=== PATIENT | male | born 1935 | race Caucasian/White ===

== ENCOUNTER → 2018-05-15 07:00 | Outpatient (CLI) | payer OTHER, SELFPAY ==
[2018-05-15 09:14] LABS: AST(SGOT) 18 U/L (15-37); Alanine Aminotransfer ALT/SGPT 21 U/L (16-61); Albumin, Serum 3.6 g/dL (3.2-5.0); Alkaline Phosphatase 46 U/L (45-117); Bilirubin, Direct 0.12 mg/dL (0.00-0.30); Cholesterol 196 mg/dL (200); Globulin 3.7 g/dL (2.2-4.2); High Density Lipoprotein 50 mg/dL; Protein, Total 7.3 g/dL (6.4-8.2); Triglycerides 95 mg/dL; Very Low Density Lipoprotein 19 mg/dL (5-40)
--- NOTE | 2018-05-15 11:21 | STRESSREP ---
Stress Test Report Date: 05/15/2018 Procedure: Pharmacologic stress nuclear imaging study Indications: Chest pain; CAD [place]: PCI Consent: Per the patient Procedure: The patient underwent pharmacologic (Regadenoson) evaluation with a peak heart rate of 81 beats per minute (58 predicted maximal heart rate) and a peak blood pressure of 134/82 mmHg. The baseline ECG demonstrated sinus bradycardia. The peak pharmacologic ECG demonstrated no obvious ECG changes. There were no cardiac dysrhythmias pretest, during pharmacologic infusion, or recovery. There was no complaint of chest discomfort during pharmacologic infusion or recovery. The examination was discontinued secondary to completion of protocol. Impression: 1. Pharmacologic (Regadenoson) evaluation 2. Peak pharmacologic ECG with no obvious ECG changes. 3. There were no cardiac dysrhythmias pretest, during pharmacologic infusion, or recovery 4. Nuclear images pending Myocardial perfusion imaging study: Technique: The patient was injected with 11.9 millicuries of technetium 99m Cardiolite and subsequently rest SPECT Cardiolite nuclear imaging was obtained in the horizontal long, vertical long, and short axis views. The patient underwent pharmacologic (Regadenoson) evaluation with a peak heart rate of 81 beats per minute (58 % percent predicted maximal heart rate) and a peak blood pressure of 134/82 mmHg. The patient was injected with 36 millicuries of technetium 99m Cardiolite and subsequently stress SPECT Cardiolite nuclear imaging was obtained in the horizontal long, vertical long, and short axis views. A gated Cardiolite study at peak stress was obtained. Interpretation: Rest and stress SPECT Cardiolite nuclear imaging status post realignment, normalization, and attenuation correction demonstrate extracardiac/gastrointestinal tracer uptake near the inferior segments with otherwise relative uniform tracer uptake and myocardial perfusion appearing within normal limits. There is end systolic thickening and brightening. The gated Cardiolite study demonstrates myocardial thickening and inward wall motion. The reported LVEF is 60 %. Impression: 1. Rest and stress SPECT Cardiolite nuclear imaging demonstrate relative uniform tracer uptake and myocardial perfusion appearing within normal limits. 2. The gated Cardiolite study reports an LVEF of 60 %. This note was generated with [facility] [employer] software. It may contain incorrect words, spelling, and punctuation that were not noted in checking the note before signing.
--- NOTE | 2018-05-15 11:25 | STRESSREP_ITS ---
Stress Test Report Date: 05/15/2018 Procedure: Pharmacologic stress nuclear imaging study Indications: Chest pain; CAD [place]: PCI Consent: Per the patient Procedure: The patient underwent pharmacologic (Regadenoson) evaluation with a peak heart rate of 81 beats per minute (58 predicted maximal heart rate) and a peak blood pressure of 134/82 mmHg. The baseline ECG demonstrated sinus bradycardia. The peak pharmacologic ECG demonstrated no obvious ECG changes. There were no cardiac dysrhythmias pretest, during pharmacologic infusion, or recovery. There was no complaint of chest discomfort during pharmacologic infusion or recovery. The examination was discontinued secondary to completion of protocol. Impression: 1. Pharmacologic (Regadenoson) evaluation 2. Peak pharmacologic ECG with no obvious ECG changes. 3. There were no cardiac dysrhythmias pretest, during pharmacologic infusion, or recovery 4. Nuclear images pending Myocardial perfusion imaging study: Technique: The patient was injected with 11.9 millicuries of technetium 99m Cardiolite and subsequently rest SPECT Cardiolite nuclear imaging was obtained in the horizontal long, vertical long, and short axis views. The patient underwent pharmacologic (Regadenoson) evaluation with a peak heart rate of 81 beats per minute (58 % percent predicted maximal heart rate) and a peak blood pressure of 134/82 mmHg. The patient was injected with 36 millicuries of technetium 99m Cardiolite and subsequently stress SPECT Cardiolite nuclear imaging was obtained in the horizontal long, vertical long, and short axis views. A gated Cardiolite study at peak stress was obtained. Interpretation: Rest and stress SPECT Cardiolite nuclear imaging status post realignment, normalization, and attenuation correction demonstrate extracardiac/ gastrointestinal tracer uptake near the inferior segments with otherwise relative uniform tracer uptake and myocardial perfusion appearing within normal limits. There is end systolic thickening and brightening. The gated Cardiolite study demonstrates myocardial thickening and inward wall motion. The reported LVEF is 60 %. Impression: 1. Rest and stress SPECT Cardiolite nuclear imaging demonstrate relative uniform tracer uptake and myocardial perfusion appearing within normal limits. 2. The gated Cardiolite study reports an LVEF of 60 %. This note was generated with [employer] software. It may contain incorrect words, spelling, and punctuation that were not noted in checking the note before signing.
[2018-05-15 14:29] LABS: PSA,Total - Annual Screen 0.63 ng/mL (0.00-4.00)
== END ==
PROVIDERS: Family Provider Family Medicine; PCP Family Medicine; Visit Provider Internal Medicine Cardiovascular Disease
DX: I25.10 Atherosclerotic heart disease of native coronary artery without angina pectoris (principal); E78.2 Mixed hyperlipidemia; Z12.5 Encounter for screening for malignant neoplasm of prostate
CPT/HCPCS: 36415; 78452; 80061; 80076; 84153; 93017; A9500; A4216; G0103; J2785

== ENCOUNTER → 2018-05-29 13:37 | Outpatient (CLI) | payer OTHER, SELFPAY ==
[2018-05-29 15:27] LABS: Absolute Lymphocyte Count 1.38 X10^3/ul (0.83-4.51); Absolute Neutrophil Count 4.2 X10^3/uL (2.0-7.7); Basophil# 0.03 X10^3/uL; Basophil% 0.5 % (0-1); Eosinophil# 0.13 X10^3/uL; Hematocrit 41.2 % (40-54); Hemoglobin 13.7 g/dl (13.0-16.5); Lymphocyte # 1.38 X10^3/ul (4.0); Mean Corp Hgb Conc 33.3 g/gl (32-36); Mean Corpuscular Hgb 31.9 pg (27.0-32.0); Mean Corpuscular Volume 95.8 fL (80-94); Monocyte# 0.85 X10^3/uL; Neutrophil # 4.16 X10^3/uL (2.7-7.7); Neutrophil % 63.3 % (47-70); Platelet Count 219 K/mm3 (150-450); RBC Distribution Width CV 13.8 % (11.6-14.6); RBC Distribution Width SD 47.7 fl (35.1-43.9); White Blood Count 6.6 K/mm3 (4.4-11.0)
[2018-05-29 15:37] LABS: POSITIVE COUNT NO; POSITIVE DIFFERENTIAL NO; POSITIVE MORPHOLOGY NO
[2018-05-29 15:42] LABS: Anion Gap 3 (5-15); BUN 18 mg/dL (7-18); BUN/Creat Ratio 17.6 RATIO (10-20); Calcium,Total 8.7 mg/dL (8.5-10.1); Chloride 106 mmol/L (98-107); Creatinine, Serum 1.02 mg/dL (0.70-1.30); EST Glomerular Filtration Rate 74 mL/min (>60); Est Glom Filt Rate - Afr Amer 90 mL/min (>60); Glucose 89 mg/dL (74-106); Potassium 4.6 mmol/L (3.5-5.1); Sodium Level 140 mmol/L (136-145)
== END ==
PROVIDERS: Family Provider Family Medicine; PCP Family Medicine; Visit Provider Family Medicine
DX: Z01.818 Encounter for other preprocedural examination (principal); I25.10 Atherosclerotic heart disease of native coronary artery without angina pectoris
CPT/HCPCS: 36415; 80048; 85025

== ENCOUNTER 2018-06-23 05:36 | Inpatient (IN) | payer SELFPAY, OTHER ==
[2018-06-11 15:21] VITALS: BP 146/82; PULSE 74; RESP 18; TEMP 36.6; O2SAT 97; BMI 28.5
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
--- NOTE | 2018-06-19 11:53 | CASEMGMT ---
Called patient's home and spoke with , patient was sleeping, regarding discharge needs after upcoming surgery. reports that the plan is for patient to return home after surgery if he's good enough to. Daughters will assist patient as is recovering from hip surgery. is unsure if patient has outpatient PT set up yet. Patient and have 2 walkers at home, reports she currently is using both. Informed that RN-CM can assist with getting a walker if needed. There are 2 steps into house with hand railings on both sides of the steps. There is a bedroom and bathroom on the 1st level of the home. Ladonna Gaona LPN Clinical Support
[2018-06-23] VITALS (10 sets, daily range): BP systolic 129–148; BP diastolic 69–82; PULSE 67–88; RESP 16; TEMP 35.6–36.7; O2SAT 95–98; BMI 28.5
[2018-06-23] MEDS: Acetaminophen 500 MG Tablet 1000 MG PO ×3 (06:31→22:24)
[2018-06-23] MEDS: oxyCODONE HCl Cr 10 MG Tablet PO (06:31)
[2018-06-23] MEDS: Lactated Ringers 1,000 ML 125 ML IV ×2 (06:40→15:01)
[2018-06-23] MEDS: Scopolamine 1mg/72hr Patch 1 PATCH TD (07:10)
--- NOTE | 2018-06-23 07:15 | RAD_ITS ---
STUDY: X-RAY - PELVIS AND RIGHT HIP REASON FOR EXAM: Male, 83 years old. Hip replacement. TECHNIQUE: Radiological exam, hip, unilateral, with pelvis when performed; 2 or 3 views. COMPARISON: None. FINDINGS: Intraoperative imaging provided for right hip replacement. There is good alignment. RAD/Hip 1 view with Pelvis IMPRESSION: Status post right total hip replacement. There is good alignment. Electronically Signed: Chinmay Hardin MD at 11:19 EDT Tel [phone], Service support ,
--- NOTE | 2018-06-23 07:16 | PCM.OPRPT ---
Report of Operation Date of Procedure: 06/23/18 Pre-Operative Diagnosis: Right Hip Osteoarthritis Post-Operative Diagnosis: Right Hip Osteoarthritis Surgery/Procedure Performed:: Right Direct Anterior ARMEN Description of Surgical Findings:: Stable hip with equal leg lengths straight line edger: Johnathan Renteria Type of Anesthesia:: Spinal Anesthesiologist: Romulo Bragg Special Medications: 2 g Ancef, 1 g TXA at incision, 1 g TXA closure, 10 mg Decadron, joint cocktail (5 mg Duramorph, 30 mL of 0.5% Ropivicaine, 1000 units of epinephrine, 30 mg of Toradol) Specimen's removed: bony cuts Estimated Blood Loss (mL): 200 Fluids Replaced: 1000 milliliters crystalloid Description of Procedure: Components used: 1. Accolade 2 Ros[place]ba femoral stem size 4 127? 2. [place] trident acetabular shell size 58 mm 3. [place] X3 polyethylene F 4. [place] Biolox delta 36mm, 0mm femoral head Brief history operative indications: 83 yo M who failed conservative measures for their hip osteoarthritis. X-rays were consistent with osteoarthritis including joint space narrowing, osteophyte formation and subchondral cysts. Total hip replacement was discussed with the patient with risks and benefits including but not limited to blood loss, DVTs, PEs, neurovascular damage, dislocation, general risks of anesthesia including loss of life. Patient demonstrated an understanding medical clearance is obtained the patient was consented for surgery. Procedure: On the date of procedure the patient's r hip was marked in the preoperative area. Patient was then taken back to the operating room where anesthesia assumed control of the C-spine and airway and administered anesthetic. Patient was transferred to the operating table and placed in the supine position. The hips were placed at the break of the bed and a sacral bump was placed. The r lower extremity was then prepped out in a sterile fashion using chlorhexidine while the surgeon scrubbed. The PA was vital in the positioning of the patient. Upon reentering the room the r lower extremity was draped in the standard orthopedic fashion and the incision was marked. A timeout was called and everyone agreed upon the side, the site, the procedure be performed, antibody given, and patient's identity. At this time incision was made through skin, subcutaneous tissue, and fat down to fascia. The fascia was then incised and the TFL was retracted laterally. A retractor was placed on the lateral border of the femoral neck. Attention was directed to the inferior portion of the approach and all crossing vessels were identified and appropriately coagulated. A retractor was then placed on the medial portion of the femoral neck. The anterior capsule was then cleared of all soft tissue and then H shaped capsulotomy was made. The retractors were then placed inside the capsule. The femoral neck was identified and a cleanup cut was made. At this time a power corkscrew was used to remove the femoral head. Attention was then turned toward the acetabulum where the soft tissues were appropriately retracted and the acetabulum was sequentially reamed to 57 mm. A 58 mm cup was then selected and impacted into place. Acetabular liner was impacted into place and locking mechanism was verified. The position of the acetabular cup was then verified under live fluoroscopy. Attention was then turned to the femur. Soft tissue releases on the medial and lateral femoral neck were appropriately done, the leg was externally rotated and lateralized. A Thomason retractor was placed medially and proximally to the greater trochanter this allowed appropriate visualization and exposure of the femoral canal. Rongeour was then used to remove excess lateral bone. A canal finder and entry broach were used to open the proximal canal. Once we verified we were down the femoral canal we subsequently broached up to a size 4 femur. The appropriate neck was placed in the previously selected head was trialed with a 0 mm neck. Traction was pulled and the hip was reduced with internal rotation. Once it was appropriately reduced and stability was checked. There was minimal shuck, equal leg lengths and appropriate stability with hyperextension and external rotation as well as with 90? flexion and internal rotation. Fluoroscopy was then also used to verify the position of the components and leg lengths using the contralateral side for comparison. The trial components were then dislocated the proximal femur was again exposed and the components were removed from the wound. The final components were verified and opened. The wound was copiously irrigated out with normal saline. The acetabulum was checked for any residual debris. The final components were placed and impacted. Traction and internal rotation were again used to reduce the hip. After adequate reduction the hip remained stable with appropriate leg lengths. The final components were once again checked with live fluoroscopy and were found to be satisfactory. The wound was then copiously irrigated with normal saline once more, and hemostasis was obtained. Closure was then done using #1 Vicryl runner to close the fascia. A 2-0 vicryl interuppted sutures were used to close the subcutaneous skin. A 3-0 Monocryl and Steri-Strips were used for final skin closure. A Silverlon dressing was placed. Patient was awakened by anesthesia and transferred to the [facility]. Patient was then transferred to the PACU for recovery. Postoperative plan: Patient will get 24 hours postop antibiotics. Patient will get in-house physical therapy and will be weight-bear as tolerated. Patient will follow up in office in 2 weeks for a wound check and x-rays. During the course of the procedure the physician furniture removalist's assistant played a vital role. His intimate knowledge of my steps in the procedure aided in safe and expedient completion of the procedure. The PA played a vital rolls in positioning particularly in obtaining the appropriate positioning of the sacral bump. The PA was also vital in the retraction of soft tissues during the exposure and especially the femoral work as this is a vital part of the procedure to prevent complications and fractures. The PA was also vital and protecting soft tissues during times of bony cuts and reaming. He also played a vital role in closure with my direct supervision. The PA was also important during reduction and dislocation of the joint and trials intraoperatively. Grafts/Implants Used: [place] Accolade 2 - Complications none - Admit VTE Documentation VTE Present on Admission: No VTE Mechan Device Prophylaxis: SCD's, Thigh High DONI Hose VTE Pharm Prophylaxis ordered?: Yes
[2018-06-23] MEDS: Cefazolin 2 GM in 0.9% Normal Saline 100 ML IV (07:18)
--- NOTE | 2018-06-23 09:33 | RAD_ITS ---
STUDY: X-RAY - PELVIS AND RIGHT HIP REASON FOR EXAM: Male, 83 years old. Status post right hip replacement. TECHNIQUE: Radiological exam, hip, unilateral, with pelvis when performed; 2 or 3 views. COMPARISON: None. FINDINGS: The patient is status post right total hip replacement. There is good alignment. Postoperative soft tissue changes. RAD/Hip Min 2 Views (Portable) IMPRESSION: Status post right total hip replacement with good alignment. Postoperative soft tissue changes. Electronically Signed: Chinmay Hardin MD at 11:20 EDT Tel [phone], Service support ,
--- NOTE | 2018-06-23 11:28 | PCM.PN.HOSP ---
Subjective: Patient is an 83-year-old gentleman with multiple comorbidities including CAD who underwent right direct anterior total hip arthroplasty on account of right hip osteoarthritis on 06/23/[address] Camilo the hospitalist service was consulted to assist with management of patient medical comorbidities Objective: GENERAL: cooperative HEENT: Clear conjunctiva, NECK; supple, normal thyroid, CHEST: Clear to auscultation bilaterally, HEART: Regular S1 S2, no audible murmurs ABDOMEN: soft, non-tender, normoactive bowel sounds, RECTAL: deferred EXTREMITIES: No edema, no clubbing, no cyanosis. 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 SKIN: No Rash Vitals/I&O's: Vital Signs Temp Pulse Resp BP Pulse Ox 97.8 F 79 16 145/78 H 95 06/23/18 10:48 06/23/18 10:48 06/23/18 10:48 06/23/18 10:48 06/23/18 10:48 Oxygen Delivery Method Room Air Weight: 87.5 kg Body Mass Index (BMI) 28.5 Finger Stick Blood Glucose 90 Intake and Output for Last 24 Hours 06/21/18 06/22/18 06/23/18 23:59 23:59 23:59 Intake Total 1200 / 1200 Balance 1200 / 1200 Current Medications Acetaminophen (Tylenol) 1,000 mg PO Q8 [facility] Albuterol Sulfate (Ventolin Aerosols) 2.5 mg INHALATION Q6H PRN PRN PRN Reason: Asthma Amlodipine Besylate (Norvasc) 2.5 mg PO DAILY [facility] Aspirin (Ecotrin) 81 mg PO BID [facility] Cyanocobalamin (Vitamin B12) 1,000 mcg PO DAILY [facility] Famotidine (Pepcid) 20 mg PO DAILY [facility] Cefazolin Sodium () 1 gm in 50 mls @ 150 mls/hr IV Q8H [facility] Stop: 06/23/18 23:37 Lactated Ringer's () 1,000 mls @ 125 mls/hr IV .Q8H [facility] Ketorolac Tromethamine (Toradol) 15 mg IV Q6H PRN PRN PRN Reason: MILD-MOD PAIN (1-5/10) Lisinopril (Zestril) 5 mg PO DAILY [facility] Meloxicam (Mobic) 7.5 mg PO BIDCM [facility] Morphine Sulfate () 2 - 4 mg IV Q2H PRN PRN PRN Reason: SEVERE PAIN (6-10/10) Multivitamins (Multivitamin) 1 tablet PO DAILY@0800 [facility] Nitroglycerin (Nitrostat) 0.4 mg SUBLINGUAL Q5M PRN PRN Reason: Chest Pain Nutritional Formula (Lactose Free) (Ensure Clear) 120 ml PO TIDCM [facility] Ondansetron HCl (Zofran) 4 mg IV Q8H PRN PRN PRN Reason: NAUSEA Pravastatin Sodium (Pravachol) 20 mg PO QHS [facility] Promethazine HCl (Phenergan) 12.5 mg IM Q6H PRN PRN; Protocol PRN Reason: NAUSEA/VOMITING Scopolamine HBr (Transderm-Scop) 1 patch TD Q3D [facility] Stop: 06/23/18 12:01 Last Admin: 06/23/18 07:10 Dose: 1.5 mg Senna/Docusate Sodium (Senokot-S, Gloria-Colace) 2 tablet PO BID [facility] Sodium Chloride () 5 - 30 ml IV UD PRN PRN Reason: SALINE FLUSH Tramadol HCl (Ultram) 50 - 100 mg PO Q6H PRN PRN PRN Reason: MOD-SEVERE PAIN (4-10/10) Medical Necessity - Tobacco Use Smoking Status: Never smoker Assessment/Plan All Active Problems (Last Reviewed 05/07/18 @ 14:40 by Elsa Acevedo) Preop cardiovascular exam (Acute) Abnormal electrocardiogram (Resolved) Angina pectoris (Resolved) Bradycardia (Resolved) Chest pain, precordial (Resolved) Cough (Resolved) Dizziness (Resolved) Fatigue (Resolved) Vasovagal syncope (Resolved) Patient is an 83-year-old gentleman with multiple comorbidities including CAD who underwent right direct anterior total hip arthroplasty on account of right hip osteoarthritis on 06/23/[address] Camilo the hospitalist service was consulted to assist with management of patient medical comorbidities 1. Status post Right Direct Anterior on 18 on account of right hip osteo-arthritis by Dr. Chilel. Patient postoperative orders regarding pain management, PT OT as well as DVT prophylaxis addressed by primary service 2. CAD with previous PCI-DAVID x 3 -Prox-Mid LAD 05/06/2012 patient is followed as outpatient by Dr. Maurizio hadley 3. Hypertension-blood pressure controlled, home medications continued with dose adjustment as needed 4. Dyslipidemia-patient is on statin therapy, continued at home dose DVT prophylaxis as addressed by orthopedic surgery patient was placed on aspirin 81 mg p.o. twice daily Active Medications Acetaminophen (Tylenol) 1,000 mg PO Q8 [facility] Albuterol Sulfate (Ventolin Aerosols) 2.5 mg INHALATION Q6H PRN PRN PRN Reason: Asthma Amlodipine Besylate (Norvasc) 2.5 mg PO DAILY [facility] Aspirin (Ecotrin) 81 mg PO BID [facility] Cyanocobalamin (Vitamin B12) 1,000 mcg PO DAILY [facility] Last Admin: 06/23/18 11:39 Dose: 1,000 mcg Famotidine (Pepcid) 20 mg PO DAILY [facility] Last Admin: 06/23/18 11:39 Dose: 20 mg Cefazolin Sodium () 1 gm in 50 mls @ 150 mls/hr IV Q8H [facility] Stop: 06/23/18 23:37 Lactated Ringer's () 1,000 mls @ 125 mls/hr IV .Q8H [facility] Ketorolac Tromethamine (Toradol) 15 mg IV Q6H PRN PRN PRN Reason: MILD-MOD PAIN (1-5/10) Lisinopril (Zestril) 5 mg PO DAILY [facility] Meloxicam (Mobic) 7.5 mg PO BIDCM [facility] Morphine Sulfate () 2 - 4 mg IV Q2H PRN PRN PRN Reason: SEVERE PAIN (6-10/10) Multivitamins (Multivitamin) 1 tablet PO DAILY@0800 [facility] Nitroglycerin (Nitrostat) 0.4 mg SUBLINGUAL Q5M PRN PRN Reason: Chest Pain Nutritional Formula (Lactose Free) (Ensure Clear) 120 ml PO TIDCM [facility] Last Admin: 06/23/18 11:49 Dose: 120 ml Ondansetron HCl (Zofran) 4 mg IV Q8H PRN PRN PRN Reason: NAUSEA Pravastatin Sodium (Pravachol) 20 mg PO QHS [facility] Promethazine HCl (Phenergan) 12.5 mg IM Q6H PRN PRN; Protocol PRN Reason: NAUSEA/VOMITING Senna/Docusate Sodium (Senokot-S, Gloria-Colace) 2 tablet PO BID [facility] Last Admin: 06/23/18 11:39 Dose: 2 tablet Sodium Chloride () 5 - 30 ml IV UD PRN PRN Reason: SALINE FLUSH Tramadol HCl (Ultram) 50 - 100 mg PO Q6H PRN PRN PRN Reason: MOD-SEVERE PAIN (-07/22) Code Visit Inpatient E&M: 47011 Subs Hosp L3
[2018-06-23] MEDS: Cyanocobalamin 500 MCG Tablet 1000 MCG PO (11:39)
[2018-06-23] MEDS: Senna/Docusate Sodium 1 Tablet 2 TABLET PO ×2 (11:39→22:24)
[2018-06-23] MEDS: Famotidine 20 MG Tablet PO (11:39)
[2018-06-23] MEDS: traMADol 50 MG Tablet PO (12:50)
[2018-06-23] MEDS: Cefazolin 1 GM/50 ML BAG IV ×2 (15:00→22:24)
[2018-06-23] MEDS: Meloxicam 7.5 MG Tablet PO (17:43)
[2018-06-23] MEDS: Pravastatin 20 MG Tablet PO (22:24)
[2018-06-23] MEDS: MELATONIN 3 MG TABLET PO (22:36)
[2018-06-24 00:40] VITALS: BP 135/71; PULSE 74; RESP 16; TEMP 36.6; O2SAT 97
[2018-06-24] MEDS: traMADol 50 MG Tablet PO (02:56)
[2018-06-24 05:16] LABS: Hemoglobin 11.7 g/dl (13.0-16.5); Mean Corp Hgb Conc 33.4 g/gl (32-36); Mean Corpuscular Hgb 31.8 pg (27.0-32.0); Mean Corpuscular Volume 95.1 fL (80-94); Mean Platelet Vol. 9.7 fl (6.2-12.0); Platelet Count 195 K/mm3 (150-450); RBC Distribution Width CV 13.5 % (11.6-14.6); RBC Distribution Width SD 44.9 fl (35.1-43.9); Red Blood Count 3.68 M/mm3 (4.6-6.2); White Blood Count 12.7 K/mm3 (4.4-11.0)
[2018-06-24 05:17] LABS: Scan Indicated on CBC? Y/N NO
[2018-06-24 05:43] LABS: Anion Gap 9 (5-15); BUN 25 mg/dL (7-18); BUN/Creat Ratio 23.8 RATIO (10-20); Calcium,Total 8.2 mg/dL (8.5-10.1); Chloride 107 mmol/L (98-107); Creatinine, Serum 1.05 mg/dL (0.70-1.30); EST Glomerular Filtration Rate 72 mL/min (>60); Est Glom Filt Rate - Afr Amer 87 mL/min (>60); Estimated Creatinine Clearance 54.24 ml/min; Glucose 119 mg/dL (74-106); Potassium 4.2 mmol/L (3.5-5.1); Sodium Level 142 mmol/L (136-145)
[2018-06-24 06:31] VITALS: BP 148/76; PULSE 72; RESP 16; TEMP 36.6; O2SAT 98
[2018-06-24] MEDS: Acetaminophen 500 MG Tablet 1000 MG PO ×2 (07:00→13:49)
[2018-06-24] MEDS: 0.9% NaCl Peripheral Flush Adult/Peds IV (07:01)
--- NOTE | 2018-06-24 07:19 | PN.ORTHO_ITS ---
Subjective: The patient was sitting in bedside chair upon examination. Patient denies any chest pain, shortness of breath, dizziness, lightheadedness, nausea or vomiting , or calf pain. Pain is controlled on medications. No adverse overnight events. Overall patient is doing very well. He does complain of some right thigh pain near the surgical site. Otherwise he has no significant complaints and wishes to try to go home today. Objective: Vital signs stable and afebrile. Patient is able to plantarflex and dorsiflex actively. Sensation is intact to light touch to saphenous, sural, superficial and deep peroneal, and tibial distribution. Dressing is clean dry and intact. Negative Homans bilaterally, negative signs and symptoms of DVT. - Physical Exam General: Alert, Oriented x3, Cooperative, No apparent distress Vital Signs Temp Pulse Resp BP Pulse Ox 97.8 F 72 16 148/76 H 98 06/24/18 06:31 06/24/18 06:31 06/24/18 06:31 06/24/18 06:31 06/24/18 06:31 Oxygen Delivery Method Room Air Weight: 87.5 kg Body Mass Index (BMI) 28.5 Finger Stick Blood Glucose 90 Intake and Output for Last 24 Hours 06/22/18 06/23/18 06/24/18 23:59 23:59 23:59 Intake Total 3046 / 3046 Output Total 950 / 950 Balance 2096 / 2096 Laboratory Tests Past 24 Hrs 06/24/18 06/24/18 05:02 05:02 WBC 12.7 H RBC 3.68 L Hgb 11.7 L Hct 35.0 L MCV 95.1 H MCH 31.8 MCHC 33.4 RDW 13.5 RDW Differential 44.9 H Plt Count 195 MPV 9.7 Sodium 142 Potassium 4.2 Chloride 107 Carbon Dioxide 26.0 Anion Gap 9 BUN 25 H Creatinine 1.05 Estim Creat Clear Calc 54.24 Est GFR (MDRD) Af Amer 87 Est GFR (MDRD) Non-Af 72 BUN/Creatinine Ratio 23.8 H Glucose 119 H Calcium 8.2 L Medical Necessity - Tobacco Use Smoking Status: Never smoker Assessment/Plan All Active Problems (Last Reviewed 05/07/18 @ 14:40 by Elsa Acevedo) Preop cardiovascular exam (Acute) Abnormal electrocardiogram (Resolved) Angina pectoris (Resolved) Bradycardia (Resolved) Chest pain, precordial (Resolved) Cough (Resolved) Dizziness (Resolved) Fatigue (Resolved) Vasovagal syncope (Resolved) 1. S/P right total hip arthroplasty POD #1 2. Continue Pain Medications: Tylenol and tramadol 3. DVT Prophylaxis: Aspirin 81 mg twice daily for 4 weeks 4. PT/OT: Weightbearing as tolerated 5. H & H: 11.7/35.0, asymptomatic 6. Leukocytosis: Currently 12.7, afebrile. Patient did receive Decadron intraoperatively 7. Encouraged Incentive Spirometry 8. Continue postoperative medical management per medicine 9. Disposition: Orthopedically stable, plan is for discharge home this afternoon. Patient will follow-up per postop instructions. Prescriptions are E scribed to [facility].
--- NOTE | 2018-06-24 07:23 | PCM.DC.THR ---
Discharge Diet: No Restrictions Discharge Activity: May Not Drive - while taking narcotic pain medications. May shower in (days): 1 - Turned dressing away from water Ice area for (Minutes): 20 - Every 1-2 hours while awake Weight Bearing Status: Weight bearing as tolerated Elevate: Operative Extremity Additional Activity Instructions:: Wear elastic stockings for 2 weeks. DO NOT use alcohol with narcotic pain medication. DO NOT make important decisions while taking narcotic medication. If you have problems with taking your medication (rash, itching, nausea, etc.) call the office at once. Call your doctor if your incision/area has: Increased Pain/ Swelling, Increased Redness, Foul Smelling Discharge Call your doctor if you observe: Fever of 101 or Higher Remove Dressing in (days):: 4 - Okay to remove on June 28, 2018 Additional Instructions: Follow [facility] postop instructions Allergies/Adverse Reactions: Allergies No Known Allergies Allergy (Verified 06/11/18 15:05) Medications to take at Discharge nitroglycerin 0.4 mg sublingual tablet 0.4 mg SUBLINGUAL Q5-15M PRN #25 tab 10/10/17 Albuterol Aerosols [Ventolin Aerosols] 2.5 mg INHALATION Q6H PRN PRN 06/11/18 Amlodipine Besylate [Norvasc] 2.5 mg PO QDAY 06/11/18 Cyanocobalamin (Vitamin B-12) [Vitamin B-12] 1,000 mcg PO DAILY 06/11/18 Lisinopril [Prinivil] 5 mg PO DAILY 06/11/18 Multivitamin [Multiple Vitamins] 1 each PO DAILY 06/11/18 Pravastatin [Pravachol] 20 mg PO QHS 06/11/18 Acetaminophen [Tylenol] 1,000 mg PO Q8 #90 tab 06/24/18 Aspirin E.C. [Ecotrin] 81 mg PO BID #60 tab 06/24/18 Famotidine [Pepcid] 20 mg PO DAILY #30 tab 06/24/18 Melatonin 3 - 6 mg PO QHS tablet 06/24/18 Meloxicam [Mobic] 7.5 mg PO BIDCM #30 tab 06/24/18 Senna/Docusate Sodium [Senokot-S] 2 tab PO BID #20 tab 06/24/18 traMADol [Ultram] 50 - 100 mg PO Q6H PRN PRN 7 Days #56 tablet 06/24/18 The following prescriptions were given: traMADol [Ultram] 50 - 100 mg PO Q6H PRN PRN 7 Days #56 tablet PRN Reason: Mod-Severe Pain (-07/22) Acetaminophen [Tylenol] 1,000 mg PO Q8 #90 tab Famotidine [Pepcid] 20 mg PO DAILY #30 tab Aspirin E.C. [Ecotrin] 81 mg PO BID #60 tab Meloxicam [Mobic] 7.5 mg PO BIDCM #30 tab Senna/Docusate Sodium [Senokot-S] 2 tab PO BID #20 tab Primary Care Physician: Hai Ovalle DO [Primary Care Provider] - Test Results: Test results from this visit will be discussed in further detail at your follow-up appointment, if applicable. Please Follow Up With: Physical therapy When: 06/26/18 Please Follow Up With: Johnathan Renteria PA-C When: 07/06/18 @ 1:30 pm
[2018-06-24] MEDS: Senna/Docusate Sodium 1 Tablet 2 TABLET PO (08:26)
[2018-06-24] MEDS: Aspirin E.C. 81 MG Tablet PO (08:27)
[2018-06-24] MEDS: Cyanocobalamin 500 MCG Tablet 1000 MCG PO (08:27)
[2018-06-24] MEDS: Meloxicam 7.5 MG Tablet PO (08:27)
[2018-06-24] MEDS: Multivitamins,Therapeutic Tablet 1 TABLET PO (08:27)
[2018-06-24] MEDS: Lisinopril 5 MG Tablet PO (08:27)
--- NOTE | 2018-06-24 08:28 | PN_ITS ---
Subjective: Patient seen participating in physical therapy in the hallway. Case was discussed with Dr. Chilel who recommended for patient to be discharged home later this afternoon Objective: GENERAL: cooperative HEENT: Clear conjunctiva, NECK; supple, normal thyroid, CHEST: Clear to auscultation bilaterally, HEART: Regular S1 S2, no audible murmurs ABDOMEN: soft, non-tender, normoactive bowel sounds, RECTAL: deferred EXTREMITIES: No edema, no clubbing, no cyanosis. THERAPEUTIC DIETITIAN: Awake; no lateralizing signs. SKIN: No Rash Vitals/I&O's: Vital Signs Temp Pulse Resp BP Pulse Ox 97.8 F 72 16 148/76 H 98 06/24/18 06:31 06/24/18 06:31 06/24/18 06:31 06/24/18 06:31 06/24/18 06:31 Oxygen Delivery Method Room Air Weight: 87.5 kg Body Mass Index (BMI) 28.5 Finger Stick Blood Glucose 90 Intake and Output for Last 24 Hours 06/22/18 06/23/18 06/24/18 23:59 23:59 23:59 Intake Total 3046 / 3046 289 / 289 Output Total 950 / 950 Balance 2096 / 2096 289 / 289 Laboratory Results 06/24/18 05:02: WBC 12.7 H, RBC 3.68 L, Hgb 11.7 L, Hct 35.0 L, MCV 95.1 H, MCH 31.8, MCHC 33.4, RDW 13.5, RDW Differential 44.9 H, Plt Count 195, MPV 9.7 06/24/18 05:02: Sodium 142, Potassium 4.2, Chloride 107, Carbon Dioxide 26.0, Anion Gap 9, BUN 25 H, Creatinine 1.05, Estim Creat Clear Calc 54.24, Est GFR ( MDRD) Af Amer 87, Est GFR (MDRD) Non-Af 72, BUN/Creatinine Ratio 23.8 H, Glucose 119 H, Calcium 8.2 L Current Medications Acetaminophen (Tylenol) 1,000 mg PO Q8 [facility] Last Admin: 06/24/18 07:00 Dose: 1,000 mg Albuterol Sulfate (Ventolin Aerosols) 2.5 mg INHALATION Q6H PRN PRN PRN Reason: Asthma Amlodipine Besylate (Norvasc) 2.5 mg PO DAILY [facility] Aspirin (Ecotrin) 81 mg PO BID [facility] Cyanocobalamin (Vitamin B12) 1,000 mcg PO DAILY [facility] Last Admin: 06/23/18 11:39 Dose: 1,000 mcg Famotidine (Pepcid) 20 mg PO DAILY [facility] Last Admin: 06/23/18 11:39 Dose: 20 mg Lactated Ringer's () 1,000 mls @ 125 mls/hr IV .Q8H [facility] Last Admin: 06/24/18 06:42 Dose: Not Given Ketorolac Tromethamine (Toradol) 15 mg IV Q6H PRN PRN PRN Reason: MILD-MOD PAIN (1-510) Lisinopril (Zestril) 5 mg PO DAILY [facility] Melatonin (Melatonin) 3 - 6 mg PO QHS [facility] Last Admin: 06/23/18 22:36 Dose: 3 mg [facility]) [facility] Last Admin: 06/23/18 17:43 Dose: 7.5 mg Morphine Sulfate () 2 - 4 mg IV Q2H PRN PRN PRN Reason: SEVERE PAIN (6-1010) Multivitamins (Multivitamin) 1 tablet PO DAILY@0800 [facility] Nitroglycerin (Nitrostat) 0.4 mg SUBLINGUAL Q5M PRN PRN Reason: Chest Pain Nutritional Formula (Lactose Free) (Ensure Clear) 120 ml PO TIDCM [facility] Last Admin: 06/23/18 17:44 Dose: 120 ml Ondansetron HCl (Zofran) 4 mg IV Q8H PRN PRN PRN Reason: NAUSEA Pravastatin Sodium (Pravachol) 20 mg PO QHS [facility] Last Admin: 06/23/18 22:24 Dose: 20 mg Promethazine HCl (Phenergan) 12.5 mg IM Q6H PRN PRN; Protocol PRN Reason: NAUSEA/VOMITING Senna/Docusate Sodium (Senokot-S, Gloria-Colace) 2 tablet PO BID [facility] Last Admin: 06/23/18 22:24 Dose: 2 tablet Sodium Chloride () 5 - 30 ml IV UD PRN PRN Reason: SALINE FLUSH Last Admin: 06/24/18 07:01 Dose: 10 ml Tramadol HCl (Ultram) 50 - 100 mg PO Q6H PRN PRN PRN Reason: MOD-SEVERE PAIN (4-07/22) Last Admin: 06/24/18 02:56 Dose: 50 mg Medical Necessity - Tobacco Use Smoking Status: Never smoker Assessment/Plan All Active Problems (Last Reviewed 05/07/18 @ 14:40 by Elsa Acevedo) Preop cardiovascular exam (Acute) Abnormal electrocardiogram (Resolved) Angina pectoris (Resolved) Bradycardia (Resolved) Chest pain, precordial (Resolved) Cough (Resolved) Dizziness (Resolved) Fatigue (Resolved) Vasovagal syncope (Resolved) Patient is an 83-year-old gentleman with multiple comorbidities including CAD who underwent right direct anterior total hip arthroplasty on account of right hip osteoarthritis on 06/23/[address] Camilo the hospitalist service was consulted to assist with management of patient medical comorbidities 1. Status post Right Direct Anterior on 18 on account of right hip osteo- arthritis by Dr. Chilel. Patient postoperative orders regarding pain management , PT OT as well as DVT prophylaxis addressed by primary service 2. CAD with previous PCI-DAVID x 3 -Prox-Mid LAD 05/06/2012 patient is followed as outpatient by Dr. Steven spine 3. Hypertension-blood pressure controlled, home medications continued with dose adjustment as needed 4. Dyslipidemia-patient is on statin therapy, continued at home dose DVT prophylaxis as addressed by orthopedic surgery patient was placed on aspirin 81 mg p.o. twice daily Active Medications Acetaminophen (Tylenol) 1,000 mg PO Q8 [facility] Albuterol Sulfate (Ventolin Aerosols) 2.5 mg INHALATION Q6H PRN PRN PRN Reason: Asthma Amlodipine Besylate (Norvasc) 2.5 mg PO DAILY [facility] Aspirin (Ecotrin) 81 mg PO BID [facility] Cyanocobalamin (Vitamin B12) 1,000 mcg PO DAILY [facility] Last Admin: 06/23/18 11:39 Dose: 1,000 mcg Famotidine (Pepcid) 20 mg PO DAILY [facility] Last Admin: 06/23/18 11:39 Dose: 20 mg Cefazolin Sodium () 1 gm in 50 mls @ 150 mls/hr IV Q8H [facility] Stop: 06/23/18 23:37 Lactated Ringer's () 1,000 mls @ 125 mls/hr IV .Q8H [facility] Ketorolac Tromethamine (Toradol) 15 mg IV Q6H PRN PRN PRN Reason: MILD-MOD PAIN (-02/19) Lisinopril (Zestril) 5 mg PO DAILY [facility] Meloxicam (Mobic) 7.5 mg PO BIDCM [facility] Morphine Sulfate () 2 - 4 mg IV Q2H PRN PRN PRN Reason: SEVERE PAIN (6-07/22) Multivitamins (Multivitamin) 1 tablet PO DAILY@0800 [facility] Nitroglycerin (Nitrostat) 0.4 mg SUBLINGUAL Q5M PRN PRN Reason: Chest Pain Nutritional Formula (Lactose Free) (Ensure Clear) 120 ml PO TIDCM [facility] Last Admin: 06/23/18 11:49 Dose: 120 ml Ondansetron HCl (Zofran) 4 mg IV Q8H PRN PRN PRN Reason: NAUSEA Pravastatin Sodium (Pravachol) 20 mg PO QHS [facility] Promethazine HCl (Phenergan) 12.5 mg IM Q6H PRN PRN; Protocol PRN Reason: NAUSEA/VOMITING Senna/Docusate Sodium (Senokot-S, Gloria-Colace) 2 tablet PO BID [facility] Last Admin: 06/23/18 11:39 Dose: 2 tablet Sodium Chloride () 5 - 30 ml IV UD PRN PRN Reason: SALINE FLUSH Tramadol HCl (Ultram) 50 - 100 mg PO Q6H PRN PRN PRN Reason: MOD-SEVERE PAIN (-07/22) Code Visit Inpatient E&M: 07162 Subs Hosp L2
[2018-06-24] MEDS: Famotidine 20 MG Tablet PO (08:30)
[2018-06-24] MEDS: amLODIPine 2.5 MG Tablet PO (08:30)
[2018-06-24 10:45] VITALS: BP 123/62; PULSE 64; RESP 18; TEMP 36.8; O2SAT 96
--- NOTE | 2018-06-24 13:19 | CASEMGMT ---
CANDICE CARLOS Face to Face with patient for initial transition planning/care coordination assessment. RN TERRANCE introduced self and role at [facility]. Patient sitting in chair, alert and oriented, son at bedside. Patient willing to participate in assessment and is able to answer all questions appropriately. Care providers, pharmacy, and demographics verified. Patient lives with family in house with first floor and has walker at home. Patient wishes to discharge home and is setup [facility] for outpatient therpay. Patient states he has no further needs or concerns at this time. CM to follow for discharge planning needs that may arise. Disposition Plan: Patient to discharge home with outpatient therapy, family support, and follow-up plans in place. Fina ORTIZ, RN, CM
== END 2018-06-24 14:30 | disposition home or self-care (01) | DRG 470 ==
PROVIDERS: Admitting Provider Specialist; Family Provider Family Medicine; PCP Family Medicine; Visit Provider Specialist
PROC: 0SR904A Replacement of Right Hip Joint with Ceramic on Polyethylene Synthetic Substitute, Uncemented, Open Approach (ICD-10-PCS; CPT 27284; principal; 2018-06-23 06:50)
DX: M16.11 Unilateral primary osteoarthritis, right hip (principal); I25.10 Atherosclerotic heart disease of native coronary artery without angina pectoris; Z95.5 Presence of coronary angioplasty implant and graft; I10 Essential (primary) hypertension; Z79.899 Other long term (current) drug therapy; E78.00 Pure hypercholesterolemia, unspecified; J45.909 Unspecified asthma, uncomplicated; I67.9 Cerebrovascular disease, unspecified
CPT/HCPCS: 36415; 73501; 73502; 76000; 80048; 85027; 87081; 97110; 97162; 97166; 97530; 99251; C1776; J7120; A4216; G0463

== ENCOUNTER → 2019-06-07 | Outpatient (CLI) | payer OTHER, SELFPAY ==
[2019-06-07 10:01] VITALS: BMI 27.1
[2019-06-07 11:41] LABS: AST(SGOT) 18 U/L (15-37); Alanine Aminotransfer ALT/SGPT 25 U/L (16-61); Albumin, Serum 3.6 g/dL (3.2-5.0); Alkaline Phosphatase 50 U/L (45-117); Bilirubin, Direct 0.09 mg/dL (0.00-0.30); Cholesterol 172 mg/dL (200); Globulin 3.6 g/dL (2.2-4.2); High Density Lipoprotein 60 mg/dL; Protein, Total 7.2 g/dL (6.4-8.2); Triglycerides 73 mg/dL; Very Low Density Lipoprotein 15 mg/dL (5-40)
== END | disposition home or self-care (01) ==
LOC: LAB 10:43
PROVIDERS: Family Provider Family Medicine; PCP Family Medicine; Referring Provider Internal Medicine Cardiovascular Disease; Visit Provider Internal Medicine Cardiovascular Disease
DX: E78.00 Pure hypercholesterolemia, unspecified (principal)
CPT/HCPCS: 36415; 80061; 80076

== ENCOUNTER → 2019-09-27 10:48 | Outpatient (CLI) | payer OTHER, SELFPAY ==
[2019-06-07 10:01] VITALS: BMI 27.1
[2019-09-27 12:18] LABS: Absolute Lymphocyte Count 1.54 X10^3/uL (0.83-4.51); Absolute Neutrophil Count 2.7 X10^3/uL (2.0-7.7); Basophil# 0.04 X10^3/uL; Basophil% 0.7 % (0-1); Eosinophils% 3.7 % (0-5); Hematocrit 42.3 % (40-54); Hemoglobin 13.5 g/dL (13.0-16.5); Lymphocyte # 1.54 X10^3/ul (4.0); Lymphocyte % 28.6 % (19-41); Mean Corp Hgb Conc 31.9 g/dL (32-36); Mean Corpuscular Hgb 31.4 pg (27.0-32.0); Mean Corpuscular Volume 98.4 fL (80-94); Mean Platelet Vol. 10.6 fl (6.2-12.0); Monocyte# 0.86 X10^3/uL; NRBC Flagged by Analyzer 0 % (0-5); Neutrophil # 2.73 X10^3/uL (2.7-7.7); Neutrophil % 50.6 % (47-70); Platelet Count 254 K/mm3 (150-450); RBC Distribution Width CV 13.6 % (11.6-14.6); RBC Distribution Width SD 49.3 fl (35.1-43.9); White Blood Count 5.4 K/mm3 (4.4-11.0)
[2019-09-27 12:43] LABS: Anion Gap 4 (5-15); BUN 16 mg/dL (7-18); Calcium,Total 8.9 mg/dL (8.5-10.1); Chloride 106 mmol/L (98-107); Creatinine, Serum 1.07 mg/dL (0.70-1.30); EST Glomerular Filtration Rate 70 mL/min (>60); Est Glom Filt Rate - Afr Amer 85 mL/min (>60); Glucose 89 mg/dL (74-106); PSA,Total - Annual Screen 0.59 ng/mL (0.00-4.00); Potassium 4.1 mmol/L (3.5-5.1); Sodium Level 140 mmol/L (136-145)
== END ==
PROVIDERS: Family Provider Family Medicine; PCP Family Medicine; Visit Provider Family Medicine
DX: I10 Essential (primary) hypertension (principal); Z51.81 Encounter for therapeutic drug level monitoring; Z12.5 Encounter for screening for malignant neoplasm of prostate
CPT/HCPCS: 36415; 80048; 84153; 85025; G0103

== ENCOUNTER 2019-10-19 21:02 | Observation (INO) | payer OTHER, SELFPAY ==
[2019-06-07 10:01] VITALS: BMI 27.1
[2019-10-19 21:03] VITALS: BP 133/76; PULSE 73; RESP 18; TEMP 36.9; O2SAT 96; BMI 27.9
[2019-10-19 21:42] VITALS: BP 151/79; PULSE 72; RESP 14; O2SAT 96
--- NOTE | 2019-10-19 21:42 | EKG12_ITS ---
Test Reason : DIZZINESS Blood Pressure : / mmHG Vent. Rate : 070 BPM Atrial Rate : 070 BPM P-R Int : 186 ms QRS Dur : 100 ms QT Int : 406 ms P-R-T Axes : 058 002 056 degrees QTc Int : 438 ms Normal sinus rhythm Normal ECG Confirmed by SONA CHUA ([id number]), acquisition editor CHUCKIE PERALES ([id number] on 10/21/2019 10:47:55 AM Referred By: DAMIAN Confirmed By:SONA CHUA
--- NOTE | 2019-10-19 21:42 | CT_ITS ---
STUDY: CT BRAIN WITHOUT CONTRAST REASON FOR EXAM: Male, 84 years old. VERTIGO, DIPLOPIA RADIATION DOSAGE (If Supplied By Facility): CTDIvol = ( 44.99 ) mGy, DLP = ( 796.11 ) mGycm TECHNIQUE: Transaxial CT imaging of the brain was performed without administration of intravenous contrast material. Individualized dose optimization techniques were used for this CT. COMPARISON: April 19, 2017 FINDINGS: Normal soft tissue structures. Normal calvarium. Prominent size ventricles with normal extra-axial spaces for the patient''s age. Mild white matter microangiopathic ischemic changes of the cerebral hemispheres. Normal basal ganglia and thalami. Normal brainstem. Normal cerebellum. There is no intracranial hemorrhage. There are no findings of an acute ischemic infarction. Normal visualized paranasal sinuses. CT/Brain/Head without Contrast IMPRESSION: Relatively stable intracranial findings of the brain. No acute intracranial pathology Electronically Signed: Dutch Young DO at 22:42 EST Tel [phone], Service support ,
[2019-10-19] MEDS: 0.9% Normal Saline 1,000 ML 100 ML IV (21:52)
[2019-10-19 21:53] VITALS: BP 151/79; PULSE 74; RESP 12; O2SAT 98
[2019-10-19 21:56] LABS: Absolute Lymphocyte Count 1.63 X10^3/uL (0.83-4.51); Absolute Neutrophil Count 2.7 X10^3/uL (2.0-7.7); Basophil# 0.05 X10^3/uL; Basophil% 0.9 % (0-1); Eosinophil# 0.16 X10^3/uL; Hematocrit 42.2 % (40-54); Hemoglobin 13.8 g/dL (13.0-16.5); Lymphocyte # 1.63 X10^3/ul (4.0); Lymphocyte % 30.1 % (19-41); Mean Corp Hgb Conc 32.7 g/dL (32-36); Mean Corpuscular Volume 97.9 fL (80-94); Monocyte# 0.88 X10^3/uL; Monocyte% 16.2 % (0-10); NRBC Flagged by Analyzer 0 % (0-5); Neutrophil # 2.67 X10^3/uL (2.7-7.7); Neutrophil % 49.2 % (47-70); Platelet Count 239 K/mm3 (150-450); RBC Distribution Width CV 13.5 % (11.6-14.6); RBC Distribution Width SD 49.5 fl (35.1-43.9); Red Blood Count 4.31 M/mm3 (4.6-6.2); White Blood Count 5.4 K/mm3 (4.4-11.0)
--- NOTE | 2019-10-19 22:00 | RAD_ITS ---
STUDY: X-RAY CHEST REASON FOR EXAM: Male, 84 years old. DIZZINESS, BLURRY VISION TECHNIQUE: Frontal view COMPARISON: April 19, 2017 FINDINGS: The lungs are expanded. Mild bibasilar atelectasis. Normal size heart. Normal mediastinum and jennifer. Normal visualized pulmonary arteries. Calcified visualized aortic arch and descending thoracic aorta. Degenerative changes of the thoracic spine. Normal visualized ribs, clavicles, and shoulders. There is no demonstrated abnormality of the visualized soft tissue structures of the upper abdomen. RAD/Chest 1 View IMPRESSION: Mild bibasilar atelectasis. Electronically Signed: Dutch Young DO at 22:43 EST Tel [phone], Service support ,
[2019-10-19 22:09] LABS: Anion Gap 1 (5-15); BUN 17 mg/dL (7-18); BUN/Creat Ratio 14.5 RATIO (10-20); Calcium,Total 8.9 mg/dL (8.5-10.1); Chloride 106 mmol/L (98-107); Creatinine, Serum 1.17 mg/dL (0.70-1.30); EST Glomerular Filtration Rate 63 mL/min (>60); Est Glom Filt Rate - Afr Amer 76 mL/min (>60); Estimated Creatinine Clearance 49.39 ml/min; Glucose 118 mg/dL (74-106); Sodium Level 140 mmol/L (136-145)
[2019-10-19 22:30] LABS: International Normalized Ratio 1.1; Prothrombin Time (Protime)PT. 13.7 SECONDS (11.7-14.9)
[2019-10-19 22:31] LABS: Partial Thromboplast Time 47.5 Seconds (24.1-36.2)
[2019-10-19 22:56] VITALS: BP 152/77; PULSE 70; RESP 14; O2SAT 95
[2019-10-19 23:31] VITALS: BP 177/87; PULSE 74; RESP 13; RESP 16; O2SAT 96
[2019-10-19 23:47] VITALS: BMI 27.9
[2019-10-20] VITALS (13 sets, daily range): BP systolic 118–177; BP diastolic 52–96; PULSE 61–92; RESP 11–18; TEMP 36.4–36.6; O2SAT 93–966; BMI 27.5; BMI 27.6
--- NOTE | 2019-10-20 01:52 | ED.VISSUMM ---
- ER Visit Summary Date of Service: 10/20/19 Chief Complaint: Double vision and dizziness History of Present Illness: The patient is a [address] Keating and Dr. Ovalle. Patient has a poor memory per family. They report at 645 this evening He was eating dinner and complained of double vision and being dizzy. He was helped to the couch and was off balance when he walked. He reports that he felt like he was going to pass out when he walked across the room. Patient reports that the dizziness and double vision lasted for approximately 15 minutes and now have completely resolved. He reports that he still is off balance when he walks. Physical Examination: Vitals: Stable. Afebrile. General: Well-nourished and well-developed. Head: Normocephalic atraumatic. Neck: Supple, no lymphadenopathy. No JVD. Nontender. Cardiovascular: Regular rate and rhythm. No murmurs. Respiratory: No respiratory distress. Clear to auscultation bilaterally. Abdominal: Soft, nontender, nondistended, normal bowel sounds. No guarding, rebound, or peritoneal signs. Back: Nontender. Extremities: Nontender, no edema. Skin: Normal color, no rash. Neurologic: Alert and oriented ?3. Cranial nerves II through XII are intact. Normal strength and sensation. NIH scale is 0. Psych: Normal affect. Test Results: EKG is sinus at 70 with no acute changes. Troponin is negative. Coags are normal. Chem-7 shows a CO2 of 33 and glucose 118. CBC shows monocytes of 16. Chest x-ray shows mild bibasilar atelectasis. Clinical Impression(s) from Imaging Studies Brain CT 10/19/19 21:42 IMPRESSION: Relatively stable intracranial findings of the brain. No acute intracranial pathology Electronically Signed: Dutch Young DO at 22:42 EST Tel [phone], Service support , Chest X-Ray 10/19/19 22:00 IMPRESSION: Mild bibasilar atelectasis. Electronically Signed: Dutch Young DO at 22:43 EST Tel [phone], Service support , Emergency Department Course and Treatment: Patient's NIH scale is 0 upon arrival. He is not a TPA candidate. He has no vertigo or double vision at this time. Treatment Plan: Patient was discussed with Dr. Cole. He will be admitted to the hospital for further evaluation and treatment. Disposition: Admitted in improved condition. Impression: 1. TIA. This note was generated with [employer] dictation software. It may contain incorrect words, spelling, and punctuation that were not noted in review of the chart prior to signing
--- NOTE | 2019-10-20 03:51 | HP.PCM_ITS ---
Problem List (1) Pure hypercholesterolemia Status: Chronic (2) Essential (primary) hypertension Status: Chronic (3) Atherosclerosis of [place] coronary artery of [place] heart without angina pectoris Status: Chronic Comment: PCI-DAVID x 3 -Prox-Mid LAD 05/06/2012 (4) Preop cardiovascular exam Status: Acute (5) History of coronary artery stent placement Status: Chronic Comment: PCI-DAVID x 3 -Prox-Mid LAD 05/06/2012 History of Present Illness Date of Admission: 10/20/19 Chief Complaint: Dizziness, double vision - today The patient is a 84 year old M medical history of CAD status post stents, hypertension, hyperlipidemia who comes in with complaints of double vision and dizziness that happened whilst eating dinner. Patient was helped to his couch by his daughter and was said to be off balance. He felt like he was going to pass out. This lasted for about 15 minutes and then completely resolved. He denied any weakness in any part of his extremities or tingling or numbness. His daughter said this has never happened before this was the first time. Vitals in the ED showed temperature of 98.4F, heart rate 73, blood pressure 133/76, respiration rate of 18, SPO2 was 96% on room air. His RBC count of 5.4, hemoglobin 13.8, platelet count 239, INR 1.1, BMP was unremarkable, troponins were negative. CT scan of the brain showed no acute intracranial process. Chest x-ray showed mild bibasilar atelectasis Past Medical History Past Medical History (Chronic Problems): Chronic Problems (Last Reviewed 06/07/19 @ 10:04 by Marilyn Almodovar) Pure hypercholesterolemia (Chronic) Essential (primary) hypertension (Chronic) Atherosclerosis of [place] coronary artery of [place] heart without angina pectoris (Chronic) PCI-DAVID x 3 -Prox-Mid LAD 05/06/2012 History of coronary artery stent placement (Chronic 05/06/12) PCI-DAVID x 3 -Prox-Mid LAD 05/06/2012 Medical History: Medical History (Last Reviewed 06/07/19 @ 10:04 by Marilyn Almodovar) Pure hypercholesterolemia (Chronic) E78.00 Essential (primary) hypertension (Chronic) I10 Atherosclerosis of [place] coronary artery of [place] heart without angina pectoris (Chronic) I25.10 PCI-DAVID x 3 -Prox-Mid LAD 05/06/2012 Preop cardiovascular exam (Acute) Z01.810 Asthma J45.909 BPH (benign prostatic hyperplasia) N40.0 GERD (gastroesophageal reflux disease) K21.9 Hiatal hernia K44.9 Abnormal electrocardiogram (Resolved) R94.31 Angina pectoris (Resolved) I20.9 Bradycardia (Resolved) R00.1 Chest pain, precordial (Resolved) R07.2 Cough (Resolved) R05 Dizziness (Resolved) R42 Fatigue (Resolved) R53.83 Vasovagal syncope (Resolved) R55 Abnormal result of cardiovascular function study, unspecified (Inactive) R94.30 Allergies No Known Allergies Allergy (Verified 10/19/19 23:50) Home Medications: Ambulatory Orders Medication Instructions Recorded nitroglycerin 0.4 mg sublingual 0.4 mg SUBLINGUAL Q5-15M PRN #25 10/10/17 tablet tab Albuterol Aerosols [Ventolin 2.5 mg INHALATION Q6H PRN PRN 06/11/18 Aerosols] Cyanocobalamin (Vitamin B-12) 1,000 mcg PO DAILY 06/11/18 [Vitamin B-12] Multivitamin [Multiple Vitamins] 1 ea PO BID 06/11/18 aspirin 81 mg tablet,delayed 81 mg PO DAILY tab 08/10/18 release diphenhydramine 25 2 tab PO QHS PRN 08/10/18 mg-acetaminophen 500 mg tablet melatonin 3 mg tablet 3 - 6 mg PO QHS PRN PRN tab 08/10/18 omega 0-tot-zgv-fish oil 120 1 cap PO BID cap 08/10/18 mg-180 mg-500 mg capsule saw palmetto 160 mg capsule 160 mg PO BID 08/10/18 pravastatin 20 mg tablet 20 mg PO QHS #90 tab 03/22/19 amlodipine 2.5 mg tablet 2.5 mg PO QDAY #90 tab 04/23/19 lisinopril 5 mg tablet 5 mg PO DAILY #90 tab 06/17/19 Surgical History: Surgical History (Last Reviewed 06/07/19 @ 10:04 by Marilyn Almodovar) History of coronary artery stent placement (Chronic) Onset Date: 05/06/12 Z95.5 PCI-DAVID x 3 -Prox-Mid LAD 05/06/2012 History of appendectomy Z98.890, Z90.49 History of inguinal hernia repair Onset Date: ~2009 Z98.890, Z87.19 History of left heart catheterization (LHC) Onset Date: 11/18/13 Z98.890 LAD Stents Patent History of repair of hiatal hernia Z98.890, Z87.19 History of total right hip replacement Onset Date: ~06/23/18 Z96.641 Surgical History: - - hernia, appendectomy, coronary artery stent placement Psychiatric History: No pertinent psych hx Lives: Spouse/ Significant Other, With Family Smoking Status: Never smoker Tobacco Use: Non-smoker Alcohol: None Drugs: None - *Family History Paternal Family History: Family History (Last Reviewed 06/07/19 @ 10:04 by Marilyn Almodovar) Mother CHF (congestive heart failure) Brother Cancer History Items: No pertinent history Maternal Family History: Family History (Last Reviewed 06/07/19 @ 10:04 by Marilyn Almodovar) Mother CHF (congestive heart failure) Brother Cancer History Items: Heart Disease Sibling Family History: Family History (Last Reviewed 06/07/19 @ 10:04 by Marilyn Almodovar) Mother CHF (congestive heart failure) Brother Cancer History Items: Cancer Review of Systems Constitutional: Denies: Anorexia, Chills, Fever, Night Sweats, Malaise, Weakness, Weight Change, Fatigue Eyes: Reports: Double vision, Vision Change. Denies: Blurred vision, Cataracts, Conjunctivae Inflammation HEENT: Denies: Difficulty Hearing, Difficulty Swallowing, Head Aches, Sinus Congestion, Sinus Drainage Cardiovascular: Denies: Chest Pain, Claudication, Orthopnea, Palpitations, Paroxysmal Noc. Dyspnea Respiratory: Denies: Cough, Hemoptysis, Shortness of breath at rest, Shortness of breath upon exertion, Sputum production Gastrointestinal: Denies: Abdominal Pain, Constipation, Hematemesis, Nausea, Vomiting Genitourinary: Denies: Dysuria Musculoskeletal: Denies: Joint Pain, Joint Tenderness Skin: Denies: Pruritis, Rash, Wounds Neurological: Denies: Difficulty swallowing, Focal weakness, Numbness, Tingling Psychiatric: Denies: Anxiety, Depression, Homicidal Ideations, Suicidal Ideations Hematologic/ Lymphatic: Denies: Easy Bruising, Easy Bleeding VTE Information - Inpt Only VTE Present on Admission: No VTE Pharm Prophylaxis ordered?: Yes - Physical Exam Vitals/I&O's: Vital Signs Temp Pulse Resp BP Pulse Ox 97.9 F 68 18 172/84 H 98 10/20/19 02:45 10/20/19 03:00 10/20/19 02:45 10/20/19 02:45 10/20/19 02:45 Oxygen Delivery Method Room Air Weight: 87.1 kg Body Mass Index (BMI) 27.5 Finger Stick Blood Glucose 118 General: Alert, Oriented x3, Cooperative, No apparent distress HEENT: Atraumatic, PERRLA, EOMI, Normocephalic Oral: Moist Mucosa Neck: Supple Lungs: Clear to auscultation, Normal air movement Cardiovascular: Regular rate, Regular Rhythm, Normal S1, Normal S2, No murmurs Abdomen: Bowel Sounds Present, Soft, Non Tender, Non-Distended, No Hepato- splenomegaly Extremities: No edema Skin: No rashes, No breakdown Musculoskeletal: No Tenderness to Palpation of Joints or Extremities Lymphatic: No Cervical, Supraclavicular, or Inguinal Adenopathy Neurological: Cranial nerves II-XII grossly intact, Neuro grossly intact Psych/Mental Status: Normal Affect, Appropriate Laboratory Results 10/19/19 21:40: WBC 5.4, RBC 4.31 L, Hgb 13.8, Hct 42.2, MCV 97.9 H, MCH 32.0, MCHC 32.7, RDW Std Deviation 49.5 H, RDW Coeff of [place] 13.5, Plt Count 239, MPV 10.0, Immature Gran % (Auto) 0.600, Neut % (Auto) 49.2, Lymph % (Auto) 30.1, [place] % (Auto) 16.2 H, Eos % (Auto) 3.0, Baso % (Auto) 0.9, Absolute Neuts (auto) 2.7, Absolute Lymphs (auto) 1.63, Nucleated RBC % 0 10/19/19 21:40: PT 13.7, INR 1.1, APTT 47.5 H 10/19/19 21:40: Sodium 140, Potassium 4.0, Chloride 106, Carbon Dioxide 33.0 H, Anion Gap 1 L, BUN 17, Creatinine 1.17, Estim Creat Clear Calc 49.39, Est GFR (MDRD) Af Amer 76, Est GFR (MDRD) Non-Af 63, BUN/Creatinine Ratio 14.5, Glucose 118 H, Calcium 8.9, Troponin I < 0.015 Current Medications Aspirin (Ecotrin) 81 mg PO DAILY SRIKANTH Cyanocobalamin (Vitamin B12) 1,000 mcg PO DAILY SRIKANTH Sodium Chloride () 1,000 mls @ 100 mls/hr IV .Q10H ONE Stop: 10/20/19 07:41 Last Admin: 10/19/19 21:52 Dose: 100 mls/hr Documented by: Sodium Chloride () 250 mls @ 15 mls/hr IV .[id number] PRN PRN Reason: Saline Flush Sodium Chloride () 250 mls @ 15 mls/hr IV .[id number] PRN PRN Reason: Additional IVPB Infusion Sodium Chloride () 10 - 40 ml IV UD PRN PRN Reason: SALINE FLUSH Assessment/Plan All Active Problems (Last Reviewed 06/07/19 @ 10:04 by Marilyn Almodovar) Preop cardiovascular exam (Acute) Abnormal electrocardiogram (Resolved) Angina pectoris (Resolved) Bradycardia (Resolved) Chest pain, precordial (Resolved) Cough (Resolved) Dizziness (Resolved) Fatigue (Resolved) Vasovagal syncope (Resolved) 84 year old M medical history of CAD status post stents, hypertension, hyperlipidemia who comes in with complaints of double vision and dizziness that happened whilst eating dinner. 1. Acute onset of dizziness/double vision concerning for possible TIA/CVA Patient with multiple risk factors. Initial CT of the brain was negative for intracranial process. Patient is on aspirin at home We will start on TIA/stroke protocol, NIHSS, MRI of the brain, MRA of the head and neck, 2D echo, lipid profile, HgbA1c Teleneurology consult to be placed in a.m. 2. Hypertension, controlled, will hold antihypertensive to allow for permissive hypertension seen Resume blood pressure meds after acute CVA has been ruled out 3. CAD status post stents, on aspirin, pravastatin 4. DVT PPx- Heparin SC Code Visit Inpatient E&M: 38815 Init Hosp L2
--- NOTE | 2019-10-20 03:53 | MRI_ITS ---
STUDY: MRA NECK WITH AND WITHOUT CONTRAST REASON FOR EXAM: Male, 84 years old. tia/cva; dizzy, blurred vision TECHNIQUE: 3-D odmy-tn-qvpnlz (TOF) imaging was performed in an 1.5 T MRI scanner. Dotarem IV 17ml was administered for the contrast enhanced images. COMPARISON: None. FINDINGS: RIGHT CAROTID ARTERIES: Normal right common carotid artery (CCA). Normal right common carotid bulb. Normal origin of the right internal carotid (ICA) artery without a hemodynamically significant stenosis. Normal visualized cervical portion of the right internal carotid artery. Normal origin of the right external carotid artery (ECA). LEFT CAROTID ARTERIES: Normal left common carotid artery (CCA). Normal left common carotid bulb. Normal origin of the left internal carotid (ICA) artery without a hemodynamically significant stenosis. Normal visualized cervical portion of the left internal carotid artery. Normal origin of the left external carotid artery (ECA). VERTEBRAL ARTERIES: Normal antegrade flow within the bilateral vertebral artery without a hemodynamically significant stenosis. MRI/MRA Neck WITH and W/O Contrast IMPRESSION: Normal bilateral cervical carotid and vertebral arteries. Electronically Signed: Nico Loyola MD at 11:08 EST Tel , Service support ,
--- NOTE | 2019-10-20 03:53 | MRI_ITS ---
STUDY: MRI BRAIN WITHOUT CONTRAST REASON FOR EXAM: Male, 84 years old. tia/cva; vertigo,dipliopia TECHNIQUE: Standardized multiplanar fat and water weighted pulse sequences were obtained. COMPARISON: 04/20/2017, CT 10/19/2019 FINDINGS: There is moderate cerebral atrophy with widening of the extra-axial spaces and ventricular dilatation. There are a limited number of small white matter hyperintensities, distributed throughout the deep white matter tracts of the cerebral hemispheres, consistent with mild chronic white matter ischemic changes. There is no evidence for recent intracranial ischemia or other cause of cytotoxic edema on diffusion weighted imaging (DWI). Normal T2* images of the brain without demonstrated susceptibility artifact. There is no demonstrated hemosiderin stain. Normal bilateral basal ganglia. Normal thalami. There is no extra-axial fluid accumulation. Normal flow voids within the major intracranial circulation suggesting patency by spin echo criteria. Normal sella turcica, pituitary gland, infundibular stalk, optic chiasm and hypothalamus. Normal tectal plate and pineal gland. Normal midbrain, shant and medulla. Normal cerebellum. Normal basal cisterns. Normal bilateral temporal bones. Normal bilateral internal auditory canals. No demonstrated orbital abnormality, within the constraints of a routine brain study. Normal visualized paranasal sinuses. Normal calvarium and skull base. Normal visualized soft tissue structures. Normal visualized upper cervical spine. MRI/Brain without Contrast IMPRESSION: Involutional changes of the brain, as described above. No acute infarct. Electronically Signed: Nico Loyola MD at 11:00 EST Tel , Service support ,
--- NOTE | 2019-10-20 03:54 | ECHOD_ITS ---
Reason For Study: TIA/CVA Procedure This was a 2D Doppler, Color Flow transthoracic echocardiogram. Exam performed in department. Left Ventricle Mild concentric left ventricular hypertrophy. The estimated ejection fraction is 65 %. Stage 1 diastolic dysfunction. No regional wall motion abnormalities noted. Right Ventricle Normal size and thickness. Normal systolic function. Atria The left atrium is moderately enlarged. Normal right atrium. Normal atrial septum. Bubble contrast study negative for right to left interatrial shunt. Mitral Valve The mitral valve is structurally normal. No prolapse or stenosis seen. Tricuspid Valve Normal tricuspid valve. Mild (1+) tricuspid valve insufficiency. Right ventricular systolic pressure estimated to be 34 mmHg. Aortic Valve Trisinus/trileaflet aortic valve. Aortic sclerosis, no stenosis. Pulmonic Valve Normal pulmonic valve. Great Vessels Normal aortic root. Normal arch. Normal inferior vena cava. Inferior vena cava collapse with sniff. Pericardium/Pleural No pericardial effusion. Medication Performed a rapid injection of agitated mix of 9 cc saline and 1cc air to assess for atrial septal defect. MMode/2D Measurements & Calculations LVIDd: 4.7 cm IVSd: 1.3 cm Ao root diam: 2.7 cm LVIDs: 3.3 cm LVPWd: 1.4 cm RVDd: 3.7 cm FS: 30.4 % LAV(MOD-bp): 93.3 ml LA A4 area: 26.0 cm2 LA dimension(2D): 3.7 cm LAV(MOD-bp) Indexed: 45.5 ml/m2 LAV(MOD-sp2): 86.1 ml LAV(MOD-sp4): 85.3 ml RA A4 area: 16.9 cm2 Time Measurements MV dec time: 0.17 sec Doppler Measurements & Calculations MV E max agustin: 62.0 cm/sec Lat Peak E' [place]ustin: 8.5 cm/sec Med Peak E' Agustin: 5.9 cm/sec MV A max agustin: 106.5 cm/sec E/E' lat: 7.3 E/E' med: 10.6 MV E/A: 0.58 Ao V2 max: 170.7 cm/sec LV V1 max: 102.1 cm/sec PA V2 max: 182.3 cm/sec Ao max P.7 mmHg LV V1 max P.2 mmHg PA V2 mean: 126.1 cm/sec PA V2 VTI: 35.4 cm TR max agustin: 254.0 cm/sec TR max P.9 mmHg Interpretation Summary Mild concentric left ventricular hypertrophy. The estimated ejection fraction is 65 %. Stage 1 diastolic dysfunction. The left atrium is moderately enlarged. Bubble contrast study negative for right to left interatrial shunt. Mild (1+) tricuspid valve insufficiency. Right ventricular systolic pressure estimated to be 34 mmHg. Compared to echo report dated 11/29/2014, no appreciable changes noted. Ordering Physician: Keisha Cole Referring Physician: Hai Ovalle Performed By: Marina Warren RDCS, RVT
--- NOTE | 2019-10-20 03:54 | MRI_ITS ---
STUDY: MRA OF THE HEAD WITHOUT CONTRAST REASON FOR EXAM: Male, 84 years old. tia/cva; vertigo, diplopia TECHNIQUE: 3-D iemn-nj-uizavx (TOF) imaging was performed with MIPs. The study was performed unenhanced. COMPARISON: None. FINDINGS: Normal bilateral petrous carotid arteries. Normal right cavernous carotid artery with a normal supraclinoid bifurcation. Normal left cavernous carotid artery with a normal supraclinoid bifurcation. Normal right A1 segments of the anterior cerebral artery. Normal left A1 segments of the anterior cerebral artery. Normal intact anterior communicating artery (ACOM). Normal bilateral A2 segments of the anterior cerebral arteries. Normal right M1 and M2 segments of the middle cerebral arteries, with a normal M1 bifurcation. Normal left M1 and M2 segments of the middle cerebral arteries, with a normal M1 bifurcation. Normal right posterior communicating artery (PCOM). 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 Normal bilateral vertebral arteries. Normal basilar artery with a normal basilar bifurcation. The visualized bilateral superior cerebellar (SCA) arteries are normal. Normal bilateral P1, P2 and visualized P3 segments of the posterior cerebral arteries. There is no demonstrated aneurysm of the [place]. There is no major vessel occlusion or hemodynamically significant stenosis. There is no demonstrated abnormality of the visualized brain. MRI/MRA Head ONLY without Contrast IMPRESSION: Normal MRA of the head Electronically Signed: Nico Loyola MD at 10:49 EST Tel , Service support ,
[2019-10-20 04:33] LABS: Absolute Lymphocyte Count 1.45 X10^3/uL (0.83-4.51); Absolute Neutrophil Count 1.6 X10^3/uL (2.0-7.7); Basophil# 0.04 X10^3/uL; Eosinophil# 0.17 X10^3/uL; Eosinophils% 4.3 % (0-5); Hematocrit 37.6 % (40-54); Hemoglobin 11.9 g/dL (13.0-16.5); Lymphocyte # 1.45 X10^3/ul (4.0); Lymphocyte % 36.4 % (19-41); Mean Corp Hgb Conc 31.6 g/dL (32-36); Mean Corpuscular Hgb 30.5 pg (27.0-32.0); Mean Corpuscular Volume 96.4 fL (80-94); Mean Platelet Vol. 9.6 fl (6.2-12.0); Monocyte# 0.68 X10^3/uL; Monocyte% 17.1 % (0-10); NRBC Flagged by Analyzer 0 % (0-5); Neutrophil # 1.63 X10^3/uL (2.7-7.7); Neutrophil % 40.9 % (47-70); Platelet Count 207 K/mm3 (150-450); RBC Distribution Width CV 13.5 % (11.6-14.6); RBC Distribution Width SD 48.2 fl (35.1-43.9)
[2019-10-20 05:48] LABS: AST(SGOT) 14 U/L (15-37); Alanine Aminotransfer ALT/SGPT 19 U/L (16-61); Alkaline Phosphatase 38 U/L (45-117); Anion Gap 5 (5-15); BUN 15 mg/dL (7-18); Calcium,Total 7.9 mg/dL (8.5-10.1); Chloride 109 mmol/L (98-107); Cholesterol 167 mg/dL (200); EST Glomerular Filtration Rate 76 mL/min (>60); Est Glom Filt Rate - Afr Amer 92 mL/min (>60); Estimated Creatinine Clearance 57.79 ml/min; Glucose 90 mg/dL (74-106); High Density Lipoprotein 47 mg/dL; Potassium 3.8 mmol/L (3.5-5.1); Sodium Level 141 mmol/L (136-145); Triglycerides 63 mg/dL; Very Low Density Lipoprotein 13 mg/dL (5-40)
[2019-10-20] MEDS: Clopidogrel Bisulfate 75 MG Tablet PO (06:27)
[2019-10-20] MEDS: Heparin Injection (Vial) 5,000 UNIT/ML VIAL 5000 UNIT SC ×2 (06:27→15:28)
--- NOTE | 2019-10-20 09:04 | PCA ---
pt off floor
[2019-10-20] MEDS: Cyanocobalamin 500 MCG Tablet 1000 MCG PO (09:35)
[2019-10-20] MEDS: Aspirin E.C. 81 MG Tablet PO (09:35)
--- NOTE | 2019-10-20 14:29 | DCINST_ITS ---
You will use the following diet at home:: Cardiac Discharge Activity: Return to Normal Activity Call your doctor if you observe: Shortness of breath, Dizziness, Fainting spells, Chest pain Allergies/Adverse Reactions: Allergies No Known Allergies Allergy (Verified 10/19/19 23:50) Medications to take at Discharge nitroglycerin 0.4 mg sublingual tablet 0.4 mg SUBLINGUAL Q5-15M PRN #25 tab 10/10/17 Albuterol Aerosols [Ventolin Aerosols] 2.5 mg INHALATION Q6H PRN PRN 06/11/18 Cyanocobalamin (Vitamin B-12) [Vitamin B-12] 1,000 mcg PO DAILY 06/11/18 Multivitamin [Multiple Vitamins] 1 ea PO BID 06/11/18 aspirin 81 mg tablet,delayed release 81 mg PO DAILY tab 08/10/18 melatonin 3 mg tablet 3 - 6 mg PO QHS PRN PRN tab 08/10/18 omega 8-fvp-asj-fish oil 120 mg-180 mg-500 mg capsule 1 cap PO BID cap 08/10/18 saw palmetto 160 mg capsule 160 mg PO BID 08/10/18 amlodipine 2.5 mg tablet 2.5 mg PO QDAY #90 tab 04/23/19 lisinopril 5 mg tablet 5 mg PO DAILY #90 tab 06/17/19 Atorvastatin Calcium [Lipitor] 40 mg PO QHS #30 tab 10/20/19 Clopidogrel Bisulfate [Plavix] 75 mg PO DAILY #30 tab 10/20/19 The following prescriptions were given: Atorvastatin Calcium [Lipitor] 40 mg PO QHS #30 tab Transmission Status: Pending to [id number] Clopidogrel Bisulfate [Plavix] 75 mg PO DAILY #30 tab Transmission Status: Pending to [id number] Primary Care Physician: Hai Ovalle DO [Primary Care Provider] - Please follow up with your Primary Care Physician in: 1 Week Test Results: Test results from this visit will be discussed in further detail at your follow- up appointment, if applicable. 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
--- NOTE | 2019-10-20 14:32 | DS.PCM_ITS ---
<Ladonna Davis - Last Filed: 10/20/19 14:42> Discharge Date and Diagnosis Date of Admission: 10/20/19 Date of Discharge: 10/20/19 - Primary Discharge Diagnosis 1. TIA 2. CAD with history of PCI 3. Hypertension 4. Hyperlipidemia - Secondary Discharge Diagnosis Chronic Problems (Last Reviewed 06/07/19 @ 10:04 by Marilyn Almodovar) Pure hypercholesterolemia (Chronic) Essential (primary) hypertension (Chronic) Atherosclerosis of [place] coronary artery of [place] heart without angina pectoris (Chronic) PCI-DAVID x 3 -Prox-Mid LAD 05/06/2012 History of coronary artery stent placement (Chronic 05/06/12) PCI-DAVID x 3 -Prox-Mid LAD 05/06/2012 Hospital Course and Treatment Imaging Results: Diagnostic Data Brain CT 10/19/19 21:42 IMPRESSION: Relatively stable intracranial findings of the brain. No acute intracranial pathology Electronically Signed: Dutch Young DO at 22:42 EST Tel [phone], Service support , Chest X-Ray 10/19/19 22:00 IMPRESSION: Mild bibasilar atelectasis. Electronically Signed: Dutch Young DO at 22:43 EST Tel [phone], Service support , Brain MRI 10/20/19 03:53 IMPRESSION: Involutional changes of the brain, as described above. No acute infarct. Electronically Signed: Nico Loyola MD at 11:00 EST Tel , Service support , Neck MRA 10/20/19 03:53 IMPRESSION: Normal bilateral cervical carotid and vertebral arteries. Electronically Signed: Nico Loyola MD at 11:08 EST Tel , Service support , Head MRA 10/20/19 03:54 IMPRESSION: Normal MRA of the head Electronically Signed: Nico Loyola MD at 10:49 EST Tel , Service support , Tele-neurology Operations: None Procedures: 2-D Echocardiogram Summary of Care Provided: The patient is a 84 year old M admitted 10/20/2019 due to dizziness and double vision. 1. TIA-MRI of brain, MRA of head and neck unremarkable. Teleneurology consulted. Probable TIA. Continue aspirin, statin regimen increased to 40 mg p.o. nightly. Plavix added which he will continue for 30 days and then resume aspirin only. Echocardiogram pending and will be reviewed prior to discharge. Orthostatic vitals negative. Outpatient follow-up with neurology. Per neurology, if patient has further symptoms, he may require additional testing as outpatient including EEG, tilt table, Holter monitor if found to be appropriate on an outpatient basis. Also advised patient to discontinue nightly acetaminophen/diphenhydramine regimen and use Tylenol alone. Follow-up with neurology in 1 to 2 weeks. Follow-up with cardiology 1 to 2 weeks as well. 2. CAD with history of PCI-follows with Dr. Keating. Continue aspirin, statin, lisinopril. 3. Hypertension-stable, continue amlodipine, lisinopril regimen. 4. Hyperlipidemia-home statin regimen increased. Patient seen and examined prior to discharge. Physical assessment as noted below. Patient is stable for discharge with follow up recommendations as noted above. This patient was seen by TAMMY Myles under the supervision of Dr. White. - Physical Exam Vitals/I&O's: Vital Signs Temp Pulse Resp BP Pulse Ox 97.5 F L 80 16 158/65 H 97 10/20/19 09:26 10/20/19 11:57 10/20/19 09:26 10/20/19 11:57 10/20/19 09:26 Oxygen Delivery Method Room Air Weight: 192 lb 0.362 oz Body Mass Index (BMI) 27.5 Finger Stick Blood Glucose 118 Orthostatic Vital Signs Start: 10/20/19 11:45 Freq: q24h Status: Active Protocol: Activity Type Activity Date Activity User E-Sign Co-Sign Detail Recorded Client Recorded Date Recorded By Document 10/20/19 11:57 BS [id number] 10/20/19 12:09 BS 10/20/19 11:57 Orthostatic Vitals Standing -Blood Pressure (90/60-120/80) 149/70 H -Extremity Use Left Arm -Pulse Rate (60-100) 92 Sitting -Blood Pressure (90/60-120/80) 156/73 H -Extremity Use Left Arm -Pulse Rate (60-100) 88 Lying -Blood Pressure (90/60-120/80) 158/65 H -Extremity Use Left Arm -Pulse Rate (60-100) 80 Intake and Output for Last 24 Hours 10/18/19 10/19/19 10/20/19 23:59 23:59 23:59 Intake Total 1360 / 1360 Balance 1360 / 1360 General: Alert, Oriented x3, Cooperative HEENT: Atraumatic, PERRLA, EOMI, Normocephalic Neck: Supple, No JVD, Negative Carotid Bruits Lungs: Clear to auscultation, Normal air movement Cardiovascular: Regular rate, Regular Rhythm, Normal S1, Normal S2, No murmurs Abdomen: Bowel Sounds Present, Soft, Non Tender, Non-Distended Extremities: No clubbing, No cyanosis, No edema, Capillary Refill Less than 3 Seconds Skin: No rashes, No breakdown Musculoskeletal: No Tenderness to Palpation of Joints or Extremities Neurological: Cranial nerves II-XII grossly intact, Neuro grossly intact Psych/Mental Status: Normal Affect, Appropriate Laboratory Results 10/19/19 21:40: WBC 5.4, RBC 4.31 L, Hgb 13.8, Hct 42.2, MCV 97.9 H, MCH 32.0, MCHC 32.7, RDW Std Deviation 49.5 H, RDW Coeff of Rylie 13.5, Plt Count 239, MPV 10.0, Immature Gran % (Auto) 0.600, Neut % (Auto) 49.2, Lymph % (Auto) 30.1, [place] % (Auto) 16.2 H, Eos % (Auto) 3.0, Baso % (Auto) 0.9, Absolute Neuts (auto) 2.7, Absolute Lymphs (auto) 1.63, Nucleated RBC % 0 10/19/19 21:40: PT 13.7, INR 1.1, APTT 47.5 H 10/19/19 21:40: Sodium 140, Potassium 4.0, Chloride 106, Carbon Dioxide 33.0 H, Anion Gap 1 L, BUN 17, Creatinine 1.17, Estim Creat Clear Calc 49.39, Est GFR (MDRD) Af Amer 76, Est GFR (MDRD) Non-Af 63, BUN/Creatinine Ratio 14.5, Glucose 118 H, Calcium 8.9, Troponin I < 0.015 10/20/19 04:20: Sodium 141, Potassium 3.8, Chloride 109 H, Carbon Dioxide 27.0, Anion Gap 5, BUN 15, Creatinine 1.00, Estim Creat Clear Calc 57.79, Est GFR (MDRD) Af Amer 92, Est GFR (MDRD) Non-Af 76, BUN/Creatinine Ratio 15.0, Glucose 90, Calcium 7.9 L, Total Bilirubin 0.30, AST 14 L, ALT 19, Alkaline Phosphatase 38 L, Troponin I < 0.015, Total Protein 6.0 L, Albumin 3.0 L, Globulin 3.0, Albumin/Globulin Ratio 1.0, Triglycerides 63, Cholesterol 167, LDL Cholesterol 107, VLDL Cholesterol 13, HDL Cholesterol 47 10/20/19 04:20: WBC 4.0 L, RBC 3.90 L, Hgb 11.9 L, Hct 37.6 L, MCV 96.4 H, MCH 30.5, MCHC 31.6 L, RDW Std Deviation 48.2 H, RDW Coeff of Rylie 13.5, Plt Count 207, MPV 9.6, Immature Gran % (Auto) 0.300, Neut % (Auto) 40.9 L, Lymph % (Auto) 36.4, [place] % (Auto) 17.1 H, Eos % (Auto) 4.3, Baso % (Auto) 1.0, Absolute Neuts (auto) 1.6 L, Absolute Lymphs (auto) 1.45, Nucleated RBC % 0 10/20/19 04:20: Hemoglobin A1c 6.0 Current Medications Acetaminophen (Tylenol) 650 mg PO Q6H PRN PRN PRN Reason: Pain Score 1-10/Temp > 100.7 F Aspirin (Ecotrin) 81 mg PO DAILY [facility] Last Admin: 10/20/19 09:35 Dose: 81 mg Documented by: Atorvastatin Calcium (Lipitor) 40 mg PO QHS [facility] Clopidogrel Bisulfate (Plavix) 75 mg PO DAILY [facility] Last Admin: 10/20/19 06:27 Dose: 75 mg Documented by: Cyanocobalamin (Vitamin B12) 1,000 mcg PO DAILY [facility] Last Admin: 10/20/19 09:35 Dose: 1,000 mcg Documented by: Heparin Sodium (Porcine) (Heparin Na) 5,000 unit SC Q8 [facility] Last Admin: 10/20/19 06:27 Dose: 5,000 unit Documented by: Sodium Chloride () 250 mls @ 15 mls/hr IV .[id number] PRN PRN Reason: Saline Flush Sodium Chloride () 250 mls @ 15 mls/hr IV .[id number] PRN PRN Reason: Additional IVPB Infusion Nitroglycerin (Nitrostat) 0.4 mg SUBLINGUAL Q5M PRN PRN Reason: CARDIAC/CHEST PAIN Ondansetron HCl (Zofran) 4 mg IV Q8H PRN PRN PRN Reason: NAUSEA/VOMITING Sodium Chloride () 10 - 40 ml IV UD PRN PRN Reason: SALINE FLUSH Discharge Diet: Low fat/ Low Cholesterol Discharge Activity: Return to Normal Activity Call your doctor if you observe: Shortness of breath, Dizziness, Fainting spells, Chest pain Home Medications: Medications to take at Discharge nitroglycerin 0.4 mg sublingual tablet 0.4 mg SUBLINGUAL Q5-15M PRN #25 tab 10/10/17 Albuterol Aerosols [Ventolin Aerosols] 2.5 mg INHALATION Q6H PRN PRN 06/11/18 Cyanocobalamin (Vitamin B-12) [Vitamin B-12] 1,000 mcg PO DAILY 06/11/18 Multivitamin [Multiple Vitamins] 1 ea PO BID 06/11/18 aspirin 81 mg tablet,delayed release 81 mg PO DAILY tab 08/10/18 melatonin 3 mg tablet 3 - 6 mg PO QHS PRN PRN tab 08/10/18 omega 2-fpq-nkm-fish oil 120 mg-180 mg-500 mg capsule 1 cap PO BID cap 08/10/18 saw palmetto 160 mg capsule 160 mg PO BID 08/10/18 amlodipine 2.5 mg tablet 2.5 mg PO QDAY #90 tab 04/23/19 lisinopril 5 mg tablet 5 mg PO DAILY #90 tab 06/17/19 Atorvastatin Calcium [Lipitor] 40 mg PO QHS #30 tab 10/20/19 Clopidogrel Bisulfate [Plavix] 75 mg PO DAILY #30 tab 10/20/19 Following Prescrptions Were Given to Patient: Atorvastatin Calcium [Lipitor] 40 mg PO QHS #30 tab Transmission Status: Received by [id number] Clopidogrel Bisulfate [Plavix] 75 mg PO DAILY #30 tab Transmission Status: Received by [id number] Primary Care Physician: Hai Ovalle DO [Primary Care Provider] - Please follow up with your Primary Care Physician in: 1 Week Please Follow Up With: Omi Keating MD When: 1-2 Weeks, may see [employer]/PA Please Follow Up With: Víctor Bender MD When: Neurology, follow up in 2 weeks Disposition: Home Minutes spent on discharge:: 35 Patient Condition:: Stable Medical Necessity - Tobacco Use Smoking Status: Never smoker Tobacco Use: Non-smoker Meaningful Use Info Meaningful Use Diagnoses (Choose all that apply): None applicable <Sajan White - Last Filed: 10/20/19 16:34> Discharge Date and Diagnosis - Secondary Discharge Diagnosis Chronic Problems (Last Reviewed 06/07/19 @ 10:04 by Marilyn Almodovar) Pure hypercholesterolemia (Chronic) Essential (primary) hypertension (Chronic) Atherosclerosis [place] coronary artery of [place] heart without angina pectoris (Chronic) PCI-DAVID x 3 -Prox-Mid LAD 05/06/2012 History of coronary artery stent placement (Chronic 05/06/12) PCI-DAVID x 3 -Prox-Mid LAD 05/06/2012 Hospital Course and Treatment Summary of Care Provided: The patient is a 84 year old M [] - Physical Exam Vitals/I&O's: Vital Signs Temp Pulse Resp BP Pulse Ox 97.5 F L 70 16 118/57 L 95 10/20/19 15:21 10/20/19 15:21 10/20/19 15:21 10/20/19 15:21 10/20/19 15:21 Oxygen Delivery Method Room Air Weight: 192 lb 0.362 oz Body Mass Index (BMI) 27.5 Finger Stick Blood Glucose 118 Orthostatic Vital Signs Start: 10/20/19 11:45 Freq: q24h Status: Active Protocol: Activity Type Activity Date Activity User E-Sign Co-Sign Detail Recorded Client Recorded Date Recorded By Document 10/20/19 11:57 BS [id number] 10/20/19 12:09 BS 10/20/19 11:57 Orthostatic Vitals Standing -Blood Pressure (90/60-120/80) 149/70 H -Extremity Use Left Arm -Pulse Rate (60-100) 92 Sitting -Blood Pressure (90/60-120/80) 156/73 H -Extremity Use Left Arm -Pulse Rate (60-100) 88 Lying -Blood Pressure (90/60-120/80) 158/65 H -Extremity Use Left Arm -Pulse Rate (60-100) 80 Intake and Output for Last 24 Hours 10/18/19 10/19/19 10/20/19 23:59 23:59 23:59 Intake Total 1360 / 1360 Balance 1360 / 1360 Laboratory Results 10/19/19 21:40: WBC 5.4, RBC 4.31 L, Hgb 13.8, Hct 42.2, MCV 97.9 H, MCH 32.0, MCHC 32.7, RDW Std Deviation 49.5 H, RDW Coeff of Rylie 13.5, Plt Count 239, MPV 10.0, Immature Gran % (Auto) 0.600, Neut % (Auto) 49.2, Lymph % (Auto) 30.1, [place] % (Auto) 16.2 H, Eos % (Auto) 3.0, Baso % (Auto) 0.9, Absolute Neuts (auto) 2.7, Absolute Lymphs (auto) 1.63, Nucleated RBC % 0 10/19/19 21:40: PT 13.7, INR 1.1, APTT 47.5 H 10/19/19 21:40: Sodium 140, Potassium 4.0, Chloride 106, Carbon Dioxide 33.0 H, Anion Gap 1 L, BUN 17, Creatinine 1.17, Estim Creat Clear Calc 49.39, Est GFR (MDRD) Af Amer 76, Est GFR (MDRD) Non-Af 63, BUN/Creatinine Ratio 14.5, Glucose 118 H, Calcium 8.9, Troponin I < 0.015 10/20/19 04:20: Sodium 141, Potassium 3.8, Chloride 109 H, Carbon Dioxide 27.0, Anion Gap 5, BUN 15, Creatinine 1.00, Estim Creat Clear Calc 57.79, Est GFR (MDRD) Af Amer 92, Est GFR (MDRD) Non-Af 76, BUN/Creatinine Ratio 15.0, Glucose 90, Calcium 7.9 L, Total Bilirubin 0.30, AST 14 L, ALT 19, Alkaline Phosphatase 38 L, Troponin I < 0.015, Total Protein 6.0 L, Albumin 3.0 L, Globulin 3.0, Albumin/Globulin Ratio 1.0, Triglycerides 63, Cholesterol 167, LDL Cholesterol 107, VLDL Cholesterol 13, HDL Cholesterol 47 10/20/19 04:20: WBC 4.0 L, RBC 3.90 L, Hgb 11.9 L, Hct 37.6 L, MCV 96.4 H, MCH 30.5, MCHC 31.6 L, RDW Std Deviation 48.2 H, RDW Coeff of Rylie 13.5, Plt Count 207, MPV 9.6, Immature Gran % (Auto) 0.300, Neut % (Auto) 40.9 L, Lymph % (Auto) 36.4, [place] % (Auto) 17.1 H, Eos % (Auto) 4.3, Baso % (Auto) 1.0, Absolute Neuts (auto) 1.6 L, Absolute Lymphs (auto) 1.45, Nucleated RBC % 0 10/20/19 04:20: Hemoglobin A1c 6.0 Current Medications Acetaminophen (Tylenol) 650 mg PO Q6H PRN PRN PRN Reason: Pain Score 1-10/Temp > 100.7 F Aspirin (Ecotrin) 81 mg PO DAILY [facility] Last Admin: 10/20/19 09:35 Dose: 81 mg Documented by: Atorvastatin Calcium (Lipitor) 40 mg PO QHS [facility] Clopidogrel Bisulfate (Plavix) 75 mg PO DAILY [facility] Last Admin: 10/20/19 06:27 Dose: 75 mg Documented by: Cyanocobalamin (Vitamin B12) 1,000 mcg PO DAILY [facility] Last Admin: 10/20/19 09:35 Dose: 1,000 mcg Documented by: Heparin Sodium (Porcine) (Heparin Na) 5,000 unit SC Q8 [facility] Last Admin: 10/20/19 15:28 Dose: 5,000 unit Documented by: Sodium Chloride () 250 mls @ 15 mls/hr IV .[id number] PRN PRN Reason: Saline Flush Sodium Chloride () 250 mls @ 15 mls/hr IV .[id number] PRN PRN Reason: Additional IVPB Infusion Nitroglycerin (Nitrostat) 0.4 mg SUBLINGUAL Q5M PRN PRN Reason: CARDIAC/CHEST PAIN Ondansetron HCl (Zofran) 4 mg IV Q8H PRN PRN PRN Reason: NAUSEA/VOMITING Sodium Chloride () 10 - 40 ml IV UD PRN PRN Reason: SALINE FLUSH Code Visit Addendum: Dr. White I personally examined the patient and reviewed the chart. I agree with the above. 84-year-old male presenting with planes of double vision and dizziness that happened while he was eating dinner. He was helped to the couch by his daughter and was said to be off balance and he felt he was a pass out, he was brought into the ER where he started to improve and was feeling better. Today he said that his symptoms had completely resolved and he underwent a CT of the brain which was normal. MRI and MRA of his head and neck were negative for an acute stroke and his echo was unremarkable. At this point based on his history and imaging it looks like this may have just been a syncopal episode. The tele- neurology service was consulted and they felt that this could also be syncope and recommended having tilt table testing as an outpatient, however to continue with Plavix for 30 days and then continue with just aspirin. He will follow-up with neurology in 1 to 2 weeks and cardiology as well in 1 to 2 weeks. OBSV E&M: [id number] Observation care discharge
--- NOTE | 2019-10-20 14:56 | CASEMGMT ---
JANUSZ did not complete a PHQ 9 with patient. He politely declined. Patient's family was also present and stated they feel he is fine and thanked JANUSZ for asking. Sofie GIRALDO MSW
== END 2019-10-20 14:30 | disposition home or self-care (01) ==
LOC: ED 21:49 → PCU 10-20 01:59
PROVIDERS: Admitting Provider Internal Medicine; Emergency Provider Emergency Medicine; Family Provider Family Medicine; PCP Family Medicine; Visit Provider Family Medicine
DX: G45.9 Transient cerebral ischemic attack, unspecified (principal); I25.10 Atherosclerotic heart disease of native coronary artery without angina pectoris; E78.5 Hyperlipidemia, unspecified; I10 Essential (primary) hypertension; Z79.82 Long term (current) use of aspirin; Z79.899 Other long term (current) drug therapy; R29.700 NIHSS score 0; Z95.5 Presence of coronary angioplasty implant and graft; K21.9 Gastro-esophageal reflux disease without esophagitis; N40.0 Benign prostatic hyperplasia without lower urinary tract symptoms; J45.909 Unspecified asthma, uncomplicated; K44.9 Diaphragmatic hernia without obstruction or gangrene
CPT/HCPCS: 36415; 70450; 70544; 70549; 70551; 71045; 80048; 80053; 80061; 83036; 84484; 85025; 85610; 85730; 92610; 93005; 93306; 94762; 96360; 96361; 96372; 97161; 97802; 99218; 99251; 99283; A9575; J7030; Q9957; A4216; G0378; G0463

== ENCOUNTER 2020-10-07 11:12 | Emergency (ER) | payer OTHER, SELFPAY ==
[2020-07-07 13:06] VITALS: BMI 27.1
[2020-10-07 11:14] VITALS: BP 164/78; PULSE 78; RESP 15; TEMP 36.7; O2SAT 98; BMI 27.8
--- NOTE | 2020-10-07 11:18 | RAD_ITS ---
STUDY: X-RAY - PELVIS AND RIGHT HIP REASON FOR EXAM: Male, 85 years old. pt had a fall. limited xrays, pt refused any more xrays because he wasn''t having pain and didn''t understand why ordered them TECHNIQUE: 2 views of the pelvis and hip. COMPARISON: 06/23/2018 FINDINGS: Postsurgical changes of the right hip. No acute fracture or dislocation in the pelvis. Hardware appears intact. RAD/HIP, UNI W/ Pelvis 2-3 Views IMPRESSION: No acute findings Electronically Signed: Manuel Hansen DO at 12:23 EST Tel , Service support ,
--- NOTE | 2020-10-07 11:18 | CT_ITS ---
STUDY: CT BRAIN WITHOUT CONTRAST REASON FOR EXAM: Male, 85 years old. Fall, ? syncope, dizzy, neck pain. RADIATION DOSAGE (If Supplied By Facility): CTDIvol = ( 44.99 ) mGy, DLP = ( 846.73 ) mGycm TECHNIQUE: Transaxial CT imaging of the brain was performed without administration of intravenous contrast material. Individualized dose optimization techniques were used for this CT. COMPARISON: No relevant priors. FINDINGS: Normal soft tissue structures. Normal calvarium. There is moderate cerebral atrophy with widening of the extra-axial spaces and ventricular dilatation. There are areas of decreased attenuation within the white matter tracts of the supratentorial brain, consistent with microvascular disease changes. Normal basal ganglia and thalami. Normal brainstem. Normal cerebellum. There is no intracranial hemorrhage. There are no findings of an acute ischemic infarction. Normal visualized paranasal sinuses. CT/Brain/Head without Contrast IMPRESSION: Chronic involutional changes of the brain. Electronically Signed: Manuel Hansen DO at 12:23 EST Tel , Service support ,
--- NOTE | 2020-10-07 11:18 | CT_ITS ---
STUDY: CT CERVICAL SPINE WITHOUT CONTRAST REASON FOR EXAM: Male, 85 years old. Fall, ? syncope, dizzy, neck pain. RADIATION DOSAGE (If Supplied By Facility): CTDIvol = ( 22.44 ) mGy, DLP = ( 455.32 ) mGycm TECHNIQUE: High resolution transaxial imaging was performed without contrast material. Sagittal and coronal images were reconstructed. Individualized dose optimization techniques were used for this CT. COMPARISON: None FINDINGS: Normal craniovertebral junction. Normal anterior atlantoaxial articulation. Normal odontoid process. Normal cervical lordosis. Normal vertebral bodies and posterior osseous elements. No acute fracture or listhesis. Moderate multilevel degenerative disc disease. No critical central canal stenosis. Normal visualized soft tissue structures. CT/Spine Cervical without Contras IMPRESSION: Multilevel degenerative changes, as described above. Electronically Signed: Manuel Hansen DO at 12:23 EST Tel , Service support ,
--- NOTE | 2020-10-07 11:19 | ED.VIS.GEN ---
History of Present Illness Chief Complaint: Fall Informant: Patient, Family Onset: Today Maximum Severity: Mild Narrative: Patient presents with family and paramedics after he had a dizzy spell at home while in the kitchen fell to the ground he had no LOC he has complaints of some neck pain and bilateral hip pain, he was moving all 4 extremities, History of COPD asthma 3 cardiac stents all of his health conditions have been stable he has been eating and drinking well, he is forgetful he is always dizzy he falls sometimes but generally he is able to execute all of his daily activities and he can walk to his daughter's house. The patient's only complaint is neck pain and bilateral hip pain he denies chest pain abdominal pain he is awake and oriented x3 talking to the daughter Daughter has asked that her chief complaint on patient's part as well as family is the neck and the hip pain due to financial concerns they only want these areas evaluated they do not want an extensive ED evaluation the cost of care Past Medical History - Allergies and Home Meds Allergies/Adverse Reactions: Allergies No Known Allergies Allergy (Verified 10/07/20 11:13) Primary Care Physician: Hai Ovalle DO [Primary Care Provider] - Past Medical History: - Surgical History: - - hernia, appendectomy, coronary artery stent placement Smoking Status: Never smoker - Family History Paternal Family History: Family History (Last Reviewed 07/07/20 @ 13:11 by Marilyn Almodovar) Mother CHF (congestive heart failure) Brother Cancer Family History: Reports: No pertinent history Sibling Family History: Family History (Last Reviewed 07/07/20 @ 13:11 by Marilyn Almodovar) Mother CHF (congestive heart failure) Brother Cancer Family History: Reports: Cancer Maternal Family History: Family History (Last Reviewed 07/07/20 @ 13:11 by Marilyn Almodovar) Mother CHF (congestive heart failure) Brother Cancer Family History: Reports: Heart Disease Review of Systems ROS: - Already extensive asthma dizzy spells General: Reports: - - He is in no distress he has some very mild neck pain mostly to the right paracervical, no step-off, he also has some very vague right hip pain he has an acute no acute findings obviously, he has an incision over the right hip area prior surgery. Denies: Chills, Fever, Sweats Eyes: Denies: Visual changes - bilaterally, Diplopia ENT: Denies: Rhinorrhea, Sore throat Cardiovascular: Denies: Chest pain, Palpitations Respiratory: Denies: Dyspnea, Cough, Dyspnea on exertion Gastrointestinal: Denies: Abdominal pain, Nausea, Vomiting, Diarrhea, Melena, Hematochezia Genitourinary: Denies: Dysuria, Hematuria, Frequency Musculoskeletal: Denies: Back pain, Extremity Pain Skin: Denies: Rash, Wounds Neurological: Denies: Headache, Weakness, Numbness Physical Exam Vital Signs/Narrative: Vital Signs Temp Pulse Resp BP Pulse Ox 10/07/20 11:14 98.0 F 78 15 164/78 H 98 General: Well nourished, Well developed, No Acute Distress Head: Normocephalic, Atraumatic Eyes: Perrl, EOMI ENT: Moist mucous membranes, No rhinorrhea Neck: Supple, Nontender Cardiovascular: Regular rate, Regular rhythm, No murmurs Respiratory: No distress, CTA bilaterally, Chest nontender Abdomen: Soft, Nontender, Nondistended, Normal bowel sounds Back: Nontender, Normal Inspection Extremities: Nontender, No edema Skin: Normal color, No rash Neurological: Alert, Oriented x3, Cranial nerves II-XII grossly intact, Normal Strength, Normal Sensation Psychological: Normal affect, Normal Mood Diagnostic/Tx/Re-eval - Medical Decision Making The patient is awake and alert he really has no complaints and some very mild neck pain and mild bilateral hip pain he has full range of motion of his hips Apparently per the family the patient has no insurance coverage they want a very limited work-up evaluate his neck discomfort and the hip pain nothing more than that they understand the broad differential times for life-threatening conditions but they declined all other management options Patient only agreed to a right hip x-ray/pelvic x-ray 1 view to my review shows right hip prosthesis otherwise some DJD nothing acute radiology generally agrees, Radiology reviewed head neck CT showed DJD nothing acute otherwise see those reports Has been resting in the bed no distress he does not wish to wear the c-collar he indicates that via family and the daughter confirmed with her that he is back to his baseline he wants to go home at this time. The daughter will plan to have him see his outpatient providers for the fall and the chronic intermittent dizziness that he has been experiencing Please note after I went and reviewed that the plain films that he had consented to and the CTs were generally unremarkable showing DJD the family then asked that the ED screening evaluation be completed Patient's EKG showed sinus rhythm rate of 74 no acute injury pattern, the patient's ED screening labs are all generally unremarkable shows reports he is resting comfortably in the bed he has no complaints he is comfortable discharge home follow-up outpatient provider daughter is aware of all the above has been in the room with him and also agrees he will use his cane to help support himself the daughter is concerned that he has chronic dizziness and that is what makes him fall but again she we will have him see his outpatient providers for further management and they both feel he is safe for discharge home Home stable Impression final fall head neck and right hip injury, acute recurrent chronic dizziness ED Disposition - Plan for ED Patient: Diagnosis: Injury of head, face and neck Instructions: ED Mechanical Fall, ED Head Injury (Adult), ED Dizziness, Uncertain Cause Prescriptions: Naproxen [Naprosyn] 500 mg PO BID PRN #20 tab Prescription Printed Referrals: Hai Ovalle DO [Primary Care Provider] -
--- NOTE | 2020-10-07 12:08 | ED.RN ---
radiology reported pt was half way though hip imaging and declined any further imaging
--- NOTE | 2020-10-07 12:43 | EKG12_ITS ---
Test Reason : Blood Pressure : / mmHG Vent. Rate : 074 BPM Atrial Rate : 074 BPM P-R Int : 172 ms QRS Dur : 100 ms QT Int : 398 ms P-R-T Axes : 046 034 068 degrees QTc Int : 441 ms Normal sinus rhythm Normal ECG Confirmed by NAMAN CARPENTER, ED ([id number]), department editor ANAM CIFUENTES ([id number]) on 10/12/2020 10:09:40 AM Referred By: DOROTHEA Confirmed By:TRAVIS FLORENCE MD
--- NOTE | 2020-10-07 13:09 | ED.RN ---
daughter and pt now wants the previously declined bloodwork
--- NOTE | 2020-10-07 13:12 | ED.RN ---
pt refused further xrays
[2020-10-07 13:28] LABS: Absolute Lymphocyte Count 1.13 X10^3/uL (0.83-4.51); Absolute Neutrophil Count 3.7 X10^3/uL (2.0-7.7); Basophil# 0.05 X10^3/uL; Basophil% 0.9 % (0-1); Eosinophil# 0.06 X10^3/uL; Hemoglobin 13.2 g/dL (13.0-16.5); Lymphocyte # 1.13 X10^3/ul (4.0); Lymphocyte % 19.6 % (19-41); Mean Corp Hgb Conc 32.2 g/dL (32-36); Mean Corpuscular Hgb 31.4 pg (27.0-32.0); Mean Corpuscular Volume 97.4 fL (80-94); Mean Platelet Vol. 10.4 fl (6.2-12.0); Monocyte% 13.9 % (0-10); NRBC Flagged by Analyzer 0 % (0-5); Neutrophil # 3.71 X10^3/uL (2.7-7.7); Neutrophil % 64.3 % (47-70); Platelet Count 224 K/mm3 (150-450); RBC Distribution Width CV 13.3 % (11.6-14.6); Red Blood Count 4.21 M/mm3 (4.6-6.2); White Blood Count 5.8 K/mm3 (4.4-11.0)
[2020-10-07 14:10] LABS: Anion Gap 5 (5-15); BUN 18 mg/dL (7-18); BUN/Creat Ratio 17.8 RATIO (10-20); Calcium,Total 8.6 mg/dL (8.5-10.1); Chloride 108 mmol/L (98-107); Creatinine, Serum 1.01 mg/dL (0.70-1.30); EST Glomerular Filtration Rate 75 mL/min (>60); Est Glom Filt Rate - Afr Amer 90 mL/min (>60); Estimated Creatinine Clearance 56.22 ml/min; Glucose 96 mg/dL (74-106); Potassium 4.5 mmol/L (3.5-5.1); Sodium Level 142 mmol/L (136-145)
[2020-10-07 14:26] LABS: BNP,B-Type NATRIURETIC PEPTIDE 36.2 pg/mL (0-100)
[2020-10-07 14:39] VITALS: BP 149/79; PULSE 79; RESP 16; O2SAT 99
[2020-10-07 14:41] LABS: Bacteria 0 SEEN /hpf (None Seen); Mucous, Urine 0 SEEN /hpf (<or=2+); Red Blood Cells-Urine 0 SEEN /hpf (0-5)
[2020-10-07 14:48] LABS: Color, Urine Straw (Yellow); Glucose, Dipstick Normal (Normal); Ketone-Dipstick Negative (Negative); Leukocyte Esterase-Dipstick Negative /ul (Negative); Nitrite-Dipstick Negative (Negative); Occult Blood-Urine Negative /ul (Negative); Protein-Dipstick Negative (Negative); Urine Bilirubin Dipstick Negative (Negative); Urine Clarity Clear (Clear); Urine Urobilinogen Normal (Normal)
[2020-10-07 15:01] VITALS: BP 149/68; PULSE 73; RESP 14; O2SAT 94
[2020-10-07 15:12] LABS: Squamous Epithelial Cells - UA 0-5 SEEN /hpf (0-5); White Blood Cells 0-5 SEEN /hpf (0-5)
== END 2020-10-07 15:24 | disposition home or self-care (01) ==
LOC: ED 11:29
PROVIDERS: Emergency Provider Emergency Medicine; PCP Family Medicine
DX: M54.2 Cervicalgia (principal); M25.551 Pain in right hip; M25.552 Pain in left hip; R42 Dizziness and giddiness; W19.XXXA Unspecified fall, initial encounter; Y93.9 Activity, unspecified; Y92.9 Unspecified place or not applicable; J44.9 Chronic obstructive pulmonary disease, unspecified; Z95.5 Presence of coronary angioplasty implant and graft; Z96.641 Presence of right artificial hip joint
CPT/HCPCS: 70450; 72125; 73502; 80048; 81001; 83880; 84484; 85025; 93005; 99285; A4216

== ENCOUNTER → 2020-12-27 10:49 | Outpatient (CLI) | payer OTHER, SELFPAY ==
[2020-11-21 08:37] VITALS: BMI 28.6
[2020-12-27 11:39] LABS: Hematocrit 43.5 % (40-54); Hemoglobin 13.8 g/dL (13.0-16.5); Mean Corp Hgb Conc 31.7 g/dL (32-36); Mean Corpuscular Hgb 31.4 pg (27.0-32.0); Mean Corpuscular Volume 98.9 fL (80-94); Mean Platelet Vol. 10.3 fl (6.2-12.0); Platelet Count 254 K/mm3 (150-450); RBC Distribution Width CV 13.2 % (11.6-14.6); RBC Distribution Width SD 47.8 fl (35.1-43.9); White Blood Count 4.9 K/mm3 (4.4-11.0)
[2020-12-27 12:12] LABS: Vitamin B12 1102 pg/mL (211-911)
[2020-12-27 12:50] LABS: AST(SGOT) 18 U/L (15-37); Alanine Aminotransfer ALT/SGPT 27 U/L (16-61); Albumin, Serum 3.6 g/dL (3.2-5.0); Alkaline Phosphatase 50 U/L (45-117); Anion Gap 3 (5-15); BUN 16 mg/dL (7-18); BUN/Creat Ratio 15.8 RATIO (10-20); Chloride 105 mmol/L (98-107); Creatinine, Serum 1.01 mg/dL (0.70-1.30); EST Glomerular Filtration Rate 75 mL/min (>60); Est Glom Filt Rate - Afr Amer 90 mL/min (>60); Globulin 3.7 g/dL (2.2-4.2); Glucose 99 mg/dL (74-106); Potassium 3.8 mmol/L (3.5-5.1); Protein, Total 7.3 g/dL (6.4-8.2); Sodium Level 140 mmol/L (136-145)
== END ==
PROVIDERS: PCP Family Medicine; Referring Provider Psychiatry & Neurology Neurology; Visit Provider Psychiatry & Neurology Neurology
DX: F03.90 Unspecified dementia, unspecified severity, without behavioral disturbance, psychotic disturbance, mood disturbance, and anxiety (principal); G20 Parkinson's disease
CPT/HCPCS: 36415; 80053; 82607; 82746; 84443; 85027

== ENCOUNTER → 2021-06-28 09:00 | Outpatient (CLI) | payer OTHER, SELFPAY ==
[2021-06-28 11:41] LABS: AST(SGOT) 18 U/L (15-37); Alanine Aminotransfer ALT/SGPT 31 U/L (16-61); Albumin, Serum 3.3 g/dL (3.2-5.0); Alkaline Phosphatase 52 U/L (45-117); Bilirubin, Direct 0.12 mg/dL (0.00-0.30); Cholesterol 153 mg/dL (200); High Density Lipoprotein 57 mg/dL; Protein, Total 7.3 g/dL (6.4-8.2); Triglycerides 87 mg/dL; Very Low Density Lipoprotein 17 mg/dL (5-40)
== END ==
PROVIDERS: PCP Family Medicine; Referring Provider Psychiatry & Neurology Neurology; Visit Provider Psychiatry & Neurology Neurology
DX: E78.00 Pure hypercholesterolemia, unspecified (principal)
CPT/HCPCS: 36415; 80061; 80076

== ENCOUNTER → 2022-08-23 | Outpatient (CLI) | payer OTHER, SELFPAY ==
--- NOTE | 2022-08-23 15:04 | SP.MBSS_ITS ---
Modified Barium Swallow - Patient Information Study Date: 08/23/22 Study Time: 13:00 Direct Billable Minutes: 105 Total Minutes procedure & reportin Diagnosis: Parkinson's disease (G20), Dysphagia (R13.10) Referring Physician: Johnathan Olmstead Reason for Referral: Objectively assess swallow function, risk for aspiration, and determine recommendations for least restrictive diet textures and compensatory strategies to improve safety of swallow. 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 The patient's daughter, Vianey, was present for the evaluation. She provided history. The patient coughs mostly with intake of liquids and pills. This happens about every other day and has occurred for the past 6-12 months. He lives at home with his . Current Diet Ordered: Regular textures / Thin liquids Dentition: Natural Teeth - missing 1 Mental Status: Impaired - hx of dementia Respiratory Status: Oxygenating on Room Air - Penetration-Aspiration Scale Penetration-Aspiration Scale: OBJECTIVE ASSESSMENT OF SWALLOW FUNCTION (QUANTITATIVE ? PER TRIAL): PENETRATION / ASPIRATION SCALE (RUSSELL): 1 = does not enter airway 2 = enters airway/above vocal folds/ejected 3 = enters airway/above vocal folds/not ejected 4 = enters airway/contacts vocal folds/ejected 5 = enters airway/contacts vocal folds/not ejected 6 = enters airway/below vocal folds/ejected 7 = enters airway/below vocal folds/not ejected despite effort 8 = enters airway/below vocal folds/no effort VIDEOFLOROSCOPIC SCALE SCORE (RUSSELL): Grade I = aspiration of material that has penetrated into the laryngeal vestibule, intact cough reflex Grade II = aspiration < 10 % of the bolus, intact cough reflex Grade III = aspiration of < 10 % of the bolus, reduced cough reflex or aspiration of > 10 % of the bolus, intact cough reflex Grade IV = aspiration of > 10 % of the bolus, reduced cough reflex - Penetration-Aspiration Scale Score Thin Liquid via teaspoon Result: 1= does not enter airway Thin Liquid via teaspoon Trial 2 Result: 1= does not enter airway Thin Liquid via small single sip from cup Result: 2= enter airway/above vocal folds/ejected Thin Liquid via sequential sips from cup Result: 5= enters airways/contacts vocal folds/not ejected - cued cough and re- swallow after the trial, which effectively mostly cleared residue from the laryngeal vestibule Ulen Thick Liquid via small single sip from cup Result: 1= does not enter airway Honey Thick Liquid via small single sip from cup Result: 1= does not enter airway Pudding via teaspoon with esophageal screen Result: 1= does not enter airway Thin liquid via straw with esophageal screen Result: 1= does not enter airway 1/4 Cookie Result: 1= does not enter airway Thin Liquid via small single sip from cup Effortful swallow Result: 1= does not enter airway Barium Tablet with water Result: 1= does not enter airway Comment: Barium tablet became caught in the vallecula. Liquid wash did not clear. Barium pudding did not clear. Chin tuck did not clear. Sequential sips of water finally cleared. Barium Tablet with applesauce and effortful swallow Result: 1= does not enter airway Comment: Barium tablet cleared pharynx on the first swallow - Oral Phase Labial Seal: Escape progressing to mid-chin Tongue Control During Bolus Hold: Posterior escape of less than half of bolus Bolus Preparation/Mastication: Timely and efficient chewing and mashing Bolus Transport/Lingual Motion: Delayed initiation of tongue motion Oral Residue: Trace residue lining oral structures - Pharyngeal Phase Initiation of Pharyngeal Swallow: Bolus head at posterior laryngeal surgace of epiglottis Soft Palate Elevation: Trace column of contrast/air between soft palate and pharyngeal wall Laryngeal Elevation: Partial superior movement thyroid cart/partial apprx aryt- epig petiole Anterior Hyoid Excursion: Partial anterior movement Epiglottic Movement: Partial inversion Laryngeal Vestibule Closure at Height of Swallow: Incomplete; narrow column of air/contrast in laryngeal vestibule Pharyngeal Stripping Wave: Present - diminished Pharyngoesophageal Segment Opening: Parital distension and partial duration; parital obstruction of flow Tongue Base Retraction: Wide column of contrast between tongue base & post. pharyngeal wall Pharyngeal Residue: Collection of residue within or on pharyngeal structures - Esophageal Phase Esophageal Clearance: Esophageal retention w/ retrograde flow below pharyngoesophageal seg. - Diagnosis/Impression Diagnosis: Mild-moderate oropharyngeal phase dysphagia (R13.12) Impression: The oral phase is primarily marked by... -Mildly decreased bolus control with <1/2 of the bolus spilling posteriorly to the posterior surface of the epiglottis prior to swallow onset observed with thin liquids especially. -Mildly delayed tongue motion for A-P transport with thin liquids. The pharyngeal phase is primarily marked by... -Mildly decreased airway closure during the swallow due to decreased anterior hyoid excursion, partial epiglottic inversion, and decreased laryngeal elevation. -Moderately decreased tongue base retraction, moderately decreased UES opening/duration, and diminished pharyngeal stripping wave with resulting moderate pharyngeal residues after the swallow. Hard swallows with liquids decreased pharyngeal residue. Pharyngeal retention of barium tablet requiring sequential liquids to wash. He would benefit from crushed medications. If unable to crush, he did clear tablet from pharynx in applesauce with use of hard swallow. -Laryngeal penetration of sequential sips of thin liquids, which did not reliably eject from the laryngeal vestibule after the swallow. Use of single sips were most effective in decreasing laryngeal penetration. No aspiration observed during the study. The esophageal phase is primarily marked by... -Esophageal retention of pudding and thin liquids in lower esophagus with retrograde flow remaining well below UES. - Recommendations Diet: Regular Textures, Thin Liquids Comment: pills crushed as able, if unable to crush will recommend taking them one at a time in applesauce with hard swallow Compensatory Strategies: Small Bites, Small Sips - hard swallows with sips, Slow Rate - sips one at a time, Alternate bites/solids and sips/liquids, Sitting upright, Remain sitting upright for 30 minutes after PO intake Recommend Repeat Modified Barium Swallow: TBD Need for Skilled Speech Therapy Services: Yes Comment: Will recommend the patient for outpatient dysphagia therapy to address deficits in oropharyngeal swallow function. Will recommend the patient for oropharyngeal strengthening to improve laryngeal elevation, hyoid excursion, tongue base retraction, pharyngeal contraction, and duration of UES opening (Stella, CTAR, effortful, effortful breath hold and swallow). The patient would benefit from thorough education regarding diet recommendations and recommended compensatory strategies. Education Completed: 1. Described result of evaluation., 4. Family/caregivers understand evaluation & agree w/ goals & tx plan., 7. Pt requires further education on strategies & risks. - Status Active ST Patient: Active - Contact Information [facility] Speech Therapy:: Oly Munoz M.A. [facility] [employer] MACHINE OPERATOR Speech-Language Pathologist [facility] [address] [place] [address] [email or web address] [phone] 08/23/22 15:10
== END | disposition home or self-care (01) ==
LOC: RAD 12:53
PROVIDERS: PCP Family Medicine; Visit Provider Psychiatry & Neurology Neurology
DX: K11.7 Disturbances of salivary secretion (principal); G20 Parkinson's disease; R13.10 Dysphagia, unspecified
CPT/HCPCS: 74230; 92611

== ENCOUNTER 2022-09-28 04:48 | Emergency (ER) | payer OTHER, SELFPAY ==
[2022-09-28 04:50] VITALS: BP 200/92; PULSE 81; RESP 16; TEMP 36.4; O2SAT 95; BMI 26.5
[2022-09-28 05:01] VITALS: BP 183/89
--- NOTE | 2022-09-28 05:17 | RAD_ITS ---
STUDY: X-RAY CHEST REASON FOR EXAM: Male, 87 years old patient with cough. TECHNIQUE: Single AP portable view of the chest. COMPARISON: Chest radiograph dated October 19, 2019. FINDINGS: Cardiac monitoring leads are present. The lungs are clear and expanded. There is no demonstrated pleural abnormality. Normal size heart. Normal mediastinum and jennifer. Normal visualized pulmonary arteries. There is atherosclerotic calcification of the aortic arch with tortuosity. There are diffuse degenerative changes of the visualized thoracic spine. Normal visualized ribs, clavicles, and shoulders. There is no demonstrated abnormality of the visualized soft tissue structures of the upper abdomen. RAD/Chest 1 View (Portable) IMPRESSION: No radiographic evidence of acute cardiopulmonary disease. Electronically Signed: Fannie Resendez MD at 6:04 EST ,
--- NOTE | 2022-09-28 05:17 | CT_ITS ---
STUDY: CT BRAIN WITHOUT CONTRAST REASON FOR EXAM: Male, 87 years old patient with altered mental status. RADIATION DOSAGE (If Supplied By Facility): CTDIvol = ( 44.99 ) mGy, DLP = ( 863.60 ) mGycm TECHNIQUE: Transaxial CT imaging of the brain was performed without administration of intravenous contrast material. Multiplanar reformations are submitted for interpretation. Individualized dose optimization techniques were used for this CT. COMPARISON: CT of the chest dated October 07, 2020. FINDINGS: Normal soft tissue structures. Normal calvarium. There is mild cerebral atrophy with widening of the extra-axial spaces and moderate ventricular dilatation. Normal white matter tracts of the cerebral hemispheres. Normal basal ganglia and thalami. Normal brainstem. Normal cerebellum. There is no intracranial hemorrhage. There is atherosclerotic calcification of the intracranial arteries. Normal visualized paranasal sinuses. CT/Brain/Head without Contrast IMPRESSION: 1. Chronic involutional changes of the brain. 2. Moderate ventriculomegaly is unchanged since previous CT. 3. No CT evidence of mass or acute intracranial hemorrhage. Electronically Signed: Fannie Resendez MD at 6:13 [facility] ,
--- NOTE | 2022-09-28 05:18 | EKG12_ITS ---
Test Reason : HTN Blood Pressure : / mmHG Vent. Rate : 080 BPM Atrial Rate : 080 BPM P-R Int : 186 ms QRS Dur : 100 ms QT Int : 398 ms P-R-T Axes : 028 -23 039 degrees QTc Int : 459 ms Sinus rhythm with Premature atrial complexes Otherwise normal ECG Confirmed by LAILA CARPENTER, LISHA ([id number]), technical writer and editor ANAM CIFUENETS ([id number]) on 09/30/2022 1:05:30 PM Referred By: Soraya Confirmed By:LISHA ULLOA MD
--- NOTE | 2022-09-28 05:19 | EX.ED.DYSGE1 ---
HPI History of Present Illness Chief Complaint: Hypertension Informant: patient and family Narrative Narrative: Most of the history comes from the family. Patient states that he feels okay. He does not feel his best but nothing specific is wrong. But they state his memory is poor ever since he got significant Parkinson's with some dementia about a year and a half ago. He is acting normally. He was complaining that he just did not feel quite right. They checked his blood pressure and it was about 190/105. This concerned them so they brought him in. He had had an episode of elevated blood pressure with chest pain a few weeks ago. They state that sometimes he coughs a little bit but they have not noticed a big change. They have not noted fevers. He has been eating and drinking well. He ate dinner tonight fine. No urinary changes. No malodorous urine. Nothing clearly makes symptoms better or worse. He is on a very low-dose of lisinopril. They gave him an extra half tablet at home a bit ago. [facility] Medical History (Updated 09/28/22 @ 07:[address] Abhi Lira MD) Abnormal electrocardiogram Abnormal result of cardiovascular function study, unspecified Angina pectoris Asthma Atherosclerosis of [place] coronary artery of [place] heart without angina pectoris BPH (benign prostatic hyperplasia) Bradycardia Chest pain, precordial Cough Dizziness Essential (primary) hypertension Fatigue GERD (gastroesophageal reflux disease) Hiatal hernia Preop cardiovascular exam Pure hypercholesterolemia Vasovagal syncope Home Medications aspirin 81 mg chewable tablet 81 mg PO DAILY@0800 10/07/20 [History Last Taken Unknown] Protandim 1 tab PO DAILY 11/21/20 [History Last Taken Unknown] aloe vera 25 mg capsule 25 mg PO DAILY 11/21/20 [History Last Taken Unknown] melatonin 3 mg capsule 3 mg PO HS PRN Sleep 11/21/20 [History Last Taken Unknown] multivitamin 1 tab PO DAILY 11/21/20 [History Last Taken Unknown] saw palmetto 160 mg capsule 160 mg PO DAILY 11/21/20 [History Last Taken Unknown] ubidecarenone-omega 3-vit E 25 mg-150 (90-60) mg-200 unit capsule (Co C-52-Vmdwblx E-Fish Oil) 1 cap PO DAILY 11/21/20 [History Last Taken Unknown] Brain Health Multivitamin 1 tab PO DAILY 03/18/22 [History Last Taken Unknown] carbidopa ER 50 mg-levodopa 200 mg tablet,extended release 1 tab PO BID #180 tabs 08/08/22 [Rx Last Taken Unknown] memantine 10 mg tablet 10 mg PO BID #180 tabs 08/08/22 [Rx Last Taken Unknown] lisinopril 5 mg tablet 5 mg PO DAILY #90 tabs 08/16/22 [Rx Last Taken Unknown] nitroglycerin 0.4 mg sublingual tablet 0.4 mg sublingual Q5M PRN chest pain #25 tabs 08/27/22 [Rx Last Taken Unknown] aspirin 81 mg tablet,delayed release 81 mg PO DAILY 09/28/22 [History Last Taken Unknown] atorvastatin 40 mg tablet 40 mg PO DAILY 09/28/22 [History Last Taken Unknown] fludrocortisone 0.1 mg tablet 0.1 mg PO QAM 09/28/22 [History Last Taken Unknown] oxybutynin chloride 5 mg tablet 5 mg PO DAILY 09/28/22 [History Last Taken Unknown] Allergy/AdvReac Type Severity Reaction Status Date / Time No Known Allergies Allergy Verified 09/28/22 04:56 Family History Mother CHF (congestive heart failure) Brother Cancer Prostate cancer Sister Parkinson's disease Surgical History History of appendectomy History of coronary artery stent placement (05/06/12) History of inguinal hernia repair (~2009) History of left heart catheterization (LHC) (11/18/13) History of repair of hiatal hernia History of total right hip replacement (~06/23/18) Social History Smoking Status: Never smoker alcohol intake: never substance use type: does not use caffeine: Yes Type: coffee Number of servings: 3 what type of physical activity do you participate in: bicycling frequency: daily duration: 15-30 minutes/day seatbelt use: always do you feel safe at home: Yes ROS ROS ED ROS Narrative History is limited due to significant Parkinson's with some dementia. A lot of review of systems is through the family. Constitutional Constitutional ED: Reports weight loss and other Details: Patient has had about a 15 pound weight loss but has been over the last year and a half and is not acute. ; Denies fever(s) ENT ENT ED: Reports sore throat and other Details: Occasionally has complained of sore throat over the last couple weeks. But not complaining now. Cardiovascular Cardiovascular: Reports other Details: Denies chest pain now but may have had some over the last couple weeks with elevated blood pressure. ; Denies palpitations or racing heartbeat Respiratory/Chest Respiratory/Chest: Reports cough Gastrointestinal Gastrointestinal: Denies abdominal pain, diarrhea or vomiting Genitourinary Genitourinary ED: Denies hematuria Musculoskeletal Musculoskeletal: Denies myalgias Neurologic Neurologic: Denies headache(s) Hematologic/Lymphatic Hematologic/Lymphatic: Denies easy bleeding Allergic/Immunologic Allergic/Immunologic ED: Denies urticaria EXAM Physical Exam Const Vital Signs: 09/28/22 04:50 09/28/22 05:01 Temperature 97.6 F L Temperature Source Temporal Pulse Rate 81 Respiratory Rate 16 Blood Pressure 200/92 H 183/89 H Blood Pressure Mean 128 120 Pulse Ox 95 Oxygen Delivery Method Room Air Positive well developed Constitutional Narrative: Patient is thin but not cachectic. He is nontoxic. He is sitting calmly in bed. He denies complaints. General Appearance ED: well developed and NAD; Negative for pallor HEENT Reports moist mucous membranes Eyes General Eye ED: Negative for scleral icterus Neck supple Resp normal respiratory effort and clear to auscultation bilaterally Auscultation: Negative for rales, rhonchi or wheezes Cardio regular rate, regular rhythm and no murmurs GI normal to inspection, nondistended, normoactive bowel sounds and non-tender Back/Spine no CVA tenderness Extremity General Extremety ED: Negative for tenderness Neuro Neuro Narrative: Patient awake alert appropriate and at baseline per family Psych mental status grossly normal Skin no rashes or lesions noted General Skin Exam: Negative for jaundice or pallor MDM MDM MDM Narrative Medical decision making narrative: CT of the head and chest x-ray showed no acute process. CBC showed normal white count hemoglobin and platelets. Electrolytes were overall normal. LFTs were normal. Troponin was negative. Influenza and COVID are negative. This patient is eating and drinking. He is asymptomatic now. His sats are normal. Family does state that he seems to be be having runny nose occasionally complaining of a sore throat and coughing a little bit for a few days but is not doing it now. I do not think we need to put him in the hospital for this. I think home therapy is appropriate. I am not seeing indications for antibiotics. We did discuss reasons to return. We also discussed long-term blood pressure management. He is currently about 167/89. He is on extremely low-dose of lisinopril. The challenge is that if he gets upright his blood pressure will drop because of his Parkinson's so they have trouble giving him antihypertensives that will keep his blood pressure down all the time without causing further symptoms. This is not new. Lab Data Attestation: I reviewed the patient's lab results. Labs: Laboratory Results - last 24 hr 09/28/22 09/28/22 05:08 05:08 WBC 5.2 RBC 4.15 L Hgb 13.0 Hct 40.5 MCV 97.6 H MCH 31.3 MCHC 32.1 RDW Std Deviation 48.5 H RDW Coeff of Rylie 13.5 Plt Count 210 MPV 10.6 Immature Gran % (Auto) 0.200 Neut % (Auto) 48.2 Lymph % (Auto) 31.3 Maverick % (Auto) 15.8 H Eos % (Auto) 3.5 Baso % (Auto) 1.0 Absolute Neuts (auto) 2.5 Absolute Lymphs (auto) 1.62 Nucleated RBC % 0 Sodium 143 Potassium 3.6 Chloride 108 H Carbon Dioxide 30.0 Anion Gap 5 BUN 19 H Creatinine 0.97 Estim Creat Clear Calc 56.44 Est GFR (MDRD) Af Amer 94 Est GFR (MDRD) Non-Af 78 BUN/Creatinine Ratio 19.6 Glucose 85 Calcium 8.3 L Total Bilirubin 0.30 AST 19 ALT 31 Alkaline Phosphatase 84 Troponin I High Sens 10 Total Protein 6.4 Albumin 3.2 Globulin 3.2 Albumin/Globulin Ratio 1.0 Radiography Diagnostic Testing: Clinical Impression(s) from Imaging Studies Brain CT 09/28/22 05:17 IMPRESSION: 1. Chronic involutional changes of the brain. 2. Moderate ventriculomegaly is unchanged since previous CT. 3. No CT evidence of mass or acute intracranial hemorrhage. Electronically Signed: Fannie Resendez MD at 6:13 EST , Chest X-Ray 09/28/22 05:17 IMPRESSION: No radiographic evidence of acute cardiopulmonary disease. Electronically Signed: Fannie Resendez MD at 6:04 EST Reading Location ID and State: [facility] / [place] , Service support , CT scan of the head and chest x-ray are not showing any acute issues. Discharge Plan Triage Chief Complaint: Hypertension ED Provider: Abhi Lira Dx/Rx/DC Orders Clinical Impression: Generalized weakness, Parkinson's disease, Elevated blood pressure reading Instructions: ED High Blood Pressure Hypertension Prescriptions: No Action ubidecarenone-omega 3-vit E 25 mg-150 (90-60) mg-200 unit capsule 25-150-200 mg-mg-unit capsule 1 cap PO DAILY multivitamin Tablet 1 tab PO DAILY saw palmetto 160 mg capsule 160 mg PO DAILY Rx Instructions: give with meal/snack aloe vera 25 mg capsule 25 mg PO DAILY melatonin 3 mg capsule 3 mg PO HS PRN (Reason: Sleep) Protandim 1 tab PO DAILY Brain Health Multivitamin 1 tab PO DAILY carbidopa-levodopa 50-200 mg tablet extended release 1 tab PO BID Qty: 180 1RF memantine 10 mg tablet 10 mg PO BID Qty: 180 1RF aspirin 81 MG tablet,chewable 81 mg PO DAILY@0800 aspirin [Aspir-81] 81 mg Tablet,Delayed Release (Dr/Ec) 81 mg PO DAILY oxybutynin chloride 5 mg Tablet 5 mg PO DAILY atorvastatin 40 mg tablet 40 mg PO DAILY fludrocortisone 0.1 mg tablet 0.1 mg PO QAM lisinopril 5 mg tablet 5 mg PO DAILY Qty: 90 3RF nitroglycerin 0.4 mg tablet, sublingual 0.4 mg sublingual Q5M PRN (Reason: chest pain) Qty: 25 3RF Rx Instructions: do not exceed 3 doses per episode Primary Care Provider: Hai Ovalle Referrals: Hai Ovalle, DO [Primary Care Provider] - 3-5 Days if not improving Disposition Disposition: Home, Self Care
[2022-09-28 05:35] LABS: Absolute Lymphocyte Count 1.62 X10^3/uL (0.83-4.51); Absolute Neutrophil Count 2.5 X10^3/uL (2.0-7.7); Basophil# 0.05 X10^3/uL; Eosinophil# 0.18 X10^3/uL; Eosinophils% 3.5 % (0-5); Hematocrit 40.5 % (40-54); Lymphocyte # 1.62 X10^3/ul (0.83-4.51); Lymphocyte % 31.3 % (19-41); Mean Corp Hgb Conc 32.1 g/dL (32-36); Mean Corpuscular Hgb 31.3 pg (27.0-32.0); Mean Corpuscular Volume 97.6 fL (80-94); Mean Platelet Vol. 10.6 fl (6.2-12.0); Monocyte# 0.82 X10^3/uL; Monocyte% 15.8 % (0-10); NRBC Flagged by Analyzer 0 % (0-5); Neutrophil % 48.2 % (47-70); Platelet Count 210 K/mm3 (150-450); RBC Distribution Width CV 13.5 % (11.6-14.6); RBC Distribution Width SD 48.5 fl (35.1-43.9); Red Blood Count 4.15 M/mm3 (4.6-6.2); White Blood Count 5.2 K/mm3 (4.4-11.0)
[2022-09-28 05:55] LABS: AST(SGOT) 19 U/L (15-37); Alanine Aminotransfer ALT/SGPT 31 U/L (16-61); Albumin, Serum 3.2 g/dL (3.2-5.0); Alkaline Phosphatase 84 U/L (45-117); Anion Gap 5 (5-15); BUN 19 mg/dL (7-18); BUN/Creat Ratio 19.6 RATIO (10-20); Calcium,Total 8.3 mg/dL (8.5-10.1); Chloride 108 mmol/L (98-107); Creatinine, Serum 0.97 mg/dL (0.70-1.30); EST Glomerular Filtration Rate 78 mL/min (>60); Est Glom Filt Rate - Afr Amer 94 mL/min (>60); Estimated Creatinine Clearance 56.44 ml/min; Globulin 3.2 g/dL (2.2-4.2); Glucose 85 mg/dL (74-106); Potassium 3.6 mmol/L (3.5-5.1); Protein, Total 6.4 g/dL (6.4-8.2); Sodium Level 143 mmol/L (136-145); Troponin-I HS 10 pg/mL (3.0-78.0)
[2022-09-28 07:17] VITALS: BP 163/88; PULSE 73
--- NOTE | 2022-09-28 07:22 | ED.RN ---
THIS RN INTO ROOM TO DISCHARGE PATIENT, FAMILY VERBALIZED THEY ARE NOT COMFORTABLE LEAVING WITHOUT SPEAKING TO PATIENTS PEEL OVEN TENDER FIRST. DR. SMILEY NOTIFIED.
== END 2022-09-28 08:55 | disposition home or self-care (01) ==
PROVIDERS: Emergency Provider Emergency Medicine; PCP Family Medicine; Visit Provider Emergency Medicine
DX: G20 Parkinson's disease (principal); F03.90 Unspecified dementia, unspecified severity, without behavioral disturbance, psychotic disturbance, mood disturbance, and anxiety; R53.1 Weakness; R03.0 Elevated blood-pressure reading, without diagnosis of hypertension; I25.10 Atherosclerotic heart disease of native coronary artery without angina pectoris; E78.00 Pure hypercholesterolemia, unspecified; I10 Essential (primary) hypertension; Z79.82 Long term (current) use of aspirin; Z20.822 Contact with and (suspected) exposure to COVID-19
CPT/HCPCS: 70450; 71045; 80053; 84484; 85025; 87428; 93005; 99285; A4216

== ENCOUNTER 2023-03-05 13:14 | Outpatient (CLI) | payer OTHER, SELFPAY ==
[2023-03-05 13:25] VITALS: BP 98/59; PULSE 69; RESP 16; TEMP 36; O2SAT 96; BMI 24.0
[2023-03-05] MEDS: 0.9% NaCl Peripheral Flush Adult/Peds IV (13:35)
[2023-03-05] MEDS: 0.9% Normal Saline 1,000 ML 999 ML IV (13:36)
[2023-03-05 14:53] VITALS: BP 159/77; PULSE 70; RESP 16; TEMP 35.6; O2SAT 97
== END 2023-03-05 13:15 | disposition home or self-care (01) ==
LOC: MEDOUTP 13:15
PROVIDERS: PCP Family Medicine; Referring Provider Psychiatry & Neurology Neurology; Visit Provider Psychiatry & Neurology Neurology
DX: I95.9 Hypotension, unspecified (principal); E86.0 Dehydration
CPT/HCPCS: 96360; J7030; A4216

== ENCOUNTER → 2023-03-05 | Outpatient (CLI) | payer OTHER, SELFPAY ==
--- NOTE | 2023-03-05 15:23 | RAD_ITS ---
EXAM: XR RIGHT RIBS AND AP CHEST, 3 OR MORE VIEWS CLINICAL INDICATION: Right rib pain; bronchitis TECHNIQUE: Frontal and oblique views of the right ribs and frontal view of the chest. COMPARISON: Portable chest radiograph of 09/28/2022. FINDINGS: LUNGS AND PLEURAL SPACES: Lungs are mildly hyperinflated. Mild peribronchial cuffing has developed indicating bronchial wall inflammation/bronchitis. No consolidation or edema. No pneumothorax. No effusion. HEART: Normal heart size. Pruning of the peripheral pulmonary vascular markings. No pulmonary venous hypertension. MEDIASTINUM: Thoracic aorta is minimally elongated and calcific. No mediastinal widening. BONES/JOINTS: No acute rib fracture. Thoracic degenerative spurring. RAD/Ribs Uni Min 3V w/PA Chest IMPRESSION: Findings of mild pulmonary emphysema and bronchitis. No pneumonia. No acute rib fracture. Electronically Signed: Sanford Moreno MD at 5:16 EDT ,
[2023-03-05 15:50] LABS: Absolute Lymphocyte Count 1.11 X10^3/uL (0.83-4.51); Absolute Neutrophil Count 3.8 X10^3/uL (2.0-7.7); Basophil# 0.04 X10^3/uL; Basophil% 0.7 % (0-1); Eosinophil# 0.04 X10^3/uL; Eosinophils% 0.7 % (0-5); Hematocrit 38.2 % (40-54); Hemoglobin 12.1 g/dL (13.0-16.5); Lymphocyte # 1.11 X10^3/ul (0.83-4.51); Lymphocyte % 19.3 % (19-41); Mean Corp Hgb Conc 31.7 g/dL (32-36); Mean Corpuscular Hgb 31.3 pg (27.0-32.0); Mean Platelet Vol. 10.9 fl (6.2-12.0); Monocyte# 0.76 X10^3/uL; Monocyte% 13.2 % (0-10); NRBC Flagged by Analyzer 0 % (0-5); Neutrophil # 3.77 X10^3/uL (2.7-7.7); Neutrophil % 65.8 % (47-70); Platelet Count 237 K/mm3 (150-450); RBC Distribution Width CV 13.3 % (11.6-14.6); RBC Distribution Width SD 48.5 fl (35.1-43.9); Red Blood Count 3.86 M/mm3 (4.6-6.2); White Blood Count 5.7 K/mm3 (4.4-11.0)
[2023-03-05 16:47] LABS: ALB/GLOB Ratio 0.9 RATIO (0.9-2.4); AST(SGOT) 13 U/L (15-37); Alanine Aminotransfer ALT/SGPT 8 U/L (16-61); Alkaline Phosphatase 70 U/L (45-117); Anion Gap 4 (5-15); BUN 20 mg/dL (7-18); BUN/Creat Ratio 21.2 RATIO (10-20); Calcium,Total 8.2 mg/dL (8.5-10.1); Chloride 109 mmol/L (98-107); Creatinine, Serum 0.94 mg/dL (0.70-1.30); EST Glomerular Filtration Rate 80 mL/min (>60); Est Glom Filt Rate - Afr Amer 97 mL/min (>60); Globulin 3.2 g/dL (2.2-4.2); Glucose 136 mg/dL (74-106); Magnesium 2.1 mg/dL (1.6-2.6); Potassium 4.5 mmol/L (3.5-5.1); Protein, Total 6.2 g/dL (6.4-8.2); Sodium Level 140 mmol/L (136-145); Thyroid Stim Hormone (TSH) 0.91 uIU/mL (0.358-3.74)
== END | disposition home or self-care (01) ==
LOC: LAB 15:02
PROVIDERS: PCP Family Medicine; Referring Provider Psychiatry & Neurology Neurology; Visit Provider Psychiatry & Neurology Neurology
DX: R07.81 Pleurodynia (principal); G90.3 Multi-system degeneration of the autonomic nervous system; J40 Bronchitis, not specified as acute or chronic; I95.9 Hypotension, unspecified
CPT/HCPCS: 36415; 71101; 80053; 83735; 84443; 85025

== ENCOUNTER 2023-06-28 16:30 | Inpatient (IN) | payer OTHER, SELFPAY ==
[2023-06-28] VITALS (7 sets, daily range): BP systolic 164–202; BP diastolic 72–96; PULSE 72–86; RESP 14–18; TEMP 36.6–37.1; O2SAT 92–100; BMI 23.6; BMI 23.2
--- NOTE | 2023-06-28 | FLU_PTH ---
PATIENT: SONA SALAMANCA LOC: [facility] U#:[id number] AGE/SX: 88/M ROOM: VT324 RE06/28/[address]: Dr. Kirstin Koo MD : [id number] BED: 1 DIS: 07/03/2023 SPEC #: [id number] RECD: 06/30/23 11:58 STATUS: TRISH JARVIS #: [id number] TIFFANY: 06/28/23 00:[address]: Kirstin Koo DEPT: CYTOLOGY RECD BY: Jose Castro ENTERED: 06/30/23 11:59 SP TYPE: Fluid OTHR DR: MD Dr. Hai Estevez DO Dr. Nicholas F Kotsonis, MD Tissues: Abdomen, NOS Procedures: Special Stain Group II Surgery Specimen Level IV Cytospin Fluid HEADER OPERATION: Exploratory laparoscopy PRE-OP DIAGNOSIS: Small bowel obstruction TISSUE SUBMITTED: Abdominal fluid for cytology DIAGNOSIS CYTOLOGY Abdominal fluid for cytology (cytospin and cell block): Negative for malignant cells. See comment. ELVIA:lavon 07/01/2023 COMMENT Clinical correlation and appropriate follow up are necessary. CYTOLOGY STUDY Slides are reviewed. CYTOLOGY GROSS Received is 20 ml of pink cloudy fluid labeled with the patient's name and and designated per the requisition as abdominal. Submitted for cytology preparation including cell block. / lavon 06/30/2023 TC:5 CPT: 93414, 28591
--- NOTE | 2023-06-28 17:02 | EKG12_ITS ---
Test Reason : Blood Pressure : / mmHG Vent. Rate : 075 BPM Atrial Rate : 075 BPM P-R Int : 166 ms QRS Dur : 100 ms QT Int : 408 ms P-R-T Axes : 065 -06 062 degrees QTc Int : 455 ms Sinus rhythm with Premature atrial complexes Otherwise normal ECG Confirmed by NAMAN CARPENTER, ED ([id number]), film editor supervisor CARMEN MOTTA ([id number]) on 07/01/2023 11:44:42 AM Referred By: Confirmed By:TRAVIS FLORENCE MD
--- NOTE | 2023-06-28 17:18 | EX.ED.DYSGE1 ---
HPI <ANAIS Brantley - Last Filed: 06/28/23 20:08> History of Present Illness Chief Complaint: Abd Pain Narrative Narrative: Patient presenting today due to periumbilical abdominal pain that started today. He denies any fever, chills, nausea, vomiting, and diarrhea. Prior abdominal surgery includes hiatal hernia repair. PMH includes Parkinson's disease, dementia, and hypertension. PFSH <ANAIS Brantley - Last Filed: 06/28/23 20:08> [facility] Medical History Abnormal electrocardiogram Abnormal result of cardiovascular function study, unspecified Angina pectoris Asthma Atherosclerosis of [place] coronary artery of [place] heart without angina pectoris BPH (benign prostatic hyperplasia) Bradycardia Chest pain, precordial Cough Dizziness Essential (primary) hypertension Fatigue Fatigue GERD (gastroesophageal reflux disease) Hiatal hernia Preop cardiovascular exam Pure hypercholesterolemia Vasovagal syncope Home Medications Protandim 1 tab PO DAILY 11/21/20 [History Last Taken Unknown] melatonin 3 mg capsule 3 mg PO HS PRN Sleep 11/21/20 [History Last Taken Unknown] multivitamin 1 tab PO DAILY 11/21/20 [History Last Taken Unknown] nitroglycerin 0.4 mg sublingual tablet 0.4 mg sublingual Q5M PRN chest pain #25 tabs 08/27/22 [Rx Last Taken 06/28/23] aspirin 81 mg tablet,delayed release 81 mg PO DAILY 09/28/22 [History Last Taken Unknown] Brain Health Herbal Supplement PO 10/30/22 [History Last Taken Unknown] carbidopa ER 50 mg-levodopa 200 mg tablet,extended release 1 tab PO BID #180 tabs 03/05/23 [Rx Last Taken Unknown] fludrocortisone 0.1 mg tablet 0.1 mg .Route .COMPLEX #14 tabs 03/05/23 [Rx Last Taken Unknown] memantine 5 mg tablet 5 mg PO BID #180 tabs 03/05/23 [Rx Last Taken Unknown] oxybutynin chloride 5 mg tablet 5 mg PO DAILY #30 tabs 03/05/23 [Rx Last Taken Unknown] lisinopril 5 mg tablet 5 mg PO DAILY 06/28/23 [History Last Taken Unknown] Allergy/AdvReac Type Severity Reaction Status Date / Time No Known Allergies Allergy Verified 06/28/23 16:32 Family History Mother CHF (congestive heart failure) Brother Cancer Prostate cancer Sister Parkinson's disease Surgical History History of appendectomy History of coronary artery stent placement (05/06/12) History of inguinal hernia repair (~2009) History of left heart catheterization (LHC) (11/18/13) History of repair of hiatal hernia History of total right hip replacement (~06/23/18) Social History Smoking Status: Never smoker alcohol intake: never substance use type: does not use caffeine: Yes Type: coffee Number of servings: 3 what type of physical activity do you participate in: bicycling frequency: daily duration: 15-30 minutes/day seatbelt use: always do you feel safe at home: Yes ROS <ANAIS Brantley - Last Filed: 06/28/23 20:08> ROS ED Constitutional Constitutional ED: Denies chills or fever(s) Cardiovascular Cardiovascular: Denies chest pain Respiratory/Chest Respiratory/Chest: Denies cough or dyspnea Gastrointestinal Gastrointestinal: Reports abdominal pain; Denies constipation, diarrhea, nausea or vomiting Genitourinary Genitourinary ED: Denies dysuria, hematuria or urinary urgency Musculoskeletal Musculoskeletal: Denies arthralgias or myalgias Integumentary Denies rash Neurologic Neurologic: Denies weakness EXAM <ANAIS Brantley - Last Filed: 06/28/23 20:08> Physical Exam Const Vital Signs: 06/28/23 16:31 06/28/23 20:07 06/28/23 20:27 Temperature 97.8 F 98.3 F Temperature Source Temporal Oral Pulse Rate 79 72 Respiratory Rate 18 18 18 Respiratory Pattern Blood Pressure 164/72 H 171/96 H Blood Pressure Mean 102 121 Blood Pressure Source Monitor Blood Pressure Position Semi-Fowlers Blood Pressure Location Baseline BP Pulse Ox 100 97 97 Oxygen Delivery Method Room Air Room Air Room Air 06/28/23 22:00 Temperature 98.8 F Temperature Source Temporal Pulse Rate 80 Respiratory Rate 16 Respiratory Pattern Normal Blood Pressure 202/90 H Blood Pressure Mean 127 Blood Pressure Source Monitor Blood Pressure Position Supine Blood Pressure Location Left Arm Baseline BP 171/96 Pulse Ox 94 Oxygen Delivery Method Room Air Positive well nourished, well developed and no apparent distress General Appearance ED: well developed HEENT Reports normocephalic and head/scalp atraumatic Mouth ED: Yes moist mucous membranes normal Eyes PERRL and EOMs intact bilaterally Neck full ROM and supple Chest Wall inspection of chest normal Resp normal respiratory effort and clear to auscultation bilaterally Cardio regular rate and regular rhythm GI soft to palpation, non-distended and no masses GI Narrative: Generalized tenderness to palpation, no rebound tenderness. Back/Spine normal ROM and normal to inspection Extremity normal to inspection and full ROM Neuro oriented x3, CN's II-XII intact bilaterally, moves all extremities, no focal motor deficits and no sensory deficits noted Sensorium / Orientation: awake and alert Psych mental status grossly normal and thought process normal Skin no rashes or lesions noted and no wounds <Dr. Skaina San DO - Last Filed: 06/29/23 01:33> Physical Exam Const Vital Signs: 06/28/23 16:31 06/28/23 20:07 06/28/23 20:27 Temperature 97.8 F 98.3 F Temperature Source Temporal Oral Pulse Rate 79 72 Respiratory Rate 18 18 18 Respiratory Pattern Blood Pressure 164/72 H 171/96 H Blood Pressure Mean 102 121 Blood Pressure Source Monitor Blood Pressure Position Semi-Fowlers Blood Pressure Location Baseline BP Pulse Ox 100 97 97 Oxygen Delivery Method Room Air Room Air Room Air 06/28/23 22:00 Temperature 98.8 F Temperature Source Temporal Pulse Rate 80 Respiratory Rate 16 Respiratory Pattern Normal Blood Pressure 202/90 H Blood Pressure Mean 127 Blood Pressure Source Monitor Blood Pressure Position Supine Blood Pressure Location Left Arm Baseline BP 171/96 Pulse Ox 94 Oxygen Delivery Method Room Air [facility] <ANAIS Brantley - Last Filed: 06/28/23 20:08> [facility] Narrative Medical decision making narrative: Patient presenting due to periumbilical abdominal pain that started today. He is nontoxic-appearing, vitals noted. He is afebrile. His abdomen is tender to palpation diffusely. Labs will be obtained to rule out leukocytosis, anemia, electrolyte abnormality, FOREST, hepatobiliary etiology. CT of the abdomen and pelvis will be obtained to rule out appendicitis, pancreatitis, diverticulitis, bowel obstruction, and other etiology. Patient was given Zofran and morphine for his pain. CT is concerning for bowel obstruction, Dr. Wilson was consulted and will be taking patient to surgery as he does have a volvulus. Patient is comfortable with plan. Lab Data Attestation: I reviewed the patient's lab results. Lab results narrative: RBC 4.16, potassium 5.2, anion gap 3, BUN 2, and C3 Labs: Laboratory Results - last 24 hr 06/28/23 06/28/23 06/28/23 17:25 18:35 19:40 WBC 9.7 RBC 4.16 L Hgb 13.4 Hct 41.2 MCV 99.0 H MCH 32.2 H MCHC 32.5 RDW Std Deviation 50.2 H RDW Coeff of Rylie 13.8 Plt Count 154 MPV 12.1 H Immature Gran % (Auto) 0.100 Neut % (Auto) 84.5 H Lymph % (Auto) 6.7 L [place] % (Auto) 8.2 Eos % (Auto) 0.1 Baso % (Auto) 0.4 Absolute Neuts (auto) 8.2 H Absolute Lymphs (auto) 0.65 L Nucleated RBC % 0 Sodium 140 Potassium 5.2 H Chloride 107 Carbon Dioxide 30.0 Anion Gap 3 L BUN 22 H Creatinine 1.06 Estim Creat Clear Calc 50.69 Est GFR (MDRD) Af Amer 85 Est GFR (MDRD) Non-Af 70 BUN/Creatinine Ratio 20.8 H Glucose 146 H Lactic Acid Cancelled 0.9 Calcium 9.1 Total Bilirubin 0.40 AST 25 ALT 13 L Alkaline Phosphatase 67 Total Protein 7.3 Albumin 3.6 Globulin 3.7 Albumin/Globulin Ratio 1.0 Lipase 24 Urine Color Yellow Urine Clarity Sl. Cloudy Urine pH 6.0 Ur Specific [place] 1.015 Urine Protein 15 H Urine Glucose (UA) Normal Urine Ketones Negative Urine Occult Blood Negative Urine Nitrite Negative Urine Bilirubin Negative Urine Urobilinogen Normal Ur Leukocyte Esterase Negative Urine RBC 0 SEEN Urine WBC 0 SEEN Ur Squamous Epith Cells 0-5 SEEN Urine Bacteria RARE Urine Mucus RARE Radiography Diagnostic Testing: Clinical Impression(s) from Imaging Studies Abdomen/Pelvis CT 06/28/23 18:45 IMPRESSION: This patient has some prominent loops of bowel in the upper abdomen. This is nonspecific. There is focal narrowing of small bowel in the mid upper abdomen. Early obstruction is not excluded. Surgical input is suggested. Electronically Signed: Quang Vickers MD at 19:18 EDT , ADDENDUM: 06/28/23 1929 IMPRESSION: This patient has some prominent loops of bowel in the upper abdomen. This is nonspecific. There is focal narrowing of small bowel in the mid upper abdomen. Early obstruction is not excluded. Surgical input is suggested. N.B. : The above Results were Read Back by Quang Vickers MD to Sakina San DO, and understanding confirmed on 06/28/2023 19:22:16 (ET). Electronically Signed: Quang Vickers MD at 19:18 EDT , EKG Initial EKG: Comments: 75 bpm, sinus rhythm with PACs, no ST elevation <Dr. Sakina San DO - Last Filed: 06/29/23 01:33> [facility] Lab Data Labs: Laboratory Results - last 24 hr 06/28/23 06/28/23 06/28/23 17:25 18:35 19:40 WBC 9.7 RBC 4.16 L Hgb 13.4 Hct 41.2 MCV 99.0 H MCH 32.2 H MCHC 32.5 RDW Std Deviation 50.2 H RDW Coeff of Rylie 13.8 Plt Count 154 MPV 12.1 H Immature Gran % (Auto) 0.100 Neut % (Auto) 84.5 H Lymph % (Auto) 6.7 L [place] % (Auto) 8.2 Eos % (Auto) 0.1 Baso % (Auto) 0.4 Absolute Neuts (auto) 8.2 H Absolute Lymphs (auto) 0.65 L Nucleated RBC % 0 Sodium 140 Potassium 5.2 H Chloride 107 Carbon Dioxide 30.0 Anion Gap 3 L BUN 22 H Creatinine 1.06 Estim Creat Clear Calc 50.69 Est GFR (MDRD) Af Amer 85 Est GFR (MDRD) Non-Af 70 BUN/Creatinine Ratio 20.8 H Glucose 146 H Lactic Acid Cancelled 0.9 Calcium 9.1 Total Bilirubin 0.40 AST 25 ALT 13 L Alkaline Phosphatase 67 Total Protein 7.3 Albumin 3.6 Globulin 3.7 Albumin/Globulin Ratio 1.0 Lipase 24 Urine Color Yellow Urine Clarity Sl. Cloudy Urine pH 6.0 Ur Specific [place] 1.015 Urine Protein 15 H Urine Glucose (UA) Normal Urine Ketones Negative Urine Occult Blood Negative Urine Nitrite Negative Urine Bilirubin Negative Urine Urobilinogen Normal Ur Leukocyte Esterase Negative Urine RBC 0 SEEN Urine WBC 0 SEEN Ur Squamous Epith Cells 0-5 SEEN Urine Bacteria RARE Urine Mucus RARE Radiography Diagnostic Testing: Clinical Impression(s) from Imaging Studies Abdomen/Pelvis CT 06/28/23 18:45 IMPRESSION: This patient has some prominent loops of bowel in the upper abdomen. This is nonspecific. There is focal narrowing of small bowel in the mid upper abdomen. Early obstruction is not excluded. Surgical input is suggested. Electronically Signed: Quang Vickers MD at 19:18 EDT , ADDENDUM: 06/28/23 1929 IMPRESSION: This patient has some prominent loops of bowel in the upper abdomen. This is nonspecific. There is focal narrowing of small bowel in the mid upper abdomen. Early obstruction is not excluded. Surgical input is suggested. N.B. : The above Results were Read Back by Quang Vickers MD to Sakina San DO, and understanding confirmed on 06/28/2023 19:22:16 (ET). Electronically Signed: Quang Vickers MD at 19:18 EDT , Treatment and Re-Evaluation :: I have personally performed a face to face assessment of the patient and have reviewed the ENRIKE Note. I performed a substantive portion of the visit including all aspects of the following. My cool findings include: History is patient is an 88-year-old male with history of Parkinson's disease and dementia presenting with periumbilical abdominal pain for 1 day. No report of any vomiting or fever. Is unclear when his last bowel movement was. He is mildly distended on exam. Vital signs are normal. Lab work largely unremarkable. CT of the abdomen pelvis however is concerning for small bowel obstruction and possible volvulus on interpretation by surgery. Case is discussed with surgery as well as radiology. Patient's will be admitted to surgical service for operative management. Patient and significant other agreeable this plan of care. Patient damian hemodynamically stable in the emergency room. Other additions or changes: [None] Discharge Plan Dx/Rx/DC Orders Clinical Impression: SBO (small bowel obstruction) Disposition Disposition: Acute Care Hospital [facility] Discharge Date/Time: 06/28/23 20:28
[2023-06-28] MEDS: Morphine 4 MG/ML Syringe IV (17:39)
[2023-06-28] MEDS: Ondansetron 4 MG/2 ML Vial IV (17:39)
[2023-06-28 17:54] LABS: Absolute Lymphocyte Count 0.65 X10^3/uL (0.83-4.51); Absolute Neutrophil Count 8.2 X10^3/uL (2.0-7.7); Basophil# 0.04 X10^3/uL; Basophil% 0.4 % (0-1); Eosinophil# 0.01 X10^3/uL; Eosinophils% 0.1 % (0-5); Hematocrit 41.2 % (40-54); Hemoglobin 13.4 g/dL (13.0-16.5); Lymphocyte # 0.65 X10^3/ul (0.83-4.51); Lymphocyte % 6.7 % (19-41); Mean Corp Hgb Conc 32.5 g/dL (32-36); Mean Corpuscular Hgb 32.2 pg (27.0-32.0); Mean Platelet Vol. 12.1 fl (6.2-12.0); Monocyte% 8.2 % (0-10); NRBC Flagged by Analyzer 0 % (0-5); Neutrophil # 8.21 X10^3/uL (2.7-7.7); Neutrophil % 84.5 % (47-70); Platelet Count 154 K/mm3 (150-450); RBC Distribution Width CV 13.8 % (11.6-14.6); RBC Distribution Width SD 50.2 fl (35.1-43.9); Red Blood Count 4.16 M/mm3 (4.6-6.2); White Blood Count 9.7 K/mm3 (4.4-11.0)
[2023-06-28 18:15] LABS: AST(SGOT) 25 U/L (15-37); Alanine Aminotransfer ALT/SGPT 13 U/L (16-61); Albumin, Serum 3.6 g/dL (3.2-5.0); Alkaline Phosphatase 67 U/L (45-117); Anion Gap 3 (5-15); BUN 22 mg/dL (7-18); BUN/Creat Ratio 20.8 RATIO (10-20); Calcium,Total 9.1 mg/dL (8.5-10.1); Chloride 107 mmol/L (98-107); Creatinine, Serum 1.06 mg/dL (0.70-1.30); EST Glomerular Filtration Rate 70 mL/min (>60); Est Glom Filt Rate - Afr Amer 85 mL/min (>60); Estimated Creatinine Clearance 50.69 ml/min; Globulin 3.7 g/dL (2.2-4.2); Glucose 146 mg/dL (74-106); Lipase 24 U/L (13-75); Potassium 5.2 mmol/L (3.5-5.1); Protein, Total 7.3 g/dL (6.4-8.2); Sodium Level 140 mmol/L (136-145)
--- NOTE | 2023-06-28 18:45 | CT_ITS ---
We are attempting to reach an attending provider to discuss findings. An addendum with communication details will be sent when the communication is complete. INDICATION: abdominal pain EXAMINATION: CT ABDOMEN AND PELVIS WITH CONTRAST - CT Abdomen And Pelvis W/ Contrast Injection TECHNIQUE: Helically acquired images were obtained of the abdomen and pelvis following IV contrast. A radiation dose optimization technique was used for this scan. IV Contrast dosage and agent: 100 cc [id number]-370 Oral contrast: None. COMPARISON: April 19, 2017. FINDINGS: LOWER CHEST: Atelectasis and/or scarring. No cardiomegaly or pericardial effusion. LIVER: Homogeneous. No focal mass. GALLBLADDER AND BILIARY TREE: No calcified gallstones. No gallbladder distension or wall edema. No intra- or extrahepatic biliary ductal dilation. PANCREAS: Pancreas is somewhat atrophic. Hypodense area near the pancreatic head image 49 series 2 could reflect small IPMN. This measures 1.3 cm. SPLEEN: Normal size without focal cystic or solid mass. ADRENAL GLANDS: No nodules. KIDNEYS AND URETERS: Bilateral renal cysts. Normal renal size and position. No hydronephrosis. PERITONEUM: Abnormal fluid noted within the small bowel mesentery. BOWEL: Moderate colonic stool burden. Appears to be normal colonic positioning. Fluid-filled stomach as well as crossing portion of duodenum. There are prominent loops of proximal jejunum. Transition to collapsed caliber of bowel in the midabdomen on image 68 series 2. Loops distal to this appear to be relatively collapsed. Significant portions of small bowel are collapsed within the right abdomen. There is no obvious free air. LYMPH NODES: No enlarged mesenteric or retroperitoneal lymph nodes. VESSELS: Aorta is non-dilated. Atherosclerosis. URINARY BLADDER: Unremarkable. REPRODUCTIVE ORGANS: No pelvic masses. ABDOMINAL WALL: No discrete abdominal or pelvic wall hernia. BONES: No lytic or blastic abnormality. Right hip arthroplasty. CT/Abdomen/Pelvis W IV Cont ONLY IMPRESSION: This patient has some prominent loops of bowel in the upper abdomen. This is nonspecific. There is focal narrowing of small bowel in the mid upper abdomen. Early obstruction is not excluded. Surgical input is suggested. Electronically Signed: Quang Vickers MD at 19:18 EDT ,
[2023-06-28 19:13] LABS: Lactic Acid 0.9 mmol/L (0.4-1.9)
[2023-06-28 19:47] LABS: Red Blood Cells-Urine 0 SEEN /hpf (0-5); White Blood Cells 0 SEEN /hpf (0-5)
--- NOTE | 2023-06-28 19:54 | PCM.HP.STD ---
HPI - General HPI Narrative SONA SALAMANCA, is a 88 M who presents with abdominal pain that started today. He has been having issues lately with his bowels but the pain just started today. He describes it as diffuse but he is a poor historian otherwise. His says he did not have any nausea or vomiting today. He denies fevers or chills. He does not remember his entire surgical history. [facility] Medical History Abnormal electrocardiogram Abnormal result of cardiovascular function study, unspecified Angina pectoris Asthma Atherosclerosis of [place] coronary artery of [place] heart without angina pectoris BPH (benign prostatic hyperplasia) Bradycardia Chest pain, precordial Cough Dizziness Essential (primary) hypertension Fatigue Fatigue GERD (gastroesophageal reflux disease) Hiatal hernia Preop cardiovascular exam Pure hypercholesterolemia Vasovagal syncope Home Medications Protandim 1 tab PO DAILY 11/21/20 [History Last Taken Unknown] melatonin 3 mg capsule 3 mg PO HS PRN Sleep 11/21/20 [History Last Taken Unknown] multivitamin 1 tab PO DAILY 11/21/20 [History Last Taken Unknown] ubidecarenone-omega 3-vit E 25 mg-150 (90-60) mg-200 unit capsule (Co [id number] E-Fish Oil) 1 cap PO DAILY 11/21/20 [History Last Taken Unknown] nitroglycerin 0.4 mg sublingual tablet 0.4 mg sublingual Q5M PRN chest pain #25 tabs 08/27/22 [Rx Last Taken Unknown] aspirin 81 mg tablet,delayed release 81 mg PO DAILY 09/28/22 [History Last Taken Unknown] Brain Health Herbal Supplement PO 10/30/22 [History Last Taken Unknown] atorvastatin 40 mg tablet 40 mg PO DAILY #90 tabs 01/30/23 [Rx Last Taken Unknown] carbidopa ER 50 mg-levodopa 200 mg tablet,extended release 1 tab PO BID #180 tabs 03/05/23 [Rx Last Taken Unknown] fludrocortisone 0.1 mg tablet 0.1 mg .Route .COMPLEX #14 tabs 03/05/23 [Rx Last Taken Unknown] memantine 5 mg tablet 5 mg PO BID #180 tabs 03/05/23 [Rx Last Taken Unknown] oxybutynin chloride 5 mg tablet 5 mg PO DAILY #30 tabs 03/05/23 [Rx Last Taken Unknown] losartan 25 mg tablet 12.5 mg (1/2 x 25 mg) PO DAILY #45 tabs 05/23/23 [Rx Last Taken Unknown] Allergy/AdvReac Type Severity Reaction Status Date / Time No Known Allergies Allergy Verified 06/28/23 16:32 Family History Mother CHF (congestive heart failure) Brother Cancer Prostate cancer Sister Parkinson's disease Surgical History History of appendectomy History of coronary artery stent placement (05/06/12) History of inguinal hernia repair (~2009) History of left heart catheterization (LHC) (11/18/13) History of repair of hiatal hernia History of total right hip replacement (~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/18) Social History Smoking Status: Never smoker alcohol intake: never substance use type: does not use caffeine: Yes Type: coffee Number of servings: 3 what type of physical activity do you participate in: bicycling frequency: daily duration: 15-30 minutes/day seatbelt use: always do you feel safe at home: Yes ROS Review of Systems ROS Unobtainable: due to mental status Vital Signs Vital Signs Vital Signs: 06/28/23 16:31 Temperature 97.8 F Temperature Source Temporal Pulse Rate 79 Respiratory Rate 18 Blood Pressure 164/72 H Blood Pressure Mean 102 Pulse Ox 100 Oxygen Delivery Method Room Air Weight Weight: 164 lb 3.91 oz Body Mass Index (BMI) 23.6 Physical Exam Const General Appearance: ill appearing Cardio regular rate and regular rhythm GI Palpation: tender Results Lab / Micro Data 06/28/23 17:25 06/28/23 17:25 Labs: Laboratory Results - last 24 hr 06/28/23 17:25: WBC 9.7, RBC 4.16 L, Hgb 13.4, Hct 41.2, MCV 99.0 H, MCH 32.2 H, MCHC 32.5, RDW Std Deviation 50.2 H, RDW Coeff of Rylie 13.8, Plt Count 154, MPV 12.1 H, Immature Gran % (Auto) 0.100, Neut % (Auto) 84.5 H, Lymph % (Auto) 6.7 L, [place] % (Auto) 8.2, Eos % (Auto) 0.1, Baso % (Auto) 0.4, Absolute Neuts (auto) 8.2 H, Absolute Lymphs (auto) 0.65 L, Nucleated RBC % 0, Sodium 140, Potassium 5.2 H, Chloride 107, Carbon Dioxide 30.0, Anion Gap 3 L, BUN 22 H, Creatinine 1.06, Estim Creat Clear Calc 50.69, Est GFR (MDRD) Af Amer 85, Est GFR (MDRD) Non-Af 70, BUN/Creatinine Ratio 20.8 H, Glucose 146 H, Lactic Acid Cancelled, Calcium 9.1, Total Bilirubin 0.40, AST 25, ALT 13 L, Alkaline Phosphatase 67, Total Protein 7.3, Albumin 3.6, Globulin 3.7, Albumin/Globulin Ratio 1.0, Lipase 24 06/28/23 18:35: Lactic Acid 0.9 Radiology Impression Abdomen/Pelvis CT 06/28/23 18:45 IMPRESSION: This patient has some prominent loops of bowel in the upper abdomen. This is nonspecific. There is focal narrowing of small bowel in the mid upper abdomen. Early obstruction is not excluded. Surgical input is suggested. Electronically Signed: Quang Vickers MD at 19:18 EDT , ADDENDUM: 06/28/23 1929 IMPRESSION: This patient has some prominent loops of bowel in the upper abdomen. This is nonspecific. There is focal narrowing of small bowel in the mid upper abdomen. Early obstruction is not excluded. Surgical input is suggested. N.B. : The above Results were Read Back by Quang Vickers MD to Sakina San DO, and understanding confirmed on 06/28/2023 19:22:16 (ET). Electronically Signed: Quang Vickers MD at 19:18 EDT , Assessment & Plan Assessment/Plan (1) SBO (small bowel obstruction): PLAN: The patient came in with pain that started today. He had a CT scan that showed small bowel obstruction with decompressed distal small bowel loops. I believe I also see twisting of the mesentery. Patient is also very firm and may be involuntary guarding. He has dementia and heart disease. I discussed surgery with the patient's family I also discussed the alternative treatment of hospice and palliative care. The patient's family and the patient elected for surgical treatment. I discussed taking him for exploratory laparoscopy but if this was not successful I will have to convert to exploratory laparotomy. I would try to free up his bowel and make sure that the blood supply is good to his intestine but I also explained that if there is any ischemia I would be having to resect bowel. I discussed the risks of the procedure such as bleeding, infection, injury to other organs, need for bowel resection, heart attack or stroke. I also explained that he would likely end up in the ICU after surgery and may remain intubated. Leonardo Wilson MD Pager: [facility] [address] [place] [address] [address] [place] [address] Office:
[2023-06-28 19:59] LABS: Color, Urine Yellow (Yellow); Glucose, Dipstick Normal (Normal); Ketone-Dipstick Negative (Negative); Leukocyte Esterase-Dipstick Negative /ul (Negative); Nitrite-Dipstick Negative (Negative); Occult Blood-Urine Negative /ul (Negative); Protein-Dipstick 15 mg/dl (Negative); Specific Gravity, Urine 1.015 (1.002-1.030); Urine Bilirubin Dipstick Negative (Negative); Urine Clarity Sl. Cloudy (Clear); Urine Urobilinogen Normal (Normal)
[2023-06-28 20:21] LABS: Bacteria RARE /hpf (None Seen); Mucous, Urine RARE /hpf (<or=2+); Squamous Epithelial Cells - UA 0-5 SEEN /hpf (0-5)
--- NOTE | 2023-06-28 20:22 | PN.HOSP_ITS ---
Reason for Visit Reason for Visit: Diagnoses Unspecified intestinal obstruction, unspecified as to partial versus complete o bstruction (06/28/23) Subjective Subjective Patient is an 88-year-old male with a significant history of Parkinson disease, dementia and hypertension who presents emergency department with constipation. Because of patient's underlying history of dementia he is unable to state when his symptoms started. However family states that on the same day of presentation and before patient came to emergency department he passed gas. Also patient complain of pain at his supraumbilical area. Per family of about a year patient been complaining of abdominal issues. While patient agreed to symptoms of nausea and vomiting ; patient's stated that she has not seen the patient vomiting. General surgery planning to take patient for expiratory laparotomy. Due to patient's comorbidities internal medicine service was consulted to help manage patient perioperatively. Of note patient had a previous surgery to correct hiatal hernia and he had a cardiac arrest preoperatively. Objective Data Objective Data Vital Signs: Vital Signs Temp Pulse Resp BP Pulse Ox O2 Del Method 98.3 F 72 18 171/96 H 97 Room Air 06/28/23 20:07 06/28/23 20:07 06/28/23 20:07 06/28/23 20:07 06/28/23 20:07 06/28/23 20:07 Oxygen Delivery Method Room Air Weight: 74.5 kg Body Mass Index (BMI) 23.6 Lab / Micro Data 06/28/23 17:25 06/28/23 17:25 Labs: Laboratory Results - last 24 hr 06/28/23 17:25: WBC 9.7, RBC 4.16 L, Hgb 13.4, Hct 41.2, MCV 99.0 H, MCH 32.2 H, MCHC 32.5, RDW Std Deviation 50.2 H, RDW Coeff of Rylie 13.8, Plt Count 154, MPV 12.1 H, Immature Gran % (Auto) 0.100, Neut % (Auto) 84.5 H, Lymph % (Auto) 6.7 L , [place] % (Auto) 8.2, Eos % (Auto) 0.1, Baso % (Auto) 0.4, Absolute Neuts (auto) 8.2 H, Absolute Lymphs (auto) 0.65 L, Nucleated RBC % 0, Sodium 140, Potassium 5.2 H, Chloride 107, Carbon Dioxide 30.0, Anion Gap 3 L, BUN 22 H, Creatinine 1.06, Estim Creat Clear Calc 50.69, Est GFR (MDRD) Af Amer 85, Est GFR (MDRD) Non-Af 70, BUN/Creatinine Ratio 20.8 H, Glucose 146 H, Lactic Acid Cancelled, Calcium 9.1, Total Bilirubin 0.40, AST 25, ALT 13 L, Alkaline Phosphatase 67, Total Protein 7.3, Albumin 3.6, Globulin 3.7, Albumin/Globulin Ratio 1.0, Lipase 24 06/28/23 18:35: Lactic Acid 0.9 06/28/23 19:40: Urine Color Yellow, Urine Clarity Sl. Cloudy, Urine pH 6.0, Ur Specific [place] 1.015, Urine Protein 15 H, Urine Glucose (UA) Normal, Urine Ketones Negative, Urine Occult Blood Negative, Urine Nitrite Negative, Urine Bilirubin Negative, Urine Urobilinogen Normal, Ur Leukocyte Esterase Negative, Urine RBC 0 SEEN, Urine WBC 0 SEEN, Ur Squamous Epith Cells 0-5 SEEN, Urine Bacteria RARE, Urine Mucus RARE Radiography Diagnostic Testing: Radiology Impression Abdomen/Pelvis CT 06/28/23 18:45 IMPRESSION: This patient has some prominent loops of bowel in the upper abdomen. This is nonspecific. There is focal narrowing of small bowel in the mid upper abdomen. Early obstruction is not excluded. Surgical input is suggested. Electronically Signed: Quang Vickers MD at 19:18 EDT , ADDENDUM: 06/28/231928 IMPRESSION: This patient has some prominent loops of bowel in the upper abdomen. This is nonspecific. There is focal narrowing of small bowel in the mid upper abdomen. Early obstruction is not excluded. Surgical input is suggested. N.B. : The above Results were Read Back by Quang Vickers MD to Sakina San DO, and understanding confirmed on 06/28/2023 19:22:16 (ET). Electronically Signed: Quang Vickers MD at 19:18 EDT , Physical Exam Narrative Physical exam: General: Well-nourished, well-developed. Head: Normocephalic, atraumatic, no tenderness Eyes: Vision is grossly intact. EOMI ENT, no trauma, moist mucous membranes, no rhinorrhea Neck: Nontender, No thyromegaly. CVS: Regular rate and rhythm. S1-S2 present. No murmur, gallop or rub. Respiratory : clear to auscultation bilaterally, chest wall nontender Abdomen: Soft, nontender, nondistended, normal bowel sounds. : Deferred Back: Nontender, no CVA tenderness Extremities: Nontender full range of motion, no trauma Skin: Normal color, no trauma, abrasions Neuro: Alert, oriented, cranial nerves II through XII grossly intact. Psychiatry: Normal mood. Normal affect. Not depressed. Not anxious. Assessment & Plan Assessment/Plan (1) SBO (small bowel obstruction): (2) HTN (hypertension): QUALIFIERS: Hypertension type: primary hypertension Qualified Code(s): I10 - Essential (primary) hypertension (3) Shy-Drager syndrome: PLAN: Plan Ileus/Small bowel structure Impression of abdomen/pelvis CT by radiology:This patient has some prominent loops of bowel in the upper abdomen. This is nonspecific. There is focal narrowing of small bowel in the mid upper abdomen. Early obstruction is not excluded. Surgical input is suggested. CT of abdomen and pelvis was independently interpreted; agrees with radiology interpretation. Made n.p.o. Taken to the OR for exploratory surgery. IV fluids and pain medicines in place. History of Parkinson's disease with Shy-Drager syndrome Family report that Patient is getting weaker and weaker. Home Parkinson's medication continued. Florinef continued. We will add hydrocortisone 50 mg IV every 24 hours Hypertension Blood pressure is not within goal Blood pressure control by controlling pain. As needed hydralazine IV. As needed hydralazine ordered. Trend blood pressure and adjust blood pressure medications. Time spent in the patient's overall evaluation,decision-making process, review of diagnostic data, adjustment of management, discussion with other providers, nursing nursing and ancillary staff involved in patient's care documentation, 40 minutes. Charges/Coding Visit Charges Inpatient E&M: 99584 Subs Hosp L3
[2023-06-28] MEDS: Cefotetan 2 GM in 0.9% Normal Saline (100mL MB+) 100 ML IV (20:44)
[2023-06-28] MEDS: Bupivacaine Mpf 0.5% 30 ML VIAL (21:34)
[2023-06-28 22:05] LABS: Cytology, Body Fluid / CSF SEE PATHOLOGY REPORT
--- NOTE | 2023-06-28 22:07 | OP.PCM_ITS ---
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 The Wynn catheter was placed into the bladder. The abdomen was prepped and draped in usual sterile fashion. A midline incision was made inferior to the umbilicus where there was a [place] and deepened to the fascia which was elevated and incised and a port was placed into the abdomen. The abdomen was insufflated 15 mmHg. Camera was placed into the abdomen and the patient appeared to have dilated and nondilated small bowel as well as chylous ascites and white stained mesentery of the small bowel. Under direct visualization a 5 mm port was placed on the left abdominal sidewall as well as two 5 mm ports on the right abdominal sidewall. Next the cecum was identified and the terminal ileum was traced backwards running the bowel. Several areas of the mesentery had white areas likely due to blocked lymphatics explaining the chylous ascites. All the small bowel was able to be run and the bowel was untwisted. It appeared that the weight of the bowel mesentery was what turned it over the mesenteric vessels. No the bowel appeared ischemic and the bowel was run all the way to the ligament of Treitz fanning out nicely with no twisting. There appeared to be enteric contents throughout the bowel by the end of the case. Ports were removed and the abdomen was allowed to desufflate. S ome of the fluid was sent for culture and cytology. The midline fascial opening was closed with 0 Vicryl suture. All of the skin incisions were injected with local anesthetic and closed with interrupted 4-0 Monocryl sutures. Steri-Strips and bandages were applied. Wynn was removed at the end of the case. Patient tolerated the procedure well and was brought to PACU in stable condition. Admit VTE Documentation VTE Mechan Device Prophylaxis: SCD's
[2023-06-29] VITALS (11 sets, daily range): BP systolic 137–156; BP diastolic 71–84; PULSE 71–89; RESP 16–18; TEMP 36.4–37.4; O2SAT 88–97; BMI 23.6
[2023-06-29] MEDS: 0.9% Normal Saline (1000mL) 1,000 ML 75 ML IV ×2 (03:02→16:00)
[2023-06-29] MEDS: Morphine 2 MG/ML Syringe IV (03:07)
[2023-06-29] MEDS: 0.9% Saline Lock 10 ML Syringe IV (03:07)
[2023-06-29 07:17] LABS: Absolute Lymphocyte Count 1.21 X10^3/uL (0.83-4.51); Absolute Neutrophil Count 6.1 X10^3/uL (2.0-7.7); Basophil# 0.04 X10^3/uL; Basophil% 0.5 % (0-1); Eosinophil# 0.02 X10^3/uL; Eosinophils% 0.2 % (0-5); Hematocrit 38.1 % (40-54); Lymphocyte # 1.21 X10^3/ul (0.83-4.51); Lymphocyte % 14.6 % (19-41); Mean Corp Hgb Conc 31.5 g/dL (32-36); Mean Corpuscular Hgb 31.3 pg (27.0-32.0); Mean Corpuscular Volume 99.5 fL (80-94); Mean Platelet Vol. 10.7 fl (6.2-12.0); Monocyte# 0.88 X10^3/uL; Monocyte% 10.6 % (0-10); NRBC Flagged by Analyzer 0 % (0-5); Neutrophil # 6.11 X10^3/uL (2.7-7.7); Neutrophil % 73.9 % (47-70); Platelet Count 188 K/mm3 (150-450); RBC Distribution Width CV 13.6 % (11.6-14.6); RBC Distribution Width SD 49.6 fl (35.1-43.9); Red Blood Count 3.83 M/mm3 (4.6-6.2); White Blood Count 8.3 K/mm3 (4.4-11.0)
[2023-06-29 07:40] LABS: Anion Gap 2 (5-15); BUN 17 mg/dL (7-18); BUN/Creat Ratio 16.8 RATIO (10-20); Calcium,Total 8.3 mg/dL (8.5-10.1); Chloride 109 mmol/L (98-107); Creatinine, Serum 1.01 mg/dL (0.70-1.30); EST Glomerular Filtration Rate 74 mL/min (>60); Est Glom Filt Rate - Afr Amer 90 mL/min (>60); Glucose 83 mg/dL (74-106); Potassium 4.1 mmol/L (3.5-5.1); Sodium Level 139 mmol/L (136-145)
[2023-06-29] MEDS: Fludrocortisone Acetate 0.1 MG Tablet 0.05 MG PO (08:23)
[2023-06-29] MEDS: Lisinopril 5 MG Tablet PO (08:23)
[2023-06-29] MEDS: CARBIDOPA/LEVODOPA CR 50/200 Tablet PO ×2 (08:23→22:11)
[2023-06-29] MEDS: Memantine Hydrochloride 5 MG Tablet PO ×2 (08:24→22:11)
[2023-06-29] MEDS: Pantoprazole Sodium 40 MG Tablet PO (08:25)
[2023-06-29] MEDS: Oxybutynin 5 MG Tablet PO (08:29)
[2023-06-29] MEDS: Acetaminophen 325 MG Tablet 650 MG PO (08:29)
[2023-06-29] MEDS: Hydrocortisone Sod Succinate 100 MG/2 ML Vial 50 MG IV ×2 (08:36→22:11)
--- NOTE | 2023-06-29 09:29 | PCM.PN.SRG ---
Subjective Subjective Patient reports he is feeling better with less pain. He is not passing any flatus yet. He denies nausea or vomiting. He required straight cath overnight. Objective Data Objective Data Vital Signs: Vital Signs Temp Pulse Resp BP Pulse Ox O2 Del Method O2 Flow Rate 98.5 F 80 16 152/73 H 92 Room Air 2 06/29/23 08:55 06/29/23 09:25 06/29/23 08:55 06/29/23 08:55 06/29/23 08:55 06/29/23 08:55 06/29/23 06:04 Oxygen Flow Rate (L/min) 2 Oxygen Delivery Method Room Air Weight: 162 lb 1.6 oz Body Mass Index (BMI) 23.2 Intake & Output: Intake and Output for Last 24 Hours 06/27/23 06/28/23 06/29/23 23:59 23:59 23:59 Intake Total 100 / 100 Output Total 250 / 250 500 / 500 Balance -150 / -150 -500 / -500 Lab / Micro Data 06/29/23 06:51 06/29/23 06:51 Labs: Laboratory Results - last 24 hr 06/28/23 17:25: WBC 9.7, RBC 4.16 L, Hgb 13.4, Hct 41.2, MCV 99.0 H, MCH 32.2 H, MCHC 32.5, RDW Std Deviation 50.2 H, RDW Coeff of Rylie 13.8, Plt Count 154, MPV 12.1 H, Immature Gran % (Auto) 0.100, Neut % (Auto) 84.5 H, Lymph % (Auto) 6.7 L, [place] % (Auto) 8.2, Eos % (Auto) 0.1, Baso % (Auto) 0.4, Absolute Neuts (auto) 8.2 H, Absolute Lymphs (auto) 0.65 L, Nucleated RBC % 0, Sodium 140, Potassium 5.2 H, Chloride 107, Carbon Dioxide 30.0, Anion Gap 3 L, BUN 22 H, Creatinine 1.06, Estim Creat Clear Calc 50.69, Est GFR (MDRD) Af Amer 85, Est GFR (MDRD) Non-Af 70, BUN/Creatinine Ratio 20.8 H, Glucose 146 H, Lactic Acid Cancelled, Calcium 9.1, Total Bilirubin 0.40, AST 25, ALT 13 L, Alkaline Phosphatase 67, Total Protein 7.3, Albumin 3.6, Globulin 3.7, Albumin/Globulin Ratio 1.0, Lipase 24 06/28/23 18:35: Lactic Acid 0.9 06/28/23 19:40: Urine Color Yellow, Urine Clarity Sl. Cloudy, Urine pH 6.0, Ur Specific [place] 1.015, Urine Protein 15 H, Urine Glucose (UA) Normal, Urine Ketones Negative, Urine Occult Blood Negative, Urine Nitrite Negative, Urine Bilirubin Negative, Urine Urobilinogen Normal, Ur Leukocyte Esterase Negative, Urine RBC 0 SEEN, Urine WBC 0 SEEN, Ur Squamous Epith Cells 0-5 SEEN, Urine Bacteria RARE, Urine Mucus RARE 06/29/23 06:51: WBC 8.3, RBC 3.83 L, Hgb 12.0 L, Hct 38.1 L, MCV 99.5 H, MCH 31.3, MCHC 31.5 L, RDW Std Deviation 49.6 H, RDW Coeff of Rylie 13.6, Plt Count 188, MPV 10.7, Immature Gran % (Auto) 0.200, Neut % (Auto) 73.9 H, Lymph % (Auto) 14.6 L, [place] % (Auto) 10.6 H, Eos % (Auto) 0.2, Baso % (Auto) 0.5, Absolute Neuts (auto) 6.1, Absolute Lymphs (auto) 1.21, Nucleated RBC % 0, Sodium 139, Potassium 4.1, Chloride 109 H, Carbon Dioxide 28.0, Anion Gap 2 L, BUN 17, Creatinine 1.01, Estim Creat Clear Calc 53.20, Est GFR (MDRD) Af Amer 90, Est GFR (MDRD) Non-Af 74, BUN/Creatinine Ratio 16.8, Glucose 83, Calcium 8.3 L Radiography Diagnostic Testing: Radiology Impression Abdomen/Pelvis CT 06/28/23 18:45 IMPRESSION: This patient has some prominent loops of bowel in the upper abdomen. This is nonspecific. There is focal narrowing of small bowel in the mid upper abdomen. Early obstruction is not excluded. Surgical input is suggested. Electronically Signed: Quang Vickers MD at 19:18 EDT , ADDENDUM: 06/28/231928 IMPRESSION: This patient has some prominent loops of bowel in the upper abdomen. This is nonspecific. There is focal narrowing of small bowel in the mid upper abdomen. Early obstruction is not excluded. Surgical input is suggested. N.B. : The above Results were Read Back by Quang Vickers MD to Sakina San DO, and understanding confirmed on 06/28/2023 19:22:16 (ET). Electronically Signed: Quang Vickers MD at 19:18 EDT , Physical Exam Const no apparent distress Resp normal respiratory effort GI soft to palpation and non-tender Assessment & Plan Assessment/Plan (1) SBO (small bowel obstruction): PLAN: Patient had laparoscopic small bowel obstruction and small bowel volvulus during surgery yesterday. He says his pain is improved today. He is not passing any gas yet and I will await bowel function before starting a diet as there was a lot of manipulation of small bowel yesterday and he may get a postoperative ileus. Patient also had some urinary retention overnight and required straight catheterization. I will order him some Flomax. If this continues he may need a Wynn replaced. Encouraged ambulation and sitting in the chair. I will order Lovenox for him. Leonardo Wilson MD Pager: [facility] [address] [place] [address], [address] [place] [address] Office:
--- NOTE | 2023-06-29 10:02 | PCM.PN.HOSP ---
Subjective Subjective He does have some urinary retention and had to be straight cathed overnight. No bowel function at this time Objective Data Objective Data Vital Signs: Vital Signs Temp Pulse Resp BP Pulse Ox O2 Del Method O2 Flow Rate 98.5 F 80 16 152/73 H 92 Room Air 2 06/29/23 08:55 06/29/23 09:25 06/29/23 08:55 06/29/23 08:55 06/29/23 08:55 06/29/23 08:55 06/29/23 06:04 Oxygen Flow Rate (L/min) 2 Oxygen Delivery Method Room Air Weight: 162 lb 1.6 oz Body Mass Index (BMI) 23.2 Intake & Output: Intake and Output for Last 24 Hours 06/28/23 06/29/23 06/30/23 03:59 03:59 03:59 Intake Total 100 / 100 Output Total 250 / 250 500 / 500 Balance -150 / -150 -500 / -500 Lab / Micro Data 06/29/23 06:51 06/29/23 06:51 Labs: Laboratory Results - last 24 hr 06/28/23 17:25: WBC 9.7, RBC 4.16 L, Hgb 13.4, Hct 41.2, MCV 99.0 H, MCH 32.2 H, MCHC 32.5, RDW Std Deviation 50.2 H, RDW Coeff of Rylie 13.8, Plt Count 154, MPV 12.1 H, Immature Gran % (Auto) 0.100, Neut % (Auto) 84.5 H, Lymph % (Auto) 6.7 L, [place] % (Auto) 8.2, Eos % (Auto) 0.1, Baso % (Auto) 0.4, Absolute Neuts (auto) 8.2 H, Absolute Lymphs (auto) 0.65 L, Nucleated RBC % 0, Sodium 140, Potassium 5.2 H, Chloride 107, Carbon Dioxide 30.0, Anion Gap 3 L, BUN 22 H, Creatinine 1.06, Estim Creat Clear Calc 50.69, Est GFR (MDRD) Af Amer 85, Est GFR (MDRD) Non-Af 70, BUN/Creatinine Ratio 20.8 H, Glucose 146 H, Lactic Acid Cancelled, Calcium 9.1, Total Bilirubin 0.40, AST 25, ALT 13 L, Alkaline Phosphatase 67, Total Protein 7.3, Albumin 3.6, Globulin 3.7, Albumin/Globulin Ratio 1.0, Lipase 24 06/28/23 18:35: Lactic Acid 0.9 06/28/23 19:40: Urine Color Yellow, Urine Clarity Sl. Cloudy, Urine pH 6.0, Ur Specific [place] 1.015, Urine Protein 15 H, Urine Glucose (UA) Normal, Urine Ketones Negative, Urine Occult Blood Negative, Urine Nitrite Negative, Urine Bilirubin Negative, Urine Urobilinogen Normal, Ur Leukocyte Esterase Negative, Urine RBC 0 SEEN, Urine WBC 0 SEEN, Ur Squamous Epith Cells 0-5 SEEN, Urine Bacteria RARE, Urine Mucus RARE 06/29/23 06:51: WBC 8.3, RBC 3.83 L, Hgb 12.0 L, Hct 38.1 L, MCV 99.5 H, MCH 31.3, MCHC 31.5 L, RDW Std Deviation 49.6 H, RDW Coeff of Rylie 13.6, Plt Count 188, MPV 10.7, Immature Gran % (Auto) 0.200, Neut % (Auto) 73.9 H, Lymph % (Auto) 14.6 L, [place] % (Auto) 10.6 H, Eos % (Auto) 0.2, Baso % (Auto) 0.5, Absolute Neuts (auto) 6.1, Absolute Lymphs (auto) 1.21, Nucleated RBC % 0, Sodium 139, Potassium 4.1, Chloride 109 H, Carbon Dioxide 28.0, Anion Gap 2 L, BUN 17, Creatinine 1.01, Estim Creat Clear Calc 53.20, Est GFR (MDRD) Af Amer 90, Est GFR (MDRD) Non-Af 74, BUN/Creatinine Ratio 16.8, Glucose 83, Calcium 8.3 L Radiography Diagnostic Testing: Radiology Impression Abdomen/Pelvis CT 06/28/23 18:45 IMPRESSION: This patient has some prominent loops of bowel in the upper abdomen. This is nonspecific. There is focal narrowing of small bowel in the mid upper abdomen. Early obstruction is not excluded. Surgical input is suggested. Electronically Signed: Quang Vickers MD at 19:18 EDT , ADDENDUM: 06/28/231928 IMPRESSION: This patient has some prominent loops of bowel in the upper abdomen. This is nonspecific. There is focal narrowing of small bowel in the mid upper abdomen. Early obstruction is not excluded. Surgical input is suggested. N.B. : The above Results were Read Back by Quang Vickers MD to Sakina San DO, and understanding confirmed on 06/28/2023 19:22:16 (ET). Electronically Signed: Quang Vickers MD at 19:18 EDT , Physical Exam Narrative General: Alert, cooperative, No apparent distress HEENT: Atraumatic, PERRLA, EOMI, Normocephalic Oral: Moist Mucosa Neck: Supple, No JVD Lungs: Diminished, Normal air movement, No rhonchi, No wheeze, No rales Cardiovascular: Regular rate, Regular Rhythm, Normal S1, Normal S2, No murmurs Abdomen: Soft, Non Tender, Non-Distended, No Hepato-splenomegaly Extremities: No edema, Capillary Refill Less than 3 Seconds Skin: No rashes, No breakdown Musculoskeletal: No Tenderness to Palpation of Joints or Extremities Neurological: Motor Exam 5/5 strength throughout, Sensory exam intact to light touch and pain Psych/Mental Status: Normal Affect, Appropriate Assessment & Plan Assessment/Plan (1) SBO (small bowel obstruction): (2) HTN (hypertension): QUALIFIERS: Hypertension type: primary hypertension Qualified Code(s): I10 - Essential (primary) hypertension (3) Shy-Drager syndrome: PLAN: Plan 1. Small bowel obstruction status post exploratory laparoscopy 06/28/2023 ? General surgery is primary ? Feels little bit better today but still no bowel function ? It did appear that with a bit of mesentery some the small bowel loops were twisted ? Pain management per primary 2. Parkinson's disease with Shy-Drager syndrome/dementia ? When he is able to p.o. can resume his Sinemet ? Continue with his memantine when able 3. Hypertension ? Stable ? We will monitor pressures and ? Continue with lisinopril 4. Urinary retention ? He is on oxybutynin for incontinence and this was restarted ? We will discontinue oxybutynin continue with the Flomax and straight cath as necessary DVT: SCDs Charges/Coding Visit Charges Inpatient E&M: 88262 Subs Hosp L2
[2023-06-29] MEDS: Tamsulosin HCl 0.4 MG Capsule 0.8 MG PO (10:07)
[2023-06-30 04:00] VITALS: BP 148/72; PULSE 76; RESP 16; TEMP 37.3; O2SAT 92
[2023-06-30] MEDS: 0.9% Normal Saline (1000mL) 1,000 ML 75 ML IV ×2 (05:10→17:42)
--- NOTE | 2023-06-30 08:20 | PCM.PN.SRG ---
Subjective Subjective Patient is comfortable with no pain. Objective Data Objective Data Vital Signs: Vital Signs Temp Pulse Resp BP Pulse Ox O2 Del Method O2 Flow Rate 99.1 F 76 16 148/72 H 92 Room Air 2 06/30/23 04:00 06/30/23 04:00 06/30/23 04:00 06/30/23 04:00 06/30/23 04:00 06/30/23 04:00 06/29/23 06:04 Oxygen Flow Rate (L/min) 2 Oxygen Delivery Method Room Air Weight: 162 lb 1.6 oz Body Mass Index (BMI) 23.2 Intake & Output: Intake and Output for Last 24 Hours 06/28/23 06/29/23 06/30/23 23:59 23:59 23:59 Intake Total 100 / 100 972.5 / 972.5 1037.5 / 1037.5 Output Total 250 / 250 500 / 500 401 / 401 Balance -150 / -150 472.5 / 472.5 636.5 / 636.5 Lab / Micro Data 06/29/23 06:51 06/29/23 06:51 Micro: Microbiology 06/28/23 22:07 Aspirate - Other Gram Stain - Final Physical Exam Const no apparent distress Resp normal respiratory effort GI soft to palpation and non-tender Assessment & Plan Assessment/Plan (1) SBO (small bowel obstruction): PLAN: Patient is still not passing any flatus. Continue n.p.o. and IV fluids until bowel function. The patient may develop ileus due to manipulation of the bowel. He is not having any pain currently. Continue observation. Leonardo Wilson MD Pager: [facility] [address] [place] [address], [address] [place] [address] Office:
[2023-06-30 09:03] VITALS: BP 138/64; PULSE 72; RESP 16; TEMP 36.6; O2SAT 95
[2023-06-30] MEDS: Fludrocortisone Acetate 0.1 MG Tablet 0.05 MG PO (09:09)
[2023-06-30] MEDS: Pantoprazole Sodium 40 MG Tablet PO (09:09)
[2023-06-30] MEDS: Memantine Hydrochloride 5 MG Tablet PO ×2 (09:09→20:37)
[2023-06-30] MEDS: Hydrocortisone Sod Succinate 100 MG/2 ML Vial 50 MG IV ×2 (09:10→23:23)
[2023-06-30] MEDS: CARBIDOPA/LEVODOPA CR 50/200 Tablet PO ×2 (09:10→20:37)
[2023-06-30] MEDS: Lisinopril 5 MG Tablet PO (09:10)
[2023-06-30] MEDS: Enoxaparin 40 MG/0.4 ML Syringe SC (09:23)
--- NOTE | 2023-06-30 13:43 | PN_ITS ---
Subjective Subjective Patient seen and examined. He said he didnt feel well like he always did. He however had no active complaints. He denied any fever, hills, palpitations, dizziness, nausea, vomiting or any other symptoms. Review of systems is otherwise negative. He has remained hemodynamically stable. He hasnt yet passed gas, and so remains NPO. Objective Data Objective Data Vital Signs: Vital Signs Temp Pulse Resp BP Pulse Ox O2 Del Method O2 Flow Rate 97.9 F 72 16 138/64 H 95 Room Air 2 06/30/23 09:03 06/30/23 09:03 06/30/23 09:03 06/30/23 09:03 06/30/23 09:03 06/30/23 09:05 06/29/23 06:04 Oxygen Flow Rate (L/min) 2 Oxygen Delivery Method Room Air Weight: 162 lb 1.6 oz Body Mass Index (BMI) 23.2 Intake & Output: Intake and Output for Last 24 Hours 06/28/23 06/29/23 06/30/23 23:59 23:59 23:59 Intake Total 100 / 100 972.5 / 972.5 1037.5 / 1037.5 Output Total 250 / 250 500 / 500 576 / 576 Balance -150 / -150 472.5 / 472.5 461.5 / 461.5 Lab / Micro Data 06/29/23 06:51 06/29/23 06:51 Micro: Microbiology 06/28/23 22:07 Aspirate - Other Gram Stain - Final 06/28/23 22:07 Aspirate - Other Wound Culture - Final No growth aerobically. Physical Exam Const alert, oriented x3 and no apparent distress General Appearance: cooperative and well developed HEENT normocephalic, head/scalp atraumatic, oropharynx normal and gingiva normal Mouth: dry mucous membranes Eyes PERRL and EOMs intact bilaterally Neck no lymphadenopathy, supple, no JVD and thyroid normal Lymph Lymphatic: no lymphadenopathy noted Resp normal respiratory effort, normal air movement and clear to auscultation bilaterally Cardio regular rate, regular rhythm, S1 normal heart sound, S2 normal heart sound and no murmurs GI GI Narrative: abdomen soft, mildly distended, no organomegaly, intact dressing over laparoscopic sites. Extremity normal capillary refill, no clubbing, cyanosis or edema and no calf tenderness Skin General Skin Exam: no breakdown Neuro CN's II-XII intact bilaterally, no focal motor deficits, no sensory deficits noted and deep tendon reflexes 2+ bilaterally Motor Exam: strength 5/5 throughout and general weakness Psych thought process normal and cooperative Psych Narrative: frail Appearance: appropriate Assessment & Plan Assessment/Plan (1) SBO (small bowel obstruction): PLAN: Plan #Small bowel obstruction * still NPO. S/p exploratory laparoscopy 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 * Still has not passed gas or remains NPO. * General surgery on board. Continue gentle hydration with IV fluids. #History of Shy-Drager syndrome and parkinsonism * On Sinemet and memantine. #Hypertension: On lisinopril. IV hydralazine as needed. #History of urinary retention: On oxybutynin which was discontinued and is now on Flomax. DVT prophylaxis; lovenox Charges/Coding Visit Charges Inpatient E&M: 47042 Subs Hosp L2
[2023-06-30 15:11] VITALS: BP 158/75; PULSE 87; RESP 16; TEMP 36.9; O2SAT 93
--- NOTE | 2023-06-30 15:30 | CASEMGMT ---
RN?CM?SHAREPOINT ANALYST?CM?to room to meet with patient for initial transition planning/care coordination?assessment.?RN?CM?introduced self and role at [facility].? Pt resting in bed in no distress at this time.? Pt is alert, but has dementia and only oriented x 1-2. DtrMala, @ bedside and answered the following questions. Care providers, pharmacy, and demographics verified/updated at this time. PCP: Dr Ovalle Specialists: MIKY/cardiology, Dr Santamaria-neurology. Mala not sure if pt sees other specialists. Preferred Pharmacy: [facility] @ discharge Insurance:[facility] [place] Benefit:?none Living Will/HPOA:?Mlaa thinks pt has both LW and HCPOA, but not certain. LNOK: , Tri. 5 adult children. Dtr, Vianey. Dtr, Tri. Dtr, Mala, Son, David. Pt has one other dtr. Mckenzie AMAYA Living Arrangements: Lives w/, Tri, and dtr, Opal, in 2-story home w/2 steps to enter. [employer]. Family assists w/bathing and dressing pt and does all home mgnt tasks. Opal does med mgnt. Transportation: Hire drivers or Mckenzie AMAYA, drives. Pt receives home delivered meals 3 days/week. Someone is with pt 05/05. DME: ?Has the following DME:?shower chair, cane that he uses most of the time, walker that he uses occasionally. Pt also has alarm to push by his bed to alert family when he needs assistance. HHC/SNF: No hx of either. Has done OP therapy @ [facility]. Discussed discharge planning. Questions answered. Mala states, He'd probably want to go home, but of course we'll see how he is doing and what he needs. She states they may be amenable to SNF, if needed, or HHC. PLAN:??TBD. PT/OT evals pending. Ed BSN?RN?CM
[2023-06-30] MEDS: Tamsulosin HCl 0.4 MG Capsule 0.8 MG PO (17:42)
[2023-06-30] MEDS: MELATONIN 3 MG TABLET PO (20:40)
[2023-06-30] MEDS: Acetaminophen 325 MG Tablet 650 MG PO (20:40)
[2023-06-30 20:50] VITALS: BP 176/85; PULSE 85; RESP 18; TEMP 36.7; O2SAT 96
[2023-06-30 21:00] VITALS: BP 155/68
[2023-06-30 21:20] VITALS: BP 176/85; PULSE 85
[2023-06-30] MEDS: hydrALAZINE 20 MG/ML Vial 5 MG IV (21:20)
[2023-07-01] MEDS: 0.9% Normal Saline (1000mL) 1,000 ML 75 ML IV (04:43)
[2023-07-01 04:46] VITALS: BP 140/69; PULSE 69; RESP 16; TEMP 36.8; O2SAT 93
[2023-07-01 07:09] LABS: Absolute Lymphocyte Count 0.66 X10^3/uL (0.83-4.51); Basophil# 0.02 X10^3/uL; Basophil% 0.4 % (0-1); Hematocrit 33.7 % (40-54); Hemoglobin 10.7 g/dL (13.0-16.5); Lymphocyte # 0.66 X10^3/ul (0.83-4.51); Lymphocyte % 13.1 % (19-41); Mean Corp Hgb Conc 31.8 g/dL (32-36); Mean Corpuscular Hgb 31.2 pg (27.0-32.0); Mean Corpuscular Volume 98.3 fL (80-94); Mean Platelet Vol. 10.9 fl (6.2-12.0); Monocyte# 0.36 X10^3/uL; Monocyte% 7.2 % (0-10); NRBC Flagged by Analyzer 0 % (0-5); Neutrophil # 3.96 X10^3/uL (2.7-7.7); Neutrophil % 78.7 % (47-70); Platelet Count 172 K/mm3 (150-450); RBC Distribution Width CV 13.4 % (11.6-14.6); RBC Distribution Width SD 49.1 fl (35.1-43.9); Red Blood Count 3.43 M/mm3 (4.6-6.2)
[2023-07-01 07:46] LABS: Anion Gap 7 (5-15); BUN 19 mg/dL (7-18); BUN/Creat Ratio 28.9 RATIO (10-20); Calcium,Total 7.7 mg/dL (8.5-10.1); Chloride 111 mmol/L (98-107); Creatinine, Serum 0.66 mg/dL (0.70-1.30); EST Glomerular Filtration Rate 122 mL/min (>60); Est Glom Filt Rate - Afr Amer 147 mL/min (>60); Estimated Creatinine Clearance 53.74 ml/min; Glucose 95 mg/dL (74-106); Potassium 3.3 mmol/L (3.5-5.1); Sodium Level 141 mmol/L (136-145)
[2023-07-01 08:11] VITALS: BP 133/58; BP 134/69; PULSE 64; PULSE 68; RESP 14; RESP 16; TEMP 36.7; TEMP 36.9; O2SAT 94; O2SAT 97
--- NOTE | 2023-07-01 09:09 | PCM.PN.SRG ---
Subjective Subjective Patient is passing flatus with no abdominal pain. Objective Data Objective Data Vital Signs: Vital Signs Temp Pulse Resp BP Pulse Ox O2 Del Method O2 Flow Rate 98.0 F 68 14 134/69 H 94 Room Air 2 07/01/23 08:11 07/01/23 08:11 07/01/23 08:11 07/01/23 08:11 07/01/23 08:11 07/01/23 08:11 06/29/23 06:04 Oxygen Flow Rate (L/min) 2 Oxygen Delivery Method Room Air Weight: 162 lb 1.6 oz Body Mass Index (BMI) 23.2 Intake & Output: Intake and Output for Last 24 Hours 06/29/23 06/30/23 07/01/23 23:59 23:59 23:59 Intake Total 972.5 / 972.5 1977.5 / 1977.5 826.25 / 826.25 Output Total 500 / 500 726 / 726 Balance 472.5 / 472.5 1251.5 / 1251.5 826.25 / 826.25 Lab / Micro Data 07/01/23 06:40 07/01/23 06:40 Labs: Laboratory Results - last 24 hr 07/01/23 06:40: WBC 5.0, RBC 3.43 L, Hgb 10.7 L, Hct 33.7 L, MCV 98.3 H, MCH 31.2, MCHC 31.8 L, RDW Std Deviation 49.1 H, RDW Coeff of Rylie 13.4, Plt Count 172, MPV 10.9, Immature Gran % (Auto) 0.600, Neut % (Auto) 78.7 H, Lymph % (Auto) 13.1 L, [place] % (Auto) 7.2, Eos % (Auto) 0.0, Baso % (Auto) 0.4, Absolute Neuts (auto) 4.0, Absolute Lymphs (auto) 0.66 L, Nucleated RBC % 0, Sodium 141, Potassium 3.3 L, Chloride 111 H, Carbon Dioxide 23.0, Anion Gap 7, BUN 19 H, Creatinine 0.66 L, Estim Creat Clear Calc 53.74, Est GFR (MDRD) Af Amer 147, Est GFR (MDRD) Non-Af 122, BUN/Creatinine Ratio 28.9 H, Glucose 95, Calcium 7.7 L Micro: Microbiology 06/28/23 22:07 Aspirate - Other Gram Stain - Final 06/28/23 22:07 Aspirate - Other Wound Culture - Final No growth aerobically. 06/28/23 22:07 Aspirate - Other Anaerobic Culture - Preliminary No growth in 48 hours. Physical Exam Const no apparent distress Resp normal respiratory effort GI normal to inspection, nondistended, normoactive bowel sounds Assessment & Plan Assessment/Plan (1) SBO (small bowel obstruction): PLAN: Patient started having bowel function. I will start him on clear liquid diet and advance as tolerated. Once he is tolerating a diet he may be discharged home. Leonardo Wilson MD Pager: [facility] [address] [place] [address], [address] [place] [address] Office:
--- NOTE | 2023-07-01 10:31 | CASEMGMT ---
Addendum entered by Melania Gracia 07/01/23 14:49: No OT recommended. Original Note: Noted PT did not recommend further therapy, OT eval pending.
[2023-07-01] MEDS: Enoxaparin 40 MG/0.4 ML Syringe SC (11:19)
[2023-07-01] MEDS: Hydrocortisone Sod Succinate 100 MG/2 ML Vial 50 MG IV ×2 (11:20→21:46)
[2023-07-01] MEDS: CARBIDOPA/LEVODOPA CR 50/200 Tablet PO ×2 (11:20→21:46)
[2023-07-01] MEDS: Memantine Hydrochloride 5 MG Tablet PO ×2 (11:20→21:45)
[2023-07-01] MEDS: Pantoprazole Sodium 40 MG Tablet PO (11:20)
[2023-07-01] MEDS: Lisinopril 5 MG Tablet PO (11:20)
--- NOTE | 2023-07-01 12:11 | PN_ITS ---
Subjective Subjective Patient seen and examined. His daughter in law was by his bedside. He had no active complaints and review of systems is otherwise negative. He is passing gas and has been started on a clear liquid diet. Review of systems is otherwise negative. Objective Data Objective Data Vital Signs: Vital Signs Temp Pulse Resp BP Pulse Ox O2 Del Method O2 Flow Rate 98.0 F 68 14 134/69 H 94 Room Air 2 07/01/23 08:11 07/01/23 08:11 07/01/23 08:11 07/01/23 08:11 07/01/23 08:11 07/01/23 08:11 06/29/23 06:04 Oxygen Flow Rate (L/min) 2 Oxygen Delivery Method Room Air Weight: 162 lb 1.6 oz Body Mass Index (BMI) 23.2 Intake & Output: Intake and Output for Last 24 Hours 06/29/23 06/30/23 07/01/23 23:59 23:59 23:59 Intake Total 972.5 / 972.5 1977.5 / 1977.5 826.25 / 826.25 Output Total 500 / 500 726 / 726 Balance 472.5 / 472.5 1251.5 / 1251.5 826.25 / 826.25 Lab / Micro Data 07/01/23 06:40 07/01/23 06:40 Labs: Laboratory Results - last 24 hr 07/01/23 06:40: WBC 5.0, RBC 3.43 L, Hgb 10.7 L, Hct 33.7 L, MCV 98.3 H, MCH 31.2, MCHC 31.8 L, RDW Std Deviation 49.1 H, RDW Coeff of Rylie 13.4, Plt Count 172, MPV 10.9, Immature Gran % (Auto) 0.600, Neut % (Auto) 78.7 H, Lymph % (Auto) 13.1 L, [place] % (Auto) 7.2, Eos % (Auto) 0.0, Baso % (Auto) 0.4, Absolute Neuts (auto) 4.0, Absolute Lymphs (auto) 0.66 L, Nucleated RBC % 0, Sodium 141, Potassium 3.3 L, Chloride 111 H, Carbon Dioxide 23.0, Anion Gap 7, BUN 19 H, Creatinine 0.66 L, Estim Creat Clear Calc 53.74, Est GFR (MDRD) Af Amer 147, Est GFR (MDRD) Non-Af 122, BUN/Creatinine Ratio 28.9 H, Glucose 95, Calcium 7.7 L Micro: Microbiology 06/28/23 22:07 Aspirate - Other Gram Stain - Final 06/28/23 22:07 Aspirate - Other Wound Culture - Final No growth aerobically. 06/28/23 22:07 Aspirate - Other Anaerobic Culture - Preliminary No growth in 48 hours. Physical Exam Const alert, oriented x3 and no apparent distress General Appearance: cooperative and well developed HEENT normocephalic, head/scalp atraumatic, oropharynx normal and gingiva normal Eyes PERRL and EOMs intact bilaterally Neck no lymphadenopathy, supple, no JVD and thyroid normal Lymph Lymphatic: no lymphadenopathy noted Resp normal respiratory effort, normal air movement and clear to auscultation bilaterally Cardio regular rate, regular rhythm, S1 normal heart sound, S2 normal heart sound and no murmurs GI GI Narrative: abdomen soft, nondistended, no organomegaly, intact dressing over laparoscopic sites. Extremity normal capillary refill, no clubbing, cyanosis or edema and no calf tenderness Skin General Skin Exam: no breakdown Neuro CN's II-XII intact bilaterally, no focal motor deficits, no sensory deficits noted and deep tendon reflexes 2+ bilaterally Motor Exam: strength 5/5 throughout and general weakness Psych thought process normal and cooperative Psych Narrative: frail Appearance: appropriate Assessment & Plan Assessment/Plan (1) SBO (small bowel obstruction): PLAN: Plan #Small bowel obstruction * S/p exploratory laparoscopy 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 * now started on clear liquids per general surgery. * General surgery on board. Continue gentle hydration with IV fluids. * on clear liquid diet; management as per general sugery. #Hypokalemia: K is 3.3. will replace and trend. #History of Shy-Drager syndrome and parkinsonism * On Sinemet and memantine. #Hypertension: On lisinopril. IV hydralazine as needed. #History of urinary retention: On oxybutynin which was discontinued and is now on Flomax. DVT prophylaxis; lovenox Charges/Coding Visit Charges Inpatient E&M: 45311 Subs Hosp L2
[2023-07-01 13:00] VITALS: BP 159/77; PULSE 67; RESP 12; TEMP 36.3; O2SAT 92
[2023-07-01] MEDS: Potassium Chloride Oral Tablet 20 MEQ 40 MEQ PO (13:15)
[2023-07-01 13:37] VITALS: BP 142/70
[2023-07-01] MEDS: Tamsulosin HCl 0.4 MG Capsule 0.8 MG PO (16:48)
[2023-07-01 16:51] VITALS: BP 137/75; PULSE 74; RESP 18; TEMP 36.9; O2SAT 94
[2023-07-01] MEDS: MELATONIN 3 MG TABLET PO (21:45)
[2023-07-01] MEDS: Acetaminophen 325 MG Tablet 650 MG PO (21:45)
[2023-07-01 22:00] VITALS: BP 151/73; PULSE 67; RESP 18; TEMP 36.8; O2SAT 94
[2023-07-02 06:00] VITALS: BP 152/75; PULSE 60; RESP 18; TEMP 36.6; O2SAT 95
[2023-07-02] MEDS: 0.9% Normal Saline (1000mL) 1,000 ML 30 ML IV (07:35)
--- NOTE | 2023-07-02 08:08 | PCM.PN.SRG ---
Subjective Subjective Patient is tolerating clears with no abdominal pain or vomiting Objective Data Objective Data Vital Signs: Vital Signs Temp Pulse Resp BP Pulse Ox O2 Del Method O2 Flow Rate 97.9 F 60 18 152/75 H 95 Room Air 2 07/02/23 06:00 07/02/23 06:00 07/02/23 06:00 07/02/23 06:00 07/02/23 06:00 07/02/23 06:00 06/29/23 06:04 Oxygen Flow Rate (L/min) 2 Oxygen Delivery Method Room Air Weight: 162 lb 1.6 oz Body Mass Index (BMI) 23.2 Intake & Output: Intake and Output for Last 24 Hours 06/30/23 07/01/23 07/02/23 23:59 23:59 23:59 Intake Total 1977.5 / 1977.5 2426.25 / 2426.25 Output Total 726 / 726 Balance 1251.5 / 1251.5 2426.25 / 2426.25 Lab / Micro Data 07/01/23 06:40 07/01/23 06:40 Labs: Laboratory Results - last 24 hr 06/28/23 : Miscellaneous Cytology SEE PATHOLOGY REPORT Micro: Microbiology 06/28/23 22:07 Aspirate - Other Gram Stain - Final 06/28/23 22:07 Aspirate - Other Wound Culture - Final No growth aerobically. 06/28/23 22:07 Aspirate - Other Anaerobic Culture - Preliminary No growth in 48 hours. Physical Exam Const no apparent distress Resp normal respiratory effort Cardio regular rate and regular rhythm GI soft to palpation Inspection: Negative for abdominal distention Assessment & Plan Assessment/Plan (1) SBO (small bowel obstruction): PLAN: Patient is tolerating clear liquids. We will advance his diet today. If he tolerates diet he may be discharged later today. I am asking PT OT to come evaluate because the family may be requesting home health care. Leonardo Wilson MD Pager: [facility] [address] [place] [address], [address] [place] [address] Office:
[2023-07-02 09:10] VITALS: BP 159/75; PULSE 58; RESP 18; TEMP 36.9; O2SAT 95
[2023-07-02] MEDS: Pantoprazole Sodium 40 MG Tablet PO (09:14)
[2023-07-02] MEDS: Lisinopril 5 MG Tablet PO (09:14)
[2023-07-02] MEDS: Memantine Hydrochloride 5 MG Tablet PO ×2 (09:14→21:38)
[2023-07-02] MEDS: CARBIDOPA/LEVODOPA CR 50/200 Tablet PO ×2 (09:15→21:39)
[2023-07-02] MEDS: Enoxaparin 40 MG/0.4 ML Syringe SC (09:19)
[2023-07-02] MEDS: Hydrocortisone Sod Succinate 100 MG/2 ML Vial 50 MG IV ×2 (09:20→21:38)
[2023-07-02 09:21] LABS: Absolute Lymphocyte Count 0.96 X10^3/uL (0.83-4.51); Absolute Neutrophil Count 2.9 X10^3/uL (2.0-7.7); Basophil# 0.02 X10^3/uL; Basophil% 0.4 % (0-1); Eosinophil# 0.05 X10^3/uL; Eosinophils% 1.1 % (0-5); Hematocrit 31.9 % (40-54); Hemoglobin 10.7 g/dL (13.0-16.5); Lymphocyte # 0.96 X10^3/ul (0.83-4.51); Lymphocyte % 21.1 % (19-41); Mean Corp Hgb Conc 33.5 g/dL (32-36); Mean Corpuscular Hgb 32.3 pg (27.0-32.0); Mean Corpuscular Volume 96.4 fL (80-94); Mean Platelet Vol. 10.3 fl (6.2-12.0); Monocyte# 0.63 X10^3/uL; Monocyte% 13.8 % (0-10); NRBC Flagged by Analyzer 0 % (0-5); Neutrophil # 2.88 X10^3/uL (2.7-7.7); Neutrophil % 63.4 % (47-70); Platelet Count 167 K/mm3 (150-450); RBC Distribution Width CV 13.6 % (11.6-14.6); RBC Distribution Width SD 48.1 fl (35.1-43.9); Red Blood Count 3.31 M/mm3 (4.6-6.2); White Blood Count 4.6 K/mm3 (4.4-11.0)
[2023-07-02] MEDS: Fludrocortisone Acetate 0.1 MG Tablet 0.05 MG PO (09:24)
[2023-07-02 09:45] LABS: Anion Gap 3 (5-15); BUN 13 mg/dL (7-18); BUN/Creat Ratio 20.2 RATIO (10-20); Calcium,Total 7.9 mg/dL (8.5-10.1); Chloride 114 mmol/L (98-107); Creatinine, Serum 0.64 mg/dL (0.70-1.30); EST Glomerular Filtration Rate 125 mL/min (>60); Est Glom Filt Rate - Afr Amer 151 mL/min (>60); Estimated Creatinine Clearance 53.74 ml/min; Glucose 102 mg/dL (74-106); Potassium 3.6 mmol/L (3.5-5.1); Sodium Level 143 mmol/L (136-145)
--- NOTE | 2023-07-02 11:24 | PN_ITS ---
Subjective Subjective Patient seen and examined. He had no complaints. Daughter was by his bedside. He was tolerating a clear liquid diet. Review of systems is otherwise negative. Objective Data Objective Data Vital Signs: Vital Signs Temp Pulse Resp BP Pulse Ox O2 Del Method O2 Flow Rate 98.5 F 58 L 18 159/75 H 95 Room Air 2 07/02/23 09:10 07/02/23 09:10 07/02/23 09:10 07/02/23 09:10 07/02/23 09:10 07/02/23 09:10 06/29/23 06:04 Oxygen Flow Rate (L/min) 2 Oxygen Delivery Method Room Air Weight: 162 lb 1.6 oz Body Mass Index (BMI) 23.2 Intake & Output: Intake and Output for Last 24 Hours 06/30/23 07/01/23 07/02/23 23:59 23:59 23:59 Intake Total 1977.5 / 1977.5 2426.25 / 2426.25 Output Total 726 / 726 Balance 1251.5 / 1251.5 2426.25 / 2426.25 Lab / Micro Data 07/02/23 09:08 07/02/23 09:08 Labs: Laboratory Results - last 24 hr 06/28/23 : Miscellaneous Cytology SEE PATHOLOGY REPORT 07/02/23 09:08: WBC 4.6, RBC 3.31 L, Hgb 10.7 L, Hct 31.9 L, MCV 96.4 H, MCH 32.3 H, MCHC 33.5 D, RDW Std Deviation 48.1 H, RDW Coeff of Rylie 13.6, Plt Count 167, MPV 10.3, Immature Gran % (Auto) 0.200, Neut % (Auto) 63.4, Lymph % (Auto) 21.1, [place] % (Auto) 13.8 H, Eos % (Auto) 1.1, Baso % (Auto) 0.4, Absolute Neuts (auto) 2.9, Absolute Lymphs (auto) 0.96, Nucleated RBC % 0, Sodium 143, Potassium 3.6, Chloride 114 H, Carbon Dioxide 26.0, Anion Gap 3 L, BUN 13, Creat inine 0.64 L, Estim Creat Clear Calc 53.74, Est GFR (MDRD) Af Amer 151, Est GFR (MDRD) Non-Af 125, BUN/Creatinine Ratio 20.2 H, Glucose 102, Calcium 7.9 L Micro: Microbiology 06/28/23 22:07 Aspirate - Other Gram Stain - Final 06/28/23 22:07 Aspirate - Other Wound Culture - Final No growth aerobically. 06/28/23 22:07 Aspirate - Other Anaerobic Culture - Preliminary No growth in 48 hours. Physical Exam Const alert, oriented x3 and no apparent distress General Appearance: cooperative and well developed HEENT normocephalic, head/scalp atraumatic, oropharynx normal and gingiva normal Eyes PERRL and EOMs intact bilaterally Neck no lymphadenopathy, supple, no JVD and thyroid normal Lymph Lymphatic: no lymphadenopathy noted Resp normal respiratory effort, normal air movement and clear to auscultation bilaterally Cardio regular rate, regular rhythm, S1 normal heart sound, S2 normal heart sound and no murmurs GI GI Narrative: abdomen soft, nondistended, no organomegaly, well healing laparoscopic sites Extremity normal capillary refill, no clubbing, cyanosis or edema and no calf tenderness Skin General Skin Exam: no breakdown Neuro CN's II-XII intact bilaterally, no focal motor deficits, no sensory deficits noted and deep tendon reflexes 2+ bilaterally Motor Exam: strength 5/5 throughout and general weakness Psych thought process normal and cooperative Psych Narrative: frail Appearance: appropriate Assessment & Plan Assessment/Plan (1) SBO (small bowel obstruction): PLAN: Plan #Small bowel obstruction * S/p exploratory laparoscopy 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 * now started on clear liquids per general surgery an tolerating it * General surgery on board. Continue gentle hydration with IV fluids. * on clear liquid diet; management as per general sugery. #Hypokalemia: resolved. potassium is 3.6 today #History of Shy-Drager syndrome and parkinsonism * On Sinemet and memantine. #Hypertension: On lisinopril. IV hydralazine as needed. #History of urinary retention: On oxybutynin which was discontinued and is now on Flomax. DVT prophylaxis; lovenox Charges/Coding Visit Charges Inpatient E&M: 67649 Subs Hosp L2
--- NOTE | 2023-07-02 12:23 | CASEMGMT ---
CANDICE CARLOS notified that pt family is interested in HHC. CANDICE CARLOS into pt room, pt sitting up in bed with sister Mala at bedside. She states that they would like information on HHC in case they need it at home. They do not want to be set up with it now as pt is self pay. Provided a local HHC printed HHC list to her and explained services that are offered. She is aware that should they decide to obtain services once home, they would contact the PCP to get this set up. She is appreciative of the information and denies further needs. Updated Alyssia MANZO.
[2023-07-02] MEDS: Ensure Plus High Protein 120 ML LIQUID PO ×2 (12:48→16:58)
[2023-07-02 14:18] VITALS: BP 114/54; PULSE 82; RESP 16; TEMP 36.9; O2SAT 96
[2023-07-02] MEDS: Tamsulosin HCl 0.4 MG Capsule 0.8 MG PO (17:00)
[2023-07-02 21:34] VITALS: BP 155/72; PULSE 59; RESP 18; TEMP 36.7; O2SAT 94
[2023-07-02] MEDS: MELATONIN 3 MG TABLET PO (21:48)
[2023-07-03 03:22] VITALS: BP 157/77; PULSE 64; RESP 20; TEMP 36.8; O2SAT 94
--- NOTE | 2023-07-03 07:57 | PCM.PN.SRG ---
Subjective Subjective Patient tolerated some regular diet yesterday. He denies any abdominal pain. Objective Data Objective Data Vital Signs: Vital Signs Temp Pulse Resp BP Pulse Ox O2 Del Method O2 Flow Rate 98.2 F 64 20 H 157/77 H 94 Room Air 2 07/03/23 03:22 07/03/23 03:22 07/03/23 03:22 07/03/23 03:22 07/03/23 03:22 07/03/23 03:22 06/29/23 06:04 Oxygen Flow Rate (L/min) 2 Oxygen Delivery Method Room Air Weight: 162 lb 1.6 oz Body Mass Index (BMI) 23.2 Intake & Output: Intake and Output for Last 24 Hours 07/01/23 07/02/23 07/03/23 23:59 23:59 23:59 Intake Total 2426.25 / 2426.25 400 / 400 Output Total 500 / 500 Balance 2426.25 / 2426.25 400 / -100 -500 / -500 Lab / Micro Data 07/02/23 09:08 07/02/23 09:08 Labs: Laboratory Results - last 24 hr 06/28/23 : Miscellaneous Cytology SEE PATHOLOGY REPORT 07/02/23 09:08: WBC 4.6, RBC 3.31 L, Hgb 10.7 L, Hct 31.9 L, MCV 96.4 H, MCH 32.3 H, MCHC 33.5 D, RDW Std Deviation 48.1 H, RDW Coeff of Rylie 13.6, Plt Count 167, MPV 10.3, Immature Gran % (Auto) 0.200, Neut % (Auto) 63.4, Lymph % (Auto) 21.1, [place] % (Auto) 13.8 H, Eos % (Auto) 1.1, Baso % (Auto) 0.4, Absolute Neuts (auto) 2.9, Absolute Lymphs (auto) 0.96, Nucleated RBC % 0, Sodium 143, Potassium 3.6, Chloride 114 H, Carbon Dioxide 26.0, Anion Gap 3 L, BUN 13, Creatinine 0.64 L, Estim Creat Clear Calc 53.74, Est GFR (MDRD) Af Amer 151, Est GFR (MDRD) Non-Af 125, BUN/Creatinine Ratio 20.2 H, Glucose 102, Calcium 7.9 L Micro: Microbiology 06/28/23 22:07 Aspirate - Other Gram Stain - Final 06/28/23 22:07 Aspirate - Other Wound Culture - Final No growth aerobically. 06/28/23 22:07 Aspirate - Other Anaerobic Culture - Preliminary No growth in 48 hours. Physical Exam Const oriented x3 and no apparent distress Resp normal respiratory effort GI soft to palpation and non-tender Assessment & Plan Assessment/Plan (1) SBO (small bowel obstruction): PLAN: The patient's abdomen is soft and nontender. His diet was advanced yesterday to regular and he did tolerate some dinner. Okay for discharge today. Leonardo Wilson MD Pager: [facility] [address] [place] [address], [address] [place] [address] Office:
--- NOTE | 2023-07-03 07:57 | PCM.DC.SUM ---
Providers Date of Admission: 06/28/23 Primary Care Physician: Dr. Hai Ovalle, Consultations 06/28/23 20:03 Consult: Hospitalist Routine Consulting Provider: Tera Holland Reason for Consult: medical management EMERGENT Consult: No MD Notified: No Date Notified: 06/28/23 Time Notified: 20:03 Reason For Visit: SMALL BOWEL OBSTRUCTION Diagnosis Discharge Diagnosis (1) SBO (small bowel obstruction): Status: Acute Code(s): K56.609 - Unspecified intestinal obstruction, unspecified as to partial versus complete obstruction Plan: The patient's abdomen is soft and nontender. His diet was advanced yesterday to regular and he did tolerate some dinner. Okay for discharge today. Leonardo Wilson MD Pager: [facility] [address] [place] [address], [address] [place] [phone] Office: Medications at Discharge Home Medications Protandim 1 tab PO DAILY 11/21/20 melatonin 3 mg capsule 3 mg PO HS PRN Sleep 11/21/20 multivitamin 1 tab PO DAILY 11/21/20 nitroglycerin 0.4 mg sublingual tablet 0.4 mg sublingual Q5M PRN chest pain #25 tabs 08/27/22 aspirin 81 mg tablet,delayed release 81 mg PO DAILY 09/28/22 Brain Health Herbal Supplement PO 10/30/22 carbidopa ER 50 mg-levodopa 200 mg tablet,extended release 1 tab PO BID #180 tabs 03/05/23 fludrocortisone 0.1 mg tablet 0.1 mg .Route .COMPLEX #14 tabs 03/05/23 memantine 5 mg tablet 5 mg PO BID #180 tabs 03/05/23 oxybutynin chloride 5 mg tablet 5 mg PO DAILY #30 tabs 03/05/23 lisinopril 5 mg tablet 5 mg PO DAILY 06/28/23 acetaminophen 325 mg tablet 650 mg (2 x 325 mg) PO Q4H PRN PRN Pain 1-10/Fever #0 tabs 07/03/23 Hospital Course Summary of Care Provided Hospital Course: Patient presented to the emergency room with abdominal pain and he had a CT scan showed a small bowel obstruction with possible volvulus of the small bowel. He is taken for laparoscopic exploration. The bowel was turned back into its normal place and was viable. The following day the patient had no pain and once he started passing gas he was advanced on his diet. Once tolerating regular diet he was discharged home. Weight / BMI Weight Weight: 162 lb 1.6 oz Body Mass Index (BMI) 23.2 ABG / Lab / Microbiology Data 07/02/23 09:08 07/02/23 09:08 Laboratory: Laboratory Results - last 24 hr 06/28/23 : Miscellaneous Cytology SEE PATHOLOGY REPORT 07/02/23 09:08: WBC 4.6, RBC 3.31 L, Hgb 10.7 L, Hct 31.9 L, MCV 96.4 H, MCH 32.3 H, MCHC 33.5 D, RDW Std Deviation 48.1 H, RDW Coeff of Rylie 13.6, Plt Count 167, MPV 10.3, Immature Gran % (Auto) 0.200, Neut % (Auto) 63.4, Lymph % (Auto) 21.1, [place] % (Auto) 13.8 H, Eos % (Auto) 1.1, Baso % (Auto) 0.4, Absolute Neuts (auto) 2.9, Absolute Lymphs (auto) 0.96, Nucleated RBC % 0, Sodium 143, Potassium 3.6, Chloride 114 H, Carbon Dioxide 26.0, Anion Gap 3 L, BUN 13, Creatinine 0.64 L, Estim Creat Clear Calc 53.74, Est GFR (MDRD) Af Amer 151, Est GFR (MDRD) Non-Af 125, BUN/Creatinine Ratio 20.2 H, Glucose 102, Calcium 7.9 L Microbiology: Microbiology 06/28/23 22:07 Aspirate - Other Gram Stain - Final 06/28/23 22:07 Aspirate - Other Wound Culture - Final No growth aerobically. 06/28/23 22:07 Aspirate - Other Anaerobic Culture - Preliminary No growth in 48 hours. D/C Instructions Discharge Diet: Light diet - advance as tolerated Discharge Activity: Return to Normal Activity and May Shower Lifting Restrictions: 15 lbs for 2 weeks Call your doctor if your incision/area has: Continuous Slow Oozing, Sudden Increased Bleeding, Increased Pain/ Swelling, Increased Redness, Foul Smelling Discharge and Swelling at the incision site Call your doctor if you observe: Fever of 101 or Higher Remove Dressing in: 1 day (Remove clear bandages in 1 day, remove Steri-Strips in 1 week) Please Follow Up With: Leonardo Wilson MD When: Please call to schedule 2 week follow up appointment. [phone] Meaningful Use Info Meaningful Use Diagnoses (Choose all that apply): None applicable Discharge Plan Admission Admit Date/Time: 06/28/23 22:03 Attending Provider: Kirstin Koo Primary Care Provider: Hai Ovalle Consulting Providers: Sajan White; Leonardo Wilson Discharge Orders/Prescriptions Prescriptions: New acetaminophen 325 mg Tablet 650 mg PO Q4H PRN PRN (Reason: Pain 1-10/Fever) Qty: 0 0RF Continued multivitamin Tablet 1 tab PO DAILY melatonin 3 mg capsule 3 mg PO HS PRN (Reason: Sleep) Protandim 1 tab PO DAILY Brain Health Herbal Supplement PO fludrocortisone 0.1 mg tablet 0.1 mg .ROUTE .COMPLEX Qty: 14 5RF Rx Instructions: Take one-half tablet PO 6 days/week (every Friday, Friday, Friday, , Friday and Friday) to be taken in the morning. carbidopa-levodopa 50-200 mg tablet extended release 1 tab PO BID Qty: 180 1RF memantine 5 mg tablet 5 mg PO BID Qty: 180 1RF oxybutynin chloride 5 mg tablet 5 mg PO DAILY Qty: 30 5RF aspirin 81 mg Tablet,Delayed Release (Dr/Ec) 81 mg PO DAILY lisinopril 5 mg tablet 5 mg PO DAILY Patient Comments: TAKE 1 TABLET BY MOUTH ONCE DAILY nitroglycerin 0.4 mg tablet, sublingual 0.4 mg sublingual Q5M PRN (Reason: chest pain) Qty: 25 3RF Rx Instructions: do not exceed 3 doses per episode Referrals / Follow Up: Hai Ovalle DO [Primary Care Provider] - Disposition Disposition (needs filled in before D/C Order can be placed): Home, Self Care
[2023-07-03 09:17] VITALS: BP 152/71; PULSE 73; RESP 16; TEMP 36.6; O2SAT 93
[2023-07-03] MEDS: Ensure Plus High Protein 120 ML LIQUID PO (09:21)
[2023-07-03] MEDS: Enoxaparin 40 MG/0.4 ML Syringe SC (09:23)
[2023-07-03] MEDS: Fludrocortisone Acetate 0.1 MG Tablet 0.05 MG PO (09:24)
[2023-07-03] MEDS: Lisinopril 5 MG Tablet PO (09:24)
[2023-07-03] MEDS: Pantoprazole Sodium 40 MG Tablet PO (09:24)
[2023-07-03] MEDS: CARBIDOPA/LEVODOPA CR 50/200 Tablet PO (09:24)
[2023-07-03] MEDS: Memantine Hydrochloride 5 MG Tablet PO (09:24)
[2023-07-03] MEDS: Hydrocortisone Sod Succinate 100 MG/2 ML Vial 50 MG IV (09:25)
[2023-07-03] MEDS: Menthol/Lanolin/Calamine/Znox 113 GM Tube 1 APPLIC TOPICAL (09:25)
--- NOTE | 2023-07-03 10:07 | CASEMGMT ---
RN CM into pt room, pt sister at bedside. She asks about a FWW. Provided her a handout on DME for [facility]. She states she is aware of this warehouse. She denies further homegoing needs. She states she will call seasonal driver to transport home.
--- NOTE | 2023-07-03 11:56 | PN_ITS ---
Subjective Subjective Patient seen and examined. He felt well and had no complaints. He was comfortably eating breakfast. Review of systems is otherwise negative. He has remained hemodynamically stable. Daughter was by his bedside. Objective Data Objective Data Vital Signs: Vital Signs Temp Pulse Resp BP Pulse Ox O2 Del Method O2 Flow Rate 97.8 F 73 16 152/71 H 93 Room Air 2 07/03/23 09:17 07/03/23 09:17 07/03/23 09:17 07/03/23 09:17 07/03/23 09:17 07/03/23 09:17 06/29/23 06:04 Oxygen Flow Rate (L/min) 2 Oxygen Delivery Method Room Air Weight: 162 lb 1.6 oz Body Mass Index (BMI) 23.2 Intake & Output: Intake and Output for Last 24 Hours 07/01/23 07/02/23 07/03/23 23:59 23:59 23:59 Intake Total 2426.25 / 2426.25 400 / 400 772.5 / 772.5 Output Total 500 / 500 Balance 2426.25 / 2426.25 400 / -100 272.5 / 272.5 Lab / Micro Data 07/02/23 09:08 07/02/23 09:08 Micro: Microbiology 06/28/23 22:07 Aspirate - Other Gram Stain - Final 06/28/23 22:07 Aspirate - Other Wound Culture - Final No growth aerobically. 06/28/23 22:07 Aspirate - Other Anaerobic Culture - Preliminary No growth in 48 hours. Physical Exam Const alert, oriented x3 and no apparent distress General Appearance: cooperative and well developed HEENT normocephalic, head/scalp atraumatic, moist oral mucous membranes, oropharynx normal and gingiva normal Eyes PERRL and EOMs intact bilaterally Neck no lymphadenopathy, supple, no JVD and thyroid normal Lymph Lymphatic: no lymphadenopathy noted and no lymphedema noted Resp normal respiratory effort, normal air movement and clear to auscultation bilaterally Cardio regular rate, regular rhythm, S1 normal heart sound, S2 normal heart sound and no murmurs GI GI Narrative: abdomen soft, nondistended, no organomegaly, well healing laparoscopic sites Extremity normal capillary refill, no clubbing, cyanosis or edema and no calf tenderness Skin General Skin Exam: no breakdown Neuro CN's II-XII intact bilaterally, no focal motor deficits, no sensory deficits noted and deep tendon reflexes 2+ bilaterally Motor Exam: strength 5/5 throughout and general weakness Psych thought process normal and cooperative Psych Narrative: frail Appearance: appropriate Assessment & Plan Assessment/Plan (1) SBO (small bowel obstruction): PLAN: Plan #Small bowel obstruction * S/p exploratory laparoscopy 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 * now started on clear liquids per general surgery an tolerating it * General surgery on board. * now tolerating a diet. Management as per general surgery * #Hypokalemia: resolved. #History of Shy-Drager syndrome and parkinsonism * On Sinemet and memantine. #Hypertension: On lisinopril. IV hydralazine as needed. #History of urinary retention: On oxybutynin which was discontinued and is now on Flomax. DVT prophylaxis; lovenox Disposition: ok for dc from hospitalist standpoint. Charges/Coding Visit Charges Inpatient E&M: 31039 Subs Hosp L2
== END 2023-07-03 11:05 | disposition home or self-care (01) | DRG 357 ==
LOC: ED 19:32 → SDC 20:30 → ACINP 20:32 → SDC 22:39 → MS3 22:39
PROVIDERS: Physician Assistant; Admitting Provider Surgery; Emergency Provider Emergency Medicine; PCP Family Medicine; Visit Provider Student in an Organized Health Care Education/Training Program
PROC: 0WJP4ZZ Inspection of Gastrointestinal Tract, Percutaneous Endoscopic Approach (ICD-10-PCS; CPT 49320; principal; 2023-06-28 20:00)
DX: K56.2 Volvulus (principal); G90.3 Multi-system degeneration of the autonomic nervous system; F03.90 Unspecified dementia, unspecified severity, without behavioral disturbance, psychotic disturbance, mood disturbance, and anxiety; G20 Parkinson's disease; I10 Essential (primary) hypertension; I89.8 Other specified noninfective disorders of lymphatic vessels and lymph nodes; E78.00 Pure hypercholesterolemia, unspecified; I25.10 Atherosclerotic heart disease of native coronary artery without angina pectoris; E87.6 Hypokalemia; Z95.5 Presence of coronary angioplasty implant and graft; R33.9 Retention of urine, unspecified
CPT/HCPCS: 36415; 74177; 80048; 80053; 81001; 83605; 83690; 85025; 87070; 87075; 87205; 88108; 88305; 88313; 93005; 97162; 97166; 97802; 99281; J7030; Q9967; A4216; J2405

== ENCOUNTER 2023-10-04 19:52 | Inpatient (IN) | payer OTHER, SELFPAY ==
--- NOTE | 2023-10-04 00:40 | RAD_ITS ---
EXAM: XR ABDOMEN, 1 VIEW CLINICAL INDICATION: NG Insertion TECHNIQUE: Frontal supine view of the abdomen/pelvis. 12:36 AM. COMPARISON: Abdominal pelvic CT of 10/04/2023 FINDINGS: LOWER THORAX: No acute basilar pulmonary infiltrates. GASTROINTESTINAL TRACT: Stomach contains a moderate amount of gas. Moderate gas and large amount of formed stool noted within the visualized colon. ORGANS: Unremarkable as visualized. No organomegaly. No abnormal calcifications. BONES/JOINTS: Thoracolumbar degenerative spurring. SOFT TISSUES: No acute pathology. TUBES, LINES AND DEVICES: NG tube has been inserted, with the tip and sidehole position above the level of the hemidiaphragms, most likely in a hiatal hernia which was noted on the prior CT. The tip of the NG tube does not extend below the level of the hemidiaphragms into the gastric lumen proper. RAD/Abdomen Single View (Portable) IMPRESSION: Suboptimal NG tube positioning; the tip of NG tube is projected above the level of the hemidiaphragms, most likely within a hiatal hernia. Electronically Signed: Sanford Moreno MD at 1:38 EST ,
[2023-10-04 19:53] VITALS: BP 142/67; PULSE 56; RESP 16; TEMP 36.6; O2SAT 98
[2023-10-04 19:55] VITALS: BMI 22.3
[2023-10-04 20:19] LABS: Absolute Lymphocyte Count 1.28 X10^3/uL (0.83-4.51); Absolute Neutrophil Count 5.5 X10^3/uL (2.0-7.7); Basophil# 0.04 X10^3/uL; Basophil% 0.5 % (0-1); Eosinophil# 0.04 X10^3/uL; Eosinophils% 0.5 % (0-5); Hematocrit 42.8 % (40-54); Hemoglobin 13.6 g/dL (13.0-16.5); Lymphocyte # 1.28 X10^3/ul (0.83-4.51); Lymphocyte % 16.6 % (19-41); Mean Corp Hgb Conc 31.8 g/dL (32-36); Mean Corpuscular Hgb 31.4 pg (27.0-32.0); Mean Corpuscular Volume 98.8 fL (80-94); Mean Platelet Vol. 10.8 fl (6.2-12.0); Monocyte# 0.83 X10^3/uL; Monocyte% 10.8 % (0-10); NRBC Flagged by Analyzer 0 % (0-5); Neutrophil # 5.48 X10^3/uL (2.7-7.7); Neutrophil % 71.2 % (47-70); Platelet Count 245 K/mm3 (150-450); RBC Distribution Width CV 13.5 % (11.6-14.6); RBC Distribution Width SD 49.2 fl (35.1-43.9); Red Blood Count 4.33 M/mm3 (4.6-6.2); White Blood Count 7.7 K/mm3 (4.4-11.0)
--- OUTSIDE RECORDS SUMMARY | 2023-10-04 20:19 | XMS RPT_ITS | CCD ---
Author Name Unknown Address [address] [place] [address] Organization [facility] Care Team Providers Care Cyber Incident Responder Name Role Phone GISELLE WHITING Unavailable Unavailable AUGIE, GLADYS A. Unavailable Unavailable GISELLE WHITING Unavailable Unavailable AUGIE, GLADYS A. Unavailable Unavailable GISELLE WHITING Unavailable Unavailable GLADYS GHOSH A. Unavailable Unavailable GISELLE WHITING Unavailable Unavailable AUGIE, GLADYS A. Unavailable Unavailable LILIANA SWEENEY Unavailable Unavailable AUGIE, GLADYS A. Unavailable Unavailable LILIAM THOMPSON JR. Unavailable Unavailab DIAN Garcia Admitting Unavailable DIAN DELACRUZ Attending Unavailable DIAN DELACRUZ Primary Care Unavailable NO, DOCTOR ON Consulting Unavailable Results Test Name Value Interpretation Reference Range Facil ity Encounters Encounter Date Encounter Type Care Provider Facility Start: 02-04-2020 End: 02-04-2020 Patient encounter procedure DIAN DELACRUZ [facility] Start: 09-20-2017 End: 09-20-2017 Emergency department patient visit LILIANA SWEENEY Facility:[facility] Start: 09-11-2017 End: 09-11-2017 Ambulatory GISELLE WHITING Facility:[facility] Start: 09-08-2017 End: 09-08-2017 Ambulatory GISELLE WHITING Facility:[facility] Start: 08-29-2017 End: 08-30-2017 Ambulatory GISELLE WHITING Facility:[facility] Start: 07-11-2017 End: 07-12-2017 Ambulatory GISELLE WHITING Facility:[facility] Payers Date Payer Category Payer Self-pay Summary Purpose Family History No Family History Records FoundNo Family History Records FoundNo Family History Records Found Advance Directives No Advanced Directives Records FoundNo Advanced Directives Records FoundNo Advanced Directives Records Found Additional Source Comments (unrecognized sect ion and content) No Status Records FoundNo Status Records FoundNo Status Records Found INFORMATION SOURCE (unrecogn ized section and content) DATE CREATED AUTHOR AUTHOR'S NIRAV JAVED 02/06/2020 [facility] DATE CREATED AUTHOR AUTHOR'S NIRAV ATDEB 02/07/[address] [facility] FOR RECORDS PERTAINING TO PATIENTS WHO ARE OR HAVE BEEN ENROLLED IN A CHEMICAL DEPENDENCY/SUBSTANCEABUSE PROGRAM, SOME INFORMATION MAY BE OMITTED. This clinical summary was aggregated from multiple sources. Caution should be exercised in using it in the provision of clinical care. This summary normalizes information from multiple sources, and as a consequence, information in this document may materially change the coding, format and clinical context of patient data. In addition, data may be omitted in some cases. CLINICAL DECISIONS SHOULD BE BASED ON THE PRIMARY CLINICAL RECORDS. [employer] [facility]. provides no warranty or guarantee of the accuracy or completeness of information in this document.
[2023-10-04 20:33] LABS: ALB/GLOB Ratio 0.9 RATIO (0.9-2.4); AST(SGOT) 15 U/L (15-37); Alanine Aminotransfer ALT/SGPT 15 U/L (16-61); Albumin, Serum 3.5 g/dL (3.2-5.0); Alkaline Phosphatase 66 U/L (45-117); Anion Gap 2 (5-15); BUN 22 mg/dL (7-18); Calcium,Total 9.2 mg/dL (8.5-10.1); Chloride 105 mmol/L (98-107); Creatinine, Serum 1.16 mg/dL (0.70-1.30); EST Glomerular Filtration Rate 63 mL/min (>60); Est Glom Filt Rate - Afr Amer 77 mL/min (>60); Estimated Creatinine Clearance 44.74 ml/min; Globulin 3.7 g/dL (2.2-4.2); Glucose 175 mg/dL (74-106); Lipase 92 U/L (13-75); Potassium 4.5 mmol/L (3.5-5.1); Protein, Total 7.2 g/dL (6.4-8.2); Sodium Level 139 mmol/L (136-145)
[2023-10-04 20:38] LABS: Lactic Acid 1.6 mmol/L (0.4-1.9)
--- NOTE | 2023-10-04 20:51 | CT_ITS ---
We are attempting to reach an attending provider to discuss findings. An addendum with communication details will be sent when the communication is complete. STUDY: CT ABDOMEN AND PELVIS WITH CONTRAST REASON FOR EXAM: Male, 88 years old. abdominal pain RADIATION DOSAGE (If Supplied By Facility): CTDIvol = ( 16.45 ) mGy, DLP = ( 879.29 ) mGycm TECHNIQUE: Transaxial images were obtained from the dome of the diaphragm to the symphysis pubis without oral contrast. IV 100mL Isovue-370 was administered. Sagittal and coronal images were reconstructed. Individualized dose optimization techniques were used for this CT. COMPARISON: None. FINDINGS: Bilateral lower lobe atelectasis with vascular crowding. Normal cardiac size with coronary artery calcifications. Normal liver. Over distended gallbladder with tiny stones along the dependent portion. Normal spleen. Diffuse pancreatic atrophy, otherwise unremarkable pancreas. Normal bilateral adrenal glands. Low-attenuation structures within the right kidney, largest seen in the lower pole measuring 2 cm compatible with simple renal cysts. Otherwise normal right kidney. Multiple low-attenuation structures within the left kidney, largest seen in the upper pole measuring 5.5 cm consistent with simple renal cysts. Some of the bilateral renal cyst measuring less than 5 mm and too small to characterize, statistically consistent with renal cysts. Otherwise normal left kidney. The stomach is distended with mild hiatal hernia. Fluid within the distal esophagus consistent with reflux. Multiple loops of small bowel distention within the mid anterior abdomen with significant thickening of the wall and swirling pattern of small bowel loops and vascularity consistent with closed loop obstruction or internal hernia. Thickening of the small bowel with stranding/inflammation of the mesentery in the distribution of the involved small bowel loops raises the concern of signs of strangulation. Increased fecal debris within the colon consistent with constipation. There is non-visualization of the appendix. There is diffuse atherosclerotic calcification of the abdominal aorta, without a demonstrated aneurysm. Normal inferior vena cava. Normal retroperitoneum. Normal urinary bladder. Normal abdominal wall. Diffuse osteopenia with multiple punctate areas of hypodensities which may indicate advanced osteoporosis, difficult to exclude lytic metastases. Right-sided hip prosthesis in place. Normal alignment. Mild ascites in the upper abdomen. CT/Abdomen/Pelvis W IV Cont ONLY IMPRESSION: Findings highly compatible with closed loop bowel obstruction versus internal hernia versus midgut volvulus with signs of early strangulation, follow-up with surgical consultation recommended. Hiatal hernia with reflux into the distal small bowel. Constipation. Electronically Signed: Barbara Celeste MD at 22:46 EST ,
--- NOTE | 2023-10-04 20:53 | EDS_ITS ---
HPI HPI - GI History of Present Illness Chief Complaint: Abd Pain Narrative Narrative: 88-year-old male with dementia and he is a poor informant. He presents with his family for evaluation of abdominal pain. Patient's family states started about 6 PM. They state that he has a history of a flipped out . He was seen here at [facility] for this and had surgery. He has recovered since that time. He has followed up with his surgeon. He has history of appendectomy, hiatal hernia repair, inguinal hernia repair, small bowel obstruction. It is unknown if the patient is having bowel movements. Patient's family states they tried a monitor him however sometimes he has bowel movements without telling him. They state that he forgets if he has bowel movements. No fevers or chills at home. No nausea or vomiting at home. [facility] Medical History Abnormal electrocardiogram Abnormal result of cardiovascular function study, unspecified Angina pectoris Asthma Atherosclerosis of [place] coronary artery of [place] heart without angina pectoris BPH (benign prostatic hyperplasia) Bradycardia Chest pain, precordial Cough Dizziness Essential (primary) hypertension Fatigue Fatigue GERD (gastroesophageal reflux disease) Hiatal hernia Preop cardiovascular exam Pure hypercholesterolemia Vasovagal syncope Home Medications Protandim 1 tab PO DAILY 11/21/20 [History Last Taken Unknown] melatonin 3 mg capsule 3 mg PO HS PRN Sleep 11/21/20 [History Last Taken Unknown] multivitamin 1 tab PO DAILY 11/21/20 [History Last Taken Unknown] nitroglycerin 0.4 mg sublingual tablet 0.4 mg sublingual Q5M PRN chest pain #25 tabs 08/27/22 [Rx Last Taken 06/28/23] aspirin 81 mg tablet,delayed release 81 mg PO DAILY 09/28/22 [History Last Taken Unknown] Brain Health Herbal Supplement PO 10/30/22 [History Last Taken Unknown] acetaminophen 325 mg tablet 650 mg (2 x 325 mg) PO Q4H PRN PRN Pain 1-10/Fever #0 tabs 07/03/23 [Rx Last Taken Unknown] lisinopril 5 mg tablet 5 mg PO DAILY #90 tabs 08/08/23 [Rx Last Taken Unknown] carbidopa ER 50 mg-levodopa 200 mg tablet,extended release 1 tab PO BID #180 tabs 08/21/23 [Rx Last Taken Unknown] fludrocortisone 0.1 mg tablet 0.1 mg .Route .COMPLEX #14 tabs 08/21/23 [Rx Last Taken Unknown] lubiprostone 24 mcg capsule (Amitiza) 24 mcg PO BID #60 caps 08/21/23 [Rx Last Taken Unknown] memantine 5 mg tablet 5 mg PO BID #180 tabs 08/21/23 [Rx Last Taken Unknown] oxybutynin chloride 10 mg tablet,extended release 24 hr 10 mg PO QAM #30 tabs 08/21/23 [Rx Last Taken Unknown] Allergy/AdvReac Type Severity Reaction Status Date / Time No Known Allergies Allergy Verified 10/04/23 19:55 Family History Mother CHF (congestive heart failure) Brother Cancer Prostate cancer Sister Parkinson's disease Surgical History History of appendectomy History of coronary artery stent placement (05/06/12) History of inguinal hernia repair (~2009) History of left heart catheterization (LHC) (11/18/13) History of repair of hiatal hernia History of total right hip replacement (~06/23/18) Social History Smoking Status: Never smoker alcohol intake: never substance use type: does not use caffeine: Yes Type: coffee Number of servings: 3 what type of physical activity do you participate in: bicycling frequency: daily duration: 15-30 minutes/day seatbelt use: always do you feel safe at home: Yes ROS ROS ED Review of Systems ROS Unobtainable: due to mental condition and due to mental status EXAM Physical Exam Const Vital Signs: 10/04/23 19:53 10/04/23 22:02 Temperature 97.8 F Temperature Source Temporal Pulse Rate 56 L 79 Respiratory Rate 16 15 Blood Pressure 142/67 H 173/83 H Blood Pressure Mean 92 113 Pulse Ox 98 92 Oxygen Delivery Method Room Air Room Air Positive unkempt General Appearance ED: unkempt and NAD; Negative for pallor HEENT Reports dry mucous membranes normocephalic and atraumatic Mouth ED: Yes dry mucous membranes Mouth: dry mucous membranes Eyes PERRL and EOMs intact bilaterally General Eye ED: Negative for pale conjunctiva or scleral icterus Resp normal respiratory effort and clear to auscultation bilaterally GI Palpation: tender LUQ Neuro CN's II-XII intact bilaterally Sensorium / Orientation: alert Psych mental status grossly normal Appearance: unkempt Skin no wounds General Skin Exam: Negative for jaundice or pallor MDM MDM MDM Narrative Medical decision making narrative: 88-year-old male with multiple medical surgeries presenting with abdominal pain. Onset was 6 PM. Patient presenting with right flank pain. Differential includes colitis, diverticulitis, gastritis, pancreatitis, constipation, UTI, pyelonephritis, renal calculi, ureteral calculi, bowel obstruction, malignancy, dehydration, electrolyte abnormalities. Patient medicated with morphine, Zofran, IV fluids. CBC was obtained to assess white blood cell count, hemoglobin, platelets. CMP to assess liver function, renal function, electrolytes, glucose. Lipase to assess for pancreatitis. Lactic acid to assess for ischemic bowel. CT of the abdomen pelvis with IV contrast will be obtained. I called the general surgeon early as I saw that this looks like a volvulus with a bowel obstruction and he came to evaluate the patient at the bedside we reviewed the options with he and his family. At this point an NG was ordered at 2200 and the family declined. They are waiting for other family members to come and make the decision. CBC, BMP unremarkable. Lactic acid is 1.6. Lipase 92. About an hour and 10 minutes later the radiologist called to inform me of the findings and they are consistent what was already believed. There was a delay in getting the NG tube by 2 hours due to the patient's family not being here to take the decision. At 1208 I went into the room to talk to the family after talking to Dr. Prado and they are willing to accept an NG tube. They understand that this might not completely fix the problem. He was also discussed with him the option of surgery versus hospice. Dr. Prado will come down and talk to them further. Impression: 1. Volvulus 2. Small bowel obstruction with strangulation Lab Data Labs: Laboratory Results - last 24 hr 10/04/23 10/04/23 20:10 22:37 WBC 7.7 RBC 4.33 L Hgb 13.6 Hct 42.8 MCV 98.8 H MCH 31.4 MCHC 31.8 L RDW Std Deviation 49.2 H RDW Coeff of Rylie 13.5 Plt Count 245 MPV 10.8 Immature Gran % (Auto) 0.400 Neut % (Auto) 71.2 H Lymph % (Auto) 16.6 L [place] % (Auto) 10.8 H Eos % (Auto) 0.5 Baso % (Auto) 0.5 Absolute Neuts (auto) 5.5 Absolute Lymphs (auto) 1.28 Nucleated RBC % 0 Sodium 139 Potassium 4.5 Chloride 105 Carbon Dioxide 32.0 Anion Gap 2 L BUN 22 H Creatinine 1.16 Estim Creat Clear Calc 44.74 Est GFR (MDRD) Af Amer 77 Est GFR (MDRD) Non-Af 63 BUN/Creatinine Ratio 19.0 Glucose 175 H Lactic Acid 1.6 Calcium 9.2 Total Bilirubin 0.30 AST 15 ALT 15 L Alkaline Phosphatase 66 Troponin I High Sens 10 Total Protein 7.2 Albumin 3.5 Globulin 3.7 Albumin/Globulin Ratio 0.9 Lipase 92 H Radiography Diagnostic Testing: Clinical Impression(s) from Imaging Studies Abdomen/Pelvis CT 10/04/23 20:51 IMPRESSION: Findings highly compatible with closed loop bowel obstruction versus internal hernia versus midgut volvulus with signs of early strangulation, follow-up with surgical consultation recommended. Hiatal hernia with reflux into the distal small bowel. Constipation. Electronically Signed: Barbara Celeste MD at 22:46 EST Reading Location ID and State: [address] [place] [address] , Service support , ADDENDUM: 10/04/23 [id number] IMPRESSION: Findings highly compatible with closed loop bowel obstruction versus internal hernia versus midgut volvulus with signs of early strangulation, follow-up with surgical consultation recommended. Hiatal hernia with reflux into the distal small bowel. Constipation. N.B. : Dr Regan Parr MD, confirmed on 10/04/2023 23:08:37 (ET) that the referring physician received the results and does not require a verbal communication. Electronically Signed: Barbara Celeste MD at 22:46 EST , Discharge Plan Triage Chief Complaint: Abd Pain ED Provider: Regan Parr Dx/Rx/DC Orders Prescriptions: No Action multivitamin Tablet 1 tab PO DAILY melatonin 3 mg capsule 3 mg PO HS PRN (Reason: Sleep) Protandim 1 tab PO DAILY Brain Health Herbal Supplement PO lubiprostone [Amitiza] 24 mcg capsule 24 mcg PO BID Qty: 60 5RF carbidopa-levodopa 50-200 mg tablet extended release 1 tab PO BID Qty: 180 1RF fludrocortisone 0.1 mg tablet 0.1 mg .ROUTE .COMPLEX Qty: 14 5RF Rx Instructions: Take one-half tablet PO 6 days/week (every Friday, Friday, Friday, , Friday and Friday) to be taken in the morning. memantine 5 mg tablet 5 mg PO BID Qty: 180 1RF oxybutynin chloride 10 mg tablet extended release 24hr 10 mg PO QAM Qty: 30 5RF aspirin 81 mg Tablet,Delayed Release (Dr/Ec) 81 mg PO DAILY acetaminophen 325 mg Tablet 650 mg PO Q4H PRN PRN (Reason: Pain 1-10/Fever) Qty: 0 0RF nitroglycerin 0.4 mg tablet, sublingual 0.4 mg sublingual Q5M PRN (Reason: chest pain) Qty: 25 3RF Rx Instructions: do not exceed 3 doses per episode lisinopril 5 mg tablet 5 mg PO DAILY Qty: 90 3RF Primary Care Provider: Hai Ovalle Referrals: Hai Ovalle DO [Primary Care Provider] -
[2023-10-04] MEDS: Ondansetron 4 MG/2 ML Vial IV (21:43)
[2023-10-04] MEDS: Morphine 4 MG/ML Syringe IV (21:44)
[2023-10-04] MEDS: 0.9% Normal Saline (1000mL) 1,000 ML 999 ML IV (21:59)
[2023-10-04 22:02] VITALS: BP 173/83; PULSE 79; RESP 15; O2SAT 92
--- NOTE | 2023-10-04 22:02 | EKG12_ITS ---
Test Reason : DYSRHYTHMIA Blood Pressure : / mmHG Vent. Rate : 077 BPM Atrial Rate : 077 BPM P-R Int : 158 ms QRS Dur : 088 ms QT Int : 408 ms P-R-T Axes : 037 012 073 degrees QTc Int : 461 ms Normal sinus rhythm Normal ECG Confirmed by SHIMA CARPENTER, MAKENNA ([id number]), film editor supervisor CARMEN MOTTA ([id number]) on 10/14/2023 9:03:00 AM Referred By: Alyssa Carranza Confirmed By:MAKENNA RONQUILLO MD
[2023-10-04 23:04] LABS: Troponin-I HS 10 pg/mL (3.0-78.0)
--- NOTE | 2023-10-04 23:04 | ED.RN ---
FAMILY AT BEDSIDE. DR MILLS AT BEDSIDE DISCUSSING CT RESULTS, SURGERY AND NG PLACEMENT. INFORMED BY FAMILY THE WANT TO DISCUSS THE SITUATION A FAMILY BEFORE DECIDING IF THEY WANT PT TO HAVE SURGERY OR NG. INFORMED FAMILY OF THE BENEFITS OF THE NG SO THEY COULD BE WELL INFORMED.
[2023-10-05] VITALS (16 sets, daily range): BP systolic 149–194; BP diastolic 75–103; PULSE 80–97; RESP 15–18; TEMP 36.2–37.2; O2SAT 91–98; BMI 22.3; BMI 22.8
[2023-10-05] MEDS: Oxymetazoline 0.05% 1 SPRAY SPRAY.BTL 2 SPRAY NASAL (00:20)
--- NOTE | 2023-10-05 00:50 | RAD_ITS ---
EXAM: XR ABDOMEN, 1 VIEW CLINICAL INDICATION: placement TECHNIQUE: Frontal supine view of the abdomen/pelvis. COMPARISON: Earlier abdominal radiograph of this date, 12:36 AM. FINDINGS: LOWER THORAX: Visualized lung bases are clear. GASTROINTESTINAL TRACT: Stomach again contains a moderate amount of gas. Moderate gas and large amount of formed stool again noted within the colon. A few gas-filled distended small bowel loops are seen within the right mid abdomen. ORGANS: Excreted contrast noted within the intrarenal collecting systems. No organomegaly. No abnormal calcifications. TUBES, LINES AND DEVICES: NG tube remains in place, with the tip of the tube and sidehole again projected just above the level of the hemidiaphragms, most likely within a hiatal hernia which was noted on preceding CT. The NG tube does not extend below the level of the hemidiaphragms into the gastric lumen proper. RAD/Abdomen Single View (Portable) IMPRESSION: Stable positioning of NG tube; the tip of the tube is again projected just above the level of the hemidiaphragms, most likely within a hiatal hernia. Electronically Signed: Sanford Moreno MD at 1:40 EST ,
--- NOTE | 2023-10-05 01:22 | PCM.HP.STD ---
HPI - General General Chief Complaint: Acute onset abdominal pain and constipation HPI Narrative SONA ARRINGTON, is a 88 M who presents to [facility] in the company of his family after he began complaining of upper abdominal pain approximately 6 PM yesterday evening. Family deny hearing any complaints from Mr. Arrington of any nausea or vomiting. 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 They share that they were concerned that his presentation was similar to how he described his pain the last time he experienced a bowel obstruction and required surgery with Dr. Wilson in June of this year. ER workup is notable for CBC with normal white blood cell count, hemoglobin of 13.6, and lactic acid of 1.6. CT imaging of the abdomen pelvis was performed and demonstrates mesenteric swirl with radiology calling possible closed-loop obstruction due to midgut volvulus versus internal hernia. As above, patient underwent exploratory laparoscopy in June of this year for the same findings. They share that Mr. Arrington was overall in his usual state of health and recovered well following this procedure until today. Beyond this surgery family confirms a history of appendectomy, left inguinal hernia repair, and hiatal hernia repair. 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 BPH (benign prostatic hyperplasia) Bradycardia Chest pain, precordial Cough Dizziness Essential (primary) hypertension Fatigue Fatigue GERD (gastroesophageal reflux disease) Hiatal hernia Preop cardiovascular exam Pure hypercholesterolemia Vasovagal syncope Home Medications Protandim 1 tab PO DAILY 11/21/20 [History Last Taken Unknown] melatonin 3 mg capsule 3 mg PO HS PRN Sleep 11/21/20 [History Last Taken Unknown] multivitamin 1 tab PO DAILY 11/21/20 [History Last Taken Unknown] nitroglycerin 0.4 mg sublingual tablet 0.4 mg sublingual Q5M PRN chest pain #25 tabs 08/27/22 [Rx Last Taken 06/28/23] aspirin 81 mg tablet,delayed release 81 mg PO DAILY 09/28/22 [History Last Taken Unknown] Brain Health Herbal Supplement PO 10/30/22 [History Last Taken Unknown] acetaminophen 325 mg tablet 650 mg (2 x 325 mg) PO Q4H PRN PRN Pain 1-10/Fever #0 tabs 07/03/23 [Rx Last Taken Unknown] lisinopril 5 mg tablet 5 mg PO DAILY #90 tabs 08/08/23 [Rx Last Taken Unknown] carbidopa ER 50 mg-levodopa 200 mg tablet,extended release 1 tab PO BID #180 tabs 08/21/23 [Rx Last Taken Unknown] fludrocortisone 0.1 mg tablet 0.1 mg .Route .COMPLEX #14 tabs 08/21/23 [Rx Last Taken Unknown] lubiprostone 24 mcg capsule (Amitiza) 24 mcg PO BID #60 caps 08/21/23 [Rx Last Taken Unknown] memantine 5 mg tablet 5 mg PO BID #180 tabs 08/21/23 [Rx Last Taken Unknown] oxybutynin chloride 10 mg tablet,extended release 24 hr 10 mg PO QAM #30 tabs 08/21/23 [Rx Last Taken Unknown] Allergy/AdvReac Type Severity Reaction Status Date / Time No Known Allergies Allergy Verified 10/04/23 19:55 Family History Mother CHF (congestive heart failure) Brother Cancer Prostate cancer Sister Parkinson's disease Surgical History History of appendectomy History of coronary artery stent placement (05/06/12) History of inguinal hernia repair (~2009) History of left heart catheterization (LHC) (11/18/13) History of repair of hiatal hernia History of total right hip replacement (~06/23/18) Social History Smoking Status: Never smoker alcohol intake: never substance use type: does not use caffeine: Yes Type: coffee Number of servings: 3 what type of physical activity do you participate in: bicycling frequency: daily duration: 15-30 minutes/day seatbelt use: always do you feel safe at home: Yes Vital Signs Vital Signs Vital Signs: 10/04/23 19:53 10/04/23 22:02 10/05/23 01:15 Temperature 97.8 F Temperature Source Temporal Pulse Rate 56 L 79 95 Respiratory Rate 16 15 15 Blood Pressure 142/67 H 173/83 H 178/101 H Blood Pressure Mean 92 113 126 Pulse Ox 98 92 91 Oxygen Delivery Method Room Air Room Air Room Air 10/05/23 00:00 Temperature Temperature Source Pulse Rate 89 Respiratory Rate 15 Blood Pressure 162/90 H Blood Pressure Mean 114 Pulse Ox 93 Oxygen Delivery Method Room Air Weight Weight: 155 lb 6.814 oz Body Mass Index (BMI) 22.3 Physical Exam Const alert and no apparent distress Constitutional Narrative: Frail-appearing Resp normal respiratory effort GI GI Narrative: Thin, mildly distended, firm, no apparent tenderness with palpation apart from a select spot in the left upper quadrant. There are well-healed incisions across patient's abdominal wall Results Lab / Micro Data 10/04/23 20:10 10/04/23 20:10 Labs: Laboratory Results - last 24 hr 10/04/23 20:10: WBC 7.7, RBC 4.33 L, Hgb 13.6, Hct 42.8, MCV 98.8 H, MCH 31.4, MCHC 31.8 L, RDW Std Deviation 49.2 H, RDW Coeff of Rylie 13.5, Plt Count 245, MPV 10.8, Immature Gran % (Auto) 0.400, Neut % (Auto) 71.2 H, Lymph % (Auto) 16.6 L, Sibley % (Auto) 10.8 H, Eos % (Auto) 0.5, Baso % (Auto) 0.5, Absolute Neuts (auto) 5.5, Absolute Lymphs (auto) 1.28, Nucleated RBC % 0, Sodium 139, Potassium 4.5, Chloride 105, Carbon Dioxide 32.0, Anion Gap 2 L, BUN 22 H, Creatinine 1.16, Estim Creat Clear Calc 44.74, Est GFR (MDRD) Af Amer 77, Est GFR (MDRD) Non-Af 63, BUN/Creatinine Ratio 19.0, Glucose 175 H, Lactic Acid 1.6, Calcium 9.2, Total Bilirubin 0.30, AST 15, ALT 15 L, Alkaline Phosphatase 66, Total Protein 7.2, Albumin 3.5, Globulin 3.7, Albumin/Globulin Ratio 0.9, Lipase 92 H 10/04/23 22:37: Troponin I High Sens 10 Imagaing Radiology Impression Abdomen/Pelvis CT 10/04/23 20:51 IMPRESSION: Findings highly compatible with closed loop bowel obstruction versus internal hernia versus midgut volvulus with signs of early strangulation, follow-up with surgical consultation recommended. Hiatal hernia with reflux into the distal small bowel. Constipation. Electronically Signed: Barbara Celeste MD at 22:46 EST , ADDENDUM: 10/04/23 2315 IMPRESSION: Findings highly compatible with closed loop bowel obstruction versus internal hernia versus midgut volvulus with signs of early strangulation, follow-up with surgical consultation recommended. Hiatal hernia with reflux into the distal small bowel. Constipation. N.B. : Dr Regan Parr MD, confirmed on 10/04/2023 23:08:37 (ET) that the referring physician received the results and does not require a verbal communication. 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 Even prior to patient's formal CT read by radiology I presented to patient's bedside and discussed the case with family. Given patient's limited capacity secondary to his Parkinson's, family stated they would have to convene with additional family before decision could be made. 5 members of the family have presented physically and another 1-2 via telephone. I held a lengthy and detailed conversation with family regarding patient's status, prognosis, and treatment options. I shared that decision for surgery must be made now given the potential for bowel compromise with the volvulus about the main blood supply to the small bowel and that if surgery is ultimately not elected then we should plan to proceed with palliative/hospice care. Additionally, I made no guarantees on the surgery and reference the fact that patient has recurred with this condition just 3 months after his prior operation. I also stated that there would be a chance we would not be able to proceed laparoscopically and that patient would require at least a laparotomy if not also a small bowel resection. I discussed how this could protract his potential recovery and potentially negatively impact his quality of life postoperatively. Family clearly stated they understood this information but amongst themselves felt that they would want to proceed with surgery and then spoke with their father directly and states that he also has chosen to proceed with surgery. Upon the spoken declaration I have notified the operating room and formal written consents have been obtained. Will now proceed emergently for diagnostic laparoscopy versus exploratory laparotomy with possible bowel resection and reanastomosis and all other procedures as indicated. Family is made aware that patient will likely require postoperative ICU care and will be updated following our operative findings. For the interim I have instructed emergency medicine to work to deepen the position of patient's nasogastric tube so that we may better sump his stomach prior to inducing general anesthetic and thereby incurring a greater risk of aspiration. Charges/Coding Visit Charges Inpatient E&M: 28790 Init Hosp L2
--- NOTE | 2023-10-05 01:55 | RAD_ITS ---
EXAM: XR ABDOMEN, 1 VIEW CLINICAL INDICATION: placement TECHNIQUE: Frontal supine view of the abdomen/pelvis. COMPARISON: Previous abdominal radiographs of this date, 12:48 AM and 12:36 AM. FINDINGS: TUBES, LINES AND DEVICES: Follow-up film at 1:53 AM shows stable positioning of the NG tube; the distal tip of the tube and sidehole lie above the level of the hemidiaphragms, with the distal aspect of the tube showing a transverse orientation, and the distal tip of the tube is again most likely positioned within the hiatal hernia which was noted on the preceding abdominal CT. The NG tube does not extend below the level of the hemidiaphragms. Electronically Signed: Sanford Moreno MD at 2:57 EST , RAD/Abdomen Single View (Portable) IMPRESSION: undefined
[2023-10-05] MEDS: Cefazolin 2 GM in 0.9% Normal Saline (100mL Bag) 100 ML IV (02:03)
--- NOTE | 2023-10-05 04:09 | OP.PCM_ITS ---
Report of Operation Date of Procedure: 10/05/23 Pre-Operative Diagnosis: Small bowel volvulus with obstruction Post-Operative Diagnosis: Same Surgery/Procedure Performed:: Exploratory laparoscopy Description of Surgical Findings:: ? Chylous ascites present ? Congested lacteals in the small bowel ? Alternating dilated and normal caliber small bowel without masses ? Right lower quadrant thinned small bowel mesentery around the ileocolic vessel Surgeon: Fredi Prado environmental assistant: Den Ge Type of Anesthesia: General/Supplemental Anesthesiologist: Jaime Zuniga Special Medications: None Specimen's removed: None Estimated Blood Loss (mL): 5 Description of Procedure: Patient arrived from the emergency department and written consents were confirmed. He was brought to the operating room where he was positioned supine on the operating room table. He underwent induction with general endotracheal anesthetic. He was administered preoperative antibiotics with 2 g of Ancef for surgical prophylaxis. His nasogastric tube, placed by emergency medicine earlier in the evening, was found to be coiled in the mouth so it was removed and replaced by anesthesia. A urinary catheter was placed with sterile technique. SCDs were placed on bilateral lower extremities. Patient's abdomen was prepped and draped in usual sterile fashion. A formal timeout followed to confirm patient and the procedure. The procedure was begun with an infraumbilical incision carried down to the fascia which was elevated between clamps and sharply incised. I was very careful to only incise the fascia and then the peritoneal layer was likewise elevated and sharply incised. Finger sweep confirmed peritoneal entry and a 12 mm Corrales balloon trocar was placed. The abdomen was inspected and revealed no inadvertent injury from our port placement. Abdomen was insufflated to a set pressure of 15 mmHg. Further inspection of the peritoneum revealed several adhesions between the right colon and the lateral sidewall and the sigmoid colon to the anterior abdominal wall at the pelvic brim, but largely the anterior abdominal wall was free of adhesions. Therefore, I made the decision to place 2 additional trocars in the right upper quadrant and left lower quadrant under laparoscopic visualization. The patient was then positioned Trendelenburg with the left side down and I began to inspect the peritoneum. Immediately I encountered chylous ascites with what appeared to be the small bowel twisting upon itself through narrow-based mesentery. I gently placed the bowel (ileum) on traction and began running the bowel hands over hand confirming that the mesentery was flat as I did so. This led me back to the tethered proximal small bowel in the region of the ligament of Treitz. Wanting to be sure that the bowel was left in a favorable mesenteric lie I returned to the right lower quadrant and began running from the terminal ileum. As I did so I noted hyperperistalsis in the now freed small bowel and already an improvement in the appearance of the small bowel mesentery that had been congested. Satisfied with this appearance I once again worked my way proximally taking care to ensure that the patient's small bowel mesentery was flat and not twisted. I took note of the fact that the patient's ileocolic pedicle appeared thinned for its mesentery and seem to be the pivot point about which the bowel was twisting. Voluntarily dividing this part of the bowel that distally remained well-perfused seemed to invite only unnecessary sacrifice of the terminal ileum. I thus abandon this thought and transitioned to closure of the abdominal fascia at the infraumbilical 12 mm port site. Additional local anesthetic was infiltrated above the fascia. Lastly the skin was closed with a running subcuticular technique using 4-0 Monocryl. The two 5 mm port sites in the left lower quadrant were, likewise, closed with the same 4-0 Monocryl suture in a subcuticular technique. OpSite dressings were applied and the patient was extubated and taken to PACU for ongoing recovery. Patient's Wynn catheter was removed prior to extubation. Complications None Admit VTE Documentation VTE Present on Admission: Yes VTE Mechan Device Prophylaxis: SCD's Procedures Digestive 40xxx-49xxx: Other Procedure See Notes (CPT 99520 diagnostic laparoscopy)
[2023-10-05] MEDS: Bupivacaine 0.25% 30 ML Vial (04:13)
--- OUTSIDE RECORDS SUMMARY | 2023-10-05 04:15 | XMS RPT_ITS | CCD ---
Author Name Unknown Address [address] [place] [address] Organization [facility] Care Team Providers Care Small Products Assembler Name Role Phone GISELLE WHITING Unavailable Unavailable [...] End: 02-04-2020 Patient encounter procedure DIAN DELACRUZ [facility] Start: 09-20-2017 End: 09-20-2017 Emergency department patient visit LILIANA SWEENEY Facility:B Start: 09-11-2017 End: 09-11-2017 Ambulatory GISELLE WHITING Facility:B Start: 09-08-2017 End: 09-08-2017 Ambulatory GISELLE WHITING Facility:B Start: 08-29-2017 End: 08-30-2017 Ambulatory GISELLE WHITING Facility:[facility] Start: 07-11-2017 End: 07-12-2017 Ambulatory GISELLE WHITING Facility:[facility] Payers Date Payer Category Payer Self-pay [...] DATE CREATED AUTHOR AUTHOR'S NIRAV JAVED 02/06/2020 [facility] DATE CREATED AUTHOR AUTHOR'S NIRAV ATDEB 02/07/2020 [facility] FOR RECORDS PERTAINING TO PATIENTS WHO ARE [...] BE BASED ON THE PRIMARY CLINICAL RECORDS. [employer] [facility]. provides no warranty or guarantee of the accuracy or completeness of information in this document.
--- NOTE | 2023-10-05 04:50 | RAD_ITS ---
EXAM: XR ABDOMEN, 1 VIEW CLINICAL INDICATION: confirm NG tube TECHNIQUE: Frontal supine view of the abdomen/pelvis. 4:48 AM. COMPARISON: Previous abdominal radiographs of this same date and those recent of which was performed at 1:53 AM. FINDINGS: NG TUBE: NG tube remains in place; the tube has been straightened and no longer follows a tortuous course to the GE junction. The tip of the NG tube remains positioned just above the level of the hemidiaphragms, most likely within the previously noted hiatal hernia. Sidehole of the tube is projected over the distal esophagus. BOWEL: Stomach remains moderately distended with gas. Distended small bowel loops are again seen, measuring up to 5 cm in transverse diameter. LUNG BASES: Discoid atelectasis is projected along both hemidiaphragms. RAD/Abdomen Single View (Portable) IMPRESSION: Tip of the NG tube again project above the level of the hemidiaphragms, in the region of the previously noted hiatal hernia. Electronically Signed: Sanford Moreno MD at 5:51 EST ,
[2023-10-05 05:06] LABS: Absolute Lymphocyte Count 0.49 X10^3/uL (0.83-4.51); Absolute Neutrophil Count 11.3 X10^3/uL (2.0-7.7); Basophil# 0.03 X10^3/uL; Basophil% 0.2 % (0-1); Hematocrit 41.6 % (40-54); Lymphocyte # 0.49 X10^3/ul (0.83-4.51); Mean Corp Hgb Conc 31.3 g/dL (32-36); Mean Corpuscular Hgb 31.2 pg (27.0-32.0); Mean Corpuscular Volume 99.8 fL (80-94); Mean Platelet Vol. 10.5 fl (6.2-12.0); Monocyte# 0.39 X10^3/uL; Monocyte% 3.2 % (0-10); NRBC Flagged by Analyzer 0 % (0-5); Neutrophil # 11.28 X10^3/uL (2.7-7.7); Neutrophil % 91.9 % (47-70); POSITIVE DIFFERENTIAL YES; Platelet Count 223 K/mm3 (150-450); RBC Distribution Width CV 13.5 % (11.6-14.6); RBC Distribution Width SD 49.9 fl (35.1-43.9); Red Blood Count 4.17 M/mm3 (4.6-6.2); White Blood Count 12.3 K/mm3 (4.4-11.0)
[2023-10-05 05:09] LABS: Differential Indicated SCAN CRITERIA MET
[2023-10-05 05:24] LABS: Anion Gap 5 (5-15); BUN 18 mg/dL (7-18); Calcium,Total 8.2 mg/dL (8.5-10.1); Chloride 108 mmol/L (98-107); Creatinine, Serum 1.06 mg/dL (0.70-1.30); EST Glomerular Filtration Rate 70 mL/min (>60); Est Glom Filt Rate - Afr Amer 85 mL/min (>60); Estimated Creatinine Clearance 50.07 ml/min; Glucose 144 mg/dL (74-106); Magnesium 1.9 mg/dL (1.6-2.6); Phosphorus 3.3 mg/dL (2.5-4.9); Potassium 4.4 mmol/L (3.5-5.1); Sodium Level 142 mmol/L (136-145)
--- OUTSIDE RECORDS SUMMARY | 2023-10-05 05:26 | XMS RPT_ITS | CCD ---
Author Name Unknown Address [address] [place] [address] Organization [facility] Care Team Providers Care Sewer Line Photo Inspector Name Role Phone GISELLE WHITING Unavailable Unavailable [...] End: 02-04-2020 Patient encounter procedure DIAN DELACRUZ [facility] Start: 09-20-2017 End: 09-20-2017 Emergency department patient visit LILIANA SWEENEY Facility:B Start: 09-11-2017 End: 09-11-2017 Ambulatory GISELLE WHITING Facility:[facility] Start: 09-08-2017 End: 09-08-2017 Ambulatory GISELLE WHITING Facility:[facility] Start: 08-29-2017 End: 08-30-2017 Ambulatory GISELLE WHITING Facility:[facility] Start: 07-11-2017 End: 07-12-2017 Ambulatory GISELLE WHITING Facility:[facility] Payers Date Payer Category Payer Self-pay Summary [...] DATE CREATED AUTHOR AUTHOR'S NIRAV JAVED 02/06/2020 [facility] DATE CREATED AUTHOR AUTHOR'S NIRAV ATDEB 02/07/2020 [facility] FOR RECORDS PERTAINING TO PATIENTS WHO ARE [...] BE BASED ON THE PRIMARY CLINICAL RECORDS. [employer] [facility]. provides no warranty or guarantee of the accuracy or completeness of information in this document.
--- OUTSIDE RECORDS SUMMARY | 2023-10-05 05:29 | XMS RPT_ITS | CCD ---
Author Name Unknown Address [address] [place] [address] Organization [facility] Care Team Providers Care Shuttler Name Role Phone GISELLE WHITING Unavailable Unavailable [...] End: 02-04-2020 Patient encounter procedure DIAN DELACRUZ [facility] Start: 09-20-2017 End: 09-20-2017 Emergency department patient visit LILIANA SWEENEY Facility:B Start: 09-11-2017 End: 09-11-2017 Ambulatory GISELLE WHITING Facility:[facility] Start: 09-08-2017 End: 09-08-2017 Ambulatory GISELLE WHITING Facility:[facility] Start: 08-29-2017 End: 08-30-2017 Ambulatory GISELLE WHITING Facility:[facility] Start: 07-11-2017 End: 07-12-2017 Ambulatory GISELLE WHITING Facility:[facility] Payers Date Payer Category Payer [...] DATE CREATED AUTHOR AUTHOR'S NIRAV JAVED 02/06/2020 [facility] DATE CREATED AUTHOR AUTHOR'S NIRAV ATDEB 02/07/2020 [facility] FOR RECORDS PERTAINING TO PATIENTS WHO ARE [...] BE BASED ON THE PRIMARY CLINICAL RECORDS. [employer] [facility]. provides no warranty or guarantee of the accuracy or completeness of information in this document.
[2023-10-05 06:10] LABS: Differential Comment SCANNED
[2023-10-05] MEDS: 0.9% Normal Saline (1000mL) 1,000 ML 125 ML IV ×3 (07:47→23:10)
--- NOTE | 2023-10-05 09:50 | NURSING ---
n/g advanced 4 inches from previous placement-having Stat portable abd for placement-
--- NOTE | 2023-10-05 09:55 | RAD_ITS ---
STUDY: X-RAY - ABDOMEN/PELVIS REASON FOR EXAM: Male, 88 years old. ng PLACEMENT TECHNIQUE: Single AP view of the abdomen / pelvis. COMPARISON: 10/05/2023 at 04 48 FINDINGS: Nasogastric tube with the tip in the left upper quadrant, likely in the body the stomach. There is an unremarkable bowel gas pattern. The visualized liver, spleen and kidneys are grossly normal in size and morphology. Normal soft tissue structures. Normal visualized osseous structures. RAD/Abdomen Single View (Portable) IMPRESSION: Nasogastric tube with the tip in the left upper quadrant, likely in the body the stomach. No bowel obstruction. Electronically Signed: Nico Loyola MD at 10:26 EST ,
--- NOTE | 2023-10-05 11:35 | PCM.PN.BLA ---
Progress Note Patient seen and examined postoperatively. He is found sitting upright in his bed. He is communicating with head shakes to his family. He denies significant abdominal pain. He denies any passage of flatus. He denies any nausea. Nursing states that he is yet to void following his Wynn removal postoperatively. Physical Exam Const alert General Appearance: cooperative Resp normal respiratory effort GI GI Narrative: Nondistended, soft, operative dressings intact. Patient does not appear tender with palpation. Nasogastric tube has been advanced and is now draining a small quantity of thick brown gastric content. Assessment & Plan Assessment/Plan (1) Small bowel volvulus: PLAN: This is an 88-year-old male who presents with recurrent small bowel volvulus and is postoperative day 0 from diagnostic laparoscopy with reduction of small bowel volvulus. He appears somewhat better this morning with denial of abdominal pain. Thankfully we were able to advance his nasogastric tube to an intragastric position and radiology has commented that his bowel gas pattern on the KUB radiograph is nonobstructive. It is my hope that this indicates early return of bowel function, but we will wait further evidence. If patient has not yet had bowel function by tomorrow, postoperative day 1, would entertain use of suppositories as patient does have a significant stool burden from his preoperative imaging. We will also be working to ensure that he has a spontaneous void following his Wynn catheter placement during this morning's operation. Hospitalist service has been consulted for comanagement of patient?specifically appreciate their attention to patient's cardiovascular and neurologic comorbidities. Visit Charges Inpatient E&M: 39319 Subs Hosp L2
--- NOTE | 2023-10-05 14:01 | PCM.PN.HOSP ---
Subjective Subjective 88-year-old male with a history of hypertension urinary frequency and Parkinson's presents to the hospital with recurrent small bowel volvulus. His first episode was in June which he recovered from very well according to the family then he presented to the hospital this morning necessitating another surgery. Medicine was consulted for medical management, he is currently n.p.o. with an NG tube in place. Objective Data Objective Data Vital Signs: Vital Signs Temp Pulse Resp BP Pulse Ox O2 Del Method O2 Flow Rate 98.1 F 90 18 149/86 H 94 Room Air 2 10/05/23 12:39 10/05/23 12:39 10/05/23 12:39 10/05/23 12:39 10/05/23 12:39 10/05/23 12:39 10/05/23 05:00 Oxygen Flow Rate (L/min) 2 Oxygen Delivery Method Room Air Weight: 158 lb 15.253 oz Body Mass Index (BMI) 22.8 Intake & Output: Intake and Output for Last 24 Hours 10/04/23 10/05/23 10/06/23 03:59 03:59 03:59 Intake Total 1110 / 1110 810 / 810 Output Total 330 / 330 Balance 1110 / 1110 480 / 480 Lab / Micro Data 10/05/23 04:55 10/05/23 04:55 Labs: Laboratory Results - last 24 hr 10/04/23 20:10: WBC 7.7, RBC 4.33 L, Hgb 13.6, Hct 42.8, MCV 98.8 H, MCH 31.4, MCHC 31.8 L, RDW Std Deviation 49.2 H, RDW Coeff of Rylie 13.5, Plt Count 245, MPV 10.8, Immature Gran % (Auto) 0.400, Neut % (Auto) 71.2 H, Lymph % (Auto) 16.6 L, [place] % (Auto) 10.8 H, Eos % (Auto) 0.5, Baso % (Auto) 0.5, Absolute Neuts (auto) 5.5, Absolute Lymphs (auto) 1.28, Nucleated RBC % 0, Sodium 139, Potassium 4.5, Chloride 105, Carbon Dioxide 32.0, Anion Gap 2 L, BUN 22 H, Creatinine 1.16, Estim Creat Clear Calc 44.74, Est GFR (MDRD) Af Amer 77, Est GFR (MDRD) Non-Af 63, BUN/Creatinine Ratio 19.0, Glucose 175 H, Lactic Acid 1.6, Calcium 9.2, Total Bilirubin 0.30, AST 15, ALT 15 L, Alkaline Phosphatase 66, Total Protein 7.2, Albumin 3.5, Globulin 3.7, Albumin/Globulin Ratio 0.9, Lipase 92 H 10/04/23 22:37: Troponin I High Sens 10 10/05/23 04:55: WBC 12.3 H, RBC 4.17 L, Hgb 13.0, Hct 41.6, MCV 99.8 H, MCH 31.2, MCHC 31.3 L, RDW Std Deviation 49.9 H, RDW Coeff of Rylie 13.5, Plt Count 223, MPV 10.5, Immature Gran % (Auto) 0.700, Neut % (Auto) 91.9 H, Lymph % (Auto) 4.0 L, [place] % (Auto) 3.2, Eos % (Auto) 0.0, Baso % (Auto) 0.2, Absolute Neuts (auto) 11.3 H, Absolute Lymphs (auto) 0.49 L, Nucleated RBC % 0, Differential Comment SCANNED, Sodium 142, Potassium 4.4, Chloride 108 H, Carbon Dioxide 29.0, Anion Gap 5, BUN 18, Creatinine 1.06, Estim Creat Clear Calc 50.07, Est GFR (MDRD) Af Amer 85, Est GFR (MDRD) Non-Af 70, BUN/Creatinine Ratio 17.0, Glucose 144 H, Calcium 8.2 L, Phosphorus 3.3, Magnesium 1.9 Radiography Diagnostic Testing: Radiology Impression KUB X-Ray 10/04/23 00:40 IMPRESSION: Suboptimal NG tube positioning; the tip of NG tube is projected above the level of the hemidiaphragms, most likely within a hiatal hernia. Electronically Signed: Sanford Moreno MD at 1:38 EST , Abdomen/Pelvis CT 10/04/23 20:51 IMPRESSION: Findings highly compatible with closed loop bowel obstruction versus internal hernia versus midgut volvulus with signs of early strangulation, follow-up with surgical consultation recommended. Hiatal hernia with reflux into the distal small bowel. Constipation. Electronically Signed: Barbara Celeste MD at 22:46 EST , ADDENDUM: 10/04/23 2315 IMPRESSION: Findings highly compatible with closed loop bowel obstruction versus internal hernia versus midgut volvulus with signs of early strangulation, follow-up with surgical consultation recommended. Hiatal hernia with reflux into the distal small bowel. Constipation. N.B. : Dr Regan Parr MD, confirmed on 10/04/2023 23:08:37 (ET) that the referring physician received the results and does not require a verbal communication. Electronically Signed: Barbara Celeste MD at 22:46 EST Reading Location ID and State: [facility] / [place] , Service support , KUB X-Ray 10/05/23 00:50 IMPRESSION: Stable positioning of NG tube; the tip of the tube is again projected just above the level of the hemidiaphragms, most likely within a hiatal hernia. Electronically Signed: Sanford Moreno MD at 1:40 EST , KUB X-Ray 10/05/23 01:55 IMPRESSION: undefined KUB X-Ray 10/05/23 04:50 IMPRESSION: Tip of the NG tube again project above the level of the hemidiaphragms, in the region of the previously noted hiatal hernia. Electronically Signed: Sanford Moreno MD at 5:51 EST , KUB X-Ray 10/05/23 09:55 IMPRESSION: Nasogastric tube with the tip in the left upper quadrant, likely in the body the stomach. No bowel obstruction. Electronically Signed: Nico Loyola MD at 10:26 EST , Physical Exam Narrative General: Alert, difficult to communicate with with the NG tube in place hard understand his speech daughter endorses a history of mild dementia, Cooperative, No apparent distress HEENT: Atraumatic, PERRLA, EOMI, Normocephalic, NG tube in place with brown output Oral: Dry mucosa Neck: Supple, No JVD Lungs: Diminished, Normal air movement, No rhonchi, No wheeze, No rales Cardiovascular: Regular rate, Regular Rhythm, Normal S1, Normal S2, No murmurs Abdomen: Soft, tender around the surgical sites, Non-Distended, No Hepato-splenomegaly Extremities: No edema, Capillary Refill Less than 3 Seconds Skin: Incision CDI Musculoskeletal: No Tenderness to Palpation of Joints or Extremities Neurological: Moves all extremities, Sensory exam intact to light touch and pain, no focal deficits Psych/Mental Status: Flat Assessment & Plan Assessment/Plan (1) Small bowel volvulus: PLAN: Plan 1. Recurrent small bowel volvulus ? Status post laparoscopy on 10/05/2023 ? Initial surgery was at the end of June and he had a quick recovery at that time ? Continue with the NG tube as he still has some fecal material in the NG ? Pain management per primary ? Continue with IV fluids ? It is okay at this time to hold his home medications, will transition his p.o. fludrocortisone to hydrocortisone IV ?Given his age and his other medical history and also given his recent surgery in June and now again this morning I did have a 20-minute advance care planning discussion with the daughter about prognosis and hospice if his condition were not to improve in the next 48 to 72 hours. 2. Parkinson's with dementia ? Okay to hold medications for now ? 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 ? Per reading neurology's office notes it does appear that he has had significant progression with dysphagia and drooling, but the most recent note was from February 12. Hypertension ? In the setting of his Parkinson's with hypotension he does have periods of hypertension and takes 5 mg of lisinopril daily and then will take an extra dose on days where he tests his blood pressure and it is more elevated ? Will monitor and provide IV medication if necessary DVT: Per primary Charges/Coding Visit Charges Inpatient E&M: 24548 Subs Hosp L2 Procedures Hospitalists Procedures: 26056 Advncd Care Plan 30 Min
--- NOTE | 2023-10-05 15:24 | NURSING ---
bladder scan is 150 ml @ 1430-will continue to monitor
[2023-10-05] MEDS: Phenol/Sodium Phenolate 180ML 3 SPRAY MUCOUS MEM (23:09)
[2023-10-05] MEDS: Menthol/Lanolin/Calamine/Znox 113 GM Tube 1 APPLIC TOPICAL (23:10)
[2023-10-05] MEDS: Hydrocortisone Sod Succinate 100 MG/2 ML Vial 20 MG IV (23:11)
[2023-10-06] MEDS: DiphenhydrAMINE 50 MG/ML Syringe IV (00:02)
[2023-10-06 01:16] VITALS: BMI 22.8
[2023-10-06 04:00] VITALS: BP 168/79; PULSE 63; RESP 16; TEMP 36.6; O2SAT 96
[2023-10-06 05:12] LABS: Absolute Neutrophil Count 5.4 X10^3/uL (2.0-7.7); Basophil# 0.02 X10^3/uL; Basophil% 0.3 % (0-1); Hematocrit 34.9 % (40-54); Hemoglobin 10.9 g/dL (13.0-16.5); Lymphocyte % 12.9 % (19-41); Mean Corp Hgb Conc 31.2 g/dL (32-36); Mean Corpuscular Hgb 31.1 pg (27.0-32.0); Mean Corpuscular Volume 99.7 fL (80-94); Mean Platelet Vol. 10.5 fl (6.2-12.0); Monocyte# 0.63 X10^3/uL; NRBC Flagged by Analyzer 0 % (0-5); Neutrophil % 77.5 % (47-70); Platelet Count 188 K/mm3 (150-450); RBC Distribution Width SD 51.1 fl (35.1-43.9)
[2023-10-06 05:16] VITALS: BMI 22.8
[2023-10-06 06:50] LABS: Anion Gap 2 (5-15); BUN 16 mg/dL (7-18); BUN/Creat Ratio 18.9 RATIO (10-20); Calcium,Total 8.1 mg/dL (8.5-10.1); Chloride 111 mmol/L (98-107); Creatinine, Serum 0.85 mg/dL (0.70-1.30); EST Glomerular Filtration Rate 91 mL/min (>60); Est Glom Filt Rate - Afr Amer 110 mL/min (>60); Estimated Creatinine Clearance 62.44 ml/min; Glucose 121 mg/dL (74-106); Sodium Level 141 mmol/L (136-145)
--- NOTE | 2023-10-06 08:15 | PN.SURG_ITS ---
Subjective Subjective Patient seen and examined during AM rounds. He is found resting in bed. His son is bedside and states that they had a restful night overnight?owing in some part to use of Benadryl. Nursing reports output of only 30 mL of gastric aspirate through NG tube overnight. Objective Data Objective Data Vital Signs: Vital Signs Temp Pulse Resp BP Pulse Ox O2 Del Method O2 Flow Rate 97.8 F 63 16 168/79 H 96 Room Air 2 10/06/23 04:00 10/06/23 04:00 10/06/23 04:00 10/06/23 04:00 10/06/23 04:00 10/06/23 04:00 10/05/23 05:00 Oxygen Flow Rate (L/min) 2 Oxygen Delivery Method Room Air Weight: 158 lb 15.253 oz Body Mass Index (BMI) 22.8 Intake & Output: Intake and Output for Last 24 Hours 10/04/23 10/05/23 10/06/23 23:59 23:59 23:59 Intake Total 4853.91 / 4853.91 1020 / 1020 Output Total 630 / 630 Balance 4223.91 / 4223.91 1020 / 1020 Lab / Micro Data 10/06/23 05:00 10/06/23 05:00 Labs: Laboratory Results - last 24 hr 10/06/23 05:00: WBC 7.0, RBC 3.50 L, Hgb 10.9 L, Hct 34.9 L, MCV 99.7 H, MCH 31.1, MCHC 31.2 L, RDW Std Deviation 51.1 H, RDW Coeff of Rylie 14.0, Plt Count 188, MPV 10.5, Immature Gran % (Auto) 0.300, Neut % (Auto) 77.5 H, Lymph % (Auto) 12.9 L, [place] % (Auto) 9.0, Eos % (Auto) 0.0, Baso % (Auto) 0.3, Absolute Neuts (auto) 5.4, Absolute Lymphs (auto) 0.90, Nucleated RBC % 0, Sodium 141, Potassium 4.0, Chloride 111 H, Carbon Dioxide 28.0, Anion Gap 2 L, BUN 16, Creatinine 0.85, Estim Creat Clear Calc 62.44, Est GFR (MDRD) Af Amer 110, Est GFR (MDRD) Non-Af 91, BUN/Creatinine Ratio 18.9, Glucose 121 H, Calcium 8.1 L Radiography Diagnostic Testing: Radiology Impression KUB X-Ray 10/05/23 09:55 IMPRESSION: Nasogastric tube with the tip in the left upper quadrant, likely in the body the stomach. No bowel obstruction. Electronically Signed: Nico Loyola MD at 10:26 EST , Physical Exam Const no apparent distress Resp normal respiratory effort GI GI Narrative: Nondistended, operative dressings intact and without drainage, no apparent tenderness Assessment & Plan Assessment/Plan (1) Small bowel volvulus: PLAN: This is an 88-year-old male who presents with recurrent small bowel volvulus and is postoperative day 1 from diagnostic laparoscopy with reduction of small bowel volvulus. He appears comfortable this morning. Although there was initial output with repositioning of his nasogastric tube, this became min imal overnight. Given patient's limited ability to communicate and difficulty with placement of his nasogastric tube I would like to objectively evaluate whether or not the tube may be removed today and have instructed nursing to perform a clamp trial. We are still awaiting return of bowel function but patient otherwise appears comfortable. Hospitalist service has been consulted for comanagement of patient?specifically appreciate their attention to patient's cardiovascular and neurologic comorbidities. Charges/Coding Visit Charges Inpatient E&M: 32552 Subs Hosp L2
[2023-10-06] MEDS: Pantoprazole Sodium 40 MG in 0.9% Normal Saline (100mL MB+) 100 ML 330 MG IV (08:45)
[2023-10-06] MEDS: Menthol/Lanolin/Calamine/Znox 113 GM Tube 1 APPLIC TOPICAL ×2 (08:45→20:59)
[2023-10-06] MEDS: 0.9% Normal Saline (1000mL) 1,000 ML 125 ML IV ×2 (08:46→16:44)
[2023-10-06] MEDS: Hydrocortisone Sod Succinate 100 MG/2 ML Vial 20 MG IV ×2 (08:53→20:58)
[2023-10-06 08:54] VITALS: BP 178/68; PULSE 62
[2023-10-06] MEDS: hydrALAZINE 20 MG/ML Vial 10 MG IV (08:54)
[2023-10-06 09:16] VITALS: BMI 22.8
[2023-10-06 10:00] VITALS: BP 158/64; PULSE 62; RESP 16; TEMP 36.6; O2SAT 95
[2023-10-06] MEDS: Ondansetron 4 MG/2 ML Vial IV (14:50)
[2023-10-06 15:49] VITALS: BP 146/62; PULSE 83; RESP 16; TEMP 36.9; O2SAT 96
[2023-10-06 20:44] VITALS: BP 145/71; PULSE 64; RESP 16; TEMP 37.2; O2SAT 93
[2023-10-07] VITALS (7 sets, daily range): BP systolic 148–184; BP diastolic 69–82; PULSE 67–90; RESP 16–18; TEMP 36.5–37.3; O2SAT 92–95
[2023-10-07] MEDS: 0.9% Normal Saline (1000mL) 1,000 ML 125 ML IV ×3 (03:50→19:31)
--- NOTE | 2023-10-07 06:39 | PCM.PN.SRG ---
Subjective Subjective Patient seen and examined during AM rounds. He is found resting in bed. He is more alert and responsive today, but his daughter who is at bedside provides most of the history. She shares that her father seems better and has not complained of pain. She also takes it is a good sign of health that he is giving his nurses a hard time. He denies any nausea and states that he could eat, but not a steak . Objective Data Objective Data Vital Signs: Vital Signs Temp Pulse Resp BP Pulse Ox O2 Del Method O2 Flow Rate 97.8 F 72 16 156/82 H 94 Room Air 2 10/07/23 04:04 10/07/23 04:04 10/07/23 04:04 10/07/23 04:04 10/07/23 04:04 10/07/23 04:04 10/05/23 05:00 Oxygen Flow Rate (L/min) 2 Oxygen Delivery Method Room Air Weight: 158 lb 15.253 oz Body Mass Index (BMI) 22.8 Intake & Output: Intake and Output for Last 24 Hours 10/05/23 10/06/23 10/07/23 23:59 23:59 23:59 Intake Total 4853.91 / 4853.91 2145.83 / 2145.83 1000 / 1000 Output Total 630 / 630 315 / 315 625 / 625 Balance 4223.91 / 4223.91 1830.83 / 1830.83 375 / 375 Lab / Micro Data 10/07/23 06:28 10/07/23 06:28 Labs: Laboratory Results - last 24 hr 10/06/23 05:00: Sodium 141, Potassium 4.0, Chloride 111 H, Carbon Dioxide 28.0, Anion Gap 2 L, BUN 16, Creatinine 0.85, Estim Creat Clear Calc 62.44, Est GFR (MDRD) Af Amer 110, Est GFR (MDRD) Non-Af 91, BUN/Creatinine Ratio 18.9, Glucose 121 H, Calcium 8.1 L Physical Exam Const oriented x3 and no apparent distress Resp normal respiratory effort GI GI Narrative: Well-healing port site incisions. Steri-Strips intact. Patient has mild tenderness to palpation directly at the port sites. Assessment & Plan Assessment/Plan (1) Small bowel volvulus: PLAN: This is an 88-year-old male who presents with recurrent small bowel volvulus and is postoperative day 2 from diagnostic laparoscopy with reduction of small bowel volvulus. Again he appears comfortable this morning. Mr. Arrington successfully completed a clamp trial of his nasogastric tube yesterday and was thus removed. He has had nausea since its removal and reports an appetite today. However, we are still awaiting return of bowel function. Given patient's preoperative imaging showing a significant stool burden and family reports of constipation I would like to begin suppositories from below today. If he has return of bowel function with this intervention I would like to start a clear liquid diet as he does appear to need nutrition given his minimal reserve. Hospitalist service has been consulted for comanagement of patient?specifically appreciate their attention to patient's cardiovascular and neurologic comorbidities. Charges/Coding Visit Charges Inpatient E&M: 36702 Subs Hosp L2
[2023-10-07 06:44] LABS: Absolute Lymphocyte Count 1.29 X10^3/uL (0.83-4.51); Absolute Neutrophil Count 4.6 X10^3/uL (2.0-7.7); Basophil# 0.03 X10^3/uL; Basophil% 0.4 % (0-1); Eosinophil# 0.08 X10^3/uL; Eosinophils% 1.2 % (0-5); Hematocrit 35.5 % (40-54); Hemoglobin 11.2 g/dL (13.0-16.5); Lymphocyte # 1.29 X10^3/ul (0.83-4.51); Mean Corp Hgb Conc 31.5 g/dL (32-36); Mean Corpuscular Hgb 31.8 pg (27.0-32.0); Mean Corpuscular Volume 100.9 fL (80-94); Mean Platelet Vol. 10.4 fl (6.2-12.0); Monocyte# 0.75 X10^3/uL; NRBC Flagged by Analyzer 0 % (0-5); Neutrophil # 4.62 X10^3/uL (2.7-7.7); Neutrophil % 68.1 % (47-70); Platelet Count 167 K/mm3 (150-450); RBC Distribution Width CV 13.7 % (11.6-14.6); RBC Distribution Width SD 50.4 fl (35.1-43.9); Red Blood Count 3.52 M/mm3 (4.6-6.2); White Blood Count 6.8 K/mm3 (4.4-11.0)
[2023-10-07 06:58] LABS: Anion Gap 5 (5-15); BUN 19 mg/dL (7-18); BUN/Creat Ratio 28.8 RATIO (10-20); Calcium,Total 7.9 mg/dL (8.5-10.1); Chloride 111 mmol/L (98-107); Creatinine, Serum 0.66 mg/dL (0.70-1.30); EST Glomerular Filtration Rate 121 mL/min (>60); Est Glom Filt Rate - Afr Amer 147 mL/min (>60); Estimated Creatinine Clearance 53.07 ml/min; Glucose 76 mg/dL (74-106); Magnesium 1.8 mg/dL (1.6-2.6); Phosphorus 2.8 mg/dL (2.5-4.9); Potassium 3.6 mmol/L (3.5-5.1); Sodium Level 143 mmol/L (136-145)
[2023-10-07] MEDS: Bisacodyl 10 MG Suppository RC (08:05)
[2023-10-07] MEDS: Pantoprazole Sodium 40 MG in 0.9% Normal Saline (100mL MB+) 100 ML 330 MG IV (08:08)
[2023-10-07] MEDS: hydrALAZINE 20 MG/ML Vial 10 MG IV (08:08)
[2023-10-07] MEDS: Menthol/Lanolin/Calamine/Znox 113 GM Tube 1 APPLIC TOPICAL ×2 (08:12→20:36)
[2023-10-07] MEDS: Hydrocortisone Sod Succinate 100 MG/2 ML Vial 20 MG IV ×2 (08:30→20:35)
[2023-10-07] MEDS: Magnesium Sulfate 2 GM in Dextrose 5%-Water (100mL Bag) 100 ML IV (08:31)
--- NOTE | 2023-10-07 12:34 | PCM.PN.HOSP ---
Subjective Subjective Feeling better now that the NG tube was removed Objective Data Objective Data Vital Signs: Vital Signs Temp Pulse Resp BP Pulse Ox O2 Del Method O2 Flow Rate 98.2 F 90 16 151/73 H 94 Room Air 2 10/07/23 11:16 10/07/23 11:16 10/07/23 11:16 10/07/23 11:16 10/07/23 11:16 10/07/23 11:16 10/05/23 05:00 Oxygen Flow Rate (L/min) 2 Oxygen Delivery Method Room Air Weight: 158 lb 15.253 oz Body Mass Index (BMI) 22.8 Intake & Output: Intake and Output for Last 24 Hours 10/06/23 10/07/23 10/08/23 03:59 03:59 03:59 Intake Total 3763.91 / 3763.91 3125.83 / 3125.83 772.33 / 772.33 Output Total 630 / 630 315 / 315 1075 / 1075 Balance 3133.91 / 3133.91 2810.83 / 2810.83 -302.67 / -302.67 Lab / Micro Data 10/07/23 06:28 10/07/23 06:28 Labs: Laboratory Results - last 24 hr 10/07/23 06:28: WBC 6.8, RBC 3.52 L, Hgb 11.2 L, Hct 35.5 L, MCV 100.9 H, MCH 31.8, MCHC 31.5 L, RDW Std Deviation 50.4 H, RDW Coeff of Rylie 13.7, Plt Count 167, MPV 10.4, Immature Gran % (Auto) 0.300, Neut % (Auto) 68.1, Lymph % (Auto) 19.0, [place] % (Auto) 11.0 H, Eos % (Auto) 1.2, Baso % (Auto) 0.4, Absolute Neuts (auto) 4.6, Absolute Lymphs (auto) 1.29, Nucleated RBC % 0, Sodium 143, Potassium 3.6, Chloride 111 H, Carbon Dioxide 27.0, Anion Gap 5, BUN 19 H, Creatinine 0.66 L, Estim Creat Clear Calc 53.07, Est GFR (MDRD) Af Amer 147, Est GFR (MDRD) Non-Af 121, BUN/Creatinine Ratio 28.8 H, Glucose 76, Calcium 7.9 L, Phosphorus 2.8, Magnesium 1.8 Physical Exam Narrative General: Alert, orientedx3, Cooperative, No apparent distress HEENT: Atraumatic, PERRLA, EOMI, Normocephalic Oral: Moist mucosa Neck: Supple, No JVD Lungs: Diminished, Normal air movement, No rhonchi, No wheeze, No rales Cardiovascular: Regular rate, Regular Rhythm, Normal S1, Normal S2, No murmurs Abdomen: Soft, tender around the surgical sites, Non-Distended, No Hepato-splenomegaly Extremities: No edema, Capillary Refill Less than 3 Seconds Skin: Incision CDI Musculoskeletal: No Tenderness to Palpation of Joints or Extremities Neurological: Moves all extremities, Sensory exam intact to light touch and pain, no focal deficits Psych/Mental Status: Flat Assessment & Plan Assessment/Plan (1) Small bowel volvulus: PLAN: Plan 1. Recurrent small bowel volvulus ? Status post laparoscopy on 10/05/2023 ? Initial surgery was at the end of June and he had a quick recovery at that time ? Continue with clear liquid diet, once his diet is more stable and consistent without any symptoms can transition all of his medications to p.o. ? Pain management per primary ? Continue with IV fluids ? Continue with IV hydrocortisone until able to take consistent p.o. 2. Parkinson's with dementia ? Okay to hold medications for now, can restart once able to take p.o. ? 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 ? Per reading neurology's office notes it does appear that he has had significant progression with dysphagia and drooling, but the most recent note was from February 12. Hypertension ? In the setting of his Parkinson's with hypotension he does have periods of hypertension and takes 5 mg of lisinopril daily and then will take an extra dose on days where he tests his blood pressure and it is more elevated ? Will monitor and provide IV medication if necessary DVT: Per primary Charges/Coding Visit Charges Inpatient E&M: 04111 Subs Hosp L2
--- NOTE | 2023-10-07 15:37 | CASEMGMT ---
Social Work As per initial install technician, David Arrington is pt's healthcare POA, pt is not able to bring in the documents. MARYSE Gonzalez
--- NOTE | 2023-10-07 15:40 | CASEMGMT ---
Addendum entered by Melania Gracia 10/07/23 16:09: Noted 6 clicks=12, therapy ordered. Addendum entered by Melania Gracia 10/07/23 16:03: Pt son in law present in room for assessment and pt agreeable to assessment with him present. Original Note: CANDICE CARLOS Assessment: Face to Face with pt for initial transition planning/care coordination assessment. CANDICE CARLOS introduced self and role at [facility], pt voices understanding and consents to assessment. Pt is A&O x4 and answers all questions appropriately at this time. Pt slow to answer questions but oriented at this time. Care providers, pharmacy, and demographics verified/updated. Admitting Dx: small bowel volvulus PCP:Yamile Specialists:Pt denies, denies seeing a neurologist [facility]erred [facility]acy: [facility] Insurance: [employer] [place] Prescription Benefit: no LNOK: Karla Nury, dtr; Mckenzie Arrington, dil Living Arrangements: Pt lives with and dtr in a two story home with [facility] with 2 steps to enter with no rail. Pt reports he has recently been I in ADL's. States his and dtr provides assistance with IADL's. Pt denies concerns at home. 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 DME:cane, shower chair, FWW- not using HHC/SNF: Denies hx of Pt states no concerns with going home at time of dc. Noted in handoff that hospitalist had conversation with regarding hospice. Pt plans to dc home. Discussed HHC and son in law state they have been speaking of this and may be open to it. Will provide list of HHC agencies. Pt states no further concerns/needs. CM to follow. Advised pt to ask CM if any further question/concerns/needs arise, voices understanding. Pt Goal: Home Plan: Home pending course of hospitalization, possible HHC
[2023-10-08 02:38] VITALS: BP 139/72; PULSE 80; RESP 18; TEMP 37.1; O2SAT 92
[2023-10-08] MEDS: 0.9% Normal Saline (1000mL) 1,000 ML 125 ML IV ×2 (04:10→13:04)
--- NOTE | 2023-10-08 07:07 | PN.SURG_ITS ---
Subjective Subjective Positive bowel movement per family/patient yesterday, denies nausea or abdominal pain Objective Data Objective Data Vital Signs: Vital Signs Temp Pulse Resp BP Pulse Ox O2 Del Method O2 Flow Rate 98.7 F 80 18 139/72 H 92 Room Air 2 10/08/23 02:38 10/08/23 02:38 10/08/23 02:38 10/08/23 02:38 10/08/23 02:38 10/08/23 02:39 10/05/23 05:00 Oxygen Flow Rate (L/min) 2 Oxygen Delivery Method Room Air Weight: 158 lb 15.253 oz Body Mass Index (BMI) 22.8 Intake & Output: Intake and Output for Last 24 Hours 10/06/23 10/07/23 10/08/23 23:59 23:59 23:59 Intake Total 2145.83 / 2145.83 2770.25 / 2910.25 1140 / 1140 Output Total 315 / 315 1525 / 1525 Balance 1830.83 / 1830.83 1245.25 / 1385.25 1140 / 1140 Lab / Micro Data 10/07/23 06:28 10/07/23 06:28 Physical Exam Const no apparent distress Resp normal respiratory effort Cardio regular rate GI soft to palpation and non-tender GI Narrative: Incisions healing well clean dry and intact with Steri-Strips Assessment & Plan Assessment/Plan (1) Small bowel volvulus: PLAN: This is an 88-year-old male who presents with recurrent small bowel volvulus and is postoperative day 3 from diagnostic laparoscopy with reduction of small bowel volvulus. PLAN: Plan Will advance to clears as patient had a bowel movement yesterday. Patient may benefit from additional suppository. Appreciate medicine's assistance Alyssa Carranza M.D. Pager: [phone] [facility] [address] [place] [address], [facility], [address] [place] [address] Office: [phone]
[2023-10-08 08:30] VITALS: BP 133/59; PULSE 62; RESP 16; TEMP 36.9; O2SAT 93
--- NOTE | 2023-10-08 08:59 | CASEMGMT ---
Discharge Planning A list of?HH providers including quality and resource use data and consistent with the patient's preferred geographic region, medical needs, and insurance network was created in [employer] Guide.? This list was provided to the RN TERRANCE. Lluvia Kruse, Discharge Planning Asst.
[2023-10-08] MEDS: Menthol/Lanolin/Calamine/Znox 113 GM Tube 1 APPLIC TOPICAL ×2 (09:16→21:22)
[2023-10-08] MEDS: Hydrocortisone Sod Succinate 100 MG/2 ML Vial 20 MG IV ×2 (09:18→21:22)
[2023-10-08] MEDS: Pantoprazole Sodium 40 MG in 0.9% Normal Saline (100mL MB+) 100 ML 330 MG IV (09:19)
[2023-10-08 10:47] LABS: Anion Gap 7 (5-15); BUN 20 mg/dL (7-18); BUN/Creat Ratio 26.7 RATIO (10-20); Chloride 112 mmol/L (98-107); Creatinine, Serum 0.75 mg/dL (0.70-1.30); EST Glomerular Filtration Rate 105 mL/min (>60); Est Glom Filt Rate - Afr Amer 127 mL/min (>60); Estimated Creatinine Clearance 53.07 ml/min; Glucose 110 mg/dL (74-106); Phosphorus 2.5 mg/dL (2.5-4.9); Potassium 3.2 mmol/L (3.5-5.1); Sodium Level 141 mmol/L (136-145)
--- NOTE | 2023-10-08 11:28 | CASEMGMT ---
Addendum entered by Melania Gracia 10/08/23 15:41: CANDICE CARLOS into pt room, pt granddtr present, left list with pt for son to review when he visits and asked to list preferred agencies. Original Note: CANDICE CARLOS into pt room to provide HH list created by dc facilities maintenance assistant. Pt dtr and granddtr present in room. Pt dtr asked to speak to andrey, tc to [facility], left message with information. Dtr asking for all self pay prices to be obtained. CANDICE CARLOS to get back with her on prices. She states that she will be leaving but to speak to her brother and he will be present today in room.
[2023-10-08] MEDS: 0.9% Saline Lock 10 ML Syringe IV ×2 (13:08→21:22)
[2023-10-08] MEDS: Potassium Chloride Oral Tablet 20 MEQ 40 MEQ PO (13:27)
[2023-10-08 14:00] VITALS: BP 146/68; PULSE 70; RESP 16; TEMP 37.1; O2SAT 94
--- NOTE | 2023-10-08 15:03 | PCM.PN.HOSP ---
Subjective Subjective Has had positive bowel movement Objective Data Objective Data Vital Signs: Vital Signs Temp Pulse Resp BP Pulse Ox O2 Del Method O2 Flow Rate 98.7 F 70 16 146/68 H 94 Room Air 2 10/08/23 14:00 10/08/23 14:00 10/08/23 14:00 10/08/23 14:00 10/08/23 14:00 10/08/23 14:00 10/05/23 05:00 Oxygen Flow Rate (L/min) 2 Oxygen Delivery Method Room Air Weight: 158 lb 15.253 oz Body Mass Index (BMI) 22.8 Intake & Output: Intake and Output for Last 24 Hours 10/07/23 10/08/23 10/09/23 03:59 03:59 03:59 Intake Total 3125.83 / 3125.83 2910.25 / 2910.25 1250 / 1250 Output Total 315 / 315 1525 / 1525 950 / 950 Balance 2810.83 / 2810.83 1385.25 / 1385.25 300 / 300 Lab / Micro Data 10/07/23 06:28 10/08/23 10:19 Labs: Laboratory Results - last 24 hr 10/08/23 10:19: Sodium 141, Potassium 3.2 L, Chloride 112 H, Carbon Dioxide 22.0, Anion Gap 7, BUN 20 H, Creatinine 0.75, Estim Creat Clear Calc 53.07, Est GFR (MDRD) Af Amer 127, Est GFR (MDRD) Non-Af 105, BUN/Creatinine Ratio 26.7 H, Glucose 110 H, Calcium 8.0 L, Phosphorus 2.5, Magnesium 2.0 Physical Exam Narrative General: Alert, orientedx3, Cooperative, No apparent distress HEENT: Atraumatic, PERRLA, EOMI, Normocephalic Oral: Moist mucosa Neck: Supple, No JVD Lungs: Diminished, Normal air movement, No rhonchi, No wheeze, No rales Cardiovascular: Regular rate, Regular Rhythm, Normal S1, Normal S2, No murmurs Abdomen: Soft, nontender, Non-Distended, No Hepato-splenomegaly Extremities: No edema, Capillary Refill Less than 3 Seconds Skin: Incision CDI Musculoskeletal: No Tenderness to Palpation of Joints or Extremities Neurological: Moves all extremities, Sensory exam intact to light touch and pain, no focal deficits Psych/Mental Status: Normal affect Assessment & Plan Assessment/Plan (1) Small bowel volvulus: PLAN: Plan 1. Recurrent small bowel volvulus ? Status post laparoscopy on 10/05/2023 ? Initial surgery was at the end of June and he had a quick recovery at that time ? Continue with clear liquid diet, once his diet is more stable and consistent without any symptoms can transition all of his medications to p.o. ? Pain management per primary ? Continue with IV fluids ? Continue with IV hydrocortisone until able to take consistent p.o. 2. Parkinson's with dementia ? Okay to hold medications for now, can restart once able to take p.o. ? 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 ? Per reading neurology's office notes it does appear that he has had significant progression with dysphagia and drooling, but the most recent note was from February 12. Hypertension ? In the setting of his Parkinson's with hypotension he does have periods of hypertension and takes 5 mg of lisinopril daily and then will take an extra dose on days where he tests his blood pressure and it is more elevated ? Will monitor and provide IV medication if necessary DVT: Per primary Will sign off please reconsult if necessary Charges/Coding Visit Charges Inpatient E&M: 75952 Subs Hosp L2
[2023-10-08 21:08] VITALS: BP 160/68; PULSE 60; RESP 18; TEMP 36.8; O2SAT 94
[2023-10-09 05:00] VITALS: BP 156/73; PULSE 62; RESP 18; TEMP 36.8; O2SAT 93
[2023-10-09 05:41] LABS: Anion Gap 5 (5-15); BUN 15 mg/dL (7-18); BUN/Creat Ratio 23.7 RATIO (10-20); Calcium,Total 7.5 mg/dL (8.5-10.1); Chloride 115 mmol/L (98-107); Creatinine, Serum 0.63 mg/dL (0.70-1.30); EST Glomerular Filtration Rate 127 mL/min (>60); Est Glom Filt Rate - Afr Amer 154 mL/min (>60); Estimated Creatinine Clearance 53.07 ml/min; Glucose 124 mg/dL (74-106); Potassium 3.7 mmol/L (3.5-5.1); Sodium Level 145 mmol/L (136-145)
--- NOTE | 2023-10-09 08:32 | PN.SURG_ITS ---
Subjective Subjective Patient has had some coughing at home with thin liquids thus they have been thickening his liquids. Speech will see patient today. Patient was previously tolerating the full liquids yesterday and did have additional bowel movements. Objective Data Objective Data Vital Signs: Vital Signs Temp Pulse Resp BP Pulse Ox O2 Del Method O2 Flow Rate 98.3 F 62 18 156/73 H 93 Room Air 2 10/09/23 05:00 10/09/23 05:00 10/09/23 05:00 10/09/23 05:00 10/09/23 05:00 10/09/23 05:00 10/05/23 05:00 Oxygen Flow Rate (L/min) 2 Oxygen Delivery Method Room Air Weight: 158 lb 15.253 oz Body Mass Index (BMI) 22.8 Intake & Output: Intake and Output for Last 24 Hours 10/07/23 10/08/23 10/09/23 23:59 23:59 23:59 Intake Total 2770.25 / 2910.25 2983.75 / 3103.75 120 / 120 Output Total 1525 / 1525 950 / 1250 400 / 400 Balance 1245.25 / 1385.25 2033.75 / 1853.75 -280 / -280 Lab / Micro Data 10/07/23 06:28 10/09/23 05:05 Labs: Laboratory Results - last 24 hr 10/08/23 10:19: Sodium 141, Potassium 3.2 L, Chloride 112 H, Carbon Dioxide 22.0, Anion Gap 7, BUN 20 H, Creatinine 0.75, Estim Creat Clear Calc 53.07, Est GFR (MDRD) Af Amer 127, Est GFR (MDRD) Non-Af 105, BUN/Creatinine Ratio 26.7 H, Glucose 110 H, Calcium 8.0 L, Phosphorus 2.5, Magnesium 2.0 10/09/23 05:05: Sodium 145, Potassium 3.7, Chloride 115 H, Carbon Dioxide 25.0, Anion Gap 5, BUN 15, Creatinine 0.63 L, Estim Creat Clear Calc 53.07, Est GFR (MDRD) Af Amer 154, Est GFR (MDRD) Non-Af 127, BUN/Creatinine Ratio 23.7 H, Glucose 124 H, Calcium 7.5 L Physical Exam Const no apparent distress Resp normal respiratory effort Cardio regular rate GI soft to palpation and non-tender GI Narrative: Incisions healing well clean dry and intact with Steri-Strips Assessment & Plan Assessment/Plan (1) Small bowel volvulus: PLAN: This is an 88-year-old male who presents with recurrent small bowel volvulus and is postoperative day 4 from diagnostic laparoscopy with reduction of small bowel volvulus. PLAN: Plan If patient tolerates full will advance to regular diet?speech to see patient prior. When patient is eating consistently will restart home meds Alyssa Carranza M.D. Pager: [phone] [facility] [address] [place] [address], [address] [place] [address] Office: [phone]
[2023-10-09] MEDS: 0.9% Normal Saline (1000mL) 1,000 ML 40 ML IV (08:42)
[2023-10-09] MEDS: Hydrocortisone Sod Succinate 100 MG/2 ML Vial 20 MG IV ×2 (08:46→21:06)
[2023-10-09] MEDS: Menthol/Lanolin/Calamine/Znox 113 GM Tube 1 APPLIC TOPICAL ×2 (08:46→21:07)
[2023-10-09] MEDS: Pantoprazole Sodium 40 MG in 0.9% Normal Saline (100mL MB+) 100 ML 330 MG IV (08:50)
--- NOTE | 2023-10-09 10:57 | CASEMGMT ---
CANDICE CARLOS to pt room, the pt daughter wrote a note stating they are willing to select [facility] for SN and PT HHC as the pt is self pay. Pt is agreeable to this. DANA Teixeira Employee Counselor notified to send referral. ST to evaluate today, CANDICE CARLOS to follow. Shadia Resendez RN CM
--- NOTE | 2023-10-09 11:12 | CASEMGMT ---
Discharge Planning HH referral faxed to both [facility] and [facility]. Lluvia Kruse, Discharge Planning Asst.
[2023-10-09 11:30] VITALS: BP 174/64; PULSE 64; RESP 16; TEMP 36.9; O2SAT 94
[2023-10-09 11:43] VITALS: PULSE 64
[2023-10-09] MEDS: hydrALAZINE 20 MG/ML Vial 10 MG IV (11:43)
[2023-10-09 15:28] VITALS: BP 159/75; PULSE 72; RESP 18; TEMP 36.8; O2SAT 93
--- NOTE | 2023-10-09 16:13 | CHAPLAIN ---
Type of Pastoral Visit ___ Initial Visit ___ Follow-up Visit ___ On-call Visit ___ General Patient Visit ___ Spiritual Assessment ___ Family Conference ___ Bereavement ___ Rapid Response ___ Code Blue ___ Other (describe below) Pastoral Care Referral From ___ Patient ___ Family ___ Nurse ___ Physician ___ Recording Clerk ___ Supervisor [employer] ___ Other (describe below) Sacrament/Intervention ___ Active listening ___ Anointing ___ Sikhism ___ Bereavement ___ Communion ___ Kelsi exploration ___ ___ Life review ___ Prayer ___ Reconciliation ___ Sacrament of Sick ___ Supportive presence ___ Wedding ___ Other (describe below) Pastoral Comments a message came from the charge nurse that the patient had requested a Bible; took Bible into room and pt was sound asleep; son was on the phone so just indicated the presentation of the bible was accepted by the son; after another attempt to visit this supervisor engine assembly found the patient still sleeping and the son on the phone again;
[2023-10-09 20:44] VITALS: BP 152/76; PULSE 70; RESP 18; TEMP 36.6; O2SAT 95
[2023-10-09] MEDS: 0.9% Saline Lock 10 ML Syringe IV (21:06)
[2023-10-10 05:45] VITALS: BP 155/81; PULSE 63; RESP 18; TEMP 36.6; O2SAT 95
[2023-10-10 07:54] VITALS: BP 178/87; PULSE 62
[2023-10-10] MEDS: hydrALAZINE 20 MG/ML Vial 10 MG IV (07:54)
[2023-10-10] MEDS: 0.9% Saline Lock 10 ML Syringe IV (07:54)
[2023-10-10 07:56] VITALS: BP 178/87; PULSE 62; RESP 18; TEMP 37.1; O2SAT 97
--- NOTE | 2023-10-10 08:21 | PN.SURG_ITS ---
Subjective Subjective Patient tolerating full liquids also continues to have bowel function. Patient is getting Gastrografin swallow test per speech today. Question whether thickening the liquids could actually be causing more issues than thin Objective Data Objective Data Vital Signs: Vital Signs Temp Pulse Resp BP Pulse Ox O2 Del Method O2 Flow Rate 98.7 F 62 18 178/87 H 97 Room Air 2 10/10/23 07:56 10/10/23 07:56 10/10/23 07:56 10/10/23 07:56 10/10/23 07:56 10/10/23 07:56 10/05/23 05:00 Oxygen Flow Rate (L/min) 2 Oxygen Delivery Method Room Air Weight: 158 lb 15.253 oz Body Mass Index (BMI) 22.8 Intake & Output: Intake and Output for Last 24 Hours 10/08/23 10/09/23 10/10/23 23:59 23:59 23:59 Intake Total 2983.75 / 3103.75 884.33 / 1434.33 830 / 830 Output Total 950 / 1250 600 / 600 Balance 2033.75 / 1853.75 284.33 / 834.33 830 / 830 Lab / Micro Data 10/07/23 06:28 10/09/23 05:05 Physical Exam Const no apparent distress Resp normal respiratory effort Cardio regular rate GI soft to palpation and non-tender GI Narrative: Incisions healing well clean dry and intact with Steri-Strips Assessment & Plan Assessment/Plan (1) Small bowel volvulus: PLAN: This is an 88-year-old male who presents with recurrent small bowel volvulus and is postoperative day 4 from diagnostic laparoscopy with reduction of small bowel volvulus. PLAN: Plan Advance to regular diet if okay with speech. Will restart home meds. Alyssa Carranza M.D. Pager: [phone] [facility] [address] [place] [address], [facility], [address] [place] [address] Office: [phone]
--- NOTE | 2023-10-10 08:25 | DS.PCM_ITS ---
Providers Date of Admission: 10/05/23 Primary Care Physician: Dr. Hai Ovalle DO Reason For Visit: SMALL BOWEL VOLVULUS Diagnosis Discharge Diagnosis (1) Small bowel volvulus: Status: Acute Code(s): K56.2 - Volvulus Plan: This is an 88-year-old male who presents with recurrent small bowel volvulus and is postoperative day 5 from diagnostic laparoscopy with reduction of small bowel volvulus. Plan Advance to regular diet if okay with speech. If tolerates will DC home as patient has been having bowel function and tolerating full liquids Will restart home meds. Alyssa Carranza M.D. Pager: [phone] [facility] [address] [place] [address], Outpatient [place], [address] [place] [address] Office: [phone] Medications at Discharge Home Medications Protandim 1 tab PO DAILY 11/21/20 melatonin 3 mg capsule 3 mg PO HS PRN Sleep 11/21/20 multivitamin 1 tab PO DAILY 11/21/20 nitroglycerin 0.4 mg sublingual tablet 0.4 mg sublingual Q5M PRN chest pain #25 tabs 08/27/22 aspirin 81 mg tablet,delayed release 81 mg PO DAILY 09/28/22 Brain Health Herbal Supplement PO 10/30/22 acetaminophen 325 mg tablet 650 mg (2 x 325 mg) PO Q4H PRN PRN Pain 1-10/Fever #0 tabs 07/03/23 lisinopril 5 mg tablet 5 mg PO DAILY #90 tabs 08/08/23 carbidopa ER 50 mg-levodopa 200 mg tablet,extended release 1 tab PO BID #180 tabs 08/21/23 fludrocortisone 0.1 mg tablet 0.1 mg .Route .COMPLEX #14 tabs 08/21/23 lubiprostone 24 mcg capsule (Amitiza) 24 mcg PO BID #60 caps 08/21/23 memantine 5 mg tablet 5 mg PO BID #180 tabs 08/21/23 oxybutynin chloride 10 mg tablet,extended release 24 hr 10 mg PO QAM #30 tabs 08/21/23 Hospital Course Operations None (Diagnostic laparoscopy reduction of small bowel volvulus by Dr. Prado) Summary of Care Provided Minutes Spent on Discharge: 15 Hospital Course: Patient is admitted due to abdominal pain nausea vomiting small bowel volvulus per CT. Patient went to the OR had a lap diagnostic laparoscopy reduction of small bowel volvulus by Dr. Prado. Postoperatively patient was able to have his diet advanced there was some question if he had some coughing at home with the thickened liquids as he did undergo a speech eval as well as will do modified Gastrografin swallow today to see if he is better with thicker thin liquids. But otherwise he has been tolerating full liquids and having bowel function and denies any abdominal pain. Patient is able to tolerate a regular diet will DC home. On his regular home meds. Physical Exam Const oriented x3 and no apparent distress Resp normal respiratory effort Cardio regular rate GI soft to palpation and non-tender GI Narrative: Incisions healing well clean dry and intact with Steri-Strips Weight / BMI Weight Weight: 158 lb 15.253 oz Body Mass Index (BMI) 22.8 ABG / Lab / Microbiology Data 10/07/23 06:28 10/09/23 05:05 D/C Instructions Discharge Diet: Light diet - advance as tolerated (per Speech recommendation for liquids) Discharge Activity: May Shower May shower in (days): 1 Lifting Restrictions: no lifting >20 lbs x 2 wks Call your doctor if your incision/area has: Continuous Slow Oozing, Sudden In creased Bleeding, Increased Pain/ Swelling, Increased Redness, Foul Smelling Discharge and Swelling at the incision site Call your doctor if you observe: Fever of 101 or Higher Remove Dressing in: 2 days Cleanse incision/area with: Soap & Water Additional Dressing/Incision Instructions: Steri-Strips will fall off in 7 to 10 days, if they do not fall off okay to remove after 10 days. Please Follow Up With: Fredi Prado MD When: Call the office for a follow-up appointment 2 weeks; after 5 PM and on the weekends call [phone] with any concerns. Meaningful Use Info Meaningful Use Diagnoses (Choose all that apply): None applicable Discharge Plan Admission Admit Date/Time: 10/05/23 04:38 Attending Provider: Alyssa Carranza Primary Care Provider: Hai Ovalle Consulting Providers: Fredi Prado Discharge Orders/Prescriptions Prescriptions: Continued multivitamin Tablet 1 tab PO DAILY melatonin 3 mg capsule 3 mg PO HS PRN (Reason: Sleep) Protandim 1 tab PO DAILY Brain Health Herbal Supplement PO lubiprostone [Amitiza] 24 mcg capsule 24 mcg PO BID Qty: 60 5RF carbidopa-levodopa 50-200 mg tablet extended release 1 tab PO BID Qty: 180 1RF fludrocortisone 0.1 mg tablet 0.1 mg .ROUTE .COMPLEX Qty: 14 5RF Rx Instructions: Take one-half tablet PO 6 days/week (every Friday, Friday, Friday, , Friday and Friday) to be taken in the morning. memantine 5 mg tablet 5 mg PO BID Qty: 180 1RF oxybutynin chloride 10 mg tablet extended release 24hr 10 mg PO QAM Qty: 30 5RF aspirin 81 mg Tablet,Delayed Release (Dr/Ec) 81 mg PO DAILY acetaminophen 325 mg Tablet 650 mg PO Q4H PRN PRN (Reason: Pain 1-10/Fever) Qty: 0 0RF nitroglycerin 0.4 mg tablet, sublingual 0.4 mg sublingual Q5M PRN (Reason: chest pain) Qty: 25 3RF Rx Instructions: do not exceed 3 doses per episode lisinopril 5 mg tablet 5 mg PO DAILY Qty: 90 3RF Referrals / Follow Up: Hai Ovalle DO [Primary Care Provider] - Disposition Disposition (needs filled in before D/C Order can be placed): Home, Self Care
[2023-10-10 09:31] VITALS: RESP 18
[2023-10-10] MEDS: Fludrocortisone Acetate 0.1 MG Tablet 0.0500000000000000028 MG PO (10:22)
[2023-10-10] MEDS: Lisinopril 5 MG Tablet PO (10:22)
[2023-10-10] MEDS: Memantine Hydrochloride 5 MG Tablet PO (10:22)
[2023-10-10] MEDS: Pantoprazole Sodium 40 MG in 0.9% Normal Saline (100mL MB+) 100 ML 330 MG IV (10:24)
[2023-10-10] MEDS: CARBIDOPA/LEVODOPA CR 50/200 Tablet PO (10:26)
[2023-10-10] MEDS: Menthol/Lanolin/Calamine/Znox 113 GM Tube 1 APPLIC TOPICAL (10:28)
[2023-10-10 10:43] VITALS: BP 165/79; PULSE 79; RESP 18; TEMP 36.8; O2SAT 97
--- NOTE | 2023-10-10 11:27 | PHA.DC.MR.R ---
Pharmacy [place] Med Reconciliation Pharmacy Service has performed discharge medication reconciliation for this patient. Patient had no new medications at time of discharge review. Medications reviewed are from previously reported home medications. The patient's discharge medication list was reviewed for discrepancies and discrepancies were resolved. Medications at Discharge Home Medications Protandim 1 tab PO DAILY 11/21/20 melatonin 3 mg capsule 3 mg PO HS PRN Sleep 11/21/20 multivitamin 1 tab PO DAILY 11/21/20 nitroglycerin 0.4 mg sublingual tablet 0.4 mg sublingual Q5M PRN chest pain #25 tabs 08/27/22 aspirin 81 mg tablet,delayed release 81 mg PO DAILY 09/28/22 Brain Health Herbal Supplement PO 10/30/22 acetaminophen 325 mg tablet 650 mg (2 x 325 mg) PO Q4H PRN PRN Pain 1-10/Fever #0 tabs 07/03/23 lisinopril 5 mg tablet 5 mg PO DAILY #90 tabs 08/08/23 carbidopa ER 50 mg-levodopa 200 mg tablet,extended release 1 tab PO BID #180 tabs 08/21/23 fludrocortisone 0.1 mg tablet 0.1 mg .Route .COMPLEX #14 tabs 08/21/23 lubiprostone 24 mcg capsule (Amitiza) 24 mcg PO BID #60 caps 08/21/23 memantine 5 mg tablet 5 mg PO BID #180 tabs 08/21/23 oxybutynin chloride 10 mg tablet,extended release 24 hr 10 mg PO QAM #30 tabs 08/21/23
--- NOTE | 2023-10-10 14:11 | SP.MBSS_ITS ---
Modified Barium Swallow Patient Information Study Date: 10/10/23 Study Time: 14:00 Direct Billable Minutes: 129 Total Minutes procedure & reportin Diagnosis: Dehydration E86.0; Parkinson's disease G20 Referring Physician: Alyssa Carranza Reason for Referral: Objectively assess swallow function, assess risk for aspiration, and determine recommendations for least restrictive diet textures and compensatory strategies to improve safety of swallow. Medical History: PMH: Parkinson's, Asthma, Atherosclerosis of [place] coronary artery of [place] heart without angina pectoris, Bradycardia, Cough, Dizziness, HTN, Fatigue, GERD, Hiatal hernia, Pure hypercholesterolemia, and Vasovagal syncope. He presented to [facility] ED 10/05/2023 with acute onset abdominal pain and constipation. He was admitted for management recurrent small bowel volvulus s/p laparoscopy on 10/05/2023. He has been cleared for clear liquids and referred for ST consult due to concerns for swallowing difficulty. The patient is familiar to this SUPERVISOR GEAR REPAIR. He has a history of dysphagia secondary to his Parkinson's. He participated in MBSS 08/23/2022, which revealed oropharyngeal dysphagia and recommended the following: Diet: Regular Textures, Thin Liquids; Comment: pills crushed as able, if unable to crush will recommend taking them one at a time in applesauce with hard swallow Compensatory Strategies: Small Bites, Small Sips - hard swallows with sips, Slow Rate - sips one at a time, Alternate bites/solids and sips/liquids, Sitting u pright, Remain sitting upright for 30 minutes after PO intake; Recommend Repeat Modified Barium Swallow: TBD; Need for Skilled Speech Therapy Services: Yes; Comment: Will recommend the patient for outpatient dysphagia therapy to address deficits in oropharyngeal swallow function. Will recommend the patient for oropharyngeal strengthening to improve laryngeal elevation, hyoid excursion, tongue base retraction, pharyngeal contraction, and duration of UES opening (Stella, CTAR, effortful, effortful breath hold and swallow). The patient would benefit from thorough education regarding diet recommendations and recommended compensatory strategies. At home, patient's son and daughter (via phone call) report coughing with liquids. Daughter slightly thickens (unsure to what degree) some of his liquids to help him swallow per recommendation of a physician. He coughs more at home with a straw per both son and daughter. Daughter has concerns for patient adequately hydrating. BSE 10/09/2023, SUPERVISOR [employer] REPAIR recommended full thin liquid diet with plans for MBSS prior to diet advancement. Due to recurrent small bowel volvulus, Dr. Carranza requested gastrografin be used for the study as opposed to barium. Current Diet Ordered: Full thin liquid diet Mental Status: Impaired (dementia secondary to PD) Respiratory Status: Oxygenating on Room Air Penetration-Aspiration Scale Penetration-Aspiration Scale: OBJECTIVE ASSESSMENT OF SWALLOW FUNCTION (QUANTITATIVE ? PER TRIAL): PENETRATION / ASPIRATION SCALE (RUSSELL): 1 = does not enter airway 2 = enters airway/above vocal folds/ejected 3 = enters airway/above vocal folds/not ejected 4 = enters airway/contacts vocal folds/ejected 5 = enters airway/contacts vocal folds/not ejected 6 = enters airway/below vocal folds/ejected 7 = enters airway/below vocal folds/not ejected despite effort 8 = enters airway/below vocal folds/no effort VIDEOFLOROSCOPIC SCALE SCORE (RUSSELL): Grade I = aspiration of material that has penetrated into the laryngeal vestibule, intact cough reflex Grade II = aspiration < 10 % of the bolus, intact cough reflex Grade III = aspiration of < 10 % of the bolus, reduced cough reflex or aspiration of > 10 % of the bolus, intact cough reflex Grade IV = aspiration of > 10 % of the bolus, reduced cough reflex Penetration-Aspiration Scale Score Thin Liquid via teaspoon: Result: 2= enter airway/above vocal folds/ejected Thin Liquid via small single sip: cup: Result: 8= enters airway/below vocal folds/no effort Brooker Thick Liquid via small single sip: cup: Result: 1= does not enter airway Honey Thick Liquid via small single sip: cup: Result: 1= does not enter airway Applesauce: Result: 1= does not enter airway 1/4 Cookie: Result: 1= does not enter airway Brooker Thick Liquid via small single sip: cup Trial 2: Result: 1= does not enter airway Oral Phase Labial Seal: Interlabial escape, no progression to anterior lip Tongue Control During Bolus Hold: Escape to lateral buccal cavity/floor of mouth Bolus Preparation/Mastication: Disorganized chewing/mashing with solid pieces of bolus unchewed (small piece of cookie bolus appeared un-chewed) Bolus Transport/Lingual Motion: Slowed tongue motion Oral Residue: Residue collection on oral structures Pharyngeal Phase Initiation of Pharyngeal Swallow: Bolus head in valleculae Soft Palate Elevation: No bolus between soft palate and pharyngeal wall Laryngeal Elevation: Partial superior movement thyroid cart/partial apprx aryt- epig petiole Anterior Hyoid Excursion: Partial anterior movement Epiglottic Movement: Partial inversion (inconsistent) Laryngeal Vestibule Closure at Height of Swallow: Incomplete; narrow column of air/contrast in laryngeal vestibule Pharyngeal Stripping Wave: Present - diminished (minimal) Pharyngoesophageal Segment Opening: Parital distension and partial duration; parital obstruction of flow Tongue Base Retraction: Wide column of contrast between tongue base & post. pharyngeal wall Pharyngeal Residue: Collection of residue within or on pharyngeal structures Esophageal Phase Esophageal Clearance: Complete clearance Diagnosis/Impression Diagnosis: Mild-moderate oropharyngeal phase dysphagia R13.12 Impression: The study was completed with gastrografin as opposed to barium due to recurrent small bowel volvulus. SUPERVISOR [employer]PA[employer] did not assess use of positional strategies or man euvers to decrease risk for aspiration as the patient's daughter stated he would require consistent cueing to follow through with strategies due to memory impairment. The oral phase is primarily marked by... -Slowed A-P transport. -Slowed mastication with small piece of cookie appearing un-chewed. -Mild oral residue. The pharyngeal phase is primarily marked by... -Decreased airway closure due to partial anterior hyoid excursion, decreased laryngeal elevation, and inconsistent epiglottic inversion. -Moderate pharyngeal residues placing the patient as increased risk for post prandial aspiration due to decreased tongue base retraction, pharyngeal stripping wave, and UES opening/duration. Worsening pharyngeal residues observed with thicker viscosities. -SILENT aspiration during the swallow of thin liquids via cup. Recommendations Diet: Mechanical Soft Textures (Soft and Bite Size - IDDSI Level 6) and Brooker- thick Liquids (Mildly-thick - IDDSI Level 2) Comment: medications crushed in applesauce Compensatory Strategies: Small Bites, Small Sips, No Straws, Slow Rate (Bites/sips one at a time), Multiple Swallows, Alternate bites/solids and sips/liquids, Sitting upright and Remain sitting upright for 30 minutes after PO intake Supervision: 1:1 Close Supervision (Family to assist with verbal cues as needed at home) Recommend Repeat Modified Barium Swallow: TBD Need for Skilled Speech Therapy Services: Yes Comment: -Train the patient in use of strategies to decrease risk for aspiration. -Ongoing assessment of diet tolerance of recommended textures. Ok to advance solid textures at bedside if deemed clinically appropriate by treating SUPERVISOR GEAR [employer]PA[employer]. -Train the patient oropharyngeal exercise program to improve tongue base retraction, pharyngeal stripping wave, airway closure, and UES opening/duration (Stella, Effortful, Jesús, CTAR, Yawn stretch). Education Completed: 1. Described result of evaluation., 2. Pt understands evaluation & agrees with goals and treatment plan., 4. Family/caregivers understand evaluation & agree w/ goals & tx plan., 7. Pt requires further education on strategies & risks. and 8. Family/caregivers require further education on strategies & risks. Status Active ST Patient: Active Contact Information [facility] Speech Therapy:: Oly Munoz M.A. [facility]-SUPER[employer] Speech-Language Pathologist [facility] [address] [place] [address] [email or web address] [phone]
--- NOTE | 2023-10-10 15:56 | CASEMGMT ---
Addendum entered and electronically signed by Kenna Warren RN 10/10/23 17:01: Dr. Wilson on unit and script completed. Provided script to pt's daughter. Pt's daughter requested simply thick per ST instructions. Call placed to the kitchen and per Dinorah, they can sell this to the pt. Pt's daughter instructed on where to go to purchase and she expressed understanding. CANDICE Alvarenga Addendum entered and electronically signed by Kenna Warren RN 10/10/23 16:21: DC Summary/Instructions faxed to [facility] (F:[phone]). CANDICE Alvarenga Original Note: RN CM Follow-up: Pt completed MBS and ST recommending additional ST at discharge. This RN CM contacted [facility] and they do not have ST available. They stated [facility] would be the closest available ST. This RN CM met with pt and pt's daughter at bedside to discuss. Daughter deferred to her sister Karla for further decision making as Karla lives with pt and would be the best for coordinating schedules. This RN CM contacted Karla who states she is at work currently and unable to make a decision regarding pursuing ST at discharge stating it is difficult to get pt out of the house. This RN CM explained the benefits of ST for pt's dysphagia and Karla expressed understanding and requesting instructions at discharge of what foods textures pt is to eat. Explained these would be included in his discharge instructions. This RN CM discussed ST with Dr. Carranza. Script will be completed and sent to [facility] when she or her peer return to the unit. This RN CM contacted Karla and explained plan for script to be sent to [facility] for ST if they decide to pursue. Karla expressed understanding. This RN CM phoned [facility] and message left notifying them of the plan for pt to continue with scheduled home PT services and SN from [facility] at this time. Calls placed to [facility] and they do not have home ST and message left with [facility] to discuss ST availability and relay dc plan. Plan: Home with home SN from [facility] and PT from [facility]. Outpt script to be sent to [facility] for outpt ST/PT if pt and family choose to pursue. CANDICE Alvarenga
[2023-10-10 16:31] VITALS: BP 144/74; PULSE 70; RESP 18; TEMP 36.9; O2SAT 98
== END 2023-10-10 19:40 | disposition home or self-care (01) | DRG 358 ==
LOC: ED 10-05 01:21 → MS3 10-05 05:26
PROVIDERS: Surgery; Admitting Provider Surgery; Emergency Provider Student in an Organized Health Care Education/Training Program; PCP Family Medicine; Visit Provider Surgery
PROC: 0WJG4ZZ Inspection of Peritoneal Cavity, Percutaneous Endoscopic Approach (ICD-10-PCS; CPT 49320; principal; 2023-10-05 02:30)
DX: K56.2 Volvulus (principal); E78.00 Pure hypercholesterolemia, unspecified; F02.80 Dementia in other diseases classified elsewhere, unspecified severity, without behavioral disturbance, psychotic disturbance, mood disturbance, and anxiety; I95.9 Hypotension, unspecified; G20.C Parkinsonism, unspecified; I25.10 Atherosclerotic heart disease of native coronary artery without angina pectoris; I10 Essential (primary) hypertension; Z95.5 Presence of coronary angioplasty implant and graft; Z79.52 Long term (current) use of systemic steroids
CPT/HCPCS: 36415; 74018; 74177; 74230; 80048; 80053; 83605; 83690; 83735; 84100; 84484; 85025; 92526; 92610; 92611; 93005; 97162; 97166; 97530; 97535; 99284; J7030; Q9967; A4216; J2405

== ENCOUNTER → 2024-06-28 | Outpatient (CLI) | payer OTHER, SELFPAY | END | disposition home or self-care (01) | PROVIDERS: PCP Family Medicine; Referring Provider Psychiatry & Neurology Neurology; Visit Provider Psychiatry & Neurology Neurology | DX: R53.83 Other fatigue (principal); R32 Unspecified urinary incontinence ==

== ENCOUNTER 2024-07-15 18:10 | Inpatient (IN) | payer OTHER, SELFPAY ==
[2024-07-15] VITALS (9 sets, daily range): BP systolic 149–182; BP diastolic 59–111; PULSE 81–115; RESP 16–22; TEMP 36.3–36.8; O2SAT 94–98; BMI 21.1
--- NOTE | 2024-07-15 18:17 | ED.VIS.GI ---
HPI HPI - GI History of Present Illness Chief Complaint: Abd Pain Narrative Narrative: 89-year-old male past medical history of Parkinson's disease, previous small bowel volvulus presents with his family because of mental status change. Additionally, they state that he has had abdominal pain over the last few days and has not had a bowel movement for few days as well. It was yesterday that he started acting strange. He has been complaining of abdominal pain for the past few days. Family states that he is slow to respond because of his Parkinson disease. They relate history that he had surgery twice last year, once in July, then again in September for twisted bowel. They state the last time they did it they used a laser. However, his Parkinson's disease was better than it is currently. He states that he has not had any nausea or vomiting, no other symptoms. PFSH [facility] Medical History Fatigue Pure hypercholesterolemia Essential (primary) hypertension Atherosclerosis of [place] coronary artery of [place] heart without angina pectoris Preop cardiovascular exam GERD (gastroesophageal reflux disease) BPH (benign prostatic hyperplasia) Hiatal hernia Asthma Bradycardia Chest pain, precordial Abnormal result of cardiovascular function study, unspecified Fatigue Cough Angina pectoris Abnormal electrocardiogram Vasovagal syncope Dizziness Home Medications ?Medication ?Instructions ?Recorded ?Last Taken ?Type Protandim 1 tab PO DAILY 11/21/20 Unknown History melatonin 3 mg capsule 3 mg PO HS PRN Sleep 11/21/20 Unknown History multivitamin 1 tab PO DAILY 11/21/20 Unknown History nitroglycerin 0.4 mg sublingual 0.4 mg sublingual Q5M PRN chest 08/27/22 06/28/23 Rx tablet pain #25 tabs aspirin 81 mg tablet,delayed 81 mg PO DAILY 09/28/22 Unknown History release Brain Health Herbal Supplement PO 10/30/22 Unknown History acetaminophen 325 mg tablet 650 mg (2 x 325 mg) PO Q4H PRN PRN 07/03/23 Unknown Rx Pain 1-10/Fever #0 tabs carbidopa ER 50 mg-levodopa 200 mg 1 tab PO BID #180 tabs 06/30/24 Unknown Rx tablet,extended release dicyclomine 10 mg/5 mL oral 20 mg (10 mL) PO BID PRN abdominal 06/30/24 Unknown Rx solution pain #1,800 mL fludrocortisone 0.1 mg tablet 0.1 mg .Route .COMPLEX #42 tabs 06/30/24 Unknown Rx memantine 5 mg tablet 5 mg PO BID #180 tabs 06/30/24 Unknown Rx lisinopril 5 mg tablet 5 mg PO DAILY #90 tabs 07/15/24 Unknown Rx Allergy/AdvReac Type Severity Reaction Status Date / Time No Known Allergies Allergy Verified 07/15/24 18:11 Family History Mother CHF (congestive heart failure) Brother Cancer Prostate cancer Sister Parkinson's disease Surgical History History of total right hip replacement (~06/23/18) History of coronary artery stent placement (05/06/12) History of inguinal hernia repair (~2009) History of appendectomy History of repair of hiatal hernia History of left heart catheterization (LHC) (11/18/13) Social History Smoking Status: Never smoker alcohol intake: never substance use type: does not use caffeine: Yes Type: coffee Number of servings: 3 what type of physical activity do you participate in: bicycling frequency: daily duration: 15-30 minutes/day seatbelt use: always do you feel safe at home: Yes ROS ROS ED ROS Narrative Review of systems limited secondary to Parkinson's. Per family, no bowel movement x 3 days, no nausea or vomiting, no fevers or chills. Patient has had decreased mental status, and complains of abdominal pain for the last few days. EXAM Physical Exam Narrative Exam Narrative: Afebrile. Vital signs noted. Slower to respond secondary to Parkinson's. Can state name. Cardiovascular examination reveals a regular tachycardia. Lungs are clear to auscultation bilaterally. Abdomen firm with diffuse tenderness to palpation, positive guarding. Neurological examination shows him awake, alert, but slow to respond to questions. Const Vital Signs: 07/15/24 18:11 07/15/24 18:39 07/15/24 19:14 Temperature 97.4 F L 97.4 F L 98.3 F Temperature Source Oral Oral Temporal Pulse Rate 115 H 81 111 H Respiratory Rate 22 H 18 16 Blood Pressure 173/110 H 151/90 H 182/111 H Blood Pressure Mean 131 110 134 Blood Pressure Source Blood Pressure Position Blood Pressure Location Pulse Ox 94 94 94 Oxygen Delivery Method Room Air Room Air Room Air 07/15/24 19:33 07/15/24 20:00 07/15/24 20:58 Temperature 98.0 F 98.0 F Temperature Source Temporal Oral Pulse Rate 111 H 95 105 H Respiratory Rate 16 16 18 Blood Pressure 182/102 H 151/78 H 151/80 H Blood Pressure Mean 128 102 103 Blood Pressure Source Monitor Blood Pressure Position Supine Blood Pressure Location Right Arm Pulse Ox 94 98 96 Oxygen Delivery Method Room Air Room Air Room Air MDM MDM MDM Narrative Medical decision making narrative: I reviewed the patient's prior records and he had history of small bowel volvulus. He has been seen by all 3 [place] surgeons in the past. He was given morphine and ondansetron and will be bolused normal saline. I do feel CT imaging is indicated to help rule out volvulus. Laboratories will be obtained including lactic acid. I reviewed his laboratory work and he has normal white count of 4.7 with hemoglobin normal at 14.4, hematocrit 44.3, platelet count 226. Electrolyte panel is significant for CO2 of 33, BUN 25 and creatinine is normal at 1.03. Glucose is elevated at 179 but anion gap low at 4. Lactic acid elevated 2.4. Patient continued to have pain so he was administered Dilaudid 0.5 mg intravenously. Urinalysis obtained and is negative for infection. I reviewed the radiology report of the CT of the abdomen and pelvis. They state that he has dilated small bowel loops and it is suspicious for small bowel obstruction. There is a swirling of vessels noted. I had already spoken with Dr. Carranza who wanted an NG tube inserted prior to the formal read. I rediscussed the patient with Dr. Carranza and she will take the patient to surgery. Zosyn was ordered, and she requested that medicine be consulted prior to the OR. I discussed patient with Dr. Castano as well with hospitalist medicine. Disposition is to the OR. Patient is in stable condition. History & Record Review Discussion w/independent historian: Patient and Family Lab Data Attestation: I reviewed the patient's lab results. Labs: Laboratory Results - last 24 hr 07/15/24 07/15/24 07/15/24 18:10 18:20 18:45 WBC 4.7 RBC 4.52 L Hgb 14.4 Hct 44.3 MCV 98.0 H MCH 31.9 MCHC 32.5 RDW Std Deviation 49.3 H RDW Coeff of [place]yl[place] 13.7 Plt Count 226 MPV 10.6 Immature Gran % (Auto) 0.800 Neut % (Auto) 47.0 Lymph % (Auto) 36.9 [place] % (Auto) 13.0 H Eos % (Auto) 1.5 Baso % (Auto) 0.8 Absolute Neuts (auto) 2.2 Absolute Lymphs (auto) 1.74 Nucleated RBC % 0 Sodium 141 Potassium 3.9 Chloride 104 Carbon Dioxide 33.0 H Anion Gap 4 L BUN 25 H Creatinine 1.03 Estim Creat Clear Calc 46.77 Est GFR (MDRD) Af Amer 88 Est GFR (MDRD) Non-Af 72 BUN/Creatinine Ratio 24.3 H Glucose 179 H Lactic Acid 2.4 H* Calcium 9.5 Total Bilirubin 0.30 AST 17 ALT 7 L Alkaline Phosphatase 63 Total Protein 7.6 Albumin 3.6 Globulin 4.0 Albumin/Globulin Ratio 0.9 Lipase 604 H Urine Color Yellow Urine Clarity Clear Urine pH 7.0 Ur Specific [place] 1.005 Urine Protein 15 H Urine Glucose (UA) Normal Urine Ketones Negative Urine Occult Blood Negative Urine Nitrite Negative Urine Bilirubin Negative Urine Urobilinogen Normal Ur Leukocyte Esterase Negative Urine RBC 0 SEEN Urine WBC 0 SEEN Ur Squamous Epith Cells 0 SEEN Urine Bacteria 0 SEEN Hyaline Casts 0-5 SEEN Urine Mucus 0 SEEN Radiography Diagnostic Testing: Clinical Impression(s) from Imaging Studies Abdomen/Pelvis CT 07/15/24 18:49 IMPRESSION: Findings suspicious for small bowel obstruction with no obvious transition point. Electronically Signed: Ameya Bermudez MD at 20:39 EDT , Management Discussion w/another healthcare provider: Hospitalist (Dr. Castano) and Home Health Scheduler (Dr. Carranza) Discharge Plan Triage Chief Complaint: Abd Pain ED Provider: Edwin Aguila Dx/Rx/DC Orders Prescriptions: No Action multivitamin Tablet 1 tab PO DAILY melatonin 3 mg capsule 3 mg PO HS PRN (Reason: Sleep) Protandim 1 tab PO DAILY Brain Health Herbal Supplement PO memantine 5 mg tablet 5 mg PO BID Qty: 180 2RF fludrocortisone 0.1 mg tablet 0.1 mg .ROUTE .COMPLEX Qty: 42 2RF Rx Instructions: Take one-half tablet PO 6 days/week (every Friday, Friday, Friday, , Friday and Friday) to be taken in the morning. carbidopa-levodopa 50-200 mg tablet extended release 1 tab PO BID Qty: 180 2RF dicyclomine 10 mg/5 mL solution 20 mg PO BID PRN (Reason: abdominal pain) Qty: 1800 2RF aspirin 81 mg Tablet,Delayed Release (Dr/Ec) 81 mg PO DAILY acetaminophen 325 mg Tablet 650 mg PO Q4H PRN PRN (Reason: Pain 1-10/Fever) Qty: 0 0RF nitroglycerin 0.4 mg tablet, sublingual 0.4 mg sublingual Q5M PRN (Reason: chest pain) Qty: 25 3RF Rx Instructions: do not exceed 3 doses per episode lisinopril 5 mg tablet 5 mg PO DAILY Qty: 90 3RF Primary Care Provider: Hai Ovalle Referrals: Hai Ovalle DO [Primary Care Provider] - Print Language: Serbian
[2024-07-15] MEDS: Ondansetron 4 MG/2 ML Vial IV (18:26)
[2024-07-15] MEDS: 0.9% Normal Saline (1000mL) 1,000 ML 999 ML IV (18:26)
[2024-07-15] MEDS: Morphine 2 MG/ML Syringe IV (18:26)
[2024-07-15 18:28] LABS: Absolute Lymphocyte Count 1.74 X10^3/uL (0.83-4.51); Absolute Neutrophil Count 2.2 X10^3/uL (2.0-7.7); Basophil# 0.04 X10^3/uL; Basophil% 0.8 % (0-1); Eosinophil# 0.07 X10^3/uL; Eosinophils% 1.5 % (0-5); Hematocrit 44.3 % (40-54); Hemoglobin 14.4 g/dL (13.0-16.5); Lymphocyte # 1.74 X10^3/ul (0.83-4.51); Lymphocyte % 36.9 % (19-41); Mean Corp Hgb Conc 32.5 g/dL (32-36); Mean Corpuscular Hgb 31.9 pg (27.0-32.0); Mean Platelet Vol. 10.6 fl (6.2-12.0); Monocyte# 0.61 X10^3/uL; NRBC Flagged by Analyzer 0 % (0-5); Neutrophil # 2.21 X10^3/uL (2.7-7.7); Platelet Count 226 K/mm3 (150-450); RBC Distribution Width CV 13.7 % (11.6-14.6); RBC Distribution Width SD 49.3 fl (35.1-43.9); Red Blood Count 4.52 M/mm3 (4.6-6.2); White Blood Count 4.7 K/mm3 (4.4-11.0)
[2024-07-15 18:48] LABS: ALB/GLOB Ratio 0.9 RATIO (0.9-2.4); AST(SGOT) 17 U/L (15-37); Alanine Aminotransfer ALT/SGPT 7 U/L (16-61); Albumin, Serum 3.6 g/dL (3.2-5.0); Alkaline Phosphatase 63 U/L (45-117); Anion Gap 4 (5-15); BUN 25 mg/dL (7-18); BUN/Creat Ratio 24.3 RATIO (10-20); Calcium,Total 9.5 mg/dL (8.5-10.1); Chloride 104 mmol/L (98-107); Creatinine, Serum 1.03 mg/dL (0.70-1.30); EST Glomerular Filtration Rate 72 mL/min (>60); Est Glom Filt Rate - Afr Amer 88 mL/min (>60); Estimated Creatinine Clearance 46.77 ml/min; Glucose 179 mg/dL (74-106); Lipase 604 U/L (13-75); Potassium 3.9 mmol/L (3.5-5.1); Protein, Total 7.6 g/dL (6.4-8.2); Sodium Level 141 mmol/L (136-145)
--- NOTE | 2024-07-15 18:49 | CT_ITS ---
ACR Level 3 findings have been noted. An addendum which confirms receipt of the report will follow. INDICATION: PAIN EXAMINATION: CT Abdomen And Pelvis W/ Contrast Injection TECHNIQUE: Helically acquired images were obtained of the abdomen and pelvis after IV contrast. A radiation dose optimization technique was used for this scan. IV Contrast dosage and agent: IV 75mL [id number] Oral contrast: None. COMPARISON: None. FINDINGS: Visualized lung bases: Unremarkable Liver: Unremarkable Gallbladder: Unremarkable Spleen: Unremarkable Pancreas: Unremarkable Adrenal Glands: Unremarkable Kidneys: Unremarkable Vasculature: Severe aortoiliac atherosclerotic disease. GI Tract: There is a swirling of vessels in the right mid hemiabdomen. Multiple dilated loops of small bowel measuring up to 5 cm in diameter. No obvious transition point. Lymphadenopathy: None Peritoneum: No ascites. Bladder: Unremarkable Reproductive organs: Unremarkable Bones/Soft tissues: There are diffuse degenerative changes of the spine. Right total hip arthroplasty. CT/Abdomen/Pelvis W IV Cont ONLY IMPRESSION: Findings suspicious for small bowel obstruction with no obvious transition point. Electronically Signed: Ameya Bermudez MD at 20:39 EDT ,
[2024-07-15 18:55] LABS: Bacteria 0 SEEN /hpf (None Seen); Mucous, Urine 0 SEEN /hpf (<or=2+); Red Blood Cells-Urine 0 SEEN /hpf (0-5); Squamous Epithelial Cells - UA 0 SEEN /hpf (0-5); White Blood Cells 0 SEEN /hpf (0-5)
[2024-07-15 18:59] LABS: Lactic Acid 2.4 mmol/L (0.4-1.9)
[2024-07-15 19:19] LABS: Color, Urine Yellow (Yellow); Glucose, Dipstick Normal (Normal); Ketone-Dipstick Negative (Negative); Leukocyte Esterase-Dipstick Negative /ul (Negative); Nitrite-Dipstick Negative (Negative); Occult Blood-Urine Negative /ul (Negative); Protein-Dipstick 15 mg/dl (Negative); Specific Gravity, Urine 1.005 (1.002-1.030); Urine Bilirubin Dipstick Negative (Negative); Urine Clarity Clear (Clear); Urine Urobilinogen Normal (Normal)
[2024-07-15 19:35] LABS: Hyaline Cast 0-5 SEEN /lpf (0-5)
[2024-07-15] MEDS: HYDROmorphone 0.5 MG/0.5 ML SYRINGE IV (20:21)
--- NOTE | 2024-07-15 20:48 | EKG12_ITS ---
Test Reason : PRE-OP Blood Pressure : / mmHG Vent. Rate : 105 BPM Atrial Rate : 105 BPM P-R Int : 156 ms QRS Dur : 092 ms QT Int : 350 ms P-R-T Axes : 038 -23 041 degrees QTc Int : 462 ms Sinus tachycardia Possible Left atrial enlargement Minimal voltage criteria for LVH, may be normal variant ( Sokolow-Sethi ) Septal infarct , age undetermined Abnormal ECG Confirmed by SHIMA CARPENTER, MAKENNA ([id number]), loan expeditor CARMEN MOTTA ([id number]) on 07/16/2024 1:37:20 PM Referred By: TR Confirmed By:MAKENNA RONQUILLO MD
[2024-07-15] MEDS: Oxymetazoline 0.05% 1 SPRAY SPRAY.BTL 2 SPRAY NASAL (20:49)
--- NOTE | 2024-07-15 20:49 | PCM.HP.STD ---
HPI - General General Date of Admission: 07/15/24 HPI Narrative SONA SALAMANCA, is a 89 M who presents to ER due to abdominal pain. CT a/p read SBO no obvious transition, on my read I see the transition at the vessel mid jejunum with obvious change seen best on sagittal. Patient had previous small bowel volvulus and 07/05 and 10/04 both required trips to the OR with laparoscopic surgery but no bowel resection. Patient did previously have a hiatal hernia surgery which has not allowed the NG to be placed upon multiple attempts including my own. Patient does have Parkinson's/dementia. Patient is unable to answer questions about his health. He is able to state his name. Family would like the patient to be DNR CC a no intubation or CPR after surgery. He did start having abdominal pain increased at 4 PM today denies any nausea or vomiting per family. Complained of belly pain. [facility] Medical History Fatigue Pure hypercholesterolemia Essential (primary) hypertension Atherosclerosis of [place] coronary artery of [place] heart without angina pectoris Preop cardiovascular exam GERD (gastroesophageal reflux disease) BPH (benign prostatic hyperplasia) Hiatal hernia Asthma Bradycardia Chest pain, precordial Abnormal result of cardiovascular function study, unspecified Fatigue Cough Angina pectoris Abnormal electrocardiogram Vasovagal syncope Dizziness Home Medications ?Medication ?Instructions ?Recorded ?Last Taken ?Type Protandim 1 tab PO DAILY 11/21/20 Unknown History melatonin 3 mg capsule 3 mg PO HS PRN Sleep 11/21/20 Unknown History multivitamin 1 tab PO DAILY 11/21/20 Unknown History nitroglycerin 0.4 mg sublingual 0.4 mg sublingual Q5M PRN chest 08/27/22 06/28/23 Rx tablet pain #25 tabs aspirin 81 mg tablet,delayed 81 mg PO DAILY 09/28/22 Unknown History release Brain Health Herbal Supplement PO 10/30/22 Unknown History acetaminophen 325 mg tablet 650 mg (2 x 325 mg) PO Q4H PRN PRN 07/03/23 Unknown Rx Pain 1-10/Fever #0 tabs carbidopa ER 50 mg-levodopa 200 mg 1 tab PO BID #180 tabs 06/30/24 Unknown Rx tablet,extended release dicyclomine 10 mg/5 mL oral 20 mg (10 mL) PO BID PRN abdominal 06/30/24 Unknown Rx solution pain #1,800 mL fludrocortisone 0.1 mg tablet 0.1 mg .Route .COMPLEX #42 tabs 06/30/24 Unknown Rx memantine 5 mg tablet 5 mg PO BID #180 tabs 06/30/24 Unknown Rx lisinopril 5 mg tablet 5 mg PO DAILY #90 tabs 07/15/24 Unknown Rx Allergy/AdvReac Type Severity Reaction Status Date / Time No Known Allergies Allergy Verified 07/15/24 18:11 Family History Mother CHF (congestive heart failure) Brother Cancer Prostate cancer Sister Parkinson's disease Surgical History History of total right hip replacement (~06/23/18) History of coronary artery stent placement (05/06/12) History of inguinal hernia repair (~2009) History of appendectomy History of repair of hiatal hernia History of left heart catheterization (LHC) (11/18/13) Social History Smoking Status: Never smoker alcohol intake: never substance use type: does not use caffeine: Yes Type: coffee Number of servings: 3 what type of physical activity do you participate in: bicycling frequency: daily duration: 15-30 minutes/day seatbelt use: always do you feel safe at home: Yes Vital Signs Vital Signs Vital Signs: 07/15/24 18:11 07/15/24 18:39 07/15/24 19:14 Temperature 97.4 F L 97.4 F L 98.3 F Temperature Source Oral Oral Temporal Pulse Rate 115 H 81 111 H Respiratory Rate 22 H 18 16 Blood Pressure 173/110 H 151/90 H 182/111 H Blood Pressure Mean 131 110 134 Pulse Ox 94 94 94 Oxygen Delivery Method Room Air Room Air Room Air 07/15/24 19:33 07/15/24 20:00 Temperature 98.0 F Temperature Source Temporal Pulse Rate 111 H 95 Respiratory Rate 16 16 Blood Pressure 182/102 H 151/78 H Blood Pressure Mean 128 102 Pulse Ox 94 98 Oxygen Delivery Method Room Air Room Air Weight Weight: 147 lb 0.773 oz Body Mass Index (BMI) 21.1 Physical Exam Const General Appearance: ill appearing Cardio Rate: tachycardic GI Inspection: abdominal distention Palpation: tender other (Diffuse with voluntary or involuntary guarding unable to distinguish) Results Lab / Micro Data 07/15/24 18:10 07/15/24 18:10 Labs: Laboratory Results - last 24 hr 07/15/24 18:10: WBC 4.7, RBC 4.52 L, Hgb 14.4, Hct 44.3, MCV 98.0 H, MCH 31.9, MCHC 32.5, RDW Std Deviation 49.3 H, RDW Coeff of [place]yl[place] 13.7, Plt Count 226, MPV 10.6, Immature Gran % (Auto) 0.800, Neut % (Auto) 47.0, Lymph % (Auto) 36.9, [place] % (Auto) 13.0 H, Eos % (Auto) 1.5, Baso % (Auto) 0.8, Absolute Neuts (auto) 2.2, Absolute Lymphs (auto) 1.74, Nucleated RBC % 0, Sodium 141, Potassium 3.9, Chloride 104, Carbon Dioxide 33.0 H, Anion Gap 4 L, BUN 25 H, Creatinine 1.03, Estim Creat Clear Calc 46.77, Est GFR (MDRD) Af Amer 88, Est GFR (MDRD) Non-Af 72, BUN/Creatinine Ratio 24.3 H, Glucose 179 H, Calcium 9.5, Total Bilirubin 0.30, AST 17, ALT 7 L, Alkaline Phosphatase 63, Total Protein 7.6, Albumin 3.6, Globulin 4.0, Albumin/Globulin Ratio 0.9, Lipase 604 H 07/15/24 18:20: Lactic Acid 2.4 H* 07/15/24 18:45: Urine Color Yellow, Urine Clarity Clear, Urine pH 7.0, Ur Specific [place] 1.005, Urine Protein 15 H, Urine Glucose (UA) Normal, Urine Ketones Negative, Urine Occult Blood Negative, Urine Nitrite Negative, Urine Bilirubin Negative, Urine Urobilinogen Normal, Ur Leukocyte Esterase Negative, Urine RBC 0 SEEN, Urine WBC 0 SEEN, Ur Squamous Epith Cells 0 SEEN, Urine Bacteria 0 SEEN, Hyaline Casts 0-5 SEEN, Urine Mucus 0 SEEN Imaging Radiology Impression Abdomen/Pelvis CT 07/15/24 18:49 IMPRESSION: Findings suspicious for small bowel obstruction with no obvious transition point. Electronically Signed: Ameya Bermudez MD at 20:39 EDT , Assessment & Plan Assessment/Plan (1) Small bowel volvulus: (2) Small bowel obstruction: (3) Parkinson disease: PLAN: Plan Discussed with family plan for diagnostic laparoscopy, possible laparotomy, possible bowel resection. Discussed the procedure with risk including but not limited to bleeding, infection, additional surgery, injury to another organ. Discussed with family that if I am able to untwist the small bowel does not mean this would not twist again. Also if I would take out some small bowel depending on the mobility of the mesentery which has been the problem past 2 times I cannot guarantee that would not twist again. Also discussed with patient and family that he may remain intubated after the surgery in the ICU. They are okay with that initially but otherwise plan for DNR CCA no intubation or CPR. Alyssa Carranza M.D. Pager: [phone] [facility] [address] [place] [address], [address] [place] [address] Office: [phone]
[2024-07-15] MEDS: Piperacil/Tazobactam 3.375 GM in 0.9% Normal Saline (50mL MB+) 50 ML IV (21:15)
--- NOTE | 2024-07-15 21:20 | RAD_ITS ---
INDICATION: NG INSERTION EXAMINATION/TECHNIQUE: X-RAY - XR Abdomen 1 View COMPARISON: None FINDINGS: NG tube is looped in the esophagus and does not enter the stomach. Tube should be repositioned. Abnormal gaseous distention of stomach and bowel loops partially imaged. RAD/Abdomen Single View (Portable) IMPRESSION: NG tube looped in the esophagus and should be repositioned. Abnormal bowel loops consistent with obstruction. Electronically Signed: Flavio Olvera MD at 21:39 EDT ,
--- NOTE | 2024-07-15 21:25 | RAD_ITS ---
INDICATION: NG EXAMINATION/TECHNIQUE: X-RAY - XR Abdomen 1 View COMPARISON: None FINDINGS: BOWEL GAS PATTERN: Incorrect position of NG tube with tip likely in the right mainstem bronchus. FREE AIR: Not assessed on a single supine view. ORGANOMEGALY: Not seen. CALCIFICATIONS: No abnormal calcifications observed. LOWER CHEST: No acute pathology. BONES AND SOFT TISSUES: No acute pathology. RAD/Abdomen Single View (Portable) IMPRESSION: Incorrect position of NG tube with tip likely in the right mainstem bronchus. Electronically Signed: Ameya Bermudez MD at 22:46 EDT ,
--- NOTE | 2024-07-15 21:25 | RAD_ITS ---
INDICATION: NG EXAMINATION/TECHNIQUE: X-RAY - XR Abdomen 1 View COMPARISON: Abdominal film from earlier today. FINDINGS: BOWEL GAS PATTERN: Abnormal position of NG tube with tip likely at the gastroesophageal junction. FREE AIR: Not assessed on a single supine view. ORGANOMEGALY: Not seen. CALCIFICATIONS: No abnormal calcifications observed. LOWER CHEST: No acute pathology. BONES AND SOFT TISSUES: No acute pathology. RAD/Abdomen Single View (Portable) IMPRESSION: Abnormal position of NG tube with tip likely at the gastroesophageal junction. Electronically Signed: Ameya Bermudez MD at 22:49 EDT ,
--- NOTE | 2024-07-15 21:25 | RAD_ITS ---
INDICATION: NG EXAMINATION/TECHNIQUE: X-RAY - XR Abdomen 1 View COMPARISON: Abdominal x-ray from earlier today. FINDINGS: BOWEL GAS PATTERN: Abnormal position of NG tube with tip likely at the gastroesophageal junction. FREE AIR: Not assessed on a single supine view. ORGANOMEGALY: Not seen. CALCIFICATIONS: No abnormal calcifications observed. LOWER CHEST: No acute pathology. BONES AND SOFT TISSUES: No acute pathology. RAD/Abdomen Single View (Portable) IMPRESSION: Abnormal position of NG tube with tip likely at the gastroesophageal junction. Electronically Signed: Ameya Bermudez MD at 22:47 EDT ,
--- NOTE | 2024-07-15 21:25 | RAD_ITS ---
INDICATION: NG EXAMINATION/TECHNIQUE: X-RAY - XR Abdomen 1 View COMPARISON: Abdominal film from earlier today. FINDINGS: BOWEL GAS PATTERN: Abnormal position of NG tube with tip likely at the gastroesophageal junction. FREE AIR: Not assessed on a single supine view. ORGANOMEGALY: Not seen. CALCIFICATIONS: No abnormal calcifications observed. LOWER CHEST: No acute pathology. BONES AND SOFT TISSUES: No acute pathology. RAD/Abdomen Single View (Portable) IMPRESSION: Abnormal position of NG tube with tip likely at the gastroesophageal junction. Electronically Signed: Ameya Bermudez MD at 22:49 EDT ,
--- NOTE | 2024-07-15 21:25 | RAD_ITS ---
INDICATION: NG insertion EXAMINATION/TECHNIQUE: X-RAY - XR Abdomen 1 View COMPARISON: Abdominal film from earlier today. FINDINGS: BOWEL GAS PATTERN: Abnormal position of NG tube with tip likely at the gastroesophageal junction. FREE AIR: Not assessed on a single supine view. ORGANOMEGALY: Not seen. CALCIFICATIONS: No abnormal calcifications observed. LOWER CHEST: No acute pathology. BONES AND SOFT TISSUES: No acute pathology. RAD/Abdomen Single View (Portable) IMPRESSION: Abnormal position of NG tube with tip likely at the gastroesophageal junction. Electronically Signed: Ameya Bermudez MD at 22:48 EDT ,
--- NOTE | 2024-07-15 21:25 | RAD_ITS ---
INDICATION: NG EXAMINATION/TECHNIQUE: X-RAY - XR Abdomen 1 View COMPARISON: Abdominal film from earlier today. FINDINGS: BOWEL GAS PATTERN: Abnormal position of NG tube with tip likely at the gastroesophageal junction. FREE AIR: Not assessed on a single supine view. ORGANOMEGALY: Not seen. CALCIFICATIONS: No abnormal calcifications observed. LOWER CHEST: No acute pathology. BONES AND SOFT TISSUES: No acute pathology. RAD/Abdomen Single View (Portable) IMPRESSION: Abnormal position of NG tube with tip likely at the gastroesophageal junction. Electronically Signed: Ameya Bermudez MD at 22:48 EDT ,
--- NOTE | 2024-07-15 21:25 | RAD_ITS ---
INDICATION: NG EXAMINATION/TECHNIQUE: X-RAY - XR Abdomen 1 View COMPARISON: Abdominal film from earlier today. FINDINGS: BOWEL GAS PATTERN: Abnormal position of NG tube with tip likely at the gastroesophageal junction. FREE AIR: Not assessed on a single supine view. ORGANOMEGALY: Not seen. CALCIFICATIONS: No abnormal calcifications observed. LOWER CHEST: No acute pathology. BONES AND SOFT TISSUES: No acute pathology. RAD/Abdomen Single View (Portable) IMPRESSION: Abnormal position of NG tube with tip likely at the gastroesophageal junction. Electronically Signed: Ameya Bermudez MD at 22:50 EDT ,
--- NOTE | 2024-07-15 21:25 | RAD_ITS ---
INDICATION: NG EXAMINATION/TECHNIQUE: X-RAY - XR Abdomen 1 View COMPARISON: Abdominal x-ray from earlier today. FINDINGS: BOWEL GAS PATTERN: Incorrect position of NG tube with tip likely in the right mainstem bronchus. FREE AIR: Not assessed on a single supine view. ORGANOMEGALY: Not seen. CALCIFICATIONS: No abnormal calcifications observed. LOWER CHEST: No acute pathology. BONES AND SOFT TISSUES: No acute pathology. RAD/Abdomen Single View (Portable) IMPRESSION: Incorrect position of NG tube with tip likely in the right mainstem bronchus. Electronically Signed: Ameya Bermudez MD at 22:46 EDT ,
--- NOTE | 2024-07-15 21:34 | PCM.CONS.GEN ---
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/decreased interactivity because of his underlying disease, Hx CVA, HTN, HLD, CAD s/p PCI, Asthma, GERD, BPH, Hx prior bowel obstruction w/ volvulus requiring operative intervention who presents to the [facility] ED on 07/15/24 with history of onset of abdominal pain progressing for the last 2 to 3 days with no bowel movement and decreasing flatus with abnormal behavior, mild agitation starting the day prior with grimacing with abdominal palpation with worsening slow responses secondary to his Parkinson's disease with no associated nausea or emesis but worsening diffuse severe abdominal discomfort and distention prompting ED evaluation. #1. Abdominal pain with concern for recurrent SBO secondary to possibly volvulus with previous similar presentation history: Patient will be transition to the OR per general surgery with admission following likely to the ICU, will plan to maintain on judicious IV fluids, NG tube placement/care to surgery discretion, strict I&Os, IV pain/anti-emetics PRN, serial KUB as needed to monitor bowel function per surgery discretion, maintain on IV PPI, oral intake/bowel rest per surgery discretion. If patient is not extubated then we will continue sedation, intubated status, director private music therapy agency consultation per primary service surgery discretion. #2. Parkinson's disease with associated dementia with chronic memory impairment/decreased interactivity because of underlying disease: Complicates presentation, pending ability for oral intake if allowed will continue patient's Sinemet regimen as well as memantine home regimen, PT/OT/case management consulted for discharge planning, maintain on fall and aspiration precautions. #3. Hypertension: Continue home regimen including lisinopril if patient is allowed oral intake, PRN hydralazine. #4. Hyperlipidemia: Per current list on a regimen, defer to outpatient. #5. History CVA: Once oral intake is allowed and status post OR allowance would recommend continuation of aspirin therapy, will hold for the moment given recent intervention, continue hypertensive regimen, not on statin therapy per current list but clarifying. #6. CAD: Status post PCI, once oral intake is allowed and status post or allowance would recommend continuation of aspirin therapy, not on beta-nori therapy per current list, continue lisinopril, not on statin therapy. #7. BPH: Per current list does not appear to be on regimen, if necessary and issues with urinary retention may start Flomax. #8. Chronic asthma: Not on any chronic regimen, will have PRN albuterol, HOB, IS parameters. #9. GERD: Will maintain on IV PPI. #10. DVT prophylaxis: SCDs, chemoprophylaxis per surgery discretion given recent OR. #11. CODE status: Patient TAWANA is his his daughter who is present but uncertain if living will is in place]. Discussed CODE status at length including difference between FULL code, DNR-CCA and DNR-CC status. Following discussions about the differences in these status, requested DNR-CCA, no intubation status. Advanced Care Planning Face to Face Time: 16 minutes. HPI Consult Data Date of Consult: 07/16/24 HPI Narrative Reason for Consultation: Medical evaluation prior to OR, medical management. 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/decreased interactivity because of his underlying disease, Hx CVA, HTN, HLD, CAD s/p PCI, Asthma, GERD, BPH, Hx prior bowel obstruction w/ volvulus requiring operative intervention who presents to the [facility] ED on 07/15/24 with history of onset of abdominal pain progressing for the last 2 to 3 days with no bowel movement and decreasing flatus with abnormal behavior, mild agitation starting the day prior with grimacing with abdominal palpation with worsening slow responses secondary to his Parkinson's disease with no associated nausea or emesis but worsening diffuse severe abdominal discomfort and distention prompting ED evaluation. In the ED upon evaluation patient is nonverbal and not interacting unable to discuss his pain level. Workup in the ED included T97.4, heart rate 115, BP 173/110, respiratory rate 22, 94% room air, CBC with WBC 4.7, hemoglobin 14.4, platelet 226 without marked shift, CMP with, oxide 33, BUN/creatinine 25/1.03, GFR 72, glucose 179, lactic acid 2.4, hepatic profile not marked appearing, lipase mildly elevated 604, urinalysis with no obvious evidence of UTI, CT abdomen and pelvis with findings suspicious for small bowel obstruction with radiology reported no obvious transition point but general surgery reported following evaluation of imaging concern for a very obvious inflamed transition point with concern for recurrent volvulus. In the ED patient had NG tube placed however there was no marked output from this and eventually placement was deferred to the OR. In the ED patient ministered 1 L mL saline, Dilaudid 0.5 mg IV x 1, morphine 2 mg IV x 1, Zofran 4 mg IV x 1, Zosyn 3.375 g IV x 1. ED discussed case with general surgeon Dr. Carranza who noted planned admission following transition to the OR for operative intervention. PENDING SALE TO [facility] Medical History Fatigue Pure hypercholesterolemia Essential (primary) hypertension Atherosclerosis of [place] coronary artery of [place] heart without angina pectoris Preop cardiovascular exam GERD (gastroesophageal reflux disease) BPH (benign prostatic hyperplasia) Hiatal hernia Asthma Bradycardia Chest pain, precordial Abnormal result of cardiovascular function study, unspecified Fatigue Cough Angina pectoris Abnormal electrocardiogram Vasovagal syncope Dizziness Home Medications ?Medication ?Instructions ?Recorded ?Last Taken ?Type Protandim 1 tab PO DAILY 11/21/20 Unknown History melatonin 3 mg capsule 3 mg PO HS PRN Sleep 11/21/20 Unknown History multivitamin 1 tab PO DAILY 11/21/20 Unknown History nitroglycerin 0.4 mg sublingual 0.4 mg sublingual Q5M PRN chest 08/27/22 06/28/23 Rx tablet pain #25 tabs aspirin 81 mg tablet,delayed 81 mg PO DAILY 09/28/22 Unknown History release Brain Health Herbal Supplement PO 10/30/22 Unknown History acetaminophen 325 mg tablet 650 mg (2 x 325 mg) PO Q4H PRN PRN 07/03/23 Unknown Rx Pain 1-10/Fever #0 tabs carbidopa ER 50 mg-levodopa 200 mg 1 tab PO BID #180 tabs 06/30/24 Unknown Rx tablet,extended release dicyclomine 10 mg/5 mL oral 20 mg (10 mL) PO BID PRN abdominal 06/30/24 Unknown Rx solution pain #1,800 mL fludrocortisone 0.1 mg tablet 0.1 mg .Route .COMPLEX #42 tabs 06/30/24 Unknown Rx memantine 5 mg tablet 5 mg PO BID #180 tabs 06/30/24 Unknown Rx lisinopril 5 mg tablet 5 mg PO DAILY #90 tabs 07/15/24 Unknown Rx Allergy/AdvReac Type Severity Reaction Status Date / Time No Known Allergies Allergy Verified 07/15/24 18:11 Family History Mother CHF (congestive heart failure) Brother Cancer Prostate cancer Sister Parkinson's disease Surgical History History of total right hip replacement (~06/23/18) History of coronary artery stent placement (05/06/12) History of inguinal hernia repair (~2009) History of appendectomy History of repair of hiatal hernia History of left heart catheterization (LHC) (11/18/13) Social History Smoking Status: Never smoker alcohol intake: never substance use type: does not use caffeine: Yes Type: coffee Number of servings: 3 what type of physical activity do you participate in: bicycling frequency: daily duration: 15-30 minutes/day seatbelt use: always do you feel safe at home: Yes ROS Review of Systems ROS Unobtainable: due to mental condition Physical Exam Narrative Physical Examination: General: Awake, appears alert but is not interacting answer questions, does have underlying significant dementia with Parkinson's disease, fatigued and uncomfortable appearing. Skin: Normal color, normal turgor, no icterus, no cyanosis except very staged abrasions, ecchymoses. HEENT: AT/NC, EOM unable to be assessed well as patient's not following command request, PERRLA, dry MM, no carotid bruits or JVD noted. Lungs: Diminished, greater bases, mildly increased respiratory rate but no distress, no rales, ronchi or wheezing. Heart: Mildly tachycardic with regular rhythm; no gallop, rub audible. Abdomen: Soft, grimacing with palpation of the abdomen, distended and firm, absent bowel sounds, difficult to discern HSM given distention. Extremities: No cyanosis, no clubbing, bilateral lower extremity pedal to distal bauman edema Neurological: Awake, appears alert but is not interacting answer questions, does have underlying significant dementia with Parkinson's disease, fatigued and uncomfortable appearing, cognitive function decreased baseline secondary to underlying Parkinson disease with dementia however this is much more diminished with less interactivity, not baseline intact; pupils equally reactive to light and accommodation, cranial nerves grossly appear normal but difficult evaluation as not following many commands, spontaneously moving extremities, no obvious deficits the patient does have a former CVA history, strength severely globally decreased. Psychiatric: Affect appears flat, no acute evidence of depressive or anxiety feelings. Lab / Micro Data 07/15/24 18:10 07/15/24 18:10 Labs: Laboratory Results - last 24 hr 07/15/24 18:10: WBC 4.7, RBC 4.52 L, Hgb 14.4, Hct 44.3, MCV 98.0 H, MCH 31.9, MCHC 32.5, RDW Std Deviation 49.3 H, RDW Coeff of [place] 13.7, Plt Count 226, MPV 10.6, Immature Gran % (Auto) 0.800, Neut % (Auto) 47.0, Lymph % (Auto) 36.9, Metcalfe % (Auto) 13.0 H, Eos % (Auto) 1.5, Baso % (Auto) 0.8, Absolute Neuts (auto) 2.2, Absolute Lymphs (auto) 1.74, Nucleated RBC % 0, Sodium 141, Potassium 3.9, Chloride 104, Carbon Dioxide 33.0 H, Anion Gap 4 L, BUN 25 H, Creatinine 1.03, Estim Creat Clear Calc 46.77, Est GFR (MDRD) Af Amer 88, Est GFR (MDRD) Non-Af 72, BUN/Creatinine Ratio 24.3 H, Glucose 179 H, Calcium 9.5, Total Bilirubin 0.30, AST 17, ALT 7 L, Alkaline Phosphatase 63, Total Protein 7.6, Albumin 3.6, Globulin 4.0, Albumin/Globulin Ratio 0.9, Lipase 604 H 07/15/24 18:20: Lactic Acid 2.4 H* 07/15/24 18:45: Urine Color Yellow, Urine Clarity Clear, Urine pH 7.0, Ur Specific [place] 1.005, Urine Protein 15 H, Urine Glucose (UA) Normal, Urine Ketones Negative, Urine Occult Blood Negative, Urine Nitrite Negative, Urine Bilirubin Negative, Urine Urobilinogen Normal, Ur Leukocyte Esterase Negative, Urine RBC 0 SEEN, Urine WBC 0 SEEN, Ur Squamous Epith Cells 0 SEEN, Urine Bacteria 0 SEEN, Hyaline Casts 0-5 SEEN, Urine Mucus 0 SEEN Imaging Radiology Impression Abdomen/Pelvis CT 07/15/24 18:49 IMPRESSION: Findings suspicious for small bowel obstruction with no obvious transition point. Electronically Signed: Ameya Bermudez MD at 20:39 EDT , Charges/Coding Procedures Hospitalists Procedures: 67960 Advncd Care Plan 30 Min Multi Select Codes Visit Charges Office Visit/Consults: 42230 IP Consult L4
--- NOTE | 2024-07-15 22:07 | ED.RN ---
2047 kub was done and showed the the ng was looped and not in the right position. Attempted multiple time to reinsert and place the ng,was unsucessful. pt's pulse ox at about 2130 dropped to [address] on nasal cannula. pt was a mouth breather so non-rebreather placed to get pulse ox to [address] Stroud at the bedside trying to place Ng and was unsucessful as well.
[2024-07-15 22:24] LABS: Reflex Lactate? Y
--- NOTE | 2024-07-15 22:41 | PRE.ANES_ITS ---
ASA Classification* ASA Classification ASA Classification: 3 and E Assessment & Plan Anesthesia* Anesthesia Assessment Anesthesia Assessment: Discussed sedation and/or anesthesia options, risks, benefits, and alternatives with patient/parents/legal guardian/POA. Questions invited. The patient/parents/legal guardian/POA seems to understand and agrees to proceed with anesthesia plan. Reviewed the physical assessment, medical history, allergy history and patient home medications list prior to surgery/procedure/anesthetic and documented any changes. Performed airway and anesthesia risk assessments. Anesthesia Type Anesthesia Type: General (see written pre anesthesia record for full assessment) Anesthesia Focused Assessment* Temperature: 98.0 F Pulse Rate: 98 Blood Pressure: 149/59 Respiratory Rate: 20 Pulse Ox: 98 Airway Assessment Mouth opens: >3 cm Mallampati Score: II Focused Labs Anesthesia Preop lab: CBC WBC 4.7 K/mm3 (4.4-11.0) 07/15/24 18:10 RBC 4.52 M/mm3 (4.6-6.2) L 07/15/24 18:10 Hgb 14.4 g/dL (13.0-16.5) 07/15/24 18:10 Hct 44.3 % (40-54) 07/15/24 18:10 Plt Count 226 K/mm3 (150-450) 07/15/24 18:10 CHEMISTRY Potassium 3.9 mmol/L (3.5-5.1) 07/15/24 18:10 Sodium 141 mmol/L (136-145) 07/15/24 18:10 Magnesium 2.0 mg/dL (1.6-2.6) 10/08/23 10:19 Phosphorus 2.5 mg/dL (2.5-4.9) 10/08/23 10:19 BUN 25 mg/dL (7-18) H 07/15/24 18:10 Creatinine 1.03 mg/dL (0.70-1.30) 07/15/24 18:10 Glucose 179 mg/dL (74-106) H 07/15/24 18:10 POC Glucose 90 mg/dL (70-110) 04/19/17 13:05 TSH 0.91 uIU/mL (0.358-3.74) 03/05/23 15:03 COAG PT 13.7 SECONDS (11.7-14.9) 10/19/19 21:40 Pre-Assessment Diagnosis/Proposed Procedure Planned Operative Procedure(s): exp lap Anesthesia History Anesthesia History - personal banking representative: Anesthesia History - personal banking representative Hx Hospitalization No 10/31/20 09:13 Any Problems With Anesthesia No 07/15/24 20:58 Cholinesterase deficiency No 07/15/24 20:58 You/Your Family Experience No 07/15/24 20:58 fever (hyperthermia) with Relationship Recent Exposure to Contagious No 07/15/24 20:58 Disease Does patient have nerve No 07/15/24 20:58 stimulator Patient instructed to have No 07/15/24 20:58 device shut off --Does patient have Pacemaker No 07/15/24 20:58 or ICD? When Was Last Pacemaker Check QUESTION #4 FULL TEXT: You/Your Family Experience fever (hyperthermia) with Anesthesia Last Oral Intake Last Oral intake: Last Oral Intake NPO since 15:00 07/15/24 20:58 Meds taken in AM with sips of No 07/15/24 20:58 water? Meds patient instructed to take am of surgery PONV PONV - personal banking representative: PONV - personal banking representative Female HX of Motion Sickness HX of N/V After Surgery Non-Smoker Duration of Surgery greater than 60 minutes Number of Risk Factors PONV Score Height & Weight Height & Weight: Anesthesia: Height & Weight Height 5 ft 10 in 07/15/24 20:58 Weight: 66.7 kg 07/15/24 20:58 Body Mass Index (BMI) 21.1 07/15/24 20:58 Respiratory Assessment Respiratory Assessment - personal banking representative: Respiratory Tract Infection Hx - personal banking representative Hx Respiratory Tract Infection No 07/15/24 20:58 STOP Sleep Apnea STOP Sleep Apnea - personal banking representative: STOP Sleep Apnea - personal banking representative Hx Hypertension No 07/15/24 20:58 Hx Sleep Apnea No 07/15/24 20:58 CPAP No 10/31/20 09:13 BIPAP No 10/31/20 09:13 Do you snore loudly (louder No 07/15/24 20:58 than talking or can be heard Do you often feel tired/ No 07/15/24 20:58 fatigued/ sleepy during daytime? Has anyone observed you stop No 07/15/24 20:58 breathing during sleep? STOP Results Negative 07/15/24 20:58 QUESTION #5 FULL TEXT : Do you snore loudly (louder than talking or can be heard through closed doors)? 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 Specify any problems Hx of Preganancy in last 3 Months Nurse Filling Out Transfusion & Questions: Date: Time: Patient unable to answer at this time (ie. confused, unrespo /Reproduction History /Reproductive History - personal banking representative: /Reproductive Hx- personal banking representative Hx Now No 07/15/24 20:58 Gestational Age (in weeks): EDC: Hx Hx Para Hx Section SAB No 07/15/24 20:58 PFSH Medical History Fatigue Pure hypercholesterolemia Essential (primary) hypertension Atherosclerosis of [place] coronary artery of [place] heart without angina pectoris Preop cardiovascular exam GERD (gastroesophageal reflux disease) BPH (benign prostatic hyperplasia) Hiatal hernia Asthma Bradycardia Chest pain, precordial Abnormal result of cardiovascular function study, unspecified Fatigue Cough Angina pectoris Abnormal electrocardiogram Vasovagal syncope Dizziness Home Medications ?Medication ?Instructions ?Recorded ?Last Taken ?Type Protandim 1 tab PO DAILY 11/21/20 Unknown History melatonin 3 mg capsule 3 mg PO HS PRN Sleep 11/21/20 Unknown History multivitamin 1 tab PO DAILY 11/21/20 Unknown History nitroglycerin 0.4 mg sublingual 0.4 mg sublingual Q5M PRN chest 08/27/22 06/28/23 Rx tablet pain #25 tabs aspirin 81 mg tablet,delayed 81 mg PO DAILY 09/28/22 Unknown History release Brain Health Herbal Supplement PO 10/30/22 Unknown History acetaminophen 325 mg tablet 650 mg (2 x 325 mg) PO Q4H PRN PRN 07/03/23 Unknown Rx Pain 1-10/Fever #0 tabs carbidopa ER 50 mg-levodopa 200 mg 1 tab PO BID #180 tabs 06/30/24 Unknown Rx tablet,extended release dicyclomine 10 mg/5 mL oral 20 mg (10 mL) PO BID PRN abdominal 06/30/24 Unknown Rx solution pain #1,800 mL fludrocortisone 0.1 mg tablet 0.1 mg .Route .COMPLEX #42 tabs 06/30/24 Unknown Rx memantine 5 mg tablet 5 mg PO BID #180 tabs 06/30/24 Unknown Rx lisinopril 5 mg tablet 5 mg PO DAILY #90 tabs 07/15/24 Unknown Rx Allergy/AdvReac Type Severity Reaction Status Date / Time No Known Allergies Allergy Verified 07/15/24 18:11 Family History Mother CHF (congestive heart failure) Brother Cancer Prostate cancer Sister Parkinson's disease Surgical History History of total right hip replacement (~06/23/18) History of coronary artery stent placement (05/06/12) History of inguinal hernia repair (~2009) History of appendectomy History of repair of hiatal hernia History of left heart catheterization (LHC) (11/18/13) Social History Smoking Status: Never smoker alcohol intake: never substance use type: does not use caffeine: Yes Type: coffee Number of servings: 3 what type of physical activity do you participate in: bicycling frequency: daily duration: 15-30 minutes/day seatbelt use: always do you feel safe at home: Yes Review of Systems (Anesthesia) ROS Narrative System reviewed and no additional complaints, except as documented.
--- NOTE | 2024-07-15 23:35 | PCM.OPRPT ---
Report of Operation Date of Procedure: 07/15/24 Pre-Operative Diagnosis: Small bowel volvulus causing small bowel obstruction Post-Operative Diagnosis: Same Surgery/Procedure Performed:: Exploratory laparotomy, release of small bowel obstruction, lysis of adhesion Description of Surgical Findings:: Small bowel volvulus Surgeon: Alyssa Carranza county sheriff: [place] Type of Anesthesia: General/Supplemental Anesthesiologist: Romulo Bragg Special Medications: Zosyn 3.375 g IV x 1 given in the ER Specimen's removed: none Drains: none Estimated Blood Loss (mL): 20 cc Description of Procedure: Patient was brought operating placed supine operating table. Timeout was completed verifying correct patient, patient request site, positioning and special equipment prior began procedure. General anesthesia was induced. Abdomen was prepped and draped in usual fashion. Due to patient's tense abdomen even after anesthesia went directly to laparotomy. Midline incision was made with a 10 blade scalpel and deepened with electrocautery to the fascia. The fascia was elevated and incised under direct visualization with Metzenbaums. The small bowel was noted to be very distended. Small bowel was brought out of the abdomen twist of one of the small bowel around mesentery which was able to be untwisted along with some lysis of adhesions. Small bowel was ran no other areas of concern were found. All small bowel was viable. Anesthesia was able to place the NG as it was not able to be placed previously. This did allow us to replace the distended small bowel in the abdomen. Midline incision was closed with running 1 Prolene. Skin was closed with skin tanya. ANIMAL HOSPITAL OFFICE SUPERVISOR assisted in closure. Patient tolerated procedure well was taken intubated to the ICU in stable condition. Complications none
[2024-07-16] VITALS (40 sets, daily range): BP systolic 84–250; BP diastolic 47–128; PULSE 60–92; RESP 12–18; TEMP 36.6–37.9; O2SAT 93–100; BMI 21.0; BMI 20.9
[2024-07-16] MEDS: fentaNYL drip 100 ML 5 MCG CONT INF (00:32)
[2024-07-16] MEDS: Propofol 10MG/Ml 1,000 MG/100 ML Bottle 4 MG CONT INF (00:32)
[2024-07-16] MEDS: Lactated Ringers 1,000 ML 100 ML IV ×2 (00:33→09:47)
[2024-07-16] MEDS: 0.9% Normal Saline (1000mL) 1,000 ML 100 ML IV (00:33)
[2024-07-16 00:39] LABS: Allen Test Positive; Base Excess 0 mmol/L (-2 to +2); Blood Gas Specimen Type ART; Mode AC; O2 Delivery Device ET Tube; PEEP 5; PO2 80 mmHG (75-100); RR 14; SITE R Radial; SO2 95 % (95-99); Total Carbon Dioxide 28 mmol/L; pCO2 48.4 mmHg (35-45); pH 7.34 (7.35-7.45)
--- NOTE | 2024-07-16 00:50 | RAD_ITS ---
INDICATION: NG PLACEMENT EXAMINATION/TECHNIQUE: X-RAY - XR Chest 1 View COMPARISON: Abdominal radiograph previous day. Findings: Single frontal view of the chest. Low lung volumes. Enteric tube tip is approximately 36 mm from the sally. LUNG PARENCHYMA: Left greater than right perihilar patchy airspace disease. PLEURA: No pleural effusion. Bilateral lower chest skinfolds. No pneumothorax. HEART/GREAT VESSELS: Cardiomediastinal silhouette is unremarkable. BONES: Osseous structures are unremarkable for age. UPPER ABDOMEN: Enteric tube tip coils over left upper quadrant with tip overlying left lateral abdomen, sentinel side port well beyond the GE junction. Midline skin tanya. Upper abdominal dilated bowel loops, incompletely imaged. RAD/Chest 1 View (Portable) IMPRESSION: Enteric tube tip coils over left upper quadrant with tip overlying left lateral abdomen, sentinel side port well beyond the GE junction. Enteric tube tip is approximately 36 mm from the sally. Low lung volumes with left greater than right perihilar patchy airspace disease, to include pneumonia. Upper abdominal dilated bowel loops, incompletely imaged, ileus versus bowel obstruction. Electronically Signed: Leonardo Perez MD at 2:54 EDT ,
[2024-07-16] MEDS: hydrALAZINE 20 MG/ML Vial 10 MG IV (01:19)
[2024-07-16 02:46] LABS: CPK Total, Creatine Kinase 90 U/L (39-308); Triglycerides 63 mg/dL
[2024-07-16 02:47] LABS: Lactic Acid 1.3 mmol/L (0.4-1.9)
[2024-07-16 06:27] LABS: Absolute Lymphocyte Count 0.54 X10^3/uL (0.83-4.51); Absolute Neutrophil Count 13.4 X10^3/uL (2.0-7.7); Basophil# 0.02 X10^3/uL; Basophil% 0.1 % (0-1); Hematocrit 39.9 % (40-54); Hemoglobin 12.8 g/dL (13.0-16.5); Lymphocyte # 0.54 X10^3/ul (0.83-4.51); Lymphocyte % 3.6 % (19-41); Mean Corp Hgb Conc 32.1 g/dL (32-36); Mean Corpuscular Hgb 31.3 pg (27.0-32.0); Mean Corpuscular Volume 97.6 fL (80-94); Mean Platelet Vol. 10.5 fl (6.2-12.0); Monocyte# 0.92 X10^3/uL; Monocyte% 6.2 % (0-10); NRBC Flagged by Analyzer 0 % (0-5); Neutrophil # 13.39 X10^3/uL (2.7-7.7); Neutrophil % 89.6 % (47-70); POSITIVE DIFFERENTIAL YES; Platelet Count 245 K/mm3 (150-450); RBC Distribution Width CV 14.1 % (11.6-14.6); RBC Distribution Width SD 50.7 fl (35.1-43.9); Red Blood Count 4.09 M/mm3 (4.6-6.2); White Blood Count 14.9 K/mm3 (4.4-11.0)
[2024-07-16 06:59] LABS: ALB/GLOB Ratio 0.9 RATIO (0.9-2.4); AST(SGOT) 47 U/L (15-37); Alanine Aminotransfer ALT/SGPT 22 U/L (16-61); Albumin, Serum 2.9 g/dL (3.2-5.0); Alkaline Phosphatase 74 U/L (45-117); Anion Gap 4 (5-15); BUN 26 mg/dL (7-18); BUN/Creat Ratio 31.6 RATIO (10-20); Calcium,Total 8.4 mg/dL (8.5-10.1); Chloride 109 mmol/L (98-107); Creatinine, Serum 0.82 mg/dL (0.70-1.30); EST Glomerular Filtration Rate 94 mL/min (>60); Est Glom Filt Rate - Afr Amer 113 mL/min (>60); Estimated Creatinine Clearance 58.31 ml/min; Globulin 3.2 g/dL (2.2-4.2); Glucose 134 mg/dL (74-106); Magnesium 1.8 mg/dL (1.6-2.6); Phosphorus 2.9 mg/dL (2.5-4.9); Potassium 4.5 mmol/L (3.5-5.1); Protein, Total 6.1 g/dL (6.4-8.2); Sodium Level 140 mmol/L (136-145)
--- NOTE | 2024-07-16 07:36 | PCM.PN.SRG ---
Subjective Subjective Patient is currently still intubated. Max fever 100.2 Objective Data Objective Data Vital Signs: Vital Signs Temp Pulse Resp BP Pulse Ox O2 Del Method FiO2 100.2 F H 73 12 158/73 H 95 Mechanical Ventilator 40 07/16/24 07:00 07/16/24 07:00 07/16/24 07:00 07/16/24 07:00 07/16/24 07:00 07/16/24 07:00 07/16/24 07:00 Oxygen Delivery Method Mechanical Ventilator Weight: 145 lb 15.136 oz Body Mass Index (BMI) 20.9 Intake & Output: Intake and Output for Last 24 Hours 07/14/24 07/15/24 07/16/24 23:59 23:59 23:59 Intake Total 1050 / 1050 93.79 / 93.79 Output Total 425 / 425 Balance 1050 / 1050 -331.21 / -331.21 Lab / Micro Data 07/16/24 06:03 07/16/24 06:03 Labs: Laboratory Results - last 24 hr 07/15/24 18:10: WBC 4.7, RBC 4.52 L, Hgb 14.4, Hct 44.3, MCV 98.0 H, MCH 31.9, MCHC 32.5, RDW Std Deviation 49.3 H, RDW Coeff of Rylie 13.7, Plt Count 226, MPV 10.6, Immature Gran % (Auto) 0.800, Neut % (Auto) 47.0, Lymph % (Auto) 36.9, [place] % (Auto) 13.0 H, Eos % (Auto) 1.5, Baso % (Auto) 0.8, Absolute Neuts (auto) 2.2, Absolute Lymphs (auto) 1.74, Nucleated RBC % 0, Sodium 141, Potassium 3.9, Chloride 104, Carbon Dioxide 33.0 H, Anion Gap 4 L, BUN 25 H, Creatinine 1.03, Estim Creat Clear Calc 46.77, Est GFR (MDRD) Af Amer 88, Est GFR (MDRD) Non-Af 72, BUN/Creatinine Ratio 24.3 H, Glucose 179 H, Calcium 9.5, Total Bilirubin 0.30, AST 17, ALT 7 L, Alkaline Phosphatase 63, Total Protein 7.6, Albumin 3.6, Globulin 4.0, Albumin/Globulin Ratio 0.9, Lipase 604 H 07/15/24 18:20: Lactic Acid 2.4 H* 07/15/24 18:45: Urine Color Yellow, Urine Clarity Clear, Urine pH 7.0, Ur Specific [place] 1.005, Urine Protein 15 H, Urine Glucose (UA) Normal, Urine Ketones Negative, Urine Occult Blood Negative, Urine Nitrite Negative, Urine Bilirubin Negative, Urine Urobilinogen Normal, Ur Leukocyte Esterase Negative, Urine RBC 0 SEEN, Urine WBC 0 SEEN, Ur Squamous Epith Cells 0 SEEN, Urine Bacteria 0 SEEN, Hyaline Casts 0-5 SEEN, Urine Mucus 0 SEEN 07/16/24 02:10: Lactic Acid 1.3, Total Creatine Kinase 90, Triglycerides 63 07/16/24 06:03: WBC 14.9 H, RBC 4.09 L, Hgb 12.8 L, Hct 39.9 L, MCV 97.6 H, MCH 31.3, MCHC 32.1, RDW Std Deviation 50.7 H, RDW Coeff of Rylie 14.1, Plt Count 245, MPV 10.5, Immature Gran % (Auto) 0.500, Neut % (Auto) 89.6 H, Lymph % (Auto) 3.6 L, [place] % (Auto) 6.2, Eos % (Auto) 0.0, Baso % (Auto) 0.1, Absolute Neuts (auto) 13.4 H, Absolute Lymphs (auto) 0.54 L, Nucleated RBC % 0, Sodium 140, Potassium 4.5, Chloride 109 H, Carbon Dioxide 27.0, Anion Gap 4 L, BUN 26 H, Creatinine 0.82, Estim Creat Clear Calc 58.31, Est GFR (MDRD) Af Amer 113, Est GFR (MDRD) Non-Af 94, BUN/Creatinine Ratio 31.6 H, Glucose 134 H, Calcium 8.4 L, Phosphorus 2.9, Magnesium 1.8, Total Bilirubin 0.50, AST 47 H, ALT 22, Alkaline Phosphatase 74, Total Protein 6.1 L, Albumin 2.9 L, Globulin 3.2, Albumin/Globulin Ratio 0.9 ABG Data ABG results: ABG 07/16/24 00:36 Specimen Type ART Sample Site R Radial pH 7.34 L Bicarbonate Actual 26.0 Total CO2 28 Base Excess 0 O2 Saturation 95 O2 % 50.0 ABG pCO2 48.4 H ABG pO2 80 Oskar Test Positive Respiration Rate 14 O2 Delivery Device ET Tube Vent Mode AC Tidal Volume 450.0 POC PEEP 5 Radiography Diagnostic Testing: Radiology Impression Abdomen/Pelvis CT 07/15/24 18:49 IMPRESSION: Findings suspicious for small bowel obstruction with no obvious transition point. Electronically Signed: Ameya Bermudez MD at 20:39 EDT , ADDENDUM: 07/15/247 IMPRESSION: Findings suspicious for small bowel obstruction with no obvious transition point. N.B. : Edwin Aguila MD, confirmed on 07/15/2024 22:30:16 (ET) that the healthcare facility has received the radiology report. Electronically Signed: Ameya Bermudez MD at 20:39 EDT , KUB X-Ray 07/15/24 21:20 IMPRESSION: NG tube looped in the esophagus and should be repositioned. Abnormal bowel loops consistent with obstruction. Electronically Signed: Flavio Olvera MD at 21:39 EDT , KUB X-Ray 07/15/24 21:25 IMPRESSION: Abnormal position of NG tube with tip likely at the gastroesophageal junction. Electronically Signed: Ameya Bermudez MD at 22:48 EDT , KUB X-Ray 07/15/24 21:25 IMPRESSION: Incorrect position of NG tube with tip likely in the right mainstem bronchus. Electronically Signed: Ameya Bermudez MD at 22:46 EDT , KUB X-Ray 07/15/24 21:25 IMPRESSION: Abnormal position of NG tube with tip likely at the gastroesophageal junction. Electronically Signed: Ameya Bermudez MD at 22:50 EDT Reading Location ID and State: [facility] / [place] Tel , Service support , KUB X-Ray 07/15/24 21:25 IMPRESSION: Abnormal position of NG tube with tip likely at the gastroesophageal junction. Electronically Signed: Ameya Bermudez MD at 22:48 EDT Reading Location ID and State: [facility] / [place] Tel , Service support , KUB X-Ray 07/15/24 21:25 IMPRESSION: Incorrect position of NG tube with tip likely in the right mainstem bronchus. Electronically Signed: Ameya Bermudez MD at 22:46 EDT Reading Location ID and State: [facility] / [place] Tel , Service support , KUB X-Ray 07/15/24 21:25 IMPRESSION: Abnormal position of NG tube with tip likely at the gastroesophageal junction. Electronically Signed: Ameya Bermudez MD at 22:49 EDT , Chest X-Ray 07/16/24 00:50 IMPRESSION: Enteric tube tip coils over left upper quadrant with tip overlying left lateral abdomen, sentinel side port well beyond the GE junction. Enteric tube tip is approximately 36 mm from the sally. Low lung volumes with left greater than right perihilar patchy airspace disease, to include pneumonia. Upper abdominal dilated bowel loops, incompletely imaged, ileus versus bowel obstruction. Electronically Signed: Leonardo Perez MD at 2:54 EDT , Physical Exam Narrative Patient intubated and sedated NG and ET tube in place GI soft to palpation GI Narrative: Mild distention Assessment & Plan Assessment/Plan (1) S/P exploratory laparotomy: PLAN: Plan ICU consulted appreciate their help with ICU care/extubation. Continue n.p.o./NG/IV fluids until patient has bowel function. Patient will likely need enemas due to previous constipation as that is chronic and does show up on CAT scan. white blood counts 14.9 we will plan to restart Zosyn. Patient hospitalist assistance with medical management as well. Alyssa Carranza M.D. Pager: [phone] [facility] [address] [place] [address], [address] [place] [address] Office: [phone]
[2024-07-16 07:41] LABS: Allen Test Positive; Base Excess 3 mmol/L (-2 to +2); Bicarbonate 27.5 mmol/L (22-26); Blood Gas Specimen Type ART; Mode AC; O2 Delivery Device Adult Vent; PEEP 5; PO2 65 mmHG (75-100); RR 12; SITE L Radial; SO2 93 % (95-99); Total Carbon Dioxide 29 mmol/L; pCO2 41.8 mmHg (35-45); pH 7.43 (7.35-7.45)
--- NOTE | 2024-07-16 07:58 | PCM.PN.HOSP ---
Reason for Visit Reason for Visit: Diagnoses Parkinson's disease without dyskinesia, without mention of fluctuations (07/15/24) Volvulus (07/15/24) Unspecified intestinal obstruction, unspecified as to partial versus complete obstruction (07/15/24) Other specified postprocedural states (07/15/24) Objective Data Objective Data Vital Signs: Vital Signs Temp Pulse Resp BP Pulse Ox O2 Del Method FiO2 100.2 F H 73 12 158/73 H 95 Mechanical Ventilator 40 07/16/24 07:00 07/16/24 07:00 07/16/24 07:00 07/16/24 07:00 07/16/24 07:00 07/16/24 07:00 07/16/24 07:00 Oxygen Delivery Method Mechanical Ventilator Weight: 145 lb 15.136 oz Body Mass Index (BMI) 20.9 Intake & Output: Intake and Output for Last 24 Hours 07/14/24 07/15/24 07/16/24 23:59 23:59 23:59 Intake Total 1050 / 1050 93.79 / 93.79 Output Total 425 / 425 Balance 1050 / 1050 -331.21 / -331.21 Lab / Micro Data 07/16/24 06:03 07/16/24 06:03 Labs: Laboratory Results - last 24 hr 07/15/24 18:10: WBC 4.7, RBC 4.52 L, Hgb 14.4, Hct 44.3, MCV 98.0 H, MCH 31.9, MCHC 32.5, RDW Std Deviation 49.3 H, RDW Coeff of Rylie 13.7, Plt Count 226, MPV 10.6, Immature Gran % (Auto) 0.800, Neut % (Auto) 47.0, Lymph % (Auto) 36.9, [place] % (Auto) 13.0 H, Eos % (Auto) 1.5, Baso % (Auto) 0.8, Absolute Neuts (auto) 2.2, Absolute Lymphs (auto) 1.74, Nucleated RBC % 0, Sodium 141, Potassium 3.9, Chloride 104, Carbon Dioxide 33.0 H, Anion Gap 4 L, BUN 25 H, Creatinine 1.03, Estim Creat Clear Calc 46.77, Est GFR (MDRD) Af Amer 88, Est GFR (MDRD) Non-Af 72, BUN/Creatinine Ratio 24.3 H, Glucose 179 H, Calcium 9.5, Total Bilirubin 0.30, AST 17, ALT 7 L, Alkaline Phosphatase 63, Total Protein 7.6, Albumin 3.6, Globulin 4.0, Albumin/Globulin Ratio 0.9, Lipase 604 H 07/15/24 18:20: Lactic Acid 2.4 H* 07/15/24 18:45: Urine Color Yellow, Urine Clarity Clear, Urine pH 7.0, Ur Specific [place] 1.005, Urine Protein 15 H, Urine Glucose (UA) Normal, Urine Ketones Negative, Urine Occult Blood Negative, Urine Nitrite Negative, Urine Bilirubin Negative, Urine Urobilinogen Normal, Ur Leukocyte Esterase Negative, Urine RBC 0 SEEN, Urine WBC 0 SEEN, Ur Squamous Epith Cells 0 SEEN, Urine Bacteria 0 SEEN, Hyaline Casts 0-5 SEEN, Urine Mucus 0 SEEN 07/16/24 02:10: Lactic Acid 1.3, Total Creatine Kinase 90, Triglycerides 63 07/16/24 06:03: WBC 14.9 H, RBC 4.09 L, Hgb 12.8 L, Hct 39.9 L, MCV 97.6 H, MCH 31.3, MCHC 32.1, RDW Std Deviation 50.7 H, RDW Coeff of Rylie 14.1, Plt Count 245, MPV 10.5, Immature Gran % (Auto) 0.500, Neut % (Auto) 89.6 H, Lymph % (Auto) 3.6 L, [place] % (Auto) 6.2, Eos % (Auto) 0.0, Baso % (Auto) 0.1, Absolute Neuts (auto) 13.4 H, Absolute Lymphs (auto) 0.54 L, Nucleated RBC % 0, Sodium 140, Potassium 4.5, Chloride 109 H, Carbon Dioxide 27.0, Anion Gap 4 L, BUN 26 H, Creatinine 0.82, Estim Creat Clear Calc 58.31, Est GFR (MDRD) Af Amer 113, Est GFR (MDRD) Non-Af 94, BUN/Creatinine Ratio 31.6 H, Glucose 134 H, Calcium 8.4 L, Phosphorus 2.9, Magnesium 1.8, Total Bilirubin 0.50, AST 47 H, ALT 22, Alkaline Phosphatase 74, Total Protein 6.1 L, Albumin 2.9 L, Globulin 3.2, Albumin/Globulin Ratio 0.9 ABG Data ABG results: ABG 07/16/24 07/16/24 00:36 07:37 Specimen Type ART ART Sample Site R Radial L Radial pH 7.34 L 7.43 Bicarbonate Actual 26.0 27.5 H Total CO2 28 29 Base Excess 0 3 H O2 Saturation 95 93 L O2 % 50.0 30.0 ABG pCO2 48.4 H 41.8 ABG pO2 80 65 L Oskar Test Positive Positive Respiration Rate 14 12 O2 Delivery Device ET Tube Adult Vent Vent Mode AC AC Tidal Volume 450.0 450.0 POC PEEP 5 5 Radiography Diagnostic Testing: Radiology Impression Abdomen/Pelvis CT 07/15/24 18:49 IMPRESSION: Findings suspicious for small bowel obstruction with no obvious transition point. Electronically Signed: Ameya Bermudez MD at 20:39 EDT , ADDENDUM: 07/15/242236 IMPRESSION: Findings suspicious for small bowel obstruction with no obvious transition point. N.B. : Edwin Aguila MD, confirmed on 07/15/2024 22:30:16 (ET) that the healthcare facility has received the radiology report. Electronically Signed: Ameya Bermudez MD at 20:39 EDT , KUB X-Ray 07/15/24 21:20 IMPRESSION: NG tube looped in the esophagus and should be repositioned. Abnormal bowel loops consistent with obstruction. Electronically Signed: Flavio Olvera MD at 21:39 EDT , KUB X-Ray 07/15/24 21:25 IMPRESSION: Abnormal position of NG tube with tip likely at the gastroesophageal junction. Electronically Signed: Ameya Bermudez MD at 22:48 EDT , KUB X-Ray 07/15/24 21:25 IMPRESSION: Incorrect position of NG tube with tip likely in the right mainstem bronchus. Electronically Signed: Ameya Bermudez MD at 22:46 EDT , KUB X-Ray 07/15/24 21:25 IMPRESSION: Abnormal position of NG tube with tip likely at the gastroesophageal junction. Electronically Signed: Ameya Bermudez MD at 22:50 EDT Reading Location ID and State: [facility] / [place] Tel , Service support , KUB X-Ray 07/15/24 21:25 IMPRESSION: Abnormal position of NG tube with tip likely at the gastroesophageal junction. Electronically Signed: Ameya Bermudez MD at 22:48 EDT , KUB X-Ray 07/15/24 21:25 IMPRESSION: Incorrect position of NG tube with tip likely in the right mainstem bronchus. Electronically Signed: Ameya Bermudez MD at 22:46 EDT , KUB X-Ray 07/15/24 21:25 IMPRESSION: Abnormal position of NG tube with tip likely at the gastroesophageal junction. Electronically Signed: Ameya Bermudez MD at 22:49 EDT , Chest X-Ray 07/16/24 00:50 IMPRESSION: Enteric tube tip coils over left upper quadrant with tip overlying left lateral abdomen, sentinel side port well beyond the GE junction. Enteric tube tip is approximately 36 mm from the sally. Low lung volumes with left greater than right perihilar patchy airspace disease, to include pneumonia. Upper abdominal dilated bowel loops, incompletely imaged, ileus versus bowel obstruction. Electronically Signed: Leonardo Perez MD at 2:54 EDT , Physical Exam Narrative Seen and examined. Patient is intubated on ventilator. Had laparotomy last night. Wynn catheter. Low-grade fever, Tmax 100.3 F Physical exam General: Drowsy, lightly sedated HEENT: Atraumatic, PERRLA, EOMI, Normocephalic Oral: ET and OG tube Neck: Supple, No JVD, Negative Carotid Bruits Chest wall/Lungs: Air entry diminished in bilateral lung bases. On vent support Cardiovascular: Sinus rhythm, Normal S1, Normal S2, No M/G/R Abdomen: Bowel Sounds absent. Surgical dressing dry. : Wynn catheter, dark-colored urine no renal angle tenderness. No suprapubic tenderness. Extremities: No edema, Capillary Refill Less than 3 Seconds Skin: No rashes, No breakdown Musculoskeletal: No Tenderness to Palpation of Joints or Extremities Neurological: Nonfocal exam. On light sedation. Detailed neuroexam unobtainable Psych/Mental Status: Lightly sedated Assessment & Plan Assessment/Plan (1) Small bowel obstruction: PLAN: Plan The patient is an 89 y/o [employer] gentleman was admitted for abdominal pain, progressed over 2 to 3 days with no bowel movement, and decreased flatus. CT abdomen pelvis showed SBO with no obvious transition point but the surgeon felt transition in the mid jejunum. In the past patient had previous small bowel volvulus on 07/05 in 10/04 both required OR with laparoscopic surgery but no bowel resection. #1. 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 He had exploratory laparotomy, release of small bowel obstruction and adhesiolysis. Surgical care as per the surgeon. No bowel sounds. Midline abdominal surgical dressing is dry. No drain. 2. Suspected intra-abdominal infection/suspected pneumonia: Mild leukocytosis but chest x-ray initially reviewed and shows left greater than right perihilar patchy airspace opacity. Prelim sputum culture shows 4+ WBC, 2+ GPC, 2+ Gram variable rods. Patient might have intra-abdominal infection with volvulus of the small bowel was viable. Continue broad-spectrum antibiotic 3. Acute hypoxic respiratory failure: Patient on assist mode of ventilator. Vent requirements are minimal. 4. 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 Resume Sinemet once oral 12 5. Hypertension and: Blood pressure in normal range. Hold oral antihypertensive medications 6. History CVA: Once oral intake is allowed and status post OR allowance would recommend continuation of aspirin therapy, will hold for the moment given recent intervention, continue hypertensive regimen, not on statin therapy per current list but clarifying. 7 CAD: Status post PCI, resume cardiac medications including aspirin 1 over respiratory 8. BPH: Wynn catheter. Flomax once oral permitted and bowel function returns normal 9. Chronic asthma: Not on any chronic regimen, w PRN albuterol, HOB, IS parameters. 10. GERD: on IV PPI. DVT prophylaxis: SCDs, chemoprophylaxis per surgery discretion given recent OR. CODE status: Patient HCPOA is his his daughter who is present but uncertain if living will is in place]. Discussed CODE status at length including difference between FULL code, DNR-CCA and DNR-CC status. Following discussions about the differences in these status, requested DNR-CCA, no intubation status. Advanced Care Planning Face to Face Time: 16 minutes. Charges/Coding Visit Charges Inpatient E&M: 95754 Subs Hosp L3
[2024-07-16] MEDS: Piperacil/Tazobactam 3.375 GM in 0.9% Normal Saline (50mL MB+) 50 ML IV ×3 (08:22→20:53)
[2024-07-16] MEDS: 0.9% Normal Saline (250mL Bag) 250 ML 15 ML IV (08:22)
[2024-07-16] MEDS: Chlorhexidine 15 ML PO ×2 (08:23→20:04)
--- NOTE | 2024-07-16 08:26 | CON.PCM.CC_ITS ---
Assessment & Plan Assessment/Plan (1) Acute respiratory failure: PLAN: Plan RECOMMENDATIONS: 1. Continue assist-control mode mechanical ventilation. Wean FiO2 and PEEP to maintain saturations at or above 90%. 2. Start empiric antimicrobials. Obtain and send sputum for culture. 3. Obtain follow-up ABG this morning. 4. Continue propofol and fentanyl for sedation. 5. Continue appropriate ICU prophylaxis. 6. Plan to begin spontaneous awakening and breathing trials beginning tomorrow. IMPRESSIONS: 1. Acute respiratory failure The patient was left intubated following his surgical procedure apparently because he did not meet extubation criteria due to the fact that he was not following commands, which I assume was due to the lack of time allowed for the patient to emerge from anesthesia. He was therefore transferred to the medical intensive care unit with his endotracheal tube in place. He does have a questionable right perihilar airspace opacity and a low-grade fever along with an elevated white blood cell count. Therefore, he was placed empirically on antibiotics. Sputum culture will be obtained along with follow-up ABG. His vent requirements are minimal. Therefore, we will plan to proceed with spontaneous awakening and breathing trials beginning tomorrow. 2. Small bowel volvulus causing SBO, now postop day #1 status post ex lap and release of small bowel obstruction Continue routine postoperative care per general surgery recommendations. 3. History of Parkinson's disease/hypertension/hyperlipidemia/history of CVA/coronary artery disease/GERD Complicates care, management, recovery and prognosis. Continue home medications as indicated. TIME: 34 minutes of critical care time, independent of procedures, was spent addressing the patient's acute respiratory failure, small bowel obstruction, review of all data and collaboration with the care team. HPI Consult Data Date of Consult: 07/16/24 HPI Narrative Reason for Consultation: Respiratory failure HPI Narrative: The patient is an 89-year-old male, with a history as outlined below, who presented to the emergency department on July 15 with complaints of abdominal pain. The patient has a history of Parkinson's disease along with previous small bowel volvulus, both in June and September 2023, both of which required laparoscopic surgical intervention without bowel resection. History pertinent to the patient's hospitalization was obtained primarily via chart review, as the patient is currently intubated and mechanically ventilated. On presentation to the emergency department, the patient was documented to be afebrile but was tachycardic and tachypneic. Laboratory evaluation demonstrated a normal white blood cell count. Chemistry profile was notable for a bicarbonate of 33 and normal creatinine. Lactate was mildly elevated at 2.4. Urine analysis was unremarkable. CT abdomen/pelvis demonstrated findings concerning for small bowel obstruction. The patient was evaluated by general surgery and ultimately taken to the OR this morning, where he underwent exploratory laparotomy with release of small bowel obstruction and lysis of adhesions. The patient was not extubated following the procedure. According to anesthesia documentation, the patient was left intubated as he did not follow commands following emergence from anesthesia. He was subsequently transferred to the medical intensive care unit. Chest x-ray the from this morning demonstrated patchy right perihilar airspace disease. In addition, the patient now has an elevated white blood cell count. Therefore, he was started empirically on antimicrobials. Sputum culture was collected. [facility], [facility] Medical History (Updated 07/16/24 @ 08:[address] Edison Barrow, DO) Fatigue Pure hypercholesterolemia Essential (primary) hypertension Atherosclerosis of [place] coronary artery of [place] heart without angina pectoris Preop cardiovascular exam GERD (gastroesophageal reflux disease) BPH (benign prostatic hyperplasia) Hiatal hernia Asthma Bradycardia Chest pain, precordial Abnormal result of cardiovascular function study, unspecified Fatigue Cough Angina pectoris Abnormal electrocardiogram Vasovagal syncope Dizziness Home Medications ?Medication ?Instructions ?Recorded ?Last Taken ?Type Protandim 1 tab PO DAILY 11/21/20 Unknown History melatonin 3 mg capsule 3 mg PO HS PRN Sleep 11/21/20 Unknown History multivitamin 1 tab PO DAILY 11/21/20 Unknown History nitroglycerin 0.4 mg sublingual 0.4 mg sublingual Q5M PRN chest 08/27/22 06/28/23 Rx tablet pain #25 tabs aspirin 81 mg tablet,delayed 81 mg PO DAILY 09/28/22 Unknown History release Brain Health Herbal Supplement PO 10/30/22 Unknown History acetaminophen 325 mg tablet 650 mg (2 x 325 mg) PO Q4H PRN PRN 07/03/23 Unknown Rx Pain 1-10/Fever #0 tabs carbidopa ER 50 mg-levodopa 200 mg 1 tab PO BID #180 tabs 06/30/24 Unknown Rx tablet,extended release dicyclomine 10 mg/5 mL oral 20 mg (10 mL) PO BID PRN abdominal 06/30/24 Unknown Rx solution pain #1,800 mL fludrocortisone 0.1 mg tablet 0.1 mg .Route .COMPLEX #42 tabs 06/30/24 Unknown Rx memantine 5 mg tablet 5 mg PO BID #180 tabs 06/30/24 Unknown Rx lisinopril 5 mg tablet 5 mg PO DAILY #90 tabs 07/15/24 Unknown Rx Allergy/AdvReac Type Severity Reaction Status Date / Time No Known Allergies Allergy Verified 07/15/24 18:11 Family History Mother CHF (congestive heart failure) Brother Cancer Prostate cancer Sister Parkinson's disease Surgical History (Updated 07/16/24 @ 07:[address] Alyssa Carranza MD) S/P exploratory laparotomy History of total right hip replacement (~06/23/18) History of coronary artery stent placement (05/06/12) History of inguinal hernia repair (~2009) History of appendectomy History of repair of hiatal hernia History of left heart catheterization (LHC) (11/18/13) Social History Smoking Status: Never smoker alcohol intake: never substance use type: does not use caffeine: Yes Type: coffee Number of servings: 3 what type of physical activity do you participate in: bicycling frequency: daily duration: 15-30 minutes/day seatbelt use: always do you feel safe at home: Yes ROS Review of Systems ROS Unobtainable: due to endotracheal tube Physical Exam Const Constitutional Narrative: Intubated, sedated and mechanically ventilated. No ventilator dyssynchrony noted. HEENT normocephalic and head/scalp atraumatic HEENT Narrative: Nasogastric tube in place. Mouth: endotracheal tube in place Eyes EOMs intact bilaterally and conjunctivae normal Neck supple General: trachea midline Chest inspection of chest normal Resp normal respiratory effort Auscultation: Negative for rales, rhonchi or wheezes Cardio regular rate and regular rhythm GI soft to palpation GI Narrative: Surgical dressing in place. Extremity no clubbing, cyanosis or edema Skin no rashes or lesions noted Neuro Sensorium / Orientation: sedated on vent Lab / Micro Data 07/16/24 06:03 07/16/24 06:03 Labs: Laboratory Results - last 24 hr 07/15/24 18:10: WBC 4.7, RBC 4.52 L, Hgb 14.4, Hct 44.3, MCV 98.0 H, MCH 31.9, MCHC 32.5, RDW Std Deviation 49.3 H, RDW Coeff of Rylie 13.7, Plt Count 226, MPV 10.6, Immature Gran % (Auto) 0.800, Neut % (Auto) 47.0, Lymph % (Auto) 36.9, M mic % (Auto) 13.0 H, Eos % (Auto) 1.5, Baso % (Auto) 0.8, Absolute Neuts (auto) 2.2, Absolute Lymphs (auto) 1.74, Nucleated RBC % 0, Sodium 141, Potassium 3.9, Chloride 104, Carbon Dioxide 33.0 H, Anion Gap 4 L, BUN 25 H, Creatinine 1.03, Estim Creat Clear Calc 46.77, Est GFR (MDRD) Af Amer 88, Est GFR (MDRD) Non-Af 72, BUN/Creatinine Ratio 24.3 H, Glucose 179 H, Calcium 9.5, Total Bilirubin 0.30, AST 17, ALT 7 L, Alkaline Phosphatase 63, Total Protein 7.6, Albumin 3.6, Globulin 4.0, Albumin/Globulin Ratio 0.9, Lipase 604 H 07/15/24 18:20: Lactic Acid 2.4 H* 07/15/24 18:45: Urine Color Yellow, Urine Clarity Clear, Urine pH 7.0, Ur Specific [place] 1.005, Urine Protein 15 H, Urine Glucose (UA) Normal, Urine Ketones Negative, Urine Occult Blood Negative, Urine Nitrite Negative, Urine Bilirubin Negative, Urine Urobilinogen Normal, Ur Leukocyte Esterase Negative, Urine RBC 0 SEEN, Urine WBC 0 SEEN, Ur Squamous Epith Cells 0 SEEN, Urine Bacteria 0 SEEN, Hyaline Casts 0-5 SEEN, Urine Mucus 0 SEEN 07/16/24 02:10: Lactic Acid 1.3, Total Creatine Kinase 90, Triglycerides 63 07/16/24 06:03: WBC 14.9 H, RBC 4.09 L, Hgb 12.8 L, Hct 39.9 L, MCV 97.6 H, MCH 31.3, MCHC 32.1, RDW Std Deviation 50.7 H, RDW Coeff of Rylie 14.1, Plt Count 245, MPV 10.5, Immature Gran % (Auto) 0.500, Neut % (Auto) 89.6 H, Lymph % (Auto) 3.6 L, [place] % (Auto) 6.2, Eos % (Auto) 0.0, Baso % (Auto) 0.1, Absolute Neuts (auto) 13.4 H, Absolute Lymphs (auto) 0.54 L, Nucleated RBC % 0, Sodium 140, Potassium 4.5, Chloride 109 H, Carbon Dioxide 27.0, Anion Gap 4 L, BUN 26 H, Creatinine 0.82, Estim Creat Clear Calc 58.31, Est GFR (MDRD) Af Amer 113, Est GFR (MDRD) Non-Af 94, BUN/Creatinine Ratio 31.6 H, Glucose 134 H, Calcium 8.4 L, Phosphorus 2.9, Magnesium 1.8, Total Bilirubin 0.50, AST 47 H, ALT 22, Alkaline Phosphatase 74, Total Protein 6.1 L, Albumin 2.9 L, Globulin 3.2, Albumin/Globulin Ratio 0.9 ABG Data ABG results: ABG 07/16/24 07/16/24 00:36 07:37 Specimen Type ART ART Sample Site R Radial L Radial pH 7.34 L 7.43 Bicarbonate Actual 26.0 27.5 H Total CO2 28 29 Base Excess 0 3 H O2 Saturation 95 93 L O2 % 50.0 30.0 ABG pCO2 48.4 H 41.8 ABG pO2 80 65 L Oskar Test Positive Positive Respiration Rate 14 12 O2 Delivery Device ET Tube Adult Vent Vent Mode AC AC Tidal Volume 450.0 450.0 POC PEEP 5 5 Imaging Radiology Impression Abdomen/Pelvis CT 07/15/24 18:49 IMPRESSION: Findings suspicious for small bowel obstruction with no obvious transition point. Electronically Signed: Ameya Bermudez MD at 20:39 EDT , ADDENDUM: 07/15/242236 IMPRESSION: Findings suspicious for small bowel obstruction with no obvious transition point. N.B. : Edwin Aguila MD, confirmed on 07/15/2024 22:30:16 (ET) that the healthcare facility has received the radiology report. Electronically Signed: Ameya Bermudez MD at 20:39 EDT , KUB X-Ray 07/15/24 21:20 IMPRESSION: NG tube looped in the esophagus and should be repositioned. Abnormal bowel loops consistent with obstruction. Electronically Signed: Flavio Olvera MD at 21:39 EDT , KUB X-Ray 07/15/24 21:25 IMPRESSION: Abnormal position of NG tube with tip likely at the gastroesophageal junction. Electronically Signed: Ameya Bermudez MD at 22:48 EDT , KUB X-Ray 07/15/24 21:25 IMPRESSION: Incorrect position of NG tube with tip likely in the right mainstem bronchus. Electronically Signed: Ameya Bermudez MD at 22:46 EDT , KUB X-Ray 07/15/24 21:25 IMPRESSION: Abnormal position of NG tube with tip likely at the gastroesophageal junction. Electronically Signed: Ameya Bermudez MD at 22:50 EDT , KUB X-Ray 07/15/24 21:25 IMPRESSION: Abnormal position of NG tube with tip likely at the gastroesophageal junction. Electronically Signed: Ameya Bermudez MD at 22:48 EDT , KUB X-Ray 07/15/24 21:25 IMPRESSION: Incorrect position of NG tube with tip likely in the right mainstem bronchus. Electronically Signed: Ameya Bermudez MD at 22:46 EDT , KUB X-Ray 07/15/24 21:25 IMPRESSION: Abnormal position of NG tube with tip likely at the gastroesophageal junction. Electronically Signed: Ameya Bermudez MD at 22:49 EDT , Chest X-Ray 07/16/24 00:50 IMPRESSION: Enteric tube tip coils over left upper quadrant with tip overlying left lateral abdomen, sentinel side port well beyond the GE junction. Enteric tube tip is approximately 36 mm from the sally. Low lung volumes with left greater than right perihilar patchy airspace disease, to include pneumonia. Upper abdominal dilated bowel loops, incompletely imaged, ileus versus bowel obstruction. Electronically Signed: Leonardo Perez MD at 2:54 EDT , Charges/Coding Procedures Hospitalists Procedures: [id number] Critical Care 1st Hr
[2024-07-16 08:39] LABS: Hemoglobin A1c 5.8 % (3.8-5.6)
--- NOTE | 2024-07-16 08:50 | CASEMGMT ---
RN CM Assessment Face to Face with patient for initial transition planning/care coordination assessment. Pt is currently on the mechanical ventilator and unable to answer this RN CM questions for assessment. TC to pt Daughter, Karla at this time. Vianey states that the pt does have a but will not be able to answer this RN TERRANCE questions d/t cognitive impairment. Karla states that she is willing to help answer this RN TERRANCE questions for assessment. Care providers, pharmacy, and demographics verified. Admitting dx: MARICRUZ MILLER Strata: 2 PCP: Hai Ovalle Specialists: Dr. Aysha BOLAÑOS (Neuro) [facility] Insurance: [id number] Prescription Benefit: yes LNOK: Vianey Nury (SELAM), Mckenzie Nury (DIL), Tri Arrington (W) Living Arrangements: Pt lives with his and daughter, Karla, in a 2 story home with a FFSU and 2 steps to enter the home ADLs/IADLs: Pt daughter states that the pt normally requires assistance at home and that the daughter and her siblings + Family are able to provide this support needed Transportation: Pt family. 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 Pt does not wear oxygen at home HHC/SNF: Hx with [facility] and PT through [facility]. denies SNF history Plan: TBD. Today is VD#1. CM and SW to follow. Shadia Resendez RN, CM
[2024-07-16 09:09] LABS: Procalcitonin 0.78 ng/mL (0.00-0.09)
[2024-07-16] MEDS: Enoxaparin 40 MG/0.4 ML Syringe SC (09:45)
[2024-07-16] MEDS: Pantoprazole Sodium 40 MG in 0.9% Normal Saline (100mL MB+) 100 ML 330 MG IV ×2 (11:23→20:05)
[2024-07-16] MEDS: fentaNYL drip 100 ML 7.5 MCG CONT INF (13:10)
[2024-07-16] MEDS: Fludrocortisone Acetate 0.1 MG Tablet 0.05 MG GT (14:02)
[2024-07-16] MEDS: Memantine Hydrochloride 5 MG Tablet GT ×2 (14:02→20:55)
[2024-07-16] MEDS: Propofol 10MG/Ml 1,000 MG/100 ML Bottle 2 MG CONT INF (15:45)
[2024-07-16] MEDS: 0.9% Normal Saline (1000mL) 1,000 ML 999 ML IV (16:13)
[2024-07-16] MEDS: Dextrose 5%-Lactated Ringers 1,000 ML 100 ML IV (20:55)
[2024-07-17] VITALS (37 sets, daily range): BP systolic 94–173; BP diastolic 48–88; PULSE 58–132; RESP 0–18; TEMP 37.2–37.8; O2SAT 92–99; BMI 23.0
[2024-07-17] MEDS: CHLORHEXIDINE GLUC 2% CLOTH 1 EACH TOWELETTE TOPICAL (00:45)
[2024-07-17] MEDS: fentaNYL drip 100 ML 7.5 MCG CONT INF (02:30)
[2024-07-17 05:17] LABS: Absolute Lymphocyte Count 0.86 X10^3/uL (0.83-4.51); Basophil# 0.04 X10^3/uL; Basophil% 0.5 % (0-1); Eosinophil# 0.01 X10^3/uL; Eosinophils% 0.1 % (0-5); Hematocrit 32.2 % (40-54); Lymphocyte # 0.86 X10^3/ul (0.83-4.51); Lymphocyte % 11.1 % (19-41); Mean Corp Hgb Conc 31.1 g/dL (32-36); Mean Corpuscular Hgb 31.3 pg (27.0-32.0); Mean Corpuscular Volume 100.9 fL (80-94); Mean Platelet Vol. 10.9 fl (6.2-12.0); Monocyte% 10.3 % (0-10); NRBC Flagged by Analyzer 0 % (0-5); Neutrophil # 6.01 X10^3/uL (2.7-7.7); Neutrophil % 77.7 % (47-70); Platelet Count 167 K/mm3 (150-450); RBC Distribution Width CV 14.4 % (11.6-14.6); RBC Distribution Width SD 53.2 fl (35.1-43.9); Red Blood Count 3.19 M/mm3 (4.6-6.2); White Blood Count 7.7 K/mm3 (4.4-11.0)
[2024-07-17] MEDS: Piperacil/Tazobactam 3.375 GM in 0.9% Normal Saline (50mL MB+) 50 ML IV ×3 (05:31→20:37)
[2024-07-17 05:32] LABS: Anion Gap 3 (5-15); BUN 28 mg/dL (7-18); BUN/Creat Ratio 27.2 RATIO (10-20); Calcium,Total 7.8 mg/dL (8.5-10.1); Chloride 112 mmol/L (98-107); Creatinine, Serum 1.03 mg/dL (0.70-1.30); EST Glomerular Filtration Rate 72 mL/min (>60); Est Glom Filt Rate - Afr Amer 88 mL/min (>60); Estimated Creatinine Clearance 51.11 ml/min; Glucose 146 mg/dL (74-106); Potassium 4.1 mmol/L (3.5-5.1); Sodium Level 142 mmol/L (136-145)
[2024-07-17] MEDS: Dextrose 5%-Lactated Ringers 1,000 ML 100 ML IV ×2 (06:53→16:45)
[2024-07-17 06:58] LABS: Bedside Glucose 149 mg/dL (74-106)
--- NOTE | 2024-07-17 07:18 | PN.HOSP_ITS ---
Reason for Visit Reason for Visit: Diagnoses Parkinson's disease without dyskinesia, without mention of fluctuations (07/15/24) Acute respiratory failure, unspecified whether with hypoxia or hypercapnia (07/15/24) Volvulus (07/15/24) Unspecified intestinal obstruction, unspecified as to partial versus complete obstruction (07/15/24) Other specified postprocedural states (07/15/24) Objective Data Objective Data Vital Signs: Vital Signs Temp Pulse Resp BP Pulse Ox O2 Del Method FiO2 98.9 F 62 12 112/56 L 97 Mechanical Ventilator 25 07/17/24 07:00 07/17/24 07:13 07/17/24 07:13 07/17/24 07:00 07/17/24 07:13 07/17/24 07:00 07/17/24 07:13 Oxygen Delivery Method Mechanical Ventilator Weight: 160 lb 11.2 oz Body Mass Index (BMI) 23.0 Intake & Output: Intake and Output for Last 24 Hours 07/15/24 07/16/24 07/17/24 23:59 23:59 23:59 Intake Total 1050 / 1050 4771.62 / 4781.12 1122.67 / 1122.67 Output Total 1375 / 1375 119 / 119 Balance 1050 / 1050 3396.62 / 3406.12 1003.67 / 1003.67 Lab / Micro Data 07/17/24 05:09 07/17/24 05:09 Labs: Laboratory Results - last 24 hr 07/15/24 18:13: POC Glucose 149 H 07/16/24 02:10: Lactic Acid 1.3 07/16/24 06:03: Hemoglobin A1c 5.8 H, Procalcitonin 0.78 H 07/17/24 05:09: WBC 7.7, RBC 3.19 L, Hgb 10.0 L, Hct 32.2 L, MCV 100.9 H, MCH 31.3, MCHC 31.1 L, RDW Std Deviation 53.2 H, RDW Coeff of Rylie 14.4, Plt Count 167, MPV 10.9, Immature Gran % (Auto) 0.300, Neut % (Auto) 77.7 H, Lymph % (Auto) 11.1 L, [place] % (Auto) 10.3 H, Eos % (Auto) 0.1, Baso % (Auto) 0.5, Absolute Neuts (auto) 6.0, Absolute Lymphs (auto) 0.86, Nucleated RBC % 0, Sodium 142, Potassium 4.1, Chloride 112 H, Carbon Dioxide 27.0, Anion Gap 3 L, B UN 28 H, Creatinine 1.03, Estim Creat Clear Calc 51.11, Est GFR (MDRD) Af Amer 88, Est GFR (MDRD) Non-Af 72, BUN/Creatinine Ratio 27.2 H, Glucose 146 H, C alcium 7.8 L Micro: Microbiology 07/16/24 00:20 Sputum, Induced/Lukens Gram Stain - Final ABG Data ABG results: ABG 07/16/24 07:37 Specimen Type ART Sample Site L Radial pH 7.43 Bicarbonate Actual 27.5 H Total CO2 29 Base Excess 3 H O2 Saturation 93 L O2 % 30.0 ABG pCO2 41.8 ABG pO2 65 L Oskar Test Positive Respiration Rate 12 O2 Delivery Device Adult Vent Vent Mode AC Tidal Volume 450.0 POC PEEP 5 Radiography Diagnostic Testing: Radiology Impression KUB X-Ray 07/15/24 21:25 IMPRESSION: Abnormal position of NG tube with tip likely at the gastroesophageal junction. Electronically Signed: Ameya Bermudez MD at 22:48 EDT Reading Location ID and State: [facility] / [place] Tel , Service support , KUB X-Ray 07/15/24 21:25 IMPRESSION: Incorrect position of NG tube with tip likely in the right mainstem bronchus. Electronically Signed: Ameya Bermudez MD at 22:46 EDT , KUB X-Ray 07/15/24 21:25 IMPRESSION: Abnormal position of NG tube with tip likely at the gastroesophageal junction. Electronically Signed: Ameya Bermudez MD at 22:50 EDT Reading [facility] [place] Tel , Service support , Physical Exam Narrative Seen and examined. Patient is intubated on ventilator. Had laparotomy on 07/15/2024. Wynn catheter. No fever. Physical exam General: Eyes open but does not understand. No nodding of head or following simple commands. HEENT: Atraumatic, PERRLA, EOMI, Normocephalic Oral: ET and OG tube Neck: Supple, No JVD, Negative Carotid Bruits Chest wall/Lungs: Air entry diminished in bilateral lung bases. On vent support Cardiovascular: Sinus rhythm, Normal S1, Normal S2, No M/G/R Abdomen: Bowel Sounds absent. Surgical dressing dry. : Wynn catheter, 600 mL in last 24 hours no renal angle tenderness. No suprapubic tenderness. Extremities: Bilateral thighs and lower legs edema., Capillary Refill Less than 3 Seconds Skin: No rashes, No breakdown Musculoskeletal: No Tenderness to Palpation of Joints or Extremities. Neurological: Nonfocal exam. On light sedation. Detailed neuroexam unobtainable Psych/Mental Status: Lightly sedated Assessment & Plan Assessment/Plan (1) Small bowel obstruction: PLAN: Plan The patient is an 89 y/o Magdiel gentleman was admitted for abdominal pain, progressed over 2 to 3 days with no bowel movement, and decreased flatus. CT abdomen pelvis showed SBO with no obvious transition point but the surgeon felt transition in the mid jejunum. In the past patient had previous small bowel volvulus on 07/05 in 10/04 both required OR with laparoscopic surgery but no bowel resection. #1. 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 He had exploratory laparotomy, release of small bowel obstruction and adhesiolysis. Surgical care as per the surgeon. No bowel sounds. Midline abdominal surgical dressing is dry. No drain. 07/17 discussed with the surgeon. 2. Suspected intra-abdominal infection/suspected pneumonia: Mild leukocytosis but chest x-ray initially reviewed and shows left greater than right perihilar patchy airspace opacity. Prelim sputum culture shows 4+ WBC, 2+ GPC, 2+ Gram variable rods. Patient might have intra-abdominal infection with volvulus of the small bowel was viable. Continue broad-spectrum antibiotic 3. Acute hypoxic respiratory failure: Patient on assist mode of ventilator. Vent requirements are minimal. 10/5: Patient does not follow commands or nodding head. Discussed with respiratory therapist, he failed NIF and was apneic on spontaneous breathing trial CPAP therefore failed spontaneous breathing trial. Recommend minimal sedative/fentanyl 4. 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 Resume Sinemet once oral 12 5. Hypertension and: Blood pressure in normal range. Hold oral antihypertensive medications 6. History CVA: Once oral intake is allowed and status post OR allowance would recommend continuation of aspirin therapy, will hold for the moment given recent intervention, continue hypertensive regimen, not on statin therapy per current list but clarifying. 7 CAD: Status post PCI, resume cardiac medications including aspirin 1 over respiratory 8. BPH: Wynn catheter. Flomax once oral permitted and bowel function returns normal 10/5: Urine output 600 mL last 24 hours. Creatinine is still normal. Patient is edematous. Positive fluid balance, +5.5 L. Furosemide 40 mg IV 1 dose ordered 9. Chronic asthma: Not on any chronic regimen, w PRN albuterol, HOB, IS parameters. 10. GERD: on IV PPI. DVT prophylaxis: SCDs, chemoprophylaxis per surgery discretion given recent OR. CODE status: Patient HCPOA is his his daughter who is present but uncertain if living will is in place]. Discussed CODE status at length including difference between FULL code, DNR-CCA and DNR-CC status. Following discussions about the differences in these status, requested DNR-CCA, no intubation status. Advanced Care Planning Face to Face Time: 16 minutes. Charges/Coding Visit Charges Inpatient E&M: 53681 [facility] Hosp L3
--- NOTE | 2024-07-17 08:14 | CPS ---
ATTEMPTED TO DO A NIF WHICH PATIENT WOULD NOT INTIATE A BREATH. PATIENT ALSO HAS DEMENTIA. PLACED PATIENT ON CPAP 5/5 AND PATIENT WENT APNEIC IMMEDIATELY. PLACED BACK ON AC.
--- NOTE | 2024-07-17 08:27 | PN.SURG_ITS ---
Subjective Subjective Patient failed a spontaneous breathing trial this morning and went into apnea. Continues to be intubated. Objective Data Objective Data Vital Signs: Vital Signs Temp Pulse Resp BP Pulse Ox O2 Del Method FiO2 98.9 F 62 0 L 112/56 L 97 Mechanical Ventilator 25 07/17/24 07:00 07/17/24 07:13 07/17/24 08:13 07/17/24 07:00 07/17/24 07:13 07/17/24 07:00 07/17/24 07:13 Oxygen Delivery Method Mechanical Ventilator Weight: 160 lb 11.2 oz Body Mass Index (BMI) 23.0 Intake & Output: Intake and Output for Last 24 Hours 07/15/24 07/16/24 07/17/24 23:59 23:59 23:59 Intake Total 1050 / 1050 4771.62 / 4781.12 1122.67 / 1122.67 Output Total 1375 / 1375 119 / 119 Balance 1050 / 1050 3396.62 / 3406.12 1003.67 / 1003.67 Lab / Micro Data 07/17/24 05:09 07/17/24 05:09 Labs: Laboratory Results - last 24 hr 07/15/24 18:13: POC Glucose 149 H 07/16/24 02:10: Lactic Acid 1.3 07/16/24 06:03: Hemoglobin A1c 5.8 H, Procalcitonin 0.78 H 07/17/24 05:09: WBC 7.7, RBC 3.19 L, Hgb 10.0 L, Hct 32.2 L, MCV 100.9 H, MCH 31.3, MCHC 31.1 L, RDW Std Deviation 53.2 H, RDW Coeff of Rylie 14.4, Plt Count 167, MPV 10.9, Immature Gran % (Auto) 0.300, Neut % (Auto) 77.7 H, Lymph % (Auto) 11.1 L, [place] % (Auto) 10.3 H, Eos % (Auto) 0.1, Baso % (Auto) 0.5, Absolute Neuts (auto) 6.0, Absolute Lymphs (auto) 0.86, Nucleated RBC % 0, Sodium 142, Potassium 4.1, Chloride 112 H, Carbon Dioxide 27.0, Anion Gap 3 L, B UN 28 H, Creatinine 1.03, Estim Creat Clear Calc 51.11, Est GFR (MDRD) Af Amer 88, Est GFR (MDRD) Non-Af 72, BUN/Creatinine Ratio 27.2 H, Glucose 146 H, C alcium 7.8 L Micro: Microbiology 07/16/24 00:20 Sputum, Induced/Lukens Gram Stain - Final 07/16/24 00:20 Sputum, Induced/Lukens Respiratory Culture - Preliminary Appears to be normal respiratory nohelia. Further studies to follow. Radiography Diagnostic Testing: Radiology Impression KUB X-Ray 07/15/24 21:25 IMPRESSION: Incorrect position of NG tube with tip likely in the right mainstem bronchus. Electronically Signed: Ameya Bermudez MD at 22:46 EDT , KUB X-Ray 07/15/24 21:25 IMPRESSION: Abnormal position of NG tube with tip likely at the gastroesophageal junction. Electronically Signed: Ameya Bermudez MD at 22:50 EDT , Physical Exam Const no apparent distress Cardio regular rate and regular rhythm GI soft to palpation Inspection: Negative for abdominal distention Assessment & Plan Assessment/Plan (1) S/P exploratory laparotomy: PLAN: The patient failed his breathing trial and they will attempt another spontaneous breathing trial later today. Once he is extubated we will start Fleet enemas. Leonardo Wilson MD Pager: [facility] [address] [place] [address], [address] [place] [address] Office:
[2024-07-17] MEDS: Enoxaparin 40 MG/0.4 ML Syringe SC (08:33)
[2024-07-17] MEDS: Chlorhexidine 15 ML PO (08:33)
[2024-07-17] MEDS: Memantine Hydrochloride 5 MG Tablet GT ×2 (08:34→20:36)
[2024-07-17] MEDS: Fludrocortisone Acetate 0.1 MG Tablet 0.05 MG GT (08:34)
[2024-07-17] MEDS: Pantoprazole Sodium 40 MG in 0.9% Normal Saline (100mL MB+) 100 ML 330 MG IV ×2 (10:03→20:36)
[2024-07-17] MEDS: hydrALAZINE 20 MG/ML Vial 10 MG IV (12:28)
[2024-07-17] MEDS: 0.9% Saline Lock 10 ML Syringe IV (12:28)
[2024-07-17] MEDS: Furosemide 40 MG/4 ML Vial IV (12:28)
--- NOTE | 2024-07-17 12:55 | PN.CC_ITS ---
Objective Data Objective Data Vital Signs: Vital Signs Last response 3 Temperature 37.6 C H 07/17/24 12:00 Temperature Source Core 07/17/24 12:00 Pulse Rate 66 07/17/24 12:28 Pulse Strength Normal (2+) 07/16/24 20:40 Respiratory Rate 12 07/17/24 12:00 Respiratory Effort Mechanically Ventilated 07/17/24 12:00 Respiratory Depth Normal 07/17/24 12:00 Respiratory Pattern Normal 07/17/24 12:00 Blood Pressure 163/88 H 07/17/24 12:28 Blood Pressure Mean 113 07/17/24 12:00 Blood Pressure Source Monitor 07/17/24 11:00 Blood Pressure Position Semi-Fowlers 07/17/24 11:00 Blood Pressure Location Right Arm 07/17/24 11:00 Pulse Ox 94 07/17/24 12:00 Oxygen Delivery Method Mechanical Ventilator 07/17/24 12:00 Fraction of Inspired Oxygen (FIO2) 25 07/17/24 12:00 I&O: I&O Last 24 Hours 3 07/16/24 07/17/24 07/17/24 23:59 11:59 23:59 Intake Total 2606.00 / 4781.12 1312.67 / 1312.67 0 / 1312.67 Output Total 450 / 1375 294 / 294 Balance 2156.00 / 3406.12 1018.67 / 1018.67 0 / 1018.67 I&O: Total Stay 3 07/15/24 18:10 thru 07/17/24 12:00 Intake Total 7134.29 Output Total 1669 Balance 5465.29 Current Meds Ordered / Administered: Current meds ordered / Administered 3 Generic Name Dose Route Start Last Admin Trade Name Freq PRN Reason Stop Dose Admin Acetaminophen 650 mg 07/16/24 13:11 Acetaminophen 325 Mg Tablet GT Q4H PRN PRN Fever, pain 1-07/22 Albuterol Sulfate 2.5 mg 07/16/24 00:13 Albuterol 2.5 Mg/3 Ml Vial.Neb. INHALATION Q2H PRN PRN Dyspnea, wheezing Chlorhexidine Gluconate 15 ml 07/16/24 10:00 07/17/24 08:33 Chlorhexidine 15 Ml PO 15 ml BID SRIKANTH Administration Chlorhexidine Gluconate 1 each 07/17/24 10:00 07/17/24 00:45 Chlorhexidine Gluc 2% Cloth 1 Each [place]lette TOPICAL 1 each DAILY SRIKANTH Administration Enoxaparin Sodium 40 mg 07/16/24 10:00 07/17/24 08:33 Enoxaparin 40 Mg/0.4 Ml Syringe SC 40 mg DAILY SRIKANTH Administration Fludrocortisone Acetate 0.05 mg 07/17/24 08:00 07/17/24 08:34 Fludrocortisone Acetate 0.1 Mg Tablet GT 0.05 mg [id number] SRIKANTH Administration Hydralazine HCl 10 mg 07/16/24 00:13 07/17/24 12:28 Hydralazine 20 Mg/Ml Vial IV 10 mg Q4H PRN PRN Administration SBP > 160 Protocol Propofol 1,000 mg in 100 mls @ 4.002 mls/hr 07/16/24 00:13 07/17/24 12:17 Diprivan CONT INF Not Given .Q12H SRIKANTH Protocol 10 MCG/KG/MIN Pantoprazole Sodium 40 mg/ 110 mls @ 330 mls/hr 07/16/24 10:00 07/17/24 11:17 Sodium Chloride IV Infused Q12 SRIKANTH Infusion Fentanyl 100 mls @ 5 mls/hr 07/16/24 00:13 07/17/24 12:00 CONT INF 0 mcg/hr UD SRIKANTH 0 mls/hr Titration Protocol 50 MCG/HR Sodium Chloride 250 mls @ 15 mls/hr 07/16/24 00:25 IV .[id number] PRN Additional IVPB Infusion Sodium Chloride 250 mls @ 15 mls/hr 07/16/24 00:25 07/16/24 20:53 IV 0 mls/hr .[id number] PRN Infusion Saline Flush Piperacillin Sod/Tazobactam 50 mls @ 12.5 mls/hr 07/16/24 07:40 07/17/24 09:39 Sod 3.375 gm/ Sodium Chloride IV Infused Q8 SRIKANTH Infusion Dextrose/Lactated Ringer's 1,000 mls @ 100 mls/hr 07/16/24 22:00 07/17/24 08:30 IV Not Given .Q10H SRIKANTH Memantine 5 mg 07/16/24 22:00 07/17/24 08:34 Memantine Hydrochloride 5 Mg Tablet GT 5 mg BID SRIKANTH Administration Morphine Sulfate 2 - 4 mg 07/16/24 00:13 Morphine 2 Mg/Ml Syringe IV Q3H PRN PRN Pain Score 6-10 Ondansetron HCl 4 mg 07/16/24 00:13 Ondansetron 4 Mg/2 Ml Vial IV Q8H PRN PRN NAUSEA/VOMITING Oxycodone HCl 5 mg 07/16/24 00:13 Oxycodone 5 Mg Tablet PO Q4H PRN PRN Pain Score 4-10 Sodium Chloride 5 ml 07/16/24 00:13 Sodium Cl For Inhalation 15 Ml Vial.Neb. INHALATION Q5M PRN Suctioning Sodium Chloride 10 - 40 ml 07/16/24 00:25 07/17/24 12:28 0.9% Saline Lock 10 Ml Syringe IV 10 ml UD PRN Administration SALINE FLUSH Lab / Micro Data 07/17/24 05:09 07/17/24 05:09 Labs: Laboratory Results - last 24 hr 07/15/24 18:13: POC Glucose 149 H 07/16/24 02:10: Lactic Acid 1.3 07/17/24 05:09: WBC 7.7, RBC 3.19 L, Hgb 10.0 L, Hct 32.2 L, MCV 100.9 H, MCH 31.3, MCHC 31.1 L, RDW Std Deviation 53.2 H, RDW Coeff of Rylie 14.4, Plt Count 167, MPV 10.9, Immature Gran % (Auto) 0.300, Neut % (Auto) 77.7 H, Lymph % (Auto) 11.1 L, Liberty % (Auto) 10.3 H, Eos % (Auto) 0.1, Baso % (Auto) 0.5, Absolute Neuts (auto) 6.0, Absolute Lymphs (auto) 0.86, Nucleated RBC % 0, Sodium 142, Potassium 4.1, Chloride 112 H, Carbon Dioxide 27.0, Anion Gap 3 L, B UN 28 H, Creatinine 1.03, Estim Creat Clear Calc 51.11, Est GFR (MDRD) Af Amer 88, Est GFR (MDRD) Non-Af 72, BUN/Creatinine Ratio 27.2 H, Glucose 146 H, C alcium 7.8 L Micro: Microbiology 07/16/24 00:20 Sputum, Induced/Lukens Gram Stain - Final 07/16/24 00:20 Sputum, Induced/Lukens Respiratory Culture - Preliminary Appears to be normal respiratory nohelia. Further studies to follow. Imaging Radiology Impression KUB X-Ray 07/15/24 21:25 IMPRESSION: Incorrect position of NG tube with tip likely in the right mainstem bronchus. Electronically Signed: Ameya Bermudez MD at 22:46 EDT , KUB X-Ray 07/15/24 21:25 IMPRESSION: Abnormal position of NG tube with tip likely at the gastroesophageal junction. Electronically Signed: Ameya Bermudez MD at 22:50 EDT , Assessment and Plan . Assessment and plan: Patient seen and examined Chart and data reviewed Elderly man admitted w/ SBO. He has undergone laparotomy w/ KYLER. Ongoing MV support postoperatively. SAT currently - slow to awaken MV 6-7 LPM, mechanics and O2 requirement modest UOP adequate, NGT o/p modest currently Hope for extubation when more awake EXAM: GEN NAD, sedated VS as above HEENT GERHARD, NGT NECK supple COR RRR CHEST CTA ABD soft, quiet EXT minimal edema SKIN w/d TARAS grossly NF ASSESSMENT: 1. Postoperative MV support 2. s/p laparotomy and KYLER for SBO 3. Low grade fever TREATMENT PLAN: -extubate when awake -NGT ILWS -analgesia as needed -IVF -+/- ABX -VTE ppx Critical Care Time: 50 min The entirety of this encounter was done via Telemedicine
--- NOTE | 2024-07-17 13:11 | EKG12_ITS ---
Test Reason : TACHYCARDIA Blood Pressure : / mmHG Vent. Rate : 123 BPM Atrial Rate : 123 BPM P-R Int : 094 ms QRS Dur : 102 ms QT Int : 346 ms P-R-T Axes : 000 -11 -64 degrees QTc Int : 495 ms Sinus tachycardia with short MI Marked ST abnormality, possible anterolateral subendocardial injury Abnormal ECG Confirmed by Fredi Meza ([id number]), staff editor ANAM CIFUENTES ([id number]) on 07/29/2024 1:14:17 PM Referred By: MIKE Confirmed By:Fredi Meza
[2024-07-17] MEDS: Metoprolol Tartrate 5 MG/5 ML Vial IV (14:28)
[2024-07-17] MEDS: Fleet Enema 133 ML RC (15:20)
[2024-07-17] MEDS: Acetaminophen 325 MG Tablet 650 MG GT ×2 (15:35→20:37)
[2024-07-17] MEDS: oxyCODONE 5 MG Tablet PO (20:36)
--- NOTE | 2024-07-17 22:21 | RAD_ITS ---
We are attempting to reach an attending provider to discuss findings. An addendum with communication details will be sent when the communication is complete. INDICATION: NG tube placement -- KUB with both diaphragms for NG/OG Verification -- NG TUBE RE-POSTIONED AFTER THIS XRAY WAS TAKEN- RN COULD SEE TUBE COIL BACK UP IN THROAT, NG TUBE REMOVED- WILL TRY TO INSERT AGAIN LATER EXAMINATION/TECHNIQUE: X-RAY - XR Abdomen 1 View portable. 10:10 PM. COMPARISON: Prior study dated: Chest x-ray 07/16/2024 FINDINGS: NG tube is looped in the distal esophagus in turns back on itself coursing cephalad, the tip is above the mid esophagus level not included on the film. Dilated small bowel in the upper abdomen. Patchy opacities in the lung bases not well assessed. RAD/Abdomen Single View (Portable) IMPRESSION: Malposition of the NG tube looped in the esophagus tip is above the mid esophagus not included on the film. Electronically Signed: Carina Renae MD at 23:57 EDT ,
--- NOTE | 2024-07-17 22:29 | NURSING ---
Pt noted to be picking at his NG and nasal cannula, pulled nasal cannula off several times. Frequent checks via camera and rounding by this RN and SELF STORAGE MANAGER also to ensure NG stayed in. Pt found to have pulled NG out and nasal cannula off, SELF STORAGE MANAGER had just been in the room. NG placed again, KUB ordered for placement. NG noted to be coiled in the esophagus. x2 more attempts made to reinsert, but NG just kept coming out of his mouth. Due to significant issues getting the first NG in on admission, Dr. Wilson paged to see if he would be okay with leaving it out for now. Dr. Wilson said okay to leave out at this time since he hasn't been having much output from it.
[2024-07-18] VITALS (28 sets, daily range): BP systolic 130–184; BP diastolic 64–91; PULSE 62–95; RESP 11–20; TEMP 36.9–37.7; O2SAT 91–98; BMI 22.4
[2024-07-18] MEDS: CHLORHEXIDINE GLUC 2% CLOTH 1 EACH TOWELETTE TOPICAL (03:02)
[2024-07-18] MEDS: 0.9% Saline Lock 10 ML Syringe IV ×3 (03:02→16:22)
[2024-07-18] MEDS: Dextrose 5%-Lactated Ringers 1,000 ML 100 ML IV ×3 (03:02→22:53)
[2024-07-18 03:09] LABS: Absolute Lymphocyte Count 0.83 X10^3/uL (0.83-4.51); Absolute Neutrophil Count 6.4 X10^3/uL (2.0-7.7); Basophil# 0.02 X10^3/uL; Basophil% 0.2 % (0-1); Eosinophil# 0.01 X10^3/uL; Eosinophils% 0.1 % (0-5); Hematocrit 32.9 % (40-54); Hemoglobin 10.4 g/dL (13.0-16.5); Lymphocyte # 0.83 X10^3/ul (0.83-4.51); Lymphocyte % 10.2 % (19-41); Mean Corp Hgb Conc 31.6 g/dL (32-36); Mean Corpuscular Hgb 31.7 pg (27.0-32.0); Mean Corpuscular Volume 100.3 fL (80-94); Mean Platelet Vol. 10.8 fl (6.2-12.0); Monocyte# 0.82 X10^3/uL; Monocyte% 10.1 % (0-10); NRBC Flagged by Analyzer 0 % (0-5); Neutrophil # 6.39 X10^3/uL (2.7-7.7); Platelet Count 169 K/mm3 (150-450); RBC Distribution Width CV 14.2 % (11.6-14.6); RBC Distribution Width SD 51.9 fl (35.1-43.9); Red Blood Count 3.28 M/mm3 (4.6-6.2); White Blood Count 8.1 K/mm3 (4.4-11.0)
[2024-07-18 03:23] LABS: Anion Gap 5 (5-15); BUN 21 mg/dL (7-18); BUN/Creat Ratio 21.2 RATIO (10-20); Calcium,Total 7.7 mg/dL (8.5-10.1); Chloride 107 mmol/L (98-107); Creatinine, Serum 0.99 mg/dL (0.70-1.30); EST Glomerular Filtration Rate 76 mL/min (>60); Est Glom Filt Rate - Afr Amer 92 mL/min (>60); Estimated Creatinine Clearance 51.72 ml/min; Glucose 133 mg/dL (74-106); Magnesium 1.7 mg/dL (1.6-2.6); Phosphorus 2.6 mg/dL (2.5-4.9); Potassium 3.1 mmol/L (3.5-5.1); Sodium Level 142 mmol/L (136-145)
[2024-07-18] MEDS: Piperacil/Tazobactam 3.375 GM in 0.9% Normal Saline (50mL MB+) 50 ML IV ×3 (05:12→20:48)
[2024-07-18] MEDS: Potassium Chloride 10mEq/100mL 10 MEQ/100 ML IV.SOLN. 100 MEQ IV BOLUS ×6 (05:23→17:27)
[2024-07-18] MEDS: Magnesium Sulfate 2 GM in Dextrose 5%-Water (100mL Bag) 100 ML IV (05:48)
--- NOTE | 2024-07-18 06:49 | PCM.PN.SRG ---
Subjective Subjective The patient is not as alert as I expected. He is breathing well with no bowel function. No other issues overnight. Objective Data Objective Data Vital Signs: Vital Signs Temp Pulse Resp BP Pulse Ox O2 Del Method O2 Flow Rate 98.9 F 68 11 L 150/66 H 93 Room Air 2 07/18/24 04:00 07/18/24 06:00 07/18/24 06:00 07/18/24 06:00 07/18/24 06:00 07/18/24 06:00 07/18/24 02:00 FiO2 25 07/17/24 13:00 Oxygen Flow Rate (L/min) 2 Oxygen Delivery Method Room Air Weight: 156 lb 4.924 oz Body Mass Index (BMI) 22.4 Intake & Output: Intake and Output for Last 24 Hours 07/16/24 07/17/24 07/18/24 23:59 23:59 23:59 Intake Total 4771.62 / 4781.12 2579.34 / 2579.34 1136.67 / 1136.67 Output Total 1375 / 1375 4044 / 4044 275 / 275 Balance 3396.62 / 3406.12 -1464.66 / -1464.66 861.67 / 861.67 Lab / Micro Data 07/18/24 03:00 07/18/24 03:00 Labs: Laboratory Results - last 24 hr 07/15/24 18:13: POC Glucose 149 H 07/18/24 03:00: WBC 8.1, RBC 3.28 L, Hgb 10.4 L, Hct 32.9 L, MCV 100.3 H, MCH 31.7, MCHC 31.6 L, RDW Std Deviation 51.9 H, RDW Coeff of Rylie 14.2, Plt Count 169, MPV 10.8, Immature Gran % (Auto) 0.400, Neut % (Auto) 79.0 H, Lymph % (Auto) 10.2 L, Long % (Auto) 10.1 H, Eos % (Auto) 0.1, Baso % (Auto) 0.2, Absolute Neuts (auto) 6.4, Absolute Lymphs (auto) 0.83, Nucleated RBC % 0, Sodium 142, Potassium 3.1 L, Chloride 107, Carbon Dioxide 30.0, Anion Gap 5, BUN 21 H, Creatinine 0.99, Estim Creat Clear Calc 51.72, Est GFR (MDRD) Af Amer 92, Est GFR (MDRD) Non-Af 76, BUN/Creatinine Ratio 21.2 H, Glucose 133 H, Calcium 7.7 L, Phosphorus 2.6, Magnesium 1.7 Micro: Microbiology 07/16/24 00:20 Sputum, Induced/Lukens Gram Stain - Final 07/16/24 00:20 Sputum, Induced/Lukens Respiratory Culture - Preliminary Appears to be normal respiratory nohelia. Further studies to follow. Radiography Diagnostic Testing: Radiology Impression KUB X-Ray 07/15/24 21:25 IMPRESSION: Abnormal position of NG tube with tip likely at the gastroesophageal junction. Electronically Signed: Ameya Bermudez MD at 22:49 EDT , KUB X-Ray 07/17/24 22:21 IMPRESSION: Malposition of the NG tube looped in the esophagus tip is above the mid esophagus not included on the film. Electronically Signed: Carina Renae MD at 23:57 EDT , ADDENDUM: 07/18/24 0004 IMPRESSION: Malposition of the NG tube looped in the esophagus tip is above the mid esophagus not included on the film. N.B. : The above Results were Read Back by Carina Renae MD to Yolie Resendez RN, and understanding confirmed on 07/17/2024 23:57:39 (ET). Electronically Signed: Carina Renae MD at 23:57 EDT , Physical Exam Const no apparent distress Resp normal respiratory effort GI soft to palpation Inspection: Negative for abdominal distention Assessment & Plan Assessment/Plan (1) S/P exploratory laparotomy: PLAN: The patient is alert but not very awake. His abdomen is soft and nondistended. I gave him an enema yesterday with no results and I will repeat another Fleet enema this morning. Continue Wynn as the patient is not alert enough to make it to the bathroom. Continue monitoring urine output. Hold on a diet until he starts having bowel function. Continue IV fluids. Hypokalemic and hypomagnesemia. Being replaced. Leonardo Wilson MD Pager: [facility] [address] [place] [address] [address] [place] [address] Office:
[2024-07-18] MEDS: Fleet Enema 133 ML RC (08:17)
[2024-07-18] MEDS: Memantine Hydrochloride 5 MG Tablet GT (08:38)
[2024-07-18] MEDS: Enoxaparin 40 MG/0.4 ML Syringe SC (08:38)
[2024-07-18] MEDS: Fludrocortisone Acetate 0.1 MG Tablet 0.05 MG GT (08:38)
[2024-07-18 09:08] LABS: Magnesium 2.1 mg/dL (1.6-2.6); Potassium 3.4 mmol/L (3.5-5.1)
[2024-07-18] MEDS: Pantoprazole Sodium 40 MG in 0.9% Normal Saline (100mL MB+) 100 ML 330 MG IV ×2 (09:42→20:48)
--- NOTE | 2024-07-18 12:05 | PCM.PN.HOSP ---
Reason for Visit Reason for Visit: Diagnoses Parkinson's disease without dyskinesia, without mention of fluctuations (07/15/24) Acute respiratory failure, unspecified whether with hypoxia or hypercapnia (07/15/24) Volvulus (07/15/24) Unspecified intestinal obstruction, unspecified as to partial versus complete obstruction (07/15/24) Other specified postprocedural states (07/15/24) Objective Data Objective Data Vital Signs: Vital Signs Temp Pulse Resp BP Pulse Ox O2 Del Method O2 Flow Rate 98.7 F 62 14 154/64 H 93 Room Air 2 07/18/24 10:00 07/18/24 11:00 07/18/24 11:00 07/18/24 11:00 07/18/24 11:00 07/18/24 11:50 07/18/24 02:00 FiO2 25 07/17/24 13:00 Oxygen Flow Rate (L/min) 2 Oxygen Delivery Method Room Air Weight: 156 lb 4.924 oz Body Mass Index (BMI) 22.4 Intake & Output: Intake and Output for Last 24 Hours 07/16/24 07/17/24 07/18/24 23:59 23:59 23:59 Intake Total 4771.62 / 4781.12 2579.34 / 2579.34 1600.67 / 1600.67 Output Total 1375 / 1375 4044 / 4044 375 / 375 Balance 3396.62 / 3406.12 -1464.66 / -1464.66 1225.67 / 1225.67 Lab / Micro Data 07/18/24 03:00 07/18/24 08:45 Labs: Laboratory Results - last 24 hr 07/18/24 03:00: WBC 8.1, RBC 3.28 L, Hgb 10.4 L, Hct 32.9 L, MCV 100.3 H, MCH 31.7, MCHC 31.6 L, RDW Std Deviation 51.9 H, RDW Coeff of Rylie 14.2, Plt Count 169, MPV 10.8, Immature Gran % (Auto) 0.400, Neut % (Auto) 79.0 H, Lymph % (Auto) 10.2 L, Snyder % (Auto) 10.1 H, Eos % (Auto) 0.1, Baso % (Auto) 0.2, Absolute Neuts (auto) 6.4, Absolute Lymphs (auto) 0.83, Nucleated RBC % 0, Sodium 142, Potassium 3.1 L, Chloride 107, Carbon Dioxide 30.0, Anion Gap 5, BUN 21 H, Creatinine 0.99, Estim Creat Clear Calc 51.72, Est GFR (MDRD) Af Amer 92, Est GFR (MDRD) Non-Af 76, BUN/Creatinine Ratio 21.2 H, Glucose 133 H, Calcium 7.7 L, Phosphorus 2.6, Magnesium 1.7 07/18/24 08:45: Potassium 3.4 L, Magnesium 2.1 Micro: Microbiology 07/16/24 00:20 Sputum, Induced/Lukens Gram Stain - Final 07/16/24 00:20 Sputum, Induced/Lukens Respiratory Culture - Final Radiography Diagnostic Testing: Radiology Impression KUB X-Ray 07/15/24 21:25 IMPRESSION: Abnormal position of NG tube with tip likely at the gastroesophageal junction. Electronically Signed: Ameya Bermudez MD at 22:49 EDT , KUB X-Ray 07/17/24 22:21 IMPRESSION: Malposition of the NG tube looped in the esophagus tip is above the mid esophagus not included on the film. Electronically Signed: Carina Renae MD at 23:57 EDT , ADDENDUM: 07/18/24 0004 IMPRESSION: Malposition of the NG tube looped in the esophagus tip is above the mid esophagus not included on the film. N.B. : The above Results were Read Back by Carina Renae MD to Yolie Resendez RN, and understanding confirmed on 07/17/2024 23:57:39 (ET). Electronically Signed: Carina Renae MD at 23:57 EDT , Physical Exam Narrative Seen and examined. Patient was extubated yesterday. Patient is still confused, staring look mumbles words. Had laparotomy on 07/15/2024. Wynn catheter. No fever. No bowel movement. Had pulled out NG tube. Physical exam General: Awake. Incoherent speech, mumbles words. Incomprehensible. Looks confused HEENT: Atraumatic, PERRLA, EOMI, Normocephalic Oral: ET and OG tube Neck: Supple, No JVD, Negative Carotid Bruits Chest wall/Lungs: Air entry diminished in bilateral lung bases. On vent support Cardiovascular: Sinus rhythm, Normal S1, Normal S2, No M/G/R Abdomen: Bowel Sounds faint. Surgical dressing dry. Not significant tenderness or distention. : Wynn cathete. Dark urine. No renal angle tenderness. No suprapubic tenderness. Extremities: Bilateral thighs and lower legs edema, improved after, Capillary Refill Less than 3 Seconds Skin: No rashes, No breakdown Musculoskeletal: No Tenderness to Palpation of Joints or Extremities. Neurological: Nonfocal exam. Confused disoriented. Psych/Mental Status: Flat affect Assessment & Plan Assessment/Plan (1) Small bowel obstruction: PLAN: Plan The patient is an 89 y/o Magdiel gentleman was admitted for abdominal pain, progressed over 2 to 3 days with no bowel movement, and decreased flatus. CT abdomen pelvis showed SBO with no obvious transition point but the surgeon felt transition in the mid jejunum. In the past patient had previous small bowel volvulus on 07/05 in 10/04 both required OR with laparoscopic surgery but no bowel resection. #1. 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 He had exploratory laparotomy, release of small bowel obstruction and adhesiolysis. Surgical care as per the surgeon. No bowel sounds. Midline abdominal surgical dressing is dry. No drain. 07/17 discussed with the surgeon. 07/18: Patient pulled out NG tube last night. Bowel sounds sluggish to absent. Fleet enema ordered by surgeon and was given. 2. Suspected intra-abdominal infection/suspected pneumonia: Mild leukocytosis but chest x-ray initially reviewed and shows left greater than right perihilar patchy airspace opacity. Prelim sputum culture shows 4+ WBC, 2+ GPC, 2+ Gram variable rods. Patient might have intra-abdominal infection with volvulus of the small bowel was viable. Continue broad-spectrum antibiotic 10/6: IV antibiotic Zosyn. 3. Acute hypoxic respiratory failure: Patient on assist mode of ventilator. Vent requirements are minimal. 10/5: Patient does not follow commands or nodding head. Discussed with respiratory therapist, he failed NIF and was apneic on spontaneous breathing trial CPAP therefore failed spontaneous breathing trial. Recommend minimal sedative/fentanyl 4. 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 Resume Sinemet once oral 12 Suspected acute encephalopathy with history of dementia: Probably metabolic from sedated. Patient still mumbles looks confused and staring look. Orientation cues. 5. Hypertension and: Blood pressure in normal range. Hold oral antihypertensive medications 6. History CVA: Once oral intake is allowed and status post OR allowance would recommend continuation of aspirin therapy, will hold for the moment given recent intervention, continue hypertensive regimen, not on statin therapy per current list but clarifying. 7 CAD: Status post PCI, resume cardiac medications including aspirin 1 over respiratory 8. BPH: Wynn catheter. Flomax once oral permitted and bowel function returns normal 10/: Urine output 600 mL last 24 hours. Creatinine is still normal. Patient is edematous. Positive fluid balance, +5.5 L. Furosemide 40 mg IV 1 dose ordered 9. Chronic asthma: Not on any chronic regimen, w PRN albuterol, HOB, IS parameters. 10. GERD: on IV PPI. DVT prophylaxis: SCDs, chemoprophylaxis per surgery discretion given recent OR. CODE status: Patient HCPESTEFANI is his his daughter who is present but uncertain if living will is in place]. Discussed CODE status at length including difference between FULL code, DNR-CCA and DNR-CC status. Following discussions about the differences in these status, requested DNR-CCA, no intubation status. Advanced Care Planning Face to Face Time: 16 minutes. Charges/Coding Visit Charges Inpatient E&M: 82576 Subs Hosp L2
[2024-07-18] MEDS: hydrALAZINE 20 MG/ML Vial 10 MG IV ×2 (13:11→22:09)
--- NOTE | 2024-07-18 14:31 | PN.CC_ITS ---
Objective Data Objective Data Vital Signs: Vital Signs Last response 3 Temperature 37.1 C 07/18/24 14:00 Temperature Source Core 07/18/24 14:00 Pulse Rate 93 07/18/24 14:00 Pulse Strength Weak (1+) 07/17/24 20:03 Respiratory Rate 20 H 07/18/24 14:00 Respiratory Effort Normal, Non-Labored 07/18/24 11:50 Respiratory Depth Normal 07/18/24 11:50 Respiratory Pattern Normal 07/18/24 11:50 Blood Pressure 156/85 H 07/18/24 14:00 Blood Pressure Mean 108 07/18/24 14:00 Blood Pressure Source Monitor 07/18/24 14:00 Blood Pressure Position Semi-Fowlers 07/18/24 14:00 Blood Pressure Location Right Arm 07/18/24 14:00 Pulse Ox 92 07/18/24 14:00 Oxygen Delivery Method Room Air 07/18/24 14:00 Oxygen Flow Rate (L/min) 2 07/18/24 02:00 Fraction of Inspired Oxygen (FIO2) 25 07/17/24 13:00 I&O: I&O Last 24 Hours 3 07/17/24 07/18/24 07/18/24 23:59 11:59 23:59 Intake Total 1266.67 / 2579.34 1600.67 / 2652.34 1051.67 / 2652.34 Output Total 3750 / 4044 375 / 375 Balance -2483.33 / -1464.66 1225.67 / 2277.34 1051.67 / 2277.34 I&O: Total Stay 3 07/15/24 18:10 thru 07/18/24 12:48 Intake Total 05980.30 Output Total 5794 Balance 5259.30 Current Meds Ordered / Administered: Current meds ordered / Administered 3 Generic Name Dose Route Start Last Admin Trade Name Freq PRN Reason Stop Dose Admin Acetaminophen 650 mg 07/16/24 13:11 07/17/24 20:37 Acetaminophen 325 Mg Tablet GT 650 mg Q4H PRN PRN Administration Fever, pain 1-07/22 Albuterol Sulfate 2.5 mg 07/16/24 00:13 Albuterol 2.5 Mg/3 Ml Vial.Neb. INHALATION Q2H PRN PRN Dyspnea, wheezing Enoxaparin Sodium 40 mg 07/16/24 10:00 07/18/24 08:38 Enoxaparin 40 Mg/0.4 Ml Syringe SC 40 mg DAILY SRIKANTH Administration Fludrocortisone Acetate 0.05 mg 07/17/24 08:00 07/18/24 08:38 Fludrocortisone Acetate 0.1 Mg Tablet GT 0.05 mg [id number] SRIKANTH Administration Hydralazine HCl 10 mg 07/16/24 00:13 07/18/24 13:11 Hydralazine 20 Mg/Ml Vial IV 10 mg Q4H PRN PRN Administration SBP > 160 Protocol Pantoprazole Sodium 40 mg/ 110 mls @ 330 mls/hr 07/16/24 10:00 07/18/24 10:02 Sodium Chloride IV Infused Q12 SRIKANTH Infusion Sodium Chloride 250 mls @ 15 mls/hr 07/16/24 00:25 IV .[id number] PRN Additional IVPB Infusion Sodium Chloride 250 mls @ 15 mls/hr 07/16/24 00:25 07/16/24 20:53 IV 0 mls/hr .[id number] PRN Infusion Saline Flush Piperacillin Sod/Tazobactam 50 mls @ 12.5 mls/hr 07/16/24 07:40 07/18/24 13:11 Sod 3.375 gm/ Sodium Chloride IV 12.5 mls/hr Q8 SRIKANTH Administration Dextrose/Lactated Ringer's 1,000 mls @ 100 mls/hr 07/16/24 22:00 07/18/24 12:33 IV 100 mls/hr .Q10H SRIKANTH Administration Memantine 5 mg 07/16/24 22:00 07/18/24 08:38 Memantine Hydrochloride 5 Mg Tablet GT 5 mg BID SRIKANTH Administration Metoprolol Tartrate 5 mg 07/17/24 13:14 Metoprolol Tartrate 5 Mg/5 Ml Vial IV Q6H PRN PRN HR > 120 Protocol Morphine Sulfate 2 - 4 mg 07/16/24 00:13 Morphine 2 Mg/Ml Syringe IV Q3H PRN PRN Pain Score 6-10 Ondansetron HCl 4 mg 07/16/24 00:13 Ondansetron 4 Mg/2 Ml Vial IV Q8H PRN PRN NAUSEA/VOMITING Oxycodone HCl 5 mg 07/16/24 00:13 07/17/24 20:36 Oxycodone 5 Mg Tablet PO 5 mg Q4H PRN PRN Administration Pain Score 4-10 Sodium Chloride 5 ml 07/16/24 00:13 Sodium Cl For Inhalation 15 Ml Vial.Neb. INHALATION Q5M PRN Suctioning Sodium Chloride 10 - 40 ml 07/16/24 00:25 07/18/24 13:11 0.9% Saline Lock 10 Ml Syringe IV 10 ml UD PRN Administration SALINE FLUSH Lab / Micro Data 07/18/24 03:00 07/18/24 14:15 Labs: Laboratory Results - last 24 hr 07/18/24 03:00: WBC 8.1, RBC 3.28 L, Hgb 10.4 L, Hct 32.9 L, MCV 100.3 H, MCH 31.7, MCHC 31.6 L, RDW Std Deviation 51.9 H, RDW Coeff of Rylie 14.2, Plt Count 169, MPV 10.8, Immature Gran % (Auto) 0.400, Neut % (Auto) 79.0 H, Lymph % (Auto) 10.2 L, [place] % (Auto) 10.1 H, Eos % (Auto) 0.1, Baso % (Auto) 0.2, Absolute Neuts (auto) 6.4, Absolute Lymphs (auto) 0.83, Nucleated RBC % 0, Sodium 142, Potassium 3.1 L, Chloride 107, Carbon Dioxide 30.0, Anion Gap 5, BUN 21 H, Creatinine 0.99, Estim Creat Clear Calc 51.72, Est GFR (MDRD) Af Amer 92, Est GFR (MDRD) Non-Af 76, BUN/Creatinine Ratio 21.2 H, Glucose 133 H, Calcium 7.7 L, Phosphorus 2.6, Magnesium 1.7 07/18/24 08:45: Potassium 3.4 L, Magnesium 2.1 Micro: Microbiology 07/16/24 00:20 Sputum, Induced/Lukens Gram Stain - Final 07/16/24 00:20 Sputum, Induced/Lukens Respiratory Culture - Final Imaging Radiology Impression KUB X-Ray 07/15/24 21:25 IMPRESSION: Abnormal position of NG tube with tip likely at the gastroesophageal junction. Electronically Signed: Ameya Bermudez MD at 22:49 EDT , KUB X-Ray 07/17/24 22:21 IMPRESSION: Malposition of the NG tube looped in the esophagus tip is above the mid esophagus not included on the film. Electronically Signed: Carina Renae MD at 23:57 EDT , ADDENDUM: 07/18/24 0004 IMPRESSION: Malposition of the NG tube looped in the esophagus tip is above the mid esophagus not included on the film. N.B. : The above Results were Read Back by Carina Renae MD to Yolie Resendez RN, and understanding confirmed on 07/17/2024 23:57:39 (ET). Electronically Signed: Carina Renae MD at 23:57 EDT , Assessment and Plan . Assessment and plan: Patient seen and examined Chart and data reviewed Elderly man admitted w/ SBO. He has undergone laparotomy w/ KYLER. Extubated 07/17/24 Awake and alert, hypoactive Breathing RA comfortably UOP adequate, NGT removed by patient Supplementing K+ EXAM: GEN NAD, up in chair VS as above HEENT O/P clear NECK supple COR RRR CHEST CTA ABD soft, quiet EXT minimal edema SKIN w/d TARAS grossly NF ASSESSMENT: 1. Postoperative MV support - extubated 07/17/24 2. s/p laparotomy and KYLER for SBO 3. Low grade fever TREATMENT PLAN: -analgesia as needed -IVF -defer ABX to surgery -VTE ppx - sq LMWH -supplement K+ -mobilize as able The entirety of this encounter was done via Telemedicine
[2024-07-18 14:37] LABS: Potassium 3.3 mmol/L (3.5-5.1)
[2024-07-18] MEDS: Memantine Hydrochloride 5 MG Tablet PO (20:45)
[2024-07-19] VITALS (15 sets, daily range): BP systolic 142–179; BP diastolic 81–100; PULSE 81–99; RESP 13–18; TEMP 36.7–36.9; O2SAT 93–96; BMI 22.7
[2024-07-19 03:55] LABS: Absolute Lymphocyte Count 0.71 X10^3/uL (0.83-4.51); Absolute Neutrophil Count 4.7 X10^3/uL (2.0-7.7); Basophil# 0.03 X10^3/uL; Basophil% 0.5 % (0-1); Eosinophil# 0.02 X10^3/uL; Eosinophils% 0.3 % (0-5); Hematocrit 34.3 % (40-54); Hemoglobin 11.1 g/dL (13.0-16.5); Lymphocyte # 0.71 X10^3/ul (0.83-4.51); Lymphocyte % 11.4 % (19-41); Mean Corp Hgb Conc 32.4 g/dL (32-36); Mean Corpuscular Hgb 31.4 pg (27.0-32.0); Mean Corpuscular Volume 97.2 fL (80-94); Mean Platelet Vol. 10.8 fl (6.2-12.0); Monocyte# 0.71 X10^3/uL; Monocyte% 11.4 % (0-10); NRBC Flagged by Analyzer 0 % (0-5); Neutrophil # 4.71 X10^3/uL (2.7-7.7); Neutrophil % 75.4 % (47-70); Platelet Count 186 K/mm3 (150-450); RBC Distribution Width CV 13.9 % (11.6-14.6); RBC Distribution Width SD 49.9 fl (35.1-43.9); Red Blood Count 3.53 M/mm3 (4.6-6.2); White Blood Count 6.2 K/mm3 (4.4-11.0)
[2024-07-19 04:02] LABS: Anion Gap 5 (5-15); BUN 12 mg/dL (7-18); Calcium,Total 8.1 mg/dL (8.5-10.1); Chloride 106 mmol/L (98-107); Creatinine, Serum 0.67 mg/dL (0.70-1.30); EST Glomerular Filtration Rate 120 mL/min (>60); Est Glom Filt Rate - Afr Amer 145 mL/min (>60); Glucose 126 mg/dL (74-106); Magnesium 1.7 mg/dL (1.6-2.6); Phosphorus 1.9 mg/dL (2.5-4.9); Potassium 3.1 mmol/L (3.5-5.1); Sodium Level 140 mmol/L (136-145)
[2024-07-19] MEDS: Piperacil/Tazobactam 3.375 GM in 0.9% Normal Saline (50mL MB+) 50 ML IV ×3 (05:07→20:09)
[2024-07-19] MEDS: Potassium Chloride 10mEq/100mL 10 MEQ/100 ML IV.SOLN. 100 MEQ IV BOLUS ×2 (05:08→06:17)
[2024-07-19] MEDS: 0.9% Saline Lock 10 ML Syringe IV ×2 (05:08→20:18)
[2024-07-19] MEDS: Sodium Phosphate/Na Biphos 15 MMOL in 0.9% Normal Saline (250mL Bag) 250 ML 125 MMOL IV (05:10)
[2024-07-19] MEDS: hydrALAZINE 20 MG/ML Vial 10 MG IV (06:03)
--- NOTE | 2024-07-19 06:34 | PN.CC_ITS ---
Assessment & Plan Assessment/Plan (1) Acute respiratory failure: PLAN: Plan RECOMMENDATIONS: 1. Continue antibiotics to complete 7 days of therapy. Okay to transition to Augmentin once able to tolerate p.o. intake. 2. Encourage incentive spirometer use and mobilize patient as tolerated. 3. Aggressive electrolyte repletion. 4. Continue appropriate DVT prophylaxis. 5. The patient is medically stable for transfer out of the intensive care unit. Will sign off from a critical care perspective. IMPRESSIONS: 1. Acute respiratory failure The patient was left intubated following his surgical procedure apparently because he did not meet extubation criteria due to the fact that he was not following commands, which I assume was due to the lack of time allowed for the patient to emerge from anesthesia. He was therefore transferred to the medical intensive care unit with his endotracheal tube in place. He did have a questionable right perihilar airspace opacity and a low-grade fever along with an elevated white blood cell count. Therefore, he was placed empirically on antibiotics. The patient was ultimately able to be extubated and is doing well from a respiratory perspective. Recommend completing 7 days of antimicrobial therapy. Encourage incentive spirometer use and mobilize patient as tolerated. 2. Small bowel volvulus causing SBO, now postop day #4 status post ex lap and release of small bowel obstruction Continue routine postoperative care per general surgery recommendations. 3. History of Parkinson's disease/hypertension/hyperlipidemia/history of CVA/coronary artery disease/GERD Complicates care, management, recovery and prognosis. Continue home medications as indicated. This note was generated with [employer] dictation software. It may contain incorrect words, spelling, and punctuation that were not noted in checking the note before signing. Subjective Subjective The patient was seen and examined at the bedside this morning. Events from the last 24 hours have been reviewed. The patient is currently afebrile, hemodynamically stable and maintaining appropriate oxygen saturations on room air. The patient is documented to be overall net +4.8 L for the hospitalization. White count is normal this morning with a hemoglobin of 11.1 g/dL. Potassium is low at 3.1 with a normal creatinine. Phosphorus is low at 1.9. Objective Data Objective Data The patient's most recent lab work, culture data and imaging studies have all been personally reviewed. Infectious workup has been unrevealing to date. Vital Signs: Vital Signs Temp Pulse Resp BP Pulse Ox O2 Del Method O2 Flow Rate 98.1 F 85 17 179/93 H 94 Room Air 2 07/19/24 04:00 07/19/24 06:03 07/19/24 06:00 07/19/24 06:00 07/19/24 06:00 07/19/24 06:00 07/18/24 02:00 FiO2 25 07/17/24 13:00 Oxygen Flow Rate (L/min) 2 Oxygen Delivery Method Room Air Weight: 158 lb 11.725 oz Body Mass Index (BMI) 22.7 Intake & Output: Intake and Output for Last 24 Hours 07/17/24 07/18/24 07/19/24 23:59 23:59 23:59 Intake Total 2579.34 / 2579.34 4012.34 / 4012.34 150 / 150 Output Total 4044 / 4044 950 / 950 1375 / 1375 Balance -1464.66 / -1464.66 3062.34 / 3062.34 -1225 / -1225 Lab / Micro Data Attestation: I reviewed the patient's lab results. 07/19/24 03:41 07/19/24 03:41 Labs: Laboratory Results - last 24 hr 07/18/24 08:45: Potassium 3.4 L, Magnesium 2.1 07/18/24 14:15: Potassium 3.3 L 07/19/24 03:41: WBC 6.2, RBC 3.53 L, Hgb 11.1 L, Hct 34.3 L, MCV 97.2 H, MCH 31.4, MCHC 32.4, RDW Std Deviation 49.9 H, RDW Coeff of Rylie 13.9, Plt Count 186, MPV 10.8, Immature Gran % (Auto) 1.000 H, Neut % (Auto) 75.4 H, Lymph % (Auto) 11.4 L, [place] % (Auto) 11.4 H, Eos % (Auto) 0.3, Baso % (Auto) 0.5, Absolute Neuts (auto) 4.7, Absolute Lymphs (auto) 0.71 L, Nucleated RBC % 0, Sodium 140, Potassium 3.1 L, Chloride 106, Carbon Dioxide 29.0, Anion Gap 5, BUN 12, C reatinine 0.67 L, Estim Creat Clear Calc 65.00, Est GFR (MDRD) Af Amer 145, Est GFR (MDRD) Non-Af 120, BUN/Creatinine Ratio 18.0, Glucose 126 H, Calcium 8.1 L, Phosphorus 1.9 L, Magnesium 1.7 Micro: Microbiology 07/16/24 00:20 Sputum, Induced/Lukens Gram Stain - Final 07/16/24 00:20 Sputum, Induced/Lukens Respiratory Culture - Final Physical Exam Const alert and no apparent distress HEENT normocephalic and head/scalp atraumatic Eyes PERRL, EOMs intact bilaterally and conjunctivae normal Neck supple General: trachea midline Chest inspection of chest normal Resp normal respiratory effort Auscultation: Negative for rales, rhonchi or wheezes Cardio regular rate and regular rhythm GI soft to palpation and non-tender GI Narrative: Surgical dressing in place Extremity General Extremity: edema; Negative for clubbing Neuro CN's II-XII intact bilaterally and moves all extremities Psych Mood & Affect: flat affect Charges/Coding Visit Charges Inpatient E&M: 28089 Subs Hosp L2
--- NOTE | 2024-07-19 07:01 | PCM.PN.HOSP ---
Reason for Visit Reason for Visit: Abdominal pain Subjective Subjective Patient denies any issues. Did have a small amount of stool after enema yesterday but no significant bowel movement states. Is having some intermittent flatus. Per nursing family is considering hospice. Objective Data Objective Data Vital Signs: Vital Signs Temp Pulse Resp BP Pulse Ox O2 Del Method O2 Flow Rate 98.1 F 85 17 179/93 H 94 Room Air 2 07/19/24 04:00 07/19/24 06:03 07/19/24 06:00 07/19/24 06:00 07/19/24 06:00 07/19/24 06:00 07/18/24 02:00 FiO2 25 07/17/24 13:00 Oxygen Flow Rate (L/min) 2 Oxygen Delivery Method Room Air Weight: 72 kg Body Mass Index (BMI) 22.7 Intake & Output: Intake and Output for Last 24 Hours 07/17/24 07/18/24 07/19/24 23:59 23:59 23:59 Intake Total 2579.34 / 2579.34 4012.34 / 4012.34 150 / 150 Output Total 4044 / 4044 950 / 950 1375 / 1375 Balance -1464.66 / -1464.66 3062.34 / 3062.34 -1225 / -1225 Lab / Micro Data 07/19/24 03:41 07/19/24 03:41 Labs: Laboratory Results - last 24 hr 07/18/24 08:45: Potassium 3.4 L, Magnesium 2.1 07/18/24 14:15: Potassium 3.3 L 07/19/24 03:41: WBC 6.2, RBC 3.53 L, Hgb 11.1 L, Hct 34.3 L, MCV 97.2 H, MCH 31.4, MCHC 32.4, RDW Std Deviation 49.9 H, RDW Coeff of Rylie 13.9, Plt Count 186, MPV 10.8, Immature Gran % (Auto) 1.000 H, Neut % (Auto) 75.4 H, Lymph % (Auto) 11.4 L, [place] % (Auto) 11.4 H, Eos % (Auto) 0.3, Baso % (Auto) 0.5, Absolute Neuts (auto) 4.7, Absolute Lymphs (auto) 0.71 L, Nucleated RBC % 0, Sodium 140, Potassium 3.1 L, Chloride 106, Carbon Dioxide 29.0, Anion Gap 5, BUN 12, Creatinine 0.67 L, Estim Creat Clear Calc 65.00, Est GFR (MDRD) Af Amer 145, Est GFR (MDRD) Non-Af 120, BUN/Creatinine Ratio 18.0, Glucose 126 H, Calcium 8.1 L, Phosphorus 1.9 L, Magnesium 1.7 Micro: Microbiology 07/16/24 00:20 Sputum, Induced/Lukens Gram Stain - Final 07/16/24 00:20 Sputum, Induced/Lukens Respiratory Culture - Final Physical Exam Const alert, no apparent distress and average body habitus; Negative for healthy appearing Constitutional Narrative: Thin, frail, awake but confused, elderly, white Magdiel male, sitting up in bed, nursing at bedside, patient appears comfortable currently, does not appear toxic HEENT head/scalp atraumatic and moist oral mucous membranes HEENT Narrative: Mallampati is 2, positive for thrush, dentition is poor, significant temporal wasting noted Head and Scalp: normocephalic Resp normal respiratory effort, no retractions, no use of accessory muscles and clear to auscultation bilaterally Auscultation: Negative for rales, rhonchi or wheezes Cardio regular rate, regular rhythm, S1 normal heart sound, S2 normal heart sound, no murmurs, no rub, no gallops and no clicks GI soft to palpation GI Narrative: Mild diffuse tenderness postoperatively, no distention, bowel sounds are hypoactive Extremity no clubbing, cyanosis or edema Extremity Narrative: Decreased lean muscle mass Neuro moves all extremities and no focal motor deficits Neuro Narrative: Marked generalized weakness noted Sensorium / Orientation: awake, alert and oriented to person Psych Psych Narrative: Eye contact is good, patient interacts appropriately answering questions and is able Assessment & Plan Assessment/Plan (1) Acute respiratory failure: (2) S/P exploratory laparotomy: (3) Small bowel obstruction: PLAN: Plan Acute acute respiratory failure -Patient was left intubated following his surgical procedure as he did not meet extubation requirements due to the fact he was not following commands -Highly suspect this was related to anesthesia -Imaging did show questionable right perihilar airspace opacity with a leukocytosis -Has empirically been on antibiotics with Zosyn--> day 4 of 7 -Consider transitioning to oral Augmentin once able to take p.o. -Extubated on 07/18/2024 -Swallow eval was pending -Currently on room air -Pulm/critical care medicine is following Possible right middle lobe pneumonia -Antibiotics as above -Sputum culture shows no growth -Zosyn day 4 of 7--> will transition to p.o. Augmentin once okay with general surgery Small bowel volvulus causing small bowel obstruction -Postop day 4 status post ex lap with release of small bowel obstruction -Has been passing flatus and has had a small liquid bowel movement following enema yesterday -P.o. diet per primary service -General Surgery is following Hypokalemia/hypophosphatemia -Replacement per protocol -Recheck in a.m. History of Parkinson's disease/associated Parkinson's related dementia -Restart home carbidopa/levodopa -Dementia slightly worse likely related to acute delirium from sedation and anesthesia -Should slowly resolve with time CAD/essential hypertension/hyperlipidemia -Blood pressures are trending up so home lisinopril was reinstituted -continue to monitor -Restart home aspirin once able -Patient is on no medication for his cholesterol BPH with obstruction -Will start Flomax once able to take in p.o. -Flomax is not crushable Asthma -Continue as needed albuterol GERD -Continue IV PPI until able to transition to p.o. DVT prophylaxis -Would recommend initiating once okay with general surgery -Would recommend Lovenox 40 mg once daily CODE STATUS -DNR CCA with no intubation Charges/Coding Visit Charges Inpatient E&M: 05892 Subs Hosp L2
[2024-07-19] MEDS: Magnesium Sulfate 2 GM in Dextrose 5%-Water (100mL Bag) 100 ML IV (07:20)
--- NOTE | 2024-07-19 07:28 | PN.SURG_ITS ---
Subjective Subjective Patient evaluated resting comfortably in bed. He is confused laying in bed unaware of where he is at. He says he does not feel good today, however unable to describe why he does not feel good. He denies any abdominal pain. He denies nausea, vomiting. He states he passed flatus. Per nursing staff, patient had a single liquidy bowel movement following an enema yesterday. Objective Data Objective Data Vital Signs: Vital Signs Temp Pulse Resp BP Pulse Ox O2 Del Method O2 Flow Rate 98.1 F 94 14 155/87 H 96 Room Air 2 07/19/24 04:00 07/19/24 07:00 07/19/24 07:00 07/19/24 07:00 07/19/24 07:00 07/19/24 07:00 07/18/24 02:00 FiO2 25 07/17/24 13:00 Oxygen Flow Rate (L/min) 2 Oxygen Delivery Method Room Air Weight: 158 lb 11.725 oz Body Mass Index (BMI) 22.7 Intake & Output: Intake and Output for Last 24 Hours 07/17/24 07/18/24 07/19/24 23:59 23:59 23:59 Intake Total 2579.34 / 2579.34 4012.34 / 4012.34 505 / 505 Output Total 4044 / 4044 950 / 950 1375 / 1375 Balance -1464.66 / -1464.66 3062.34 / 3062.34 -870 / -870 Lab / Micro Data 07/19/24 03:41 07/19/24 03:41 Labs: Laboratory Results - last 24 hr 07/18/24 08:45: Potassium 3.4 L, Magnesium 2.1 07/18/24 14:15: Potassium 3.3 L 07/19/24 03:41: WBC 6.2, RBC 3.53 L, Hgb 11.1 L, Hct 34.3 L, MCV 97.2 H, MCH 31.4, MCHC 32.4, RDW Std Deviation 49.9 H, RDW Coeff of Rylie 13.9, Plt Count 186, MPV 10.8, Immature Gran % (Auto) 1.000 H, Neut % (Auto) 75.4 H, Lymph % (Auto) 11.4 L, [place] % (Auto) 11.4 H, Eos % (Auto) 0.3, Baso % (Auto) 0.5, Absolute Neuts (auto) 4.7, Absolute Lymphs (auto) 0.71 L, Nucleated RBC % 0, Sodium 140, Potassium 3.1 L, Chloride 106, Carbon Dioxide 29.0, Anion Gap 5, BUN 12, C reatinine 0.67 L, Estim Creat Clear Calc 65.00, Est GFR (MDRD) Af Amer 145, Est GFR (MDRD) Non-Af 120, BUN/Creatinine Ratio 18.0, Glucose 126 H, Calcium 8.1 L, Phosphorus 1.9 L, Magnesium 1.7 Micro: Microbiology 07/16/24 00:20 Sputum, Induced/Lukens Gram Stain - Final 07/16/24 00:20 Sputum, Induced/Lukens Respiratory Culture - Final Physical Exam GI GI Narrative: Abdomen- soft, slight distention. Hypoactive bowel sounds. Incision c/d/i. No erythema or infection noted. ABD pad in place Assessment & Plan Assessment/Plan (1) S/P exploratory laparotomy: PLAN: I am following this patient in conjunction with Dr. Carranza. She will independently evaluate this patient. Patient is very confused resting comfortably in bed. He voices wanting to go home. Difficult to obtain an accurate history of events at this time. Plan for another enema Obtain KUB this morning to assist with determining bowel function and diet status Continue NPO at this time Encourage I.S. and sitting in the chair Work with PT to encourage ambulation Plan to transfer patient to PCU today Labs reviewed. Plan for repeat labs tomorrow morning May use abdominal binder to assist with not removing the incisional dressing Appreciate hospitalist and intensivists recommendations We will continue to monitor this patient Charges/Coding Visit Charges Inpatient E&M: 19056 Subs Hosp L1 (post-op)
[2024-07-19] MEDS: Fludrocortisone Acetate 0.1 MG Tablet 0.05 MG PO (08:36)
[2024-07-19] MEDS: Enoxaparin 40 MG/0.4 ML Syringe SC (08:36)
[2024-07-19] MEDS: Memantine Hydrochloride 5 MG Tablet PO ×2 (08:36→20:09)
[2024-07-19] MEDS: Pantoprazole Sodium 40 MG in 0.9% Normal Saline (100mL MB+) 100 ML 330 MG IV ×2 (08:37→20:09)
--- NOTE | 2024-07-19 09:10 | RAD_ITS ---
STUDY: X-RAY - ABDOMEN/PELVIS REASON FOR EXAM: Male, 89 years old. small bowel obstruction -- PORTABLE TECHNIQUE: Single AP view of the abdomen / pelvis. COMPARISON: 07/17/2024 FINDINGS: Skin tanya in midline consistent with recent abdominal surgery. There is an unremarkable bowel gas pattern. The visualized liver, spleen and kidneys are grossly normal in size and morphology. Normal soft tissue structures. Status post right hip arthroplasty. RAD/Abdomen Single View (Portable) IMPRESSION: No bowel obstruction. Electronically Signed: Nico Loyola MD at 10:01 EDT ,
[2024-07-19] MEDS: Dextrose 5%-Lactated Ringers 1,000 ML 100 ML IV (09:12)
[2024-07-19] MEDS: Lisinopril 5 MG Tablet PO (09:40)
[2024-07-19] MEDS: Fleet Enema 133 ML RC (10:05)
[2024-07-19] MEDS: Lactulose 20 GM/30 ML UDC PO (12:56)
[2024-07-19] MEDS: Ensure Plus High Protein 120 ML LIQUID PO ×2 (15:22→20:22)
[2024-07-19] MEDS: CARBIDOPA/LEVODOPA CR 50/200 Tablet PO ×2 (15:22→20:09)
[2024-07-19] MEDS: NYSTATIN 500,000 UNIT/5 ML UDC 500000 UNIT PO ×2 (15:22→20:09)
[2024-07-20 02:00] VITALS: BP 138/88; PULSE 76; RESP 16; TEMP 36.8; O2SAT 94
[2024-07-20] MEDS: 0.9% Saline Lock 10 ML Syringe IV ×3 (04:49→22:48)
[2024-07-20] MEDS: Piperacil/Tazobactam 3.375 GM in 0.9% Normal Saline (50mL MB+) 50 ML IV ×3 (04:50→23:20)
[2024-07-20 05:03] LABS: Absolute Lymphocyte Count 1.02 X10^3/uL (0.83-4.51); Absolute Neutrophil Count 2.5 X10^3/uL (2.0-7.7); Basophil# 0.03 X10^3/uL; Basophil% 0.7 % (0-1); Eosinophil# 0.12 X10^3/uL; Eosinophils% 2.7 % (0-5); Hematocrit 34.2 % (40-54); Hemoglobin 11.1 g/dL (13.0-16.5); Lymphocyte # 1.02 X10^3/ul (0.83-4.51); Lymphocyte % 22.9 % (19-41); Mean Corp Hgb Conc 32.5 g/dL (32-36); Mean Corpuscular Hgb 31.5 pg (27.0-32.0); Mean Corpuscular Volume 97.2 fL (80-94); Mean Platelet Vol. 10.7 fl (6.2-12.0); Monocyte# 0.73 X10^3/uL; Monocyte% 16.4 % (0-10); NRBC Flagged by Analyzer 0 % (0-5); Neutrophil # 2.52 X10^3/uL (2.7-7.7); Neutrophil % 56.6 % (47-70); Platelet Count 211 K/mm3 (150-450); RBC Distribution Width CV 13.6 % (11.6-14.6); RBC Distribution Width SD 49.1 fl (35.1-43.9); Red Blood Count 3.52 M/mm3 (4.6-6.2); White Blood Count 4.5 K/mm3 (4.4-11.0)
[2024-07-20 05:19] LABS: Anion Gap 6 (5-15); BUN 10 mg/dL (7-18); BUN/Creat Ratio 16.8 RATIO (10-20); Calcium,Total 8.3 mg/dL (8.5-10.1); Chloride 106 mmol/L (98-107); EST Glomerular Filtration Rate 136 mL/min (>60); Est Glom Filt Rate - Afr Amer 164 mL/min (>60); Glucose 85 mg/dL (74-106); Phosphorus 2.9 mg/dL (2.5-4.9); Potassium 2.8 mmol/L (3.5-5.1); Sodium Level 140 mmol/L (136-145)
--- NOTE | 2024-07-20 05:55 | RAD_ITS ---
STUDY: X-RAY - ABDOMEN/PELVIS REASON FOR EXAM: Male, 89 years old. Constipation TECHNIQUE: Single AP view of the abdomen / pelvis. COMPARISON: Comparison is made with prior study dated July 19, 2024. FINDINGS: Mild increased markings at the lung bases suggestive linear atelectasis. Surgical clips are seen in the right midabdomen. There is a moderate amount of colonic fecal material. The visualized liver, spleen and kidneys are grossly normal in size and morphology. Normal soft tissue structures. Status post right total hip replacement. Degenerative changes of both sacroiliac joints. RAD/Abdomen Single View (Portable) IMPRESSION: Moderate amount of fecal material is seen in the colon. Electronically Signed: Chinmay Hardin MD at 9:43 EDT ,
[2024-07-20 08:17] VITALS: BP 175/99; PULSE 74; RESP 16; TEMP 36.3; O2SAT 93
--- NOTE | 2024-07-20 08:18 | PN.SURG_ITS ---
Subjective Subjective Patient resting comfortably in bed. He is lethargic this morning. He denies any abdominal pain. He denies any nausea, vomiting. His granddaughter spent the night in the room last night. She notes since he received his medication last night, he has been this way. She voices that her family would like to have a meeting with palliative/hospice care. Patient was started on clear liquids yesterday. Patient's granddaughter stated he did not consume much in the way of liquids yesterday. Patient did have successful bowel movement yesterday after the enema and lactulose. Objective Data Objective Data Vital Signs: Vital Signs Temp Pulse Resp BP Pulse Ox O2 Del Method O2 Flow Rate 98.3 F 76 16 138/88 H 94 Room Air 2 07/20/24 02:00 07/20/24 02:00 07/20/24 02:00 07/20/24 02:00 07/20/24 02:00 07/20/24 02:00 07/18/24 02:00 FiO2 25 07/17/24 13:00 Oxygen Flow Rate (L/min) 2 Oxygen Delivery Method Room Air Weight: 158 lb 11.725 oz Body Mass Index (BMI) 22.7 Intake & Output: Intake and Output for Last 24 Hours 07/18/24 07/19/24 07/20/24 23:59 23:59 23:59 Intake Total 4012.34 / 4012.34 3585.58 / 3585.58 50 / 50 Output Total 950 / 950 2975 / 2975 Balance 3062.34 / 3062.34 610.58 / 610.58 50 / 50 Lab / Micro Data 07/20/24 04:45 07/20/24 04:45 Labs: Laboratory Results - last 24 hr 07/20/24 04:45: WBC 4.5, RBC 3.52 L, Hgb 11.1 L, Hct 34.2 L, MCV 97.2 H, MCH 31.5, MCHC 32.5, RDW Std Deviation 49.1 H, RDW Coeff of Rylie 13.6, Plt Count 211, MPV 10.7, Immature Gran % (Auto) 0.700, Neut % (Auto) 56.6, Lymph % (Auto) 22.9, [place] % (Auto) 16.4 H, Eos % (Auto) 2.7, Baso % (Auto) 0.7, Absolute Neuts (auto) 2.5, Absolute Lymphs (auto) 1.02, Nucleated RBC % 0, Sodium 140, Potassium 2.8 L , Chloride 106, Carbon Dioxide 28.0, Anion Gap 6, BUN 10, Creatinine 0.60 L, Estim Creat Clear Calc 65.00, Est GFR (MDRD) Af Amer 164, Est GFR (MDRD) Non-Af 136, BUN/Creatinine Ratio 16.8, Glucose 85, Calcium 8.3 L, Phosphorus 2.9, Magnesium 2.0 Micro: Microbiology 07/16/24 00:20 Sputum, Induced/Lukens Gram Stain - Final 07/16/24 00:20 Sputum, Induced/Lukens Respiratory Culture - Final Radiography Diagnostic Testing: Radiology Impression KUB X-Ray 07/19/24 09:10 IMPRESSION: No bowel obstruction. Electronically Signed: Nico Loyola MD at 10:01 EDT Reading Location ID and State: [address] [place] [address] Tel , Service support , Physical Exam GI GI Narrative: Abdomen- soft, nontender, incision c/d/i. No erythema or infection noted. Positive bowel sounds. Assessment & Plan Assessment/Plan (1) S/P exploratory laparotomy: PLAN: I am following this patient in conjunction with Dr. Lloyd in Dr. Carranza's absence. He will independently evaluate this patient. Labs reviewed. Potassium replaced KUB today demonstrated stool within the rectal vault, improved from yesterday. Plan for another enema today Increase diet to full liquids Discussed with granddaughter about having palliative/hospice medicine consulted to discuss discharge planning Will also reach out to next of kin, Karla, to further discuss Discussed patient with Dr. Cabrales, Hospitalist. Appreciate her input and recommendations Order placed for patient to be transferred to PCU, awaiting bed. We will continue to monitor this patient Charges/Coding Visit Charges Inpatient E&M: 54201 Subs Hosp L1 (No charge; post-op)
[2024-07-20] MEDS: NYSTATIN 500,000 UNIT/5 ML UDC 500000 UNIT PO ×4 (08:20→22:47)
[2024-07-20] MEDS: Lisinopril 5 MG Tablet PO (08:20)
[2024-07-20] MEDS: Enoxaparin 40 MG/0.4 ML Syringe SC (08:20)
[2024-07-20] MEDS: Potassium Chloride Oral Soln 20 MEQ/15 ML UDC 60 MEQ PO (08:21)
[2024-07-20] MEDS: Memantine Hydrochloride 5 MG Tablet PO ×2 (08:21→22:46)
--- NOTE | 2024-07-20 10:05 | CASEMGMT ---
Social Work- SW met with physician who reports family requests hospice consult. Family expressed understanding of hospice. SW completed hospice referral. MELLISA Pollack
[2024-07-20] MEDS: Pantoprazole Sodium 40 MG in 0.9% Normal Saline (100mL MB+) 100 ML 330 MG IV ×2 (10:10→22:45)
[2024-07-20] MEDS: Ensure Plus High Protein 120 ML LIQUID PO ×3 (10:11→22:46)
[2024-07-20] MEDS: Fleet Enema 133 ML RC (10:11)
[2024-07-20] MEDS: CARBIDOPA/LEVODOPA CR 50/200 Tablet PO ×2 (11:30→22:48)
[2024-07-20 11:31] VITALS: BP 144/80
[2024-07-20 11:36] VITALS: O2SAT 95
--- NOTE | 2024-07-20 11:53 | PN.HOSP_ITS ---
Reason for Visit Reason for Visit: Abdominal pain Subjective Subjective No specific issues overnight. P.o. intake has been extremely poor. Patient is complaining of being fatigued today. Per discussion with general surgery physician photography assistant family is interested in talking to hospice so I have initiated this with case management Objective Data Objective Data Vital Signs: Vital Signs Temp Pulse Resp BP Pulse Ox O2 Del Method O2 Flow Rate 97.3 F L 74 16 144/80 H 95 Room Air 2 07/20/24 08:17 07/20/24 08:17 07/20/24 08:17 07/20/24 11:31 07/20/24 11:36 07/20/24 11:36 07/18/24 02:00 FiO2 25 07/17/24 13:00 Oxygen Flow Rate (L/min) 2 Oxygen Delivery Method Room Air Weight: 72 kg Body Mass Index (BMI) 22.7 Intake & Output: Intake and Output for Last 24 Hours 07/18/24 07/19/24 07/20/24 23:59 23:59 23:59 Intake Total 4012.34 / 4012.34 3585.58 / 3585.58 360 / 360 Output Total 950 / 950 2975 / 2975 Balance 3062.34 / 3062.34 610.58 / 610.58 360 / 360 Lab / Micro Data 07/20/24 04:45 07/20/24 04:45 Labs: Laboratory Results - last 24 hr 07/20/24 04:45: WBC 4.5, RBC 3.52 L, Hgb 11.1 L, Hct 34.2 L, MCV 97.2 H, MCH 31.5, MCHC 32.5, RDW Std Deviation 49.1 H, RDW Coeff of Rylie 13.6, Plt Count 211, MPV 10.7, Immature Gran % (Auto) 0.700, Neut % (Auto) 56.6, Lymph % (Auto) 22.9, [place] % (Auto) 16.4 H, Eos % (Auto) 2.7, Baso % (Auto) 0.7, Absolute Neuts (auto) 2.5, Absolute Lymphs (auto) 1.02, Nucleated RBC % 0, Sodium 140, Potassium 2.8 L , Chloride 106, Carbon Dioxide 28.0, Anion Gap 6, BUN 10, Creatinine 0.60 L, Estim Creat Clear Calc 65.00, Est GFR (MDRD) Af Amer 164, Est GFR (MDRD) Non-Af 136, BUN/Creatinine Ratio 16.8, Glucose 85, Calcium 8.3 L, Phosphorus 2.9, Magnesium 2.0 Micro: Microbiology 07/16/24 00:20 Sputum, Induced/Lukens Gram Stain - Final 07/16/24 00:20 Sputum, Induced/Lukens Respiratory Culture - Final Radiography Diagnostic Testing: Radiology Impression KUB X-Ray 07/20/24 05:55 IMPRESSION: Moderate amount of fecal material is seen in the colon. Electronically Signed: Chinmay Hardin MD at 9:43 EDT , Physical Exam Const alert, no apparent distress and average body habitus; Negative for healthy appearing Constitutional Narrative: Thin, frail, awake but confused, elderly, white Shinto male, sitting up in bed, nursing at bedside, patient appears comfortable currently, does not appear toxic however does appear quite fatigued, granddaughter at bedside HEENT head/scalp atraumatic and moist oral mucous membranes HEENT Narrative: Edentulous, Mallampati is 1-2, no thrush Head and Scalp: normocephalic Resp normal respiratory effort, no retractions, no use of accessory muscles and clear to auscultation bilaterally Auscultation: Negative for rales, rhonchi or wheezes Cardio regular rate, regular rhythm, S1 normal heart sound, S2 normal heart sound, no murmurs, no rub, no gallops and no clicks GI soft to palpation GI Narrative: Mild diffuse tenderness postoperatively, no distention, bowel sounds remain hypoactive, midline incision is clean dry and intact Extremity no clubbing, cyanosis or edema Extremity Narrative: Decreased lean muscle mass Neuro moves all extremities and no focal motor deficits Neuro Narrative: Marked generalized weakness noted Sensorium / Orientation: awake, alert and oriented to person Psych Psych Narrative: Eye contact is good, patient interacts appropriately answering questions and is able Assessment & Plan Assessment/Plan (1) Acute respiratory failure: (2) S/P exploratory laparotomy: (3) Small bowel obstruction: PLAN: Plan Acute acute respiratory failure -Patient was left intubated following his surgical procedure as he did not meet extubation requirements due to the fact he was not following commands -Highly suspect this was related to anesthesia -Imaging did show questionable right perihilar airspace opacity with a leukocytosis -Has empirically been on antibiotics with Zosyn--> day 5 7 -Suspect patient will have trouble taking oral Augmentin may need liquid Augmentin once tolerating p.o. -Extubated on 07/18/2024 -Swallow eval was pending -Currently on room air -Pulm/critical care medicine is following Possible right middle lobe pneumonia -Antibiotics as above -Sputum culture shows no growth -Zosyn day 5 --> will transition to p.o. Augmentin once okay with general surgery Small bowel volvulus causing small bowel obstruction -Postop day 5 status post ex lap with release of small bowel obstruction -Has been passing flatus and has had a small liquid bowel movement following enema yesterday -Patient is on clear liquid diet but not taking much in -General Surgery is following Hypokalemia/hypophosphatemia -Hypophosphatemia has resolved patient remains hypokalemic -60 mill equivalents p.o. liquid potassium given History of Parkinson's disease/associated Parkinson's related dementia -Continue home carbidopa/levodopa -Seems to be getting closer to baseline CAD/essential hypertension/hyperlipidemia -Continue home lisinopril but increase dose to 20 mg daily -continue to monitor -Restart home aspirin once able per general surgery -Patient is on no medication for his cholesterol BPH with obstruction -Will start Flomax once able to take in p.o. -Flomax is not crushable Asthma -Continue as needed albuterol GERD -Continue IV PPI until able to transition to p.o. DVT prophylaxis -Continue enoxaparin 40 mg daily CODE STATUS -DNR CCA with no intubation Disposition: Per discussion with general surgery physician photography assistant family would like to talk to hospice. Hospice consult was placed and plan is for meeting today at 2 PM Charges/Coding Visit Charges Inpatient E&M: 40189 Subs Hosp L2
--- NOTE | 2024-07-20 12:20 | CASEMGMT ---
Social Work- SW received a message from [employer] that a family meeting is scheduled for 14:00 today. SW spoke with ANAIS Buckner, and advised of meeting, as well as notification of physician. SW called dtr Alisa who reports that she will be here at 14:00, but was unaware of meeting prior. Alisa did report that she has a concussion and has poor memory at this time. Pt moved floors; new SW advised of situation with SW will continue to follow to ensure other family members are aware of meeting. MELLISA Pollack
--- NOTE | 2024-07-20 12:38 | CASEMGMT ---
SW called patient's daughter in law Mckenzie. Mckenzie has not been able to notify rest of family about 2p meeting with Hospice today. Mckenzie said she plans on notifying everyone. Sofie Harman HOOK PULLER KRISTAL
--- NOTE | 2024-07-20 12:55 | CASEMGMT ---
JANUSZ received a call from patient's daughter in law Mckenzie. Mckenzie said she called the rest of the family and they cannot come today. The next time everyone can be present for a hospice meeting is at 230. JANUSZ called Doris at Hospice and notified her and she said that would be fine. JANUSZ notified physician and surgery PA. JANUSZ will notify RN. Plan: Family will meet with Hospice Friday07-22-24 at 14:30. Sofie GIRALDO
[2024-07-20 14:13] VITALS: BP 150/78; PULSE 84; RESP 14; TEMP 37.1; O2SAT 93
[2024-07-20 22:45] VITALS: BP 163/92; PULSE 76; RESP 16; TEMP 36.6; O2SAT 94
[2024-07-20] MEDS: Acetaminophen 325 MG Tablet 650 MG PO (22:48)
[2024-07-21 04:45] VITALS: BMI 22.7
[2024-07-21] MEDS: Menthol/Lanolin/Calamine/Znox 113 GM Tube 1 APPLIC TOPICAL ×3 (06:09→21:24)
[2024-07-21] MEDS: Acetaminophen 325 MG Tablet 650 MG PO ×2 (06:09→17:51)
[2024-07-21] MEDS: Piperacil/Tazobactam 3.375 GM in 0.9% Normal Saline (50mL MB+) 50 ML IV ×3 (06:09→21:25)
[2024-07-21 06:32] VITALS: BP 152/79; PULSE 77; RESP 16; TEMP 37.2; O2SAT 93
[2024-07-21 09:30] VITALS: BP 125/61; PULSE 74; RESP 16; TEMP 36.4; O2SAT 93
[2024-07-21] MEDS: Enoxaparin 40 MG/0.4 ML Syringe SC (09:34)
[2024-07-21] MEDS: Fludrocortisone Acetate 0.1 MG Tablet 0.05 MG PO (09:34)
[2024-07-21] MEDS: Memantine Hydrochloride 5 MG Tablet PO ×2 (09:34→21:24)
[2024-07-21] MEDS: CARBIDOPA/LEVODOPA CR 50/200 Tablet PO ×2 (09:34→21:24)
[2024-07-21] MEDS: Ensure Plus High Protein 120 ML LIQUID PO (09:35)
[2024-07-21] MEDS: Pantoprazole Sodium 40 MG in 0.9% Normal Saline (100mL MB+) 100 ML 330 MG IV ×2 (09:35→21:22)
[2024-07-21] MEDS: Lisinopril 20 MG Tablet PO (09:45)
[2024-07-21 09:56] LABS: Anion Gap 5 (5-15); BUN 11 mg/dL (7-18); BUN/Creat Ratio 13.7 RATIO (10-20); Calcium,Total 8.2 mg/dL (8.5-10.1); Chloride 108 mmol/L (98-107); EST Glomerular Filtration Rate 96 mL/min (>60); Est Glom Filt Rate - Afr Amer 117 mL/min (>60); Glucose 125 mg/dL (74-106); Magnesium 1.7 mg/dL (1.6-2.6); Phosphorus 2.4 mg/dL (2.5-4.9); Potassium 3.4 mmol/L (3.5-5.1); Sodium Level 142 mmol/L (136-145)
--- NOTE | 2024-07-21 10:24 | PCM.PN.SRG ---
Subjective Subjective Patient has had flatus as well as bowel movements. Patient does take a little bit to wake up due to his Parkinson's/dementia. Palliative care/hospice meeting planned tomorrow Objective Data Objective Data Vital Signs: Vital Signs Temp Pulse Resp BP Pulse Ox O2 Del Method O2 Flow Rate 97.6 F L 74 16 125/61 H 93 Room Air 2 07/21/24 09:30 07/21/24 09:30 07/21/24 09:30 07/21/24 09:30 07/21/24 09:30 07/21/24 09:30 07/18/24 02:00 FiO2 25 07/17/24 13:00 Oxygen Flow Rate (L/min) 2 Oxygen Delivery Method Room Air Weight: 158 lb 11.725 oz Body Mass Index (BMI) 22.7 Intake & Output: Intake and Output for Last 24 Hours 07/19/24 07/20/24 07/21/24 23:59 23:59 23:59 Intake Total 3585.58 / 3585.58 640 / 640 230 / 230 Output Total 2975 / 2975 200 / 200 Balance 610.58 / 610.58 640 / 640 30 / 30 Lab / Micro Data 07/20/24 04:45 07/21/24 09:14 Labs: Laboratory Results - last 24 hr 07/21/24 09:14: Sodium 142, Potassium 3.4 L, Chloride 108 H, Carbon Dioxide 29.0, Anion Gap 5, BUN 11, Creatinine 0.80, Estim Creat Clear Calc 65.00, Est GFR (MDRD) Af Amer 117, Est GFR (MDRD) Non-Af 96, BUN/Creatinine Ratio 13.7, Glucose 125 H, Calcium 8.2 L, Phosphorus 2.4 L, Magnesium 1.7 Micro: Microbiology 07/16/24 00:20 Sputum, Induced/Lukens Gram Stain - Final 07/16/24 00:20 Sputum, Induced/Lukens Respiratory Culture - Final Radiography Diagnostic Testing: Radiology Impression KUB X-Ray 07/20/24 05:55 IMPRESSION: Moderate amount of fecal material is seen in the colon. Electronically Signed: Chinmay Hardin MD at 9:43 EDT , Physical Exam Resp normal respiratory effort Cardio regular rate GI GI Narrative: Abdomen: Soft, nondistended, tender near incision's dressed clean dry and intact with tanya, no peritoneal signs Assessment & Plan Assessment/Plan (1) S/P exploratory laparotomy: (2) Hypokalemia: PLAN: Plan Patient did tolerate full's will advance to low residue diet. Will check labs Continue Zosyn for the 7 days then [facility] Hypokalemia replace Hospice meeting planned for tomorrow. Alyssa Carranza M.D. Pager: [phone] [facility] [address] [place] [address], [facility], [address] [place] [address] Office: [phone]
[2024-07-21] MEDS: Potassium Chloride Oral Tablet 20 MEQ 40 MEQ PO (10:56)
[2024-07-21 14:47] VITALS: BP 169/86; PULSE 73; RESP 18; TEMP 36.4; O2SAT 95
[2024-07-21 14:52] VITALS: BP 169/86; PULSE 73
[2024-07-21] MEDS: hydrALAZINE 20 MG/ML Vial 10 MG IV (14:52)
--- NOTE | 2024-07-21 16:00 | PCM.PN.HOSP ---
Reason for Visit Reason for Visit: Abdominal pain Subjective Subjective P.o. intake is a little bit better. Tolerating his pills okay today. States he is lazy today. Son at bedside and questions answered. Plan is for hospice meeting tomorrow. Objective Data Objective Data Vital Signs: Vital Signs Temp Pulse Resp BP Pulse Ox O2 Del Method O2 Flow Rate 97.6 F L 73 18 169/86 H 95 Room Air 2 07/21/24 14:47 07/21/24 14:52 07/21/24 14:47 07/21/24 14:52 07/21/24 14:47 07/21/24 14:47 07/18/24 02:00 FiO2 25 07/17/24 13:00 Oxygen Flow Rate (L/min) 2 Oxygen Delivery Method Room Air Weight: 72 kg Body Mass Index (BMI) 22.7 Intake & Output: Intake and Output for Last 24 Hours 07/19/24 07/20/24 07/21/24 23:59 23:59 23:59 Intake Total 3585.58 / 3585.58 640 / 640 690 / 690 Output Total 2975 / 2975 200 / 200 Balance 610.58 / 610.58 640 / 640 490 / 490 Lab / Micro Data 07/20/24 04:45 07/21/24 09:14 Labs: Laboratory Results - last 24 hr 07/21/24 09:14: Sodium 142, Potassium 3.4 L, Chloride 108 H, Carbon Dioxide 29.0, Anion Gap 5, BUN 11, Creatinine 0.80, Estim Creat Clear Calc 65.00, Est GFR (MDRD) Af Amer 117, Est GFR (MDRD) Non-Af 96, BUN/Creatinine Ratio 13.7, Glucose 125 H, Calcium 8.2 L, Phosphorus 2.4 L, Magnesium 1.7 Micro: Microbiology 07/16/24 00:20 Sputum, Induced/Lukens Gram Stain - Final 07/16/24 00:20 Sputum, Induced/Lukens Respiratory Culture - Final Radiography Diagnostic Testing: Radiology Impression KUB X-Ray 07/20/24 05:55 IMPRESSION: Moderate amount of fecal material is seen in the colon. Electronically Signed: Chinmay Hardin MD at 9:43 EDT , Physical Exam Const alert, no apparent distress and average body habitus; Negative for healthy appearing Constitutional Narrative: Thin, frail, awake but confused, elderly, white Lutheran male, sitting up in bed, patient appears comfortable, nontoxic, more awake today and interactive, son at bedside HEENT head/scalp atraumatic HEENT Narrative: Edentulous, mucous membranes are moist Head and Scalp: normocephalic Resp normal respiratory effort, no retractions, no use of accessory muscles and clear to auscultation bilaterally Auscultation: Negative for rales, rhonchi or wheezes Cardio regular rate, regular rhythm, S1 normal heart sound, S2 normal heart sound, no murmurs, no rub, no gallops and no clicks GI soft to palpation GI Narrative: Mild diffuse tenderness postoperatively, no distention, bowel sounds remain hypoactive, midline incision is clean dry and intact Extremity no clubbing, cyanosis or edema Extremity Narrative: Decreased lean muscle mass Neuro moves all extremities and no focal motor deficits Neuro Narrative: Marked generalized weakness noted Psych Psych Narrative: Eye contact is good, patient interacts appropriately answering questions and is able Assessment & Plan Assessment/Plan (1) Acute respiratory failure: (2) S/P exploratory laparotomy: (3) Small bowel obstruction: PLAN: Plan Acute acute respiratory failure -Patient was left intubated following his surgical procedure as he did not meet extubation requirements due to the fact he was not following commands -Highly suspect this was related to anesthesia -Imaging did show questionable right perihilar airspace opacity with a leukocytosis -Has empirically been on antibiotics with Zosyn--> day 6 of 7 -Tomorrow is last day for IV antibiotics -Extubated on 07/18/2024 -Remains on room air -Pulm/critical care medicine has signed off Possible right middle lobe pneumonia -Antibiotics as above -Sputum culture shows no growth -Zosyn day 6 of 7--> will transition to p.o. Augmentin once okay with general surgery Small bowel volvulus causing small bowel obstruction -Postop day 6 status post ex lap with release of small bowel obstruction -Patient was advance to transitional diet and oral intake has improved some -General Surgery is following Hypokalemia/hypophosphatemia -Mild hypophosphatemia and hypokalemia -P.o. 40 mEq potassium given -Will add some oral Phos for today History of Parkinson's disease/associated Parkinson's related dementia -Continue home carbidopa/levodopa -Seems to be getting closer to baseline CAD/essential hypertension/hyperlipidemia -Continue lisinopril 20 mg daily -Add amlodipine 5 mg daily as blood pressures are still elevated and fairly consistently in the 140-160 range -continue to monitor -Restart home aspirin once able per general surgery -Patient is on no medication for his cholesterol Asthma -Continue as needed albuterol GERD -Continue IV PPI until able to transition to p.o. DVT prophylaxis -Continue enoxaparin 40 mg daily CODE STATUS -DNR CCA with no intubation Disposition: Hospice conversation tomorrow Charges/Coding Visit Charges Inpatient E&M: 87437 Subs Hosp L2
[2024-07-21 16:01] VITALS: BP 152/80
[2024-07-21] MEDS: 0.9% Saline Lock 10 ML Syringe IV (16:19)
[2024-07-21] MEDS: amLODIPine 5 MG Tablet PO (16:19)
[2024-07-21] MEDS: Ondansetron 4 MG/2 ML Vial IV (17:45)
[2024-07-21 21:00] VITALS: BP 126/65; PULSE 85; RESP 14; TEMP 36.6; O2SAT 94
[2024-07-21] MEDS: Na Biphos/Potassium Phosphate PACKET 1 PACKET PO (21:23)
[2024-07-22 03:00] VITALS: BP 131/75; PULSE 73; RESP 12; TEMP 36.6; O2SAT 95
[2024-07-22] MEDS: Piperacil/Tazobactam 3.375 GM in 0.9% Normal Saline (50mL MB+) 50 ML IV ×2 (05:23→13:55)
[2024-07-22 05:27] VITALS: BMI 22.5
--- NOTE | 2024-07-22 07:06 | PN.SURG_ITS ---
Subjective Subjective penelope transitional diet, hospice meeting today at 2:30 pm Objective Data Objective Data Vital Signs: Vital Signs Temp Pulse Resp BP Pulse Ox O2 Del Method O2 Flow Rate 97.8 F 73 12 131/75 H 95 Room Air 2 07/22/24 03:00 07/22/24 03:00 07/22/24 03:00 07/22/24 03:00 07/22/24 03:00 07/22/24 03:55 07/18/24 02:00 FiO2 25 07/17/24 13:00 Oxygen Flow Rate (L/min) 2 Oxygen Delivery Method Room Air Weight: 157 lb 6.561 oz Body Mass Index (BMI) 22.5 Intake & Output: Intake and Output for Last 24 Hours 07/20/24 07/21/24 07/22/24 23:59 23:59 23:59 Intake Total 640 / 640 1050 / 1050 50 / 50 Output Total 600 / 750 350 / 350 Balance 640 / 640 450 / 300 -300 / -300 Lab / Micro Data 07/22/24 07:22 07/22/24 07:22 Labs: Laboratory Results - last 24 hr 07/21/24 09:14: Sodium 142, Potassium 3.4 L, Chloride 108 H, Carbon Dioxide 29.0, Anion Gap 5, BUN 11, Creatinine 0.80, Estim Creat Clear Calc 65.00, Est GFR (MDRD) Af Amer 117, Est GFR (MDRD) Non-Af 96, BUN/Creatinine Ratio 13.7, G lucose 125 H, Calcium 8.2 L, Phosphorus 2.4 L, Magnesium 1.7 Micro: Microbiology 07/16/24 00:20 Sputum, Induced/Lukens Gram Stain - Final 07/16/24 00:20 Sputum, Induced/Lukens Respiratory Culture - Final Radiography Diagnostic Testing: Radiology Impression KUB X-Ray 07/20/24 05:55 IMPRESSION: Moderate amount of fecal material is seen in the colon. Electronically Signed: Chinmay Hardin MD at 9:43 EDT , Physical Exam Resp normal respiratory effort Cardio regular rate GI GI Narrative: Abdomen: Soft, nondistended, tender near incision's dressed clean dry and intact with tanya, no peritoneal signs Assessment & Plan Assessment/Plan (1) S/P exploratory laparotomy: (2) Hypokalemia: PLAN: Plan Patient did tolerate low residue diet. Will check labs- addendum: potassium WNL Continue Zosyn for the 7 days then plan to DC with Augmentin Skin tanya to removed be removed 14 days from surgery Appreciate medicine's assistance. Hospice meeting planned for today. possible d/c today? Alyssa Carranza M.D. Pager: [phone] [facility] [address] [place] [address], [facility], [address] [place] [address] Office: [phone]
[2024-07-22 07:31] LABS: Absolute Lymphocyte Count 1.09 X10^3/uL (0.83-4.51); Absolute Neutrophil Count 3.3 X10^3/uL (2.0-7.7); Basophil# 0.05 X10^3/uL; Basophil% 0.9 % (0-1); Eosinophil# 0.31 X10^3/uL; Eosinophils% 5.6 % (0-5); Hematocrit 35.3 % (40-54); Hemoglobin 11.1 g/dL (13.0-16.5); Lymphocyte # 1.09 X10^3/ul (0.83-4.51); Lymphocyte % 19.8 % (19-41); Mean Corp Hgb Conc 31.4 g/dL (32-36); Mean Corpuscular Hgb 31.4 pg (27.0-32.0); Mean Corpuscular Volume 99.7 fL (80-94); Mean Platelet Vol. 10.1 fl (6.2-12.0); Monocyte% 12.7 % (0-10); NRBC Flagged by Analyzer 0 % (0-5); Neutrophil # 3.32 X10^3/uL (2.7-7.7); Neutrophil % 60.5 % (47-70); Platelet Count 223 K/mm3 (150-450); RBC Distribution Width CV 13.9 % (11.6-14.6); RBC Distribution Width SD 50.4 fl (35.1-43.9); Red Blood Count 3.54 M/mm3 (4.6-6.2); White Blood Count 5.5 K/mm3 (4.4-11.0)
[2024-07-22 08:01] LABS: Anion Gap 2 (5-15); BUN 10 mg/dL (7-18); BUN/Creat Ratio 13.3 RATIO (10-20); Calcium,Total 8.4 mg/dL (8.5-10.1); Chloride 109 mmol/L (98-107); Creatinine, Serum 0.75 mg/dL (0.70-1.30); EST Glomerular Filtration Rate 104 mL/min (>60); Est Glom Filt Rate - Afr Amer 126 mL/min (>60); Estimated Creatinine Clearance 64.46 ml/min; Glucose 89 mg/dL (74-106); Sodium Level 141 mmol/L (136-145)
[2024-07-22 08:39] VITALS: BP 164/80; PULSE 71; RESP 18; TEMP 36.4; O2SAT 93
[2024-07-22] MEDS: Memantine Hydrochloride 5 MG Tablet PO ×2 (08:42→21:05)
[2024-07-22] MEDS: Menthol/Lanolin/Calamine/Znox 113 GM Tube 1 APPLIC TOPICAL ×2 (08:42→21:05)
[2024-07-22] MEDS: Fludrocortisone Acetate 0.1 MG Tablet 0.05 MG PO (08:42)
[2024-07-22] MEDS: CARBIDOPA/LEVODOPA CR 50/200 Tablet PO ×2 (08:42→21:04)
[2024-07-22] MEDS: Acetaminophen 325 MG Tablet 650 MG PO (08:42)
[2024-07-22] MEDS: Enoxaparin 40 MG/0.4 ML Syringe SC (08:42)
[2024-07-22] MEDS: Lisinopril 20 MG Tablet PO (08:42)
[2024-07-22] MEDS: Ensure Plus High Protein 120 ML LIQUID PO ×2 (08:43→21:05)
[2024-07-22] MEDS: amLODIPine 5 MG Tablet PO (08:51)
[2024-07-22] MEDS: Pantoprazole Sodium 40 MG in 0.9% Normal Saline (100mL MB+) 100 ML 330 MG IV ×2 (08:51→21:05)
[2024-07-22] MEDS: Senna/Docusate Sodium 1 Tablet 2 TABLET PO ×2 (10:57→21:04)
--- NOTE | 2024-07-22 15:33 | PCM.PN.HOSP ---
Reason for Visit Reason for Visit: Abdominal pain Subjective Subjective No significant issues reported. Seems as if appetite is improving. Son is at bedside with many questions but they pertain mostly to his abdominal issues. Have asked Dr. Carranza to come and talk to him with regards to this. Hospice meeting is later today. Objective Data Objective Data Vital Signs: Vital Signs Temp Pulse Resp BP Pulse Ox O2 Del Method O2 Flow Rate 97.6 F L 71 18 164/80 H 93 Room Air 2 07/22/24 08:39 07/22/24 08:39 07/22/24 08:39 07/22/24 08:39 07/22/24 08:39 07/22/24 14:42 07/18/24 02:00 FiO2 25 07/17/24 13:00 Oxygen Flow Rate (L/min) 2 Oxygen Delivery Method Room Air Weight: 71.4 kg Body Mass Index (BMI) 22.5 Intake & Output: Intake and Output for Last 24 Hours 07/20/24 07/21/24 07/22/24 23:59 23:59 23:59 Intake Total 640 / 640 1050 / 1050 510 / 510 Output Total 600 / 750 550 / 550 Balance 640 / 640 450 / 300 -40 / -40 Lab / Micro Data 07/22/24 07:22 07/22/24 07:22 Labs: Laboratory Results - last 24 hr 07/22/24 07:22: WBC 5.5, RBC 3.54 L, Hgb 11.1 L, Hct 35.3 L, MCV 99.7 H, MCH 31.4, MCHC 31.4 L, RDW Std Deviation 50.4 H, RDW Coeff of Rylie 13.9, Plt Count 223, MPV 10.1, Immature Gran % (Auto) 0.500, Neut % (Auto) 60.5, Lymph % (Auto) 19.8, [place] % (Auto) 12.7 H, Eos % (Auto) 5.6 H, Baso % (Auto) 0.9, Absolute Neuts (auto) 3.3, Absolute Lymphs (auto) 1.09, Nucleated RBC % 0, Sodium 141, Potassium 4.0, Chloride 109 H, Carbon Dioxide 30.0, Anion Gap 2 L, BUN 10, Creatinine 0.75, Estim Creat Clear Calc 64.46, Est GFR (MDRD) Af Amer 126, Est GFR (MDRD) Non-Af 104, BUN/Creatinine Ratio 13.3, Glucose 89, Calcium 8.4 L Micro: Microbiology 07/16/24 00:20 Sputum, Induced/Lukens Gram Stain - Final 07/16/24 00:20 Sputum, Induced/Lukens Respiratory Culture - Final Physical Exam Const alert, no apparent distress and average body habitus; Negative for healthy appearing Constitutional Narrative: Thin, frail, debilitated, elderly, Magdiel male, sitting up in the chair at the bedside, son at the bedside, patient appears comfortable HEENT head/scalp atraumatic and moist oral mucous membranes HEENT Narrative: Edentulous, Mallampati 2, no thrush GI soft to palpation GI Narrative: Minimal diffuse tenderness postoperatively, no distention, bowel sounds within normal limits, midline incision remains clean dry and intact Assessment & Plan Assessment/Plan (1) Acute respiratory failure: (2) S/P exploratory laparotomy: (3) Small bowel obstruction: PLAN: Plan Acute acute respiratory failure -Resolved Possible right middle lobe pneumonia -Antibiotics as above -Antibiotics complete today Small bowel volvulus causing small bowel obstruction -Postop day 7 status post ex lap with release of small bowel obstruction -General Surgery is primary and managing Hypokalemia/hypophosphatemia -Resolved History of Parkinson's disease/associated Parkinson's related dementia -Continue home carbidopa/levodopa -Seems to be getting closer to baseline CAD/essential hypertension/hyperlipidemia -Continue lisinopril 20 mg daily -Continue amlodipine 5 mg daily -continue to monitor -Patient is on no medication for his cholesterol Asthma -Continue as needed albuterol GERD -P.o. PPI DVT prophylaxis -Continue enoxaparin 40 mg daily CODE STATUS -DNR CCA with no intubation Disposition: Plan is home with hospice tomorrow Charges/Coding Visit Charges Inpatient E&M: 53579 [facility] Hosp L1
--- NOTE | 2024-07-22 15:34 | CASEMGMT ---
Social Work [facility] here to meet with pt and family. [facility] nurse stating family would like to take pt home first thing in the morning and hospice will meet pt at their home. Physicians notified and agreeable to dc tomorrow. SW to notify hospice with discharge time tomorrow. MELLISA Dorsey
[2024-07-22 16:09] VITALS: BP 145/81; PULSE 81; RESP 18; TEMP 37; O2SAT 93
[2024-07-22] MEDS: Na Biphos/Potassium Phosphate PACKET 1 PACKET PO (21:19)
[2024-07-22 22:00] VITALS: BP 137/83; PULSE 84; RESP 16; TEMP 36.6; O2SAT 94
[2024-07-23 03:08] VITALS: BMI 22.5
[2024-07-23 04:00] VITALS: BP 156/83; PULSE 81; RESP 16; TEMP 36.4; O2SAT 96
--- NOTE | 2024-07-23 07:05 | PN.SURG_ITS ---
Subjective Subjective Patient family decided home with hospice yesterday. Plan to DC this morning. Objective Data Objective Data Vital Signs: Vital Signs Temp Pulse Resp BP Pulse Ox O2 Del Method O2 Flow Rate 97.5 F L 81 16 156/83 H 96 Room Air 2 07/23/24 04:00 07/23/24 04:00 07/23/24 04:00 07/23/24 04:00 07/23/24 04:00 07/23/24 04:00 07/18/24 02:00 FiO2 25 07/17/24 13:00 Oxygen Flow Rate (L/min) 2 Oxygen Delivery Method Room Air Weight: 157 lb 3.033 oz Body Mass Index (BMI) 22.5 Intake & Output: Intake and Output for Last 24 Hours 07/21/24 07/22/24 07/23/24 23:59 23:59 23:59 Intake Total 1050 / 1050 694.58 / 694.58 310 / 310 Output Total 600 / 750 950 / 950 750 / 750 Balance 450 / 300 -255.42 / -255.42 -440 / -440 Lab / Micro Data 07/22/24 07:22 07/22/24 07:22 Labs: Laboratory Results - last 24 hr 07/22/24 07:22: WBC 5.5, RBC 3.54 L, Hgb 11.1 L, Hct 35.3 L, MCV 99.7 H, MCH 31.4, MCHC 31.4 L, RDW Std Deviation 50.4 H, RDW Coeff of Rylie 13.9, Plt Count 223, MPV 10.1, Immature Gran % (Auto) 0.500, Neut % (Auto) 60.5, Lymph % (Auto) 19.8, [place] % (Auto) 12.7 H, Eos % (Auto) 5.6 H, Baso % (Auto) 0.9, Absolute Neuts (auto) 3.3, Absolute Lymphs (auto) 1.09, Nucleated RBC % 0, Sodium 141, Potassium 4.0, Chloride 109 H, Carbon Dioxide 30.0, Anion Gap 2 L, BUN 10, Creatinine 0.75, Estim Creat Clear Calc 64.46, Est GFR (MDRD) Af Amer 126, Est GFR (MDRD) Non-Af 104, BUN/Creatinine Ratio 13.3, Glucose 89, Calcium 8.4 L Micro: Microbiology 07/16/24 00:20 Sputum, Induced/Lukens Gram Stain - Final 07/16/24 00:20 Sputum, Induced/Lukens Respiratory Culture - Final Physical Exam Resp normal respiratory effort Cardio regular rate GI GI Narrative: Abdomen: Soft, nondistended, tender near incision's dressed clean dry and intact with tanya, no peritoneal signs Assessment & Plan Assessment/Plan (1) S/P exploratory laparotomy: (2) Hypokalemia: PLAN: Plan Will DC home with hospice this morning. Alyssa Carranza M.D. Pager: [phone] [facility] [address] [place] [address], [facility], [address] [place] [address] Office: [phone]
--- NOTE | 2024-07-23 07:06 | EX.PCM.DISCH ---
Discharge Instructions Diet Discharge Diet: No restrictions Activity May shower in (days): 1 Lifting Restrictions: no lifting >20 lbs x 2 wks Dressing / Incision Call your doctor if your incision/area has: Continuous Slow Oozing, Sudden Increased Bleeding, Increased Pain/ Swelling, Increased Redness, Foul Smelling Discharge and Swelling at the incision site Call your doctor if you observe: Fever of 101 or Higher Remove Dressing in: 1 day (Patient does not need a dressing over the top and less he is picking at the tanya.) Cleanse incision/area with: Soap & Water Additional Dressing/Incision Instructions:: Please remove tanya 14 days from surgery approximately 07/30/2024. Follow Up Care Please Follow Up With: Alyssa Carranza MD When: Okay to follow-up as needed. Hospice can also remove tanya in 14 days from surgery. Office number is [phone] Test Results: Test results from this visit will be discussed in further detail at your follow-up appointment, if applicable. Discharge Plan Admission Admit Date/Time: 07/15/24 23:26 Primary Reason for Your Visit: abdominal pain Attending Provider: Alyssa Carranza Primary Care Provider: Hai Ovalle Consulting Providers: Jomar Maldonado; Emerita Cabrales; Morena Castano; Frank Alvarez; Kelsey Joyner; Louise Luu; Rody Haynes; Shavonne Ovalle [employer]; Opal Abraham Discharge Orders/Prescriptions Prescriptions: New amlodipine 5 mg Tablet 5 mg PO DAILY Qty: 30 0RF lisinopril 20 mg Tablet 20 mg PO DAILY Qty: 30 0RF Continued multivitamin Tablet 1 tab PO DAILY melatonin 3 mg capsule 3 mg PO HS PRN (Reason: Sleep) Protandim 1 tab PO DAILY Brain Health Herbal Supplement PO fludrocortisone 0.1 mg tablet 0.1 mg .ROUTE .COMPLEX Qty: 42 2RF Rx Instructions: Take one-half tablet PO 6 days/week (every Friday, Friday, Friday, , Friday and Friday) to be taken in the morning. carbidopa-levodopa 50-200 mg tablet extended release 1 tab PO BID Qty: 180 2RF dicyclomine 10 mg/5 mL solution 20 mg PO BID PRN (Reason: abdominal pain) Qty: 1800 2RF acetaminophen 325 mg Tablet 650 mg PO Q4H PRN PRN (Reason: Pain 1-10/Fever) Qty: 0 0RF nitroglycerin 0.4 mg tablet, sublingual 0.4 mg sublingual Q5M PRN (Reason: chest pain) Qty: 25 3RF Rx Instructions: do not exceed 3 doses per episode Discontinued memantine 5 mg tablet 5 mg PO BID Qty: 180 2RF aspirin 81 mg Tablet,Delayed Release (Dr/Ec) 81 mg PO DAILY lisinopril 5 mg tablet 5 mg PO DAILY Qty: 90 3RF Referrals / Follow Up: Hai Ovalle DO [Primary Care Provider] - Disposition Disposition (needs filled in before D/C Order can be placed): Hospice in Home
--- NOTE | 2024-07-23 07:09 | DS.PCM_ITS ---
Providers Date of Admission: 07/15/24 Primary Care Physician: Dr. Hai Ovalle, DO Consultations 07/15/24 23:33 Consult: Hospitalist Routine Consulting Provider: Morena Castano Reason for Consult: medical management EMERGENT Consult: No MD Notified: Yes Date Notified: 07/15/24 Time Notified: 23:33 Method of Notification: ED Physician Initiated 07/16/24 06:19 Consult: [employer] Engineer / Pulmonary Medicine Routine Consulting Provider: Intensivists/Pulmonary Med Reason for Consult: vented post op EMERGENT Consult: No MD Notified: Yes Date Notified: 07/16/24 Time Notified: 06:19 Method of Notification: Verbal 07/20/24 09:41 Consult: Hospice / Palliative Care Routine Consulting Provider: [facility] Reason for Consult: Family request d/t medical decline EMERGENT Consult: No MD Notified: Yes Date Notified: 07/20/24 Time Notified: 09:41 Method of Notification: Verbal Reason For Visit: SBO 2/2 SB VOLVULUS Diagnosis Discharge Diagnosis (1) S/P exploratory laparotomy: Status: Acute Code(s): Z98.890 - Other specified postprocedural states (2) Hypokalemia: Status: Acute Code(s): E87.6 - Hypokalemia Plan Will DC home with hospice this morning. Alyssa Carranza M.D. Pager: [phone] [facility] [address] [place] [address], [address] [place] [id number] Office: [phone] Medications at Discharge Home Medications Protandim 1 tab PO DAILY 11/21/20 melatonin 3 mg capsule 3 mg PO HS PRN Sleep 11/21/20 multivitamin 1 tab PO DAILY 11/21/20 nitroglycerin 0.4 mg sublingual tablet 0.4 mg sublingual Q5M PRN chest pain #25 tabs 08/27/22 Brain Health Herbal Supplement PO 10/30/22 acetaminophen 325 mg tablet 650 mg (2 x 325 mg) PO Q4H PRN PRN Pain 1-10/Fever #0 tabs 07/03/23 carbidopa ER 50 mg-levodopa 200 mg tablet,extended release 1 tab PO BID #180 tabs 06/30/24 dicyclomine 10 mg/5 mL oral solution 20 mg (10 mL) PO BID PRN abdominal pain #1,800 mL 06/30/24 fludrocortisone 0.1 mg tablet 0.1 mg .Route .COMPLEX #42 tabs 06/30/24 amlodipine 5 mg tablet 5 mg PO DAILY #30 tabs 07/22/24 lisinopril 20 mg tablet 20 mg PO DAILY #30 tabs 07/22/24 Hospital Course Operations - (Exploratory laparotomy, release of small bowel volvulus) Procedures None Summary of Care Provided Minutes Spent on Discharge: 15 Hospital Course: Patient came to the ER due to increased abdominal pain. CT abdomen pelvis showed bowel obstruction called no obvious transition but there was swirling of vessels. On my read there was an obvious transition with the small bowel volvulus. Patient went underwent exploratory laparotomy and release of bowel obstruction. Patient postoperatively did stay intubated in the ICU postoperatively as well as the following day until ICU felt he was able to be extubated. Patient did get multiple enemas due to his constipation on admit. Patient did regain bowel function was able to be started on a diet and advanced slowly. Patient was able to tolerate his diet similar to at home per family. Patient family met with hospice and agreed with home hospice. Plan to discharge home. Patient will have his tanya removed in 14 days from surgery approximately July 30. Weight / BMI Weight Weight: 157 lb 3.033 oz Body Mass Index (BMI) 22.5 ABG / Lab / Microbiology Data 07/22/24 07:22 07/22/24 07:22 Laboratory: Laboratory Results - last 24 hr 07/22/24 07:22: WBC 5.5, RBC 3.54 L, Hgb 11.1 L, Hct 35.3 L, MCV 99.7 H, MCH 31.4, MCHC 31.4 L, RDW Std Deviation 50.4 H, RDW Coeff of Rylie 13.9, Plt Count 223, MPV 10.1, Immature Gran % (Auto) 0.500, Neut % (Auto) 60.5, Lymph % (Auto) 19.8, Mobile % (Auto) 12.7 H, Eos % (Auto) 5.6 H, Baso % (Auto) 0.9, Absolute Neuts (auto) 3.3, Absolute Lymphs (auto) 1.09, Nucleated RBC % 0, Sodium 141, Potassium 4.0, Chloride 109 H, Carbon Dioxide 30.0, Anion Gap 2 L, BUN 10, Creatinine 0.75, Estim Creat Clear Calc 64.46, Est GFR (MDRD) Af Amer 126, Est GFR (MDRD) Non-Af 104, BUN/Creatinine Ratio 13.3, Glucose 89, Calcium 8.4 L Microbiology: Microbiology 07/16/24 00:20 Sputum, Induced/Lukens Gram Stain - Final 07/16/24 00:20 Sputum, Induced/Lukens Respiratory Culture - Final D/C Instructions Discharge Diet: No restrictions May shower in (days): 1 Call your doctor if your incision/area has: Continuous Slow Oozing, Sudden Increased Bleeding, Increased Pain/ Swelling, Increased Redness, Foul Smelling Discharge and Swelling at the incision site Call your doctor if you observe: Fever of 101 or Higher Cleanse incision/area with: Soap & Water Additional Dressing/Incision Instructions: Please remove tanya 14 days from surgery approximately 07/30/2024. Please Follow Up With: Alyssa Carranza MD When: Okay to follow-up as needed. Hospice can also remove tanya in 14 days from surgery. Office number is [phone] Meaningful Use Info Meaningful Use Meaningful Use Diagnoses (Choose all that apply): None applicable Ischemic Stroke Statin Dosing Therapy Reference: STATIN DOSE THERAPY REFERENCE: * Patients > 75 years receive moderate or high dose statin therapy. * Patients 75 years or YOUNGER should receive HIGH intensity statin dose unless contraindicated. You will be required to document reason for non-treatment if statin daily dose does not meet guidelines. HIGH DOSE STATIN THERAPY DAILY Atorvastatin > than or = to 40 mg Rosuvastatin > than or = to 20 mg Amlodipine + Atorvastatin > than or = to 2.5/40 mg Ezetimibe + Simvastatin 10/80 mg Simvastatin 80mg Discharge Plan Admission Admit Date/Time: 07/15/24 23:26 Primary Reason for Your Visit: abdominal pain Attending Provider: Alyssa Carranza Primary Care Provider: Hai Ovalle Consulting Providers: Jomar Maldonado; Emerita Cbarales; Morena Castano; Frank Alvarez; Kelsey Joyner; Louise Luu; Rody Haynes; Shavonne Ovalle NP; Opal Abraham Discharge Orders/Prescriptions Prescriptions: New amlodipine 5 mg Tablet 5 mg PO DAILY Qty: 30 0RF lisinopril 20 mg Tablet 20 mg PO DAILY Qty: 30 0RF Continued multivitamin Tablet 1 tab PO DAILY melatonin 3 mg capsule 3 mg PO HS PRN (Reason: Sleep) Protandim 1 tab PO DAILY Brain Health Herbal Supplement PO fludrocortisone 0.1 mg tablet 0.1 mg .ROUTE .COMPLEX Qty: 42 2RF Rx Instructions: Take one-half tablet PO 6 days/week (every Friday, Friday, Friday, , Friday and Friday) to be taken in the morning. carbidopa-levodopa 50-200 mg tablet extended release 1 tab PO BID Qty: 180 2RF dicyclomine 10 mg/5 mL solution 20 mg PO BID PRN (Reason: abdominal pain) Qty: 1800 2RF acetaminophen 325 mg Tablet 650 mg PO Q4H PRN PRN (Reason: Pain 1-10/Fever) Qty: 0 0RF nitroglycerin 0.4 mg tablet, sublingual 0.4 mg sublingual Q5M PRN (Reason: chest pain) Qty: 25 3RF Rx Instructions: do not exceed 3 doses per episode Discontinued memantine 5 mg tablet 5 mg PO BID Qty: 180 2RF aspirin 81 mg Tablet,Delayed Release (Dr/Ec) 81 mg PO DAILY lisinopril 5 mg tablet 5 mg PO DAILY Qty: 90 3RF Referrals / Follow Up: Hai Ovalle DO [Primary Care Provider] - Disposition Disposition (needs filled in before D/C Order can be placed): Hospice in Home
--- NOTE | 2024-07-23 09:00 | CASEMGMT ---
SW met with patient's son. Introduced self and role at [facility]. They have transport to take patient home, they are just waiting on d/c paperwork. SW notified RN that SW is oka for d/c. SW will notify Hospice once SW knows what time patient will be picked up. Plan: Home with [facility]. Sofie GIRALDO
--- NOTE | 2024-07-23 09:41 | CASEMGMT ---
JANUSZ called Doris at Hospice and let her know patient's ride is here now. They will get a nurse out to the home. Plan: d/c home with [facility]. Family arranged their own transportation. Sofie GIRALDO
[2024-07-23 09:47] VITALS: BP 156/83; PULSE 81; RESP 18; TEMP 36.4; O2SAT 96
[2024-07-23] MEDS: Fludrocortisone Acetate 0.1 MG Tablet 0.05 MG PO (10:02)
[2024-07-23] MEDS: Memantine Hydrochloride 5 MG Tablet PO (10:03)
[2024-07-23] MEDS: Lisinopril 20 MG Tablet PO (10:03)
[2024-07-23] MEDS: amLODIPine 5 MG Tablet PO (10:03)
[2024-07-23] MEDS: Senna/Docusate Sodium 1 Tablet 2 TABLET PO (10:03)
[2024-07-23] MEDS: CARBIDOPA/LEVODOPA CR 50/200 Tablet PO (10:03)
[2024-07-23] MEDS: Menthol/Lanolin/Calamine/Znox 113 GM Tube 1 APPLIC TOPICAL (10:04)
== END 2024-07-23 10:40 | disposition hospice, home (50) | DRG 356 ==
LOC: ED 21:34 → ICU 07-16 03:22 → PCU 07-20 12:00
PROVIDERS: Family Medicine; Internal Medicine; Internal Medicine Critical Care Medicine; Admitting Provider Surgery; Emergency Provider Emergency Medicine; PCP Family Medicine; Visit Provider Surgery
PROC: 0DJ60ZZ Inspection of Stomach, Open Approach (ICD-10-PCS; CPT 44202; principal; 2024-07-15 21:45)
DX: K56.2 Volvulus (principal); J96.01 Acute respiratory failure with hypoxia; J18.9 Pneumonia, unspecified organism; N13.8 Other obstructive and reflux uropathy; Z51.5 Encounter for palliative care; F02.80 Dementia in other diseases classified elsewhere, unspecified severity, without behavioral disturbance, psychotic disturbance, mood disturbance, and anxiety; G20.C Parkinsonism, unspecified; I10 Essential (primary) hypertension; J45.909 Unspecified asthma, uncomplicated; E78.00 Pure hypercholesterolemia, unspecified; K44.9 Diaphragmatic hernia without obstruction or gangrene; I25.10 Atherosclerotic heart disease of native coronary artery without angina pectoris; K21.9 Gastro-esophageal reflux disease without esophagitis; E87.6 Hypokalemia; K59.00 Constipation, unspecified; Z66 Do not resuscitate; Z95.5 Presence of coronary angioplasty implant and graft; R73.9 Hyperglycemia, unspecified; Z79.82 Long term (current) use of aspirin; Z86.73 Personal history of transient ischemic attack (TIA), and cerebral infarction without residual deficits; R50.9 Fever, unspecified; N40.1 Benign prostatic hyperplasia with lower urinary tract symptoms; Z79.01 Long term (current) use of anticoagulants
CPT/HCPCS: 31720; 36415; 36600; 71045; 74018; 74177; 80048; 80053; 81001; 82550; 82803; 82962; 83036; 83605; 83690; 83735; 84100; 84132; 84145; 84478; 85025; 87070; 87205; 93005; 94002; 94003; 94660; 97116; 97162; 97163; 97166; 97530; 97535; 97802; 99284; J7030; J7050; J7120; Q9967; A4216; J1940; J2405